=== PATIENT | female | born 1985 | race Caucasian/White ===

== ENCOUNTER → 2017-02-18 | Outpatient (CLI) | payer MEDICAID ==
[~2017-02-18] MED LIST: ALBUTEROL2 PUFFS/17 IN; ALLERGY10 MG PO; APAP/BUTALBITAL1 TA1 PO; CEPHALEXIN250 MG PO; CIPRO 500MG TA500 MG PO; FIORICET 325 MG1 TAB PO; FLEET ENEMA 13135 ML RC; FLEXERIL10 MG PO; FLOVENT 11110 MCG/PU IH; HYDROCODONE1 TABLET PO; KEFLEX250 MG NG; KEFLEX500 MG PO; LAXATIVE5 MG PO; LODINE200 MG PO; LORTAB 5/3251 TAB PO; LORTAB 5/500 501 TAB PO; LORTAB 500 MG-71 TAB PO; LORTAB 7.5/3251 TAB PO; MAPAP PM PO; MEDROL 4MG. DOSE4 MG PO; MELOXICAM15 MG PO; MONTELUKAST SOD10 MG PO; NAPROSYN 500MG500 MG PO; NEURONTIN 300M300 MG PO; PROTONIX 40MG T40 MG PO; SILVADENE CREAM50 GM EX; TESSALON PERLE100 M1 PO; TRAMADOL 50MG T50 MG PO; ULTRAM 50 MG TA50 MG PO; VENTOLIN H0.09 MG/Ac IH; VICODIN 5/500 T1 TAB PO; VOLTAREN75 MG PO; ZITHROMAX Z PA250 MG PO; ZITHROMAX500 MG PO; ZOFRAN4 MG PO; Zithromax500 MG PO
[2017-02-18 12:37] LABS: BUN 12 mg/dL (7-18)
[2017-02-18 12:55] LABS: GFR (ESTIMATED) 97 ML/MIN (59-)
== END ==
LOC: LAB 11:25
PROVIDERS: Internal Medicine Adolescent Medicine
DX: Z00.00 Encounter for general adult medical examination without abnormal findings (principal)

== ENCOUNTER 2017-03-15 20:11 | Emergency (ER) | payer MEDICAID ==
[~2017-03-15] VITALS: Ht 167.6 cm; Wt 65.8 kg
--- OUTSIDE RECORDS SUMMARY | 2017-03-15 20:42 | External Medical Summary Rpt ---
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 Ac 59 -0 -[address] 38 IN ti 10 2- 2- 0 SI 43 EY ve 34 20 20 DE 90 10 10 SC 1 PH CH AR AE MA L CY S OF CY NT HI AN A 00 09 09 0 16 4 EA 19 RU Ac 59 -1 -[address] 10 SH ti 10 3- 3- 00 SI 48 ve 38 20 20 DE NE 50 10 10 IL 1 PH C AR MA CY OF CY NT HI AN A NE 61 08 08 0 10 10 EA 18 NI Ac OM 31 -3 -[address] 94 CH ti YC 40 1- 1- 00 SI 09 OL ve IN 64 20 20 DE S -P 61 10 10 FUNMILAYO OL 0 PH E YM AR A YX MA IN CY -H C OF EA R CY SO NT LN HI AN A 00 08 08 0 12 3 EA 18 RU Ac 59 -2 -[address] 88 SH ti 10 7- 7- 00 SI 73 ve 38 20 20 DE NE 50 10 10 IL 1 PH C AR MA CY OF CY NT HI AN A 00 08 08 0 16 2 EA 18 RU Ac 59 -2 -[address] 85 SH ti 10 5- 5- 00 SI 78 ve 38 20 20 DE NE 50 10 10 IL 1 PH C AR MA CY OF CY NT HI AN A CY 00 08 08 0 24 8 EA 18 NI Ac CL 37 -2 -[address] 80 CH ti OB 80 1- 1- 00 SI 32 OL ve EN 75 20 20 DE S ZA 11 10 10 FUNMILAYO LA 0 PH E IN AR A E MA 10 CY MG OF TA CY BL NT ET HI AN A BU 00 08 08 0 36 5 EA 18 NI Ac TA 59 -2 -[address] 80 CH ti LB 13 1- 1- 00 SI 33 OL ve IT 21 20 20 DE S AL 90 10 10 FUNMILAYO -A 1 PH E SA AR A -C MA AF CY FE IN OF E CA CY P NT HI AN A CL 00 08 08 0 20 7 EA 18 RU Ac IN 59 -0 -[address] 64 SH ti DA 15 9- 9- 00 SI 25 ve MY 70 20 20 DE NE CI 80 10 10 IL N 1 PH C HC AR L MA 15 CY 0 MG OF CA CY PS NT UL HI E AN A 00 08 08 0 18 3 EA 18 RU Ac 59 -0 -[address] 60 SH ti 10 5- 5- 00 SI 55 ve 34 20 20 DE NE 90 10 10 IL 1 PH C AR MA CY OF CY NT HI AN A 00 07 07 0 12 3 EA 18 RU Ac 59 -2 -[address] 49 SH ti 10 7- 7- 00 SI 50 ve 34 20 20 DE NE 90 10 10 IL 1 PH C AR MA CY OF CY NT HI AN A 00 07 07 6. 2 RI 84 No Ac 60 -1 -1 00 TE 21 t ti 33 9- 9- 0 07 Av ve 88 20 20 AI ai 12 10 10 D la 8 PH bl AR e MA CY 03 93 8 # 03 93 BU 00 07 07 24 4 RI 84 NI Ac TA 14 -1 -1 .0 TE 14 CH ti LB 31 3- 3- 00 97 OL ve -A 78 20 20 AI S CE 70 10 10 D FUNMILAYO TA 1 PH E SC AR A N- MA CA CY FF 03 50 93 -3 8 25 # -4 03 0 93 00 06 06 0 12 2 EA 17 RU Ac 59 -1 -[address] 99 SH ti 10 5- 5- 00 SI 80 ve 34 20 20 DE NE 90 10 10 IL 1 PH C AR MA CY OF CY NT HI AN A BU 00 05 05 0 12 2 EA 17 SO Ac TA 59 -1 -[address] 66 KA ti LB 13 9- 9- 00 SI 54 N ve -A 36 20 20 DE BA CE 90 10 10 BA TA 5 PH TU SC AR ND N- MA E CA CY O FF OF 50 -3 CY 25 NT -4 HI 0 AN A LA 45 05 05 3. 4 RI 83 NI Ac OM 80 -1 -1 00 TE 40 CH ti ET 20 6- 6- 0 85 OL ve KIRK 75 20 20 AI S ZI 93 10 10 D FUNMILAYO NE 0 PH E AR A 25 MA CY MG 03 RODRIGUEZ 93 PP 8 OS # IT 03 OR 93 Y HY 00 05 05 0 28 4 EA [address] 16 -1 -[address] 60 CH ti OC 80 4- 4- 50 SI 40 OL ve OR 01 20 20 DE S TI 53 10 10 FUNMILAYO SO 1 PH E NE AR A MA 1% CY CR OF EA M CY NT HI AN A NE 24 04 04 0 10 10 EA 17 NI Ac OM 20 -0 -[address] 11 CH ti YC 80 7- 7- 00 SI 11 OL ve IN 63 20 20 DE S -P 56 10 10 FUNMILAYO OL 2 PH E YM AR A YX MA IN CY -H C OF EA R CY RODRIGUEZ NT SP HI AN A HY 00 03 03 0 28 4 EA [address] 16 -2 -[address] 90 CH ti OC 80 3- 3- 50 SI 46 OL ve OR 01 20 20 DE S TI 53 10 10 FUNMILAYO SO 1 PH E NE AR A MA 1% CY CR OF EA M CY NT HI AN A AZ 00 02 02 0 6. 6 EA 16 GA Ac IT 09 -2 -[address] 55 IN ti HR 37 8- 8- 0 SI 48 EY ve OM 14 20 20 DE YC 61 10 10 SC IN 8 PH CH AR AE 25 MA L 0 CY S MG OF TA BL CY ET NT HI AN A BU 00 02 02 00 12 2 EA 16 SO Ac TA 59 -0 -[address] 29 KA ti LB 13 8- 6- 00 SI 82 N ve -A 36 20 20 DE BA CE 90 10 10 BA TA 5 PH TU SC AR ND N- MA E CA CY O FF OF 50 CY -3 NT 25 HI -4 AN 0 A TR 00 12 12 00 15 2 RI 81 MU Ac AM 09 -1 -3 .0 TE 30 LL ti AD 30 3- 1- 00 02 IN ve OL 05 20 20 AI S 80 09 09 D FUNMILAYO HC 1 PH HN L AR M 50 M #3 MG 93 8 TA BL ET CE 00 12 12 00 30 10 RI 81 NI Ac PH 14 -0 -1 .0 TE 18 CH ti AL 39 5- 7- 00 25 OL ve EX 89 20 20 AI S IN 70 09 09 D FUNMILAYO 1 PH E 50 AR A 0 M MG #3 93 CA 8 PS UL E MU 00 11 12 00 22 20 RI 80 NI Ac PI 09 -1 -0 .0 TE 91 CH ti RO 31 7- 3- 00 46 OL ve CI 01 20 20 AI S N 04 09 09 D FUNMILAYO 2% 2 PH E AR A OI M NT #3 ME 93 NT 8 IN 00 10 11 00 30 10 RI 80 NI Ac DO 37 -1 -0 .0 TE 47 CH ti ME 80 9- 5- 00 99 OL ve TH 14 20 20 AI S AC 70 09 09 D FUNMILAYO IN 1 PH E AR A 50 M #3 MG 93 8 CA PS UL E 65 10 10 00 24 8 RI 80 NI Ac 16 -0 -2 .0 TE 27 CH ti 20 5- 2- 00 27 OL ve 51 20 20 AI S 81 09 09 D FUNMILAYO 0 PH E AR A M #3 93 8 00 10 10 00 12 2 RI 80 NI Ac 40 -1 -2 .0 TE 38 CH ti 60 2- 2- 00 21 OL ve 35 20 20 AI S 70 09 09 D FUNMILAYO 5 PH E AR A M #3 93 8 FU 00 09 10 00 24 24 RI 80 NI Ac RO 37 -2 -0 .0 TE 17 CH ti SE 80 8- 8- 00 49 OL ve SC 21 20 20 AI S DE 61 09 09 D FUNMILAYO 0 PH E 40 AR A M MG #3 93 TA 8 BL ET LA 00 09 09 00 30 30 RI 79 NI Ac ED 60 -1 -2 .0 TE 95 CH ti NI 35 2- 4- 00 97 OL ve SO 33 20 20 AI S NE 73 09 09 D FUNMILAYO 5 2 PH E AR A MG M #3 TA 93 BL 8 ET 00 08 09 00 12 2 RI 79 NI Ac 40 -2 -1 .0 TE 69 CH ti 60 4- 0- 00 27 OL ve 35 20 20 AI S 70 09 09 D FUNMILAYO 5 PH E AR A M #3 93 8 CY 00 08 08 00 24 8 RI 79 NI Ac CL 37 -1 -2 .0 TE 62 CH ti OB 80 9- 7- 00 45 OL ve EN 75 20 20 AI S ZA 10 09 09 D FUNMILAYO LA 1 PH E IN AR A E M 10 #3 93 MG 8 TA BL ET 00 08 08 00 10 2 EA 13 RU Ac 59 -1 -[address] 88 SH ti 10 7- 7- 00 SI 45 ve 34 20 20 DE NE 90 09 09 IL 1 PH C AR MA CY OF CY NT HI AN A 00 08 08 00 12 2 RI 79 NI Ac 40 -1 -2 .0 TE 62 CH ti 60 9- 7- 00 47 OL ve 35 20 20 AI S 70 09 09 D FUNMILAYO 5 PH E AR A M #3 93 8 00 08 08 00 10 3 EA 13 RU Ac 59 -1 -[address] 79 SH ti 10 0- 7- 00 SI 52 ve 34 20 20 DE NE 90 09 09 IL 1 PH C AR MA CY OF CY NT HI AN A 00 07 08 00 12 3 EA 13 KIRK Ac 59 -2 -[address] 62 MO ti 10 5- 3- 00 SI 01 N ve 34 20 20 DE AN [address] 1 PH EW AR R MA CY OF CY NT HI AN A 00 07 07 00 10 3 RI 79 FL Ac 40 -1 -3 .0 TE 15 AN ti 60 2- 0- 00 11 AG ve 35 20 20 AI AN 80 09 09 D 1 PH JA AR ME M S #3 P 93 8 00 07 07 00 4. 1 RI 79 SO Ac 40 -1 -3 00 TE 21 KA ti 60 6- 0- 0 48 N ve 35 20 20 AI BA 70 09 09 D BA 5 PH TU AR ND M E #3 O 93 8 IN 00 07 07 00 30 10 RI 79 NI Ac DO 37 -1 -3 .0 TE 19 CH ti ME 80 5- 0- 00 93 OL ve TH 14 20 20 AI S AC 70 09 09 D FUNMILAYO IN 1 PH E AR A 50 M #3 MG 93 8 CA PS UL E 00 07 07 00 12 2 RI 79 NI Ac 40 -1 -3 .0 TE 23 CH ti 60 7- 0- 00 16 OL ve 35 20 20 AI S 70 09 09 D FUNMILAYO 5 PH E AR A M #3 93 8 CY 00 07 07 00 24 8 RI 79 NI Ac CL 37 -0 -1 .0 TE 09 CH ti OB 80 7- 6- 00 02 OL ve EN 75 20 20 AI S ZA 10 09 09 D FUNMILAYO LA 1 PH E IN AR A E M 10 #3 93 MG 8 TA BL ET 00 06 07 00 12 2 EA 13 SO Ac 59 -1 -[address] 15 KA ti 10 6- 2- 00 SI 91 N ve 38 20 20 DE BA 50 09 09 BA 1 PH TU AR ND MA E CY O OF CY NT HI AN A CY 00 06 07 00 24 8 RI 78 NI Ac CL 37 -2 -0 .0 TE 96 CH ti OB 80 6- 2- 00 62 OL ve EN 75 20 20 AI S ZA 10 09 09 D FUNMILAYO LA 1 PH E IN AR A E M 10 #3 93 MG 8 TA BL ET 60 06 07 00 12 4 RI 78 NI Ac 25 -1 -0 0. TE 82 CH ti 80 5- 2- 00 86 OL ve 23 20 20 0 AI S 91 09 09 D FUNMILAYO 6 PH E AR A M #3 93 8 00 06 07 00 12 2 RI 78 NI Ac 40 -1 -0 .0 TE 89 CH ti 60 9- 2- 00 11 OL ve 35 20 20 AI S 80 09 09 D FUNMILAYO 1 PH E AR A M #3 93 8 00 06 06 00 18 3 RI 78 NI Ac 40 -1 -1 .0 TE 80 CH ti 60 2- 8- 00 65 OL ve 35 20 20 AI S 70 09 09 D FUNMILAYO 5 PH E AR A M #3 93 8 CE 00 06 06 00 30 10 RI 78 NI Ac PH 14 -0 -1 .0 TE 71 CH ti AL 39 5- 8- 00 47 OL ve EX 89 20 20 AI S IN 70 09 09 D FUNMILAYO 1 PH E 50 AR A 0 M MG #3 93 CA 8 PS UL E 00 05 06 00 18 3 RI 78 NI Ac 40 -2 -0 .0 TE 52 CH ti 60 2- 4- 00 24 OL ve 35 20 20 AI S 70 09 09 D FUNMILAYO 5 PH E AR A M #3 93 8 CY 00 05 06 00 24 8 RI 78 NI Ac CL 37 -2 -0 .0 TE 52 CH ti OB 80 2- 4- 00 22 OL ve EN 75 20 20 AI S ZA 10 09 09 D FUNMILAYO LA 1 PH E IN AR A E M 10 #3 93 MG 8 TA BL ET LA 00 05 06 00 6. 30 RI 78 NI Ac OV 08 -1 -0 70 TE 48 CH ti EN 51 9- 4- 0 41 OL ve TI 13 20 20 AI S L 20 09 09 D FUNMILAYO HF 1 PH E A AR A 90 M #3 MC 93 G 8 IN KIRK LE R AM 65 05 05 00 30 10 RI 78 NI Ac OX 86 -0 -2 .0 TE 34 CH ti IC 20 9- 1- 00 99 OL ve IL 01 20 20 AI S LI 70 09 09 D FUNMILAYO N 5 PH E 50 AR A 0 M MG #3 93 CA 8 PS UL E RODRIGUEZ 61 04 05 00 15 20 RI 78 NI Ac LF 31 -2 -0 .0 TE 05 CH ti AC 40 0- 7- 00 65 OL ve ET 70 20 20 AI S AM 10 09 09 D FUNMILAYO ID 1 PH E E AR A 10 M % #3 EY [address] OP S CY 00 04 04 00 6. 2 RI 77 SO Ac CL 37 -0 -2 00 TE 91 KA ti OB 80 8- 3- 0 58 N ve EN 75 20 20 AI BA ZA 10 09 09 D BA LA 1 PH TU IN AR ND E M E 10 #3 O 93 MG 8 TA BL ET LA 00 03 04 00 30 30 RI 77 NI Ac ED 60 -2 -0 .0 TE 69 CH ti NI 35 4- 9- 00 29 OL ve SO 33 20 20 AI S NE 73 09 09 D FUNMILAYO 5 2 PH E AR A MG M #3 TA 93 BL 8 ET CI 00 01 02 00 14 7 RI 76 GA Ac LA 17 -2 -1 .0 TE 83 IN ti OF 25 6- 2- 00 35 EY ve LO 31 20 20 AI XA 26 09 09 D SC CI 0 PH CH N AR AE HC M L L #3 S 50 93 0 8 MG TA B ME 00 01 02 00 21 6 RI 76 GA Ac TH 60 -2 -1 .0 TE 83 IN ti YL 34 6- 2- 00 37 EY ve LA 59 20 20 AI ED 31 09 09 D SC NI 5 PH CH SO AR AE LO M L NE #3 S 4 93 8 MG DO SE PK AM 00 11 11 00 30 10 RI 75 NI Ac OX 09 -1 -2 .0 TE 81 CH ti IC 33 4- 0- 00 44 OL ve IL 10 20 20 AI S LI 90 08 08 D FUNMILAYO N 5 PH E 50 AR A 0 M MG #3 93 CA 8 PS UL E 60 11 11 00 12 4 RI 75 NI Ac 25 -1 -2 0. TE 81 CH ti 80 4- 0- 00 45 OL ve 23 20 20 0 AI S 91 08 08 D FUNMILAYO 6 PH E AR A M #3 93 8 AC 00 10 10 00 24 6 RI 75 NI Ac ET 09 -1 -2 .0 TE 33 CH ti AM 30 0- 3- 00 90 OL ve IN 15 20 20 AI S OP 01 08 08 D FUNMILAYO HE 0 PH E N- AR A CO M D #3 #3 93 8 TA BL ET NA 00 10 10 00 30 15 RI 75 GO Ac LA 09 -1 -2 .0 TE 40 BL ti OX 30 2- 3- 00 02 E ve EN 14 20 20 AI RO 90 08 08 D ND 50 1 PH AL 0 AR E MG M #3 TA 93 BL 8 ET 00 09 09 00 20 2 RI 74 AL Ac 40 -0 -1 .0 TE 82 LR ti 60 4- 1- 00 87 AN ve 36 20 20 AI 30 08 08 D JR 1 PH AR CH M AR #3 LE 93 S 8 F CI 00 08 09 00 10 5 RI 74 GA Ac LA 17 -3 -1 .0 TE 77 IN ti OF 25 0- 1- 00 56 EY ve LO 31 20 20 AI XA 26 08 08 D SC CI 0 PH CH N AR AE HC M L L #3 S 50 93 0 8 MG TA B 00 07 07 00 30 8 RI 74 KIRK Ac 40 -1 -1 .0 TE 09 RP ti 60 0- 7- 00 93 EL ve 35 20 20 AI 70 08 08 D GE 5 PH RA AR LD M R #3 93 8 00 04 07 01 40 10 RI 73 KIRK Ac 40 -2 -1 .0 TE 05 RP ti 60 5- 7- 00 60 EL ve 35 20 20 AI 70 08 08 D GE 5 PH RA AR LD M R #3 93 8 00 06 07 00 7. 7 RI 73 KIRK Ac 04 -2 -0 00 TE 90 RP ti 51 6- 3- 0 49 EL ve 52 20 20 AI 55 08 08 D GE 0 PH RA AR LD M R #3 93 8 NI 00 04 05 00 20 10 RI 73 No Ac TR 37 -2 -0 .0 TE 00 t ti OF 83 2- 8- 00 22 Av ve UR 42 20 20 AI ai AN 20 08 08 D la TO 1 PH bl IN AR e M MO #3 NO 93 -M 8 CR 10 0 MG 00 04 05 00 40 10 RI 73 No Ac 40 -2 -0 .0 TE 05 t ti 60 5- 8- 00 60 Av ve 35 20 20 AI ai 70 08 08 D la 5 PH bl AR e M #3 93 8 TE 00 04 04 00 45 7 RI 72 No Ac RC 59 -1 -2 .0 TE 84 t ti ON 13 0- 4- 00 77 Av ve AZ 19 20 20 AI ai OL 68 08 08 D la E 9 PH bl 0. AR e 4% M #3 CR 93 EA 8 M 00 04 04 00 10 3 EA 97 No Ac 78 -1 -[address] 66 t ti 15 8- 4- 00 SI 32 Av ve 25 20 20 DE ai 73 08 08 la 1 PH bl AR e MA CY OF CY NT HI AN A Procedures Procedure DOS Code Location Performer Comment UNCLASSIF [id number] [facility] INC INC COMPREHEN 95207 [facility] SIVE [facility] METABOLIC INC INC PANEL CREATINE 00092 [facility] KINASE MB 7 [facility] [place] [address] [facility] LACTATE [facility] INC INC CREATINE 21310 [facility] KINASE [facility] TOTAL INC INC FIBRIN 32717 [facility] DGRADJ [facility] PRODUCTS INC INC D-DIMER QUAL/SEMI ROSA SIELA ECG 15357 [facility] ROUTINE 7 [facility] INC W/LEAST 12 LDS TRCG ONLY W/O I&[place] [address] [facility] TROPONIN 7 [facility] QUANTITAT INC INC CALVIN GLUC BLD 59909 [facility] GLUC MNTR 7 [facility] DEV INC INC CLEARED FDA SPEC HOME USE BLOOD 97844 [facility] COUNT [facility] COMPLETE INC INC AUTO&AUTO DIFRNTL WBC CULTURE 07199 [facility] BACTERIAL 7 [facility] BLOOD INC INC AEROBIC W/ID ISOLATES ECG 96816 [facility] ROUTINE 7 [facility] W/LEAST P 12 LDS I&R ONLY RADIOLOGI 85471 [facility] C EXAM 7 PHYSICIAN CHEST 2 S, PLLC VIEWS FRONTAL&L ATERAL PATH 54331 [facility] ER JR SURG 1ST BLK FROZEN SCTJ 1 SPEC CYTP 25459 [facility] SLCTV [facility] ER JR CELL ENHANCEME NT INTERPJ XCP[place] C/[place] [address] [facility] SURG [facility] ER JR PATHOLOGY GROSS&DAMIÁN ROSCOPIC EXAM TOTAL 47288 [facility] HARPEL ABDOMINAL 7 PHYSICIAN S GROUP HYSTERECT W/WO RMVL TUBE OVARY ANESTHESI 71069 [facility] 7 ANESTH INTRAPERI OF THE TONEAL BLUE LOWER ABD W/[place] [address] [facility] ER JR PATHOLOGY GROSS&DAMIÁN ROSCOPIC EXAM COLLECTIO 05859 [facility] N VENOUS 6 [facility] BLOOD INC INC VENIPUNCT URE CULTURE 94490 [facility] BACTERIAL 6 [facility] INC INC QUANTTATI VE COLONY COUNT URINE CULTURE 50557 [facility] BCT 6 [facility] ISOL&PRSM INC INC PTV ID ISOLATE EA URINE URNLS DIP 12448 [facility] STICK/TAB INC INC LET REAGENT AUTO MICROSCOP Y GONADOTRO 44263 [facility] PIN [facility] CHORIONIC INC INC QUALITATI VE BLOOD 65857 [facility] COUNT 6 [facility] COMPLETE INC INC AUTO&AUTO DIFRNTL WBC SUSCEPTIB 55617 [facility] LTY STDY 6 [facility] ANTIMICRB INC INC IAL MICRO/AGA R DILUTJ URNLS DIP 04818 [facility] STICK/TAB INC INC LET REAGENT AUTO MICROSCOP Y BLOOD 62081 [facility] COUNT 6 [facility] COMPLETE INC INC AUTO&AUTO DIFRNTL WBC THERAPEUT 27631 [facility] IC 6 [facility] INJECTION INC INC IV PUSH EACH NEW DRUG THER 99479 TIM [facility] PROPH/DX 6 [facility] NJX IV INC INC PUSH SINGLE/1S T SBST/[place] [address] [facility] 6 MEDICAL NAL IMAGING ASS BASIC 17121 [facility] METABOLIC 6 [facility] PANEL INC INC CALCIUM TOTAL URINE 11453 [facility] 6 [facility] TEST INC INC VISUAL COLOR CMPRSN METHS CULTURE 00607 [facility] BACTERIAL 6 [facility] INC INC QUANTTATI VE COLONY COUNT URINE SMR PRIM 22510 [facility] SRC WET 6 [facility] MOUNT INC INC NFCT AGT TISS TAMERA 76414 [facility] SLIDE 6 [facility] SAMPS INC INC SKN/HR/NL S FNGI/ECTO PARASIT IADNA 91184 [facility] CHLAMYDIA 6 [facility] INC INC TRACHOMAT IS AMPLIFIED PROBE TQ IADNA 39122 [facility] NEISSERIA 6 [facility] INC INC GONORRHOE AE AMPLIFIED PROBE TQ IADNA 56620 [facility] ZOHREH NEISSERIA 6 PHYSICIAN S GROUP GONORRHOE AE DIRECT PROBE TQ COLLECTIO 68326 [facility] N VENOUS 6 [facility] BLOOD INC INC VENIPUNCT URE IMMUNOASS 49015 [facility] AY TUMOR 6 [facility] ANTIGEN INC INC QUANTITAT CALVIN URINLS 11485 [facility] HARPEL DIP 6 PHYSICIAN STICK/TAB S GROUP LET REAGNT NON-AUTO MICRSCPY CULTURE 12544 [facility] HARPEL CHLAMYDIA 6 PHYSICIAN ANY S GROUP SOURCE IADNA 26090 BIO BIO NEISSERIA 6 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 GONORRHOE IES IES AE AMPLIFIED PROBE TQ IADNA NOS 38092 BIO BIO 6 REFERNCE REFERNCE AMPLIFIED LABORATOR LABORATOR PROBE TQ IES IES EACH ORGANISM CYTP C/V 69077 BIO BIO AUTO THIN 6 REFERNCE REFERNCE LYR LABORATOR LABORATOR PREPJ SCR IES IES MNL RESCR PHYS IADNA 69595 BIO BIO CHLAMYDIA 6 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 TRACHOMAT IES IES IS AMPLIFIED PROBE TQ IADNA 03777 BIO BIO TRICHOMON 6 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 VAGINALIS IES IES AMPLIFIED PROBE TECH CUL BACT 32284 [facility] XCPT 6 [facility] URINE INC INC [place]LOOD/[place] [address] [facility] STREPTOCO 6 [facility] CCUS INC INC GROUP A COMPREHEN 89529 [facility] SIVE 6 [facility] [place] [address] [facility] D[facility] AMYLASE 6 [facility] INC INC DRUG TST G0477 [facility] PRESUMP;C [facility] PBL BEING [place] [address] [facility] LIPASE 6 [facility] INC INC CULTURE 10930 [facility] BACTERIAL 6 [facility] INC INC QUANTTATI VE COLONY COUNT URINE GONADOTRO 18719 [facility] PIN 6 [facility] CHORIONIC INC INC QUALITATI VE BLOOD 08454 [facility] COUNT 6 [facility] COMPLETE INC INC AUTO&AUTO DIFRNTL WBC THERAPEUT 48649 [facility] IC [facility] INJECTION [place] [address] LUZMARIA COBURN ALL ABDOMEN & 6 MEDICAL PELVIS IMAGING [place] [address] [facility] INFUSION 6 [facility] THERAPY/P INC INC ROPHYLAXI S /DX 1ST TO 1 HR RADIOLOGI 99950 [facility] COBURN ALL C 6 MEDICAL EXAMINATI IMAGING ON ANKLE ASS 2 VIEWS KNEE L1830 [facility] ORTHOSIS 6 TECHNOLOG TECHNOLOG IMMOBLIZE IES INC IES INC R CANVAS LONGTUDNL PREFAB RADIOLOGI 94663 LUZMARIA COBURN ALL C 6 MEDICAL EXAMINATI IMAGING ON KNEE ASS 1/[address] [place] [address] [facility] CO[facility]URN ALL HEAD/BRAI 6 MEDICAL N W/O IMAGING CONTRAST ASS MATERIAL OPHTH 10577 SCIFRES SCIFRES MEDICAL 6 ANG ANG XM&EVAL COMPRHNSV ESTAB PT 1/> TOBACCO 44604 SCIFRES SCIFRES USE 6 ANG ANG CESSATION INTERMEDI ATE 3-10 MINUTES RADEX 56007 [facility] RIBS UNI [facility] W/POSTERO INC INC ANT CH MINIMUM 3 VIEWS CRTCHS E0114 [facility] UNDARM 5 TECHNOLOG TECHNOLOG OTH THAN IES INC IES INC WOOD PAIR PAD TIP&HNDGR IP RADEX 79204 [place] ROMMEL FOOT 5 MEDICAL COSTA COMPLETE IMAGING MINIMUM 3 ASS VIEWS RADEX 40615 [place] ROMMEL ANKLE 5 MEDICAL COSTA COMPLETE IMAGING MINIMUM 3 ASS VIEWS OPHTH 80279 SCIFRES SCIFRES MEDICAL 5 ANG ANG XM&EVAL COMPRHNSV ESTAB PT 1/> RADIOLOGI 48561 [facility] VA[facility] RAD[facility] C EXAM 5 MEDICAL CHEST 2 IMAGING VIEWS ASS FRONTAL&L ATERAL THERAPEUT 40604 [facility] IC PX 1/> 5 [facility] AREAS INC INC EACH 15 MIN EXERCISES APPLICATI 68871 [facility] ON 5 [facility] MODALITY INC INC 1/> AREAS HOT/COLD PACKS APPL 53842 [facility] MODALITY 5 [facility] 1/> AREAS INC INC ELEC STIMJ UNATTENDE D PHYSICAL 77465 [facility] THERAPY 5 [facility] EVALUATIO INC INC N RADEX 11830 [facility] ROMMEL SHOULDER 5 MEDICAL COSTA COMPLETE IMAGING MINIMUM 2 ASS VIEWS SHOULDER L3650 [facility] ADVANCED ORTHOSIS 5 TECHNOLOG TECHNOLOG FIG 8 IES INC IES INC ABDUCT RESTRAINE R PREFAB RADEX 76834 [facility] ROMMEL SHOULDER 5 MEDICAL COSTA COMPLETE IMAGING MINIMUM 2 ASS VIEWS OPHTH 23831 SCIFRES SCIFRES MEDICAL 4 ANG ANG XM&EVAL COMPRHNSV ESTAB PT 1/> CUL BACT 23336 COMBINED COMBINED XCPT 4 PHYSICIAN PHYSICIAN URINE S LA S LA BLOOD/STO OL AEROBIC ISOL IAADIADOO 67743 [place] [facility] 4 [facility] STREPT[facility] INTERNAL CCUS MED [facility] A RADIOLOGI 79777 ROMMEL ROMMEL C 4 [facility] EXAMINATI ON KNEE 3 VIEWS RADEX 22511 ROMM[facility] ROMMEL FOOT 4 [facility]STA COMPLETE MINIMUM 3 VIEWS RADEX 00573 [facility] ROMMEL ANKLE 4 [facility]STA COMPLETE MINIMUM 3 VIEWS RADEX 41737 [facility] ELBOW 2 MED[facility] COMPLETE IMAGING MINIMUM 3 ASS VIEWS APPLICATI 35587 [facility] ON LONG 2 [facility] ARM INC INC SPLINT SHOULDER HAND SLINGS [id number] [facility]. 2 ECG 78337 VICKY VICKY ROUTINE 2 DAMIÁN DAMIÁN ECG W/LEAST 12 LDS I&R ONLY GROUND A0425 [facility] MILEAGE 2 AMBULANCE AMBULANCE PER SERVICE SERVICE STATUTE MILE URINE 35000 [facility] 2 [facility] TEST INC INC VISUAL COLOR CMPRSN METHS AMB A0427 [facility] SERVICE 2 AMBULANCE AMBULANCE ALS SERVICE SERVICE EMERGENCY TRANSPORT LEVEL 1 CREATINE 43897 [facility] KINASE 2 [facility] TOTAL INC INC ECG 44766 [facility] ROUTINE 2 [facility] ECG INC INC W/LEAST 12 LDS TRCG ONLY W/O I&R URNLS DIP 87191 [facility] STICK/TAB INC INC [place] [address] [facility] TROPONIN 2 [facility] QUANTITAT INC INC CALVIN BLOOD 70062 [facility] COUNT 2 [facility] COMPLETE INC INC AUTO&AUTO DIFRNTL WBC RHYTHM 66310 [facility] ECG 1-3 2 [facility] LEADS INC INC TRACING ONLY W/O I&R RADIOLOGI 56484 LUZMARIA CARNEY C EXAM 2 [facility] CHEST 2 IMAGING VIEWS ASS FRONTAL&L ATERAL COMPREHEN 17847 [facility] SIVE 2 [facility] METABOLIC INC INC PANEL CREATINE 30135 [facility] KINASE MB 2 [facility] FRACTION INC INC ONLY URINE 95661 [facility] 2 [facility] TEST INC INC V[place] [address] [facility] THYROXINE 2 [facility] TOTAL INC INC CULTURE 11457 [facility] BACTERIAL 2 [facility] INC INC QUANTTATI VE COLONY COUNT URINE CULTURE 17996 [facility] BCT 2 [facility] ISOL&PRSM INC INC PTV ID ISOLATE EA URINE URNLS DIP 24452 [facility] STICK/TAB INC INC LET REAGENT AUTO MICROSCOP Y SUSCEPTIB 08846 [facility] LTY STDY 2 [facility] ANTIMICRB INC INC IAL MICRO/AGA R DILUTJ RADEX ABD 59399 LUZMARIA CARNEY COMPL 2 [facility] AQT ABD IMAGING W/S/E/D ASS VIEWS 1 VIEW CH URNLS DIP 04732 [facility] STICK/TAB INC INC LET REAGENT AUTO MICROSCOP Y SUSCEPTIB 34753 [facility] LTY STDY 1 [facility] ANTIMICRB INC INC IAL MICRO/AGA R DILUTJ CUL BACT 12296 [facility] AEROBIC 1 [facility] ADDL INC INC METHS DEFINITIV E EA ISOL CULTURE 93696 [facility] BACTERIAL 1 [facility] INC INC QUANTTATI VE COLONY COUNT URINE CUL BACT 08623 [facility] XCPT 1 [facility] URINE INC INC BLOOD/[place] [address] [facility] STREPTOCO 1 [facility] CCUS INC INC GROUP A RADEX 54379 [facility] AHUJAROMMEL CLAVICLE 1 [facility] COMPLETE IMAGING ASS RADEX 04189 [facility] NASAL 1 [facility] BONES IMAGING COMPLETE ASS MINIMUM 3 VIEWS RADEX 06581 [facility] FOOT 1 [facility] COMPLETE INC INC MINIMUM 3 VIEWS OPHTH 54290 ESTEPHANIA FARZANEH MEDICAL 1 VISION ANG XM&EVAL COMPRHNSV ESTAB PT 1/> RADIOLOGI 33194 [place] MINO C 0 ORTHOPEDI MAT EXAMINATI C & HAND ON KNEE 3 S VIEWS PRESSURIZ 71672 [facility] ED/NONPRE 0 [facility] SSURIZED INC INC INHALATIO N TREATMENT RADIOLOGI 03184 LUZMARIA AHUJAUTCHER C EXAM 0 [facility] CHEST 2 IMAGING VIEWS ASS FRONTAL&L ATERAL IAADI 39356 [facility] INFLUENZA 0 [facility] B VIRUS INC INC IAADI 80719 [facility] INFFLUENZ 0 [facility] A A VIRUS INC INC RADEX 80877 [facility] ELBOW 0 [facility] COMPLETE INC INC MINIMUM 3 VIEWS RADEX 75479 LUZMARIA ROMMEL, ANKLE 0 MEDICAL MARYAM COMPLETE IMAGING MINIMUM 3 ASSOCIATE VIEWS S RADEX 08589 [facility] ROMMEL, SPINE 0 MEDICAL MARYAM LUMBOSACR IMAGING AL ASSOCIATE MINIMUM 4 S VIEWS RADEX 95948 [facility] ROMMEL, HAND 0 MEDICAL MARYAM MINIMUM 3 IMAGING VIEWS ASSOCIATE S CREATINE 51086 [facility] KINASE MB 0 [facility] FRACTION INC INC ONLY ECG 72727 [facility] ROUTINE 0 [facility] ECG INC INC W/LEAST 12 LDS TRCG ONLY W/O I&[place] [address] [facility] TROPONIN 0 [facility] QUANTITAT INC INC CALVIN CREATINE 97044 [facility] KINASE 0 [facility] TOTAL INC INC FIBRIN 32717 [facility] DGRADJ 0 [facility] PRODUCTS INC INC D-DIMER QUAL/SEMI ROSA ISELA BLOOD 31980 [facility] COUNT 0 [facility] COMPLETE INC INC AUTO&AUTO DIFRNTL WBC RADIOLOGI 34964 [facility] JAI, C 0 MEDICAL EDY P EXAMINATI IMAGING ON CHEST ASSOCIATE SINGLE S VIEW FRONTAL BASIC 89748 [facility] METABOLIC 0 [facility] PANEL INC INC CALCIUM TOTAL ECG 35533 TIM LISA, ROUTINE 0 [facility] W/LEAST PROF SERV 12 LDS I&R ONLY RHYTHM 44765 [facility] ECG 1-3 0 [facility] LEADS INC INC TRACING ONLY W/O I&R RADEX 71088 [facility] JAI, WRIST 0 MEDICAL EDY P COMPLETE IMAGING MINIMUM 3 ASSOCIATE VIEWS S OPHTH 15460 ESTEPHANIA TRAVIS, MEDICAL 0 VISION JESSIE M XM&EVAL COMPRHNSV ESTAB PT 1/> RADIOLOGI 01690 [facility] C 9 [facility] EXAMINATI INC INC ON KNEE 3 VIEWS RADEX 75085 TIM CARRILLOON HAND 9 [facility] MINIMUM 3 INC INC VIEWS RADEX 85825 [facility] WRIST 9 [facility] COMPLETE INC INC MINIMUM 3 VIEWS MANUAL 40122 [facility] THERAPY 9 [facility] TQS 1/> INC INC REGIONS EACH 15 MINUTES THERAPEUT 12679 [facility] IC PX 1/> 9 [facility] AREAS INC INC EACH 15 MIN EXERCISES PHYSICAL 26210 [facility] THERAPY 9 [facility] EVALUATIO INC INC N RADEX 26800 LUZMARIA JAI, ANKLE 9 MEDICAL EDY P COMPLETE IMAGING MINIMUM 3 ASSOCIATE VIEWS S RADEX 70617 LUZMARIA ROMMEL, SPINE 9 MEDICAL MARYAM LUMBOSACR IMAGING AL ASSOCIATE MINIMUM 4 S VIEWS RADEX 97783 [facility] SPINE 9 [facility] THORACIC INC INC 3 [place] [address] [facility] INFUSION 9 [facility] THERAPY/P INC INC ROPHYLAXI S /DX 1ST TO 1 HR URNLS DIP 13627 [facility] 9 [facility] STICK/TAB INC INC LET REAGENT AUTO MICROSCOP Y CULTURE 69588 [facility] BCT 9 [facility] ISOL&PRSM INC INC PTV ID ISOLATE EA URINE SUSCEPTIB 03066 [facility] LTY STDY 9 [facility] ANTIMICRB INC INC IAL MICRO/AGA R DILUTJ RADIOLOGI 71362 [facility] C EXAM 9 [facility] CHEST 2 INC INC VIEWS FRONTAL&L ATERAL URINE 58685 TIM TIM 9 [facility] TEST INC INC VISUAL COLOR CMPRSN METHS CULTURE 58821 [facility] BACTERIAL 9 [facility] INC INC QUANTTATI VE COLONY COUNT URINE URINE 07443 DARIO MCCARTHY, 9 SHARI Cooper TEST VISUAL COLOR CMPRSN METHS RADIOLOGI 89234 LUZMARIA ROMMEL, C 9 MEDICAL MARYAM EXAMINATI IMAGING ON KNEE 3 ASSOCIATE VIEWS S URINE 53182 TIM TIM 9 [facility] TEST INC INC VISUAL COLOR CMPRSN METHS URINE 88648 [facility]/CO TIM 9 [facility] VISUAL BANK ACCT COLOR CMPRSN METHS GROUND A0425 [facility] MILEAGE 9 AMBULANCE AMBULANCE PER SERVICE SERVICE STATUTE MILE AMBULANCE A0429 [facility] SERVICE 9 AMBULANCE AMBULANCE BLS SERVICE SERVICE EMERGENCY TRANSPORT RADEX 45023 [facility] ANKLE 9 [facility] COMPLETE INC INC MINIMUM 3 VIEWS RADEX 32733 [facility] ANKLE 8 [facility] COMPLETE INC INC MINIMUM 3 VIEWS RADEX 40344 LUZMARIA ROMMEL, FOOT 8 MEDICAL MARYAM COMPLETE IMAGING MINIMUM 3 ASSOCIATE VIEWS S RADEX 48327 LUZMARIA JAI, WRIST 8 MEDICAL EDY P COMPLETE IMAGING MINIMUM 3 [place] [address] [facility] LIPASE 8 [facility] INC INC COMPREHEN 96708 [facility] SIVE 8 [facility] [address] [facility] AMYLASE 8 [facility] INC INC BLOOD 02979 [facility] COUNT 8 [facility] COMPLETE INC INC AUTO&AUTO DIFRNTL WBC GROUND A0425 [facility] AMBULANCE PER SERVICE SERVICE STATUTE MILE URNLS DIP 18904 [facility] 8 [facility] STICK/TAB INC INC LET REAGENT AUTO MICROSCOP Y SUSCEPTIB 11948 [facility] LTY STDY 8 [facility] ANTIMICRB INC INC IAL MICRO/AGA R DILUTJ CULTURE 82538 [facility] BCT 8 [facility] ISOL&PRSM INC INC PTV ID ISOLATE EA URINE CULTURE 58248 [facility] BACTERIAL 8 [facility] INC INC QUANTTATI VE COLONY COUNT URINE AMB A0422 JUAN JOSÉ CAN OXYGEN&O2 8 AMBULANCE AMBULANCE SUPPLIES SERVICE SERVICE LIFE SUSTAININ G SITUATION AMB A0427 JUAN JOSÉ [facility] SERVICE 8 AMBULANCE AMBULANCE ALS SERVICE SERVICE EMERGENCY TRANSPORT LEVEL 1 COMPREHEN 53768 [facility] SIVE 8 [facility] METABOLIC INC INC PANEL BLOOD 76191 [facility] COUNT 8 [facility] COMPLETE INC INC AUTO&AUTO DIFRNTL WBC URINE 05894 [facility] 8 [facility] TEST INC INC VISUAL COLOR CMPRSN METHS LAPAROSCO 5123 [facility] D[facility] PIC 8 [facility] CHOLECYST INC INC ECTOMY LAPAROSCO 63467 [facility] PY SURG 8 [facility] CHOLECYST INC INC ECTOMY THER 26803 [facility] PROPH/DX 8 [facility] NJX EA INC INC SEQL IV PUSH SBST/DRUG IV NFUS 11266 [facility] THER 8 [facility] PROPH/DX [place]FS 63597 [facility] THER 8 [facility] PROPH/DX INC INC 1ST >1 HR ANES 87704 [facility]ITY USMAN, INTRAPERI 8 ANESTH CHANELL A TONEAL OF THE UPPER [place] ABDOMEN W/LAPS NOS LEVEL III 86186 PATHOLOGY PATHOLOGY SURG 8 & & PATHOLOGY CYTOLOGY CYTOLOGY LAB LAB GROSS&DAMIÁN ROSCOPIC EXAM BLOOD 45717 [facility] COUNT 8 [facility] COMPLETE INC INC AUTO&AUTO DIFRNTL WBC COMPREHEN 04493 [facility] SIVE 8 [facility] METABOLIC INC INC PANEL GONADOTRO 96438 [facility] PIN 8 [facility] CHORIONIC INC INC QUALITATI VE CYTP 31075 [facility] [place], CERV/VAG 8 [place] INC HOLLEY D AUTO THIN LAYER PREP MNL SCREEN RADEX 63877 [place] ROMMEL, ANKLE 8 MEDICAL MARYAM COMPLETE IMAGING MINIMUM 3 ASSOCIATE VIEWS S BLOOD 57610 [facility] COUNT 8 [facility] COMPLETE INC INC AUTO&AUTO DIFRNTL WBC COMPREHEN 17169 [facility] SIVE 8 [facility] [place] [address] [facility] D[facility] ABDOMEN 8 [facility] [place] [address] [facility] D[facility] ABDOMINAL 8 [facility] REAL INC INC TIME W/IMAGE LIMITED CT PELVIS 08394 [facility] W/CONTRAS INC INC T MATERIAL 3D 86542 [place] JAI, RENDERING 8 MEDICAL EDY P IMAGING W/INTERP& ASSOCIATE POSTPROC S DIFF WORK STATION HEPATITIS 57285 TIM Goodman SURF 8 [facility] ANTIBODY INC INC HBSAB ACUTE 15171 [facility] HEPATITIS 8 [facility] PANEL INC INC CUL BACT 58078 [facility] XCPT 8 [facility] URINE INC INC BLOOD/STO OL AEROBIC ISOL CUL BACT 49295 [facility] AEROBIC 8 [facility] ADDL INC INC METHS DEFINITIV E EA ISOL BLOOD 62776 [facility] COUNT 8 [facility] COMPLETE INC INC AUTO&AUTO DIFRNTL WBC SUSCEPTIB 25206 [facility] LTY STDY 8 [facility] ANTIMICRB INC INC IAL MICRO/AGA R DILUTJ HEPATITIS 46629 [facility] A 8 [facility] ANTIBODY INC INC HAAB COMPREHEN 24581 [facility] SIVE 8 [facility] METABOLIC INC INC PANEL HEPATITIS 01180 [facility] B CORE 8 [facility] ANTIBODY INC INC HBCAB TOTAL BLOOD 82093 DARIO MCCARTHY, COUNT 8 SHARI Cooper HEMOGLOBI N ANESTHESI 83651 [facility] HARVEY 8 ANESTH ERICA Jeffrey OF THE DELIVERY [place] ONLY 86370 DARIO MCCARTHY, DELIVERY 8 SHARI FLOWER W/[place] [address] PATHOLOGY PATHOLOGY SURG 8 & & PATHOLOGY CYTOLOGY CYTOLOGY LAB LAB GROSS&DAMIÁN ROSCOPIC EXAM 18520 DARIO MCCARTHY, BIOPHYSIC 8 SHARI Cooper AL PROFILE NON-STRES S TESTING OTH 6639 TIM TIM BILATERAL 8 [facility] INC INC DESTRUC/O CCLUSION FALLOPIAN TUBES LOW 741 TIM TIM CERVICAL 8 [facility] INC INC SECTION OBSERVATI 18969 DARIO MCCARTHY, ON/INPATI 8 SHARI Cooper [facility] C[facility] 55 MINUTES 90289 TIM CARRILLOON MONITORIN 8 [facility] G LABOR INC INC PHYS WRITTEN REPORT URNLS DIP 13060 [facility] 8 [facility] STICK/TAB INC INC LET REAGENT [place] MICROSCOP Y 23782 WOMEN'S PRAJAPATI, NONSTRESS 8 [facility] CULTURE 70298 [facility] BACTERIAL 8 [facility] INC INC QUANTTATI VE COLONY COUNT URINE BLOOD 62692 [facility] COUNT 8 [facility] COMPLETE INC INC AUTO&AUTO DIFRNTL WBC HEPATIC 14367 TIM TIM FUNCTION 8 [facility] [place] [address] TIMMAURO D[facility] AMYLASE 8 [place] [address] TIM TIM LIPASE 8 [facility] INC INC 74034 [facility] D[facility] NONSTRESS 8 [facility] TEST INC INC RADIOLOGI 80559 [place] Grace CARNEY 8 MEDICAL MARYAM EXAMINATI IMAGING ON CHEST ASSOCIATE SINGLE S VIEW FRONTAL OPHTH 62699 CHERISE LUONG, [facility] 8 ELLEN A ELLEN A XM&EVAL COMPRE NEW PT 1/> VST 44170 TIM CARRILLOON NONSTRESS 8 [facility] TEST INC INC OBSERVATI 37392 DARIO MCCARTHY, ON CARE 8 SHARI Cooper DISCHARGE MANAGEMEN T INITIAL 28472 ALLRAN ALLRAN INPATIENT 8 JR, JR, CONSULT RANDAL LOPEZ/ROS PT 80 MIN NONINVASI 74097 [facility] VE 8 [facility] EAR/PULSE INC INC OXIMETRY MULTIPLE DETER BASIC 13466 [facility] METABOLIC 8 [facility] PANEL INC [facility] G0378 [facility] D[facility] OBSERVATI 8 [facility] ON INC INC [facility] G0378 [facility] OBSERVATI 8 [facility] ON INC INC SERVICE PER HOUR BLOOD 71215 [facility] COUNT 8 [facility] COMPLETE INC INC AUTO&AUTO DIFRNTL WBC INITIAL 79359 REECE TONYATI 8 SHARI Cooper ON CARE/DAY 70 MINUTES URNLS DIP 46376 [facility] 8 [facility] STICK/TAB INC INC LET REAGENT AUTO MICROSCOP Y 52039 TIM TIM NONSTRESS 8 [facility] TEST INC INC CULTURE 47915 [facility] BACTERIAL 8 [facility] INC INC QUANTTATI VE COLONY COUNT URINE GLUC BLD 67060 TIM CARRILLOON GLUC MNTR 8 [facility] DEV INC INC CLEARED FDA SPEC HOME USE [place] PREG 10295 DARIO MCCARTHY, UTERUS 8 SHARI Cooper [place] [address] ZANEANDREYErnesto JAI, 8 MEDICAL EDY Bee UTERUS IMAGING LIMITED ASSOCIATE 1/> S FETUSES 37228 [facility] NONSTRESS 8 [facility] TEST INC INC 19633 [facility] D[facility] NONSTRESS 8 [facility] TEST INC INC FTL 48965 [facility] FIBRONECT 8 [facility] IN INC INC CERVICOVA G SECRETION S SEMI-ROSA ISELA NONINVASI 51223 [facility] VE 8 [facility] EAR/PULSE INC INC OXIMETRY SINGLE DETER URNLS DIP 81208 [facility] 8 [facility] STICK/TAB INC INC LET REAGENT AUTO MICROSCOP Y OBSERVATI 60795 DARIO MCCARTHY, ON/INPATI 8 SHARI Cooper [facility] CARE 55 MINUTES GLUCOSE 83221 [facility] POST 8 [facility] GLUCOSE INC INC DOSE BLOOD 11069 [facility] COUNT 8 [facility] COMPLETE INC INC AUTO&AUTO DIFRNTL WBC SMR PRIM 68188 DARIO MCCARTHY, SRC WET 8 SHARI Cooper [facility] NFCT AGT CULTURE 60261 [facility] BACTERIAL 8 [facility] INC INC QUANTTATI VE COLONY COUNT URINE 60155 [facility] NONSTRESS 8 [facility] TEST INC INC URNLS DIP 73424 [facility] 8 [facility] STICK/TAB INC INC LET REAGENT AUTO MICROSCOP Y 95055 TIM TIM NONSTRESS 8 [facility] TEST INC INC FTL 60800 [facility] FIBRONECT 8 [facility] IN INC INC CERVICOVA G SECRETION S SEMI-ROSA ISELA [place] PREG 15586 DARIO MCCARTHY, UTERUS 8 SHARI Cooper AFTER TRIMEST GESTATION GROUND A0425 [facility] MILEAGE 8 AMBULANCE AMBULANCE PER SERVICE SERVICE STATUTE MILE AMB A0427 JUAN JOSÉ [facility] SERVICE 8 AMBULANCE AMBULANCE ALS SERVICE SERVICE EMERGENCY TRANSPORT LEVEL 1 AMB A0422 JUAN JOSÉ CAN OXYGEN&O2 8 AMBULANCE AMBULANCE SUPPLIES SERVICE SERVICE LIFE SUSTAININ G SITUATION 01859 TIM CARRILLOON NONSTRESS 8 [facility] TEST INC INC FTL 95487 TIM TIM FIBRONECT 8 [facility] IN INC INC CERVICOVA G SECRETION S SEMI-ROSA ISELA AMBULANCE A0429 JUAN JOSÉ [facility] SERVICE 8 AMBULANCE AMBULANCE BLS SERVICE SERVICE EMERGENCY TRANSPORT FTL 70555 TIM TIM FIBRONECT 8 [facility] IN INC INC CERVICOVA G SECRETION S SEMI-ROSA ISELA GROUND A0425 JUAN JOSÉ [facility] MILEAGE 8 AMBULANCE AMBULANCE [place] [address] [facility] THER 8 [facility] PROPH/DX INC INC 1ST >1 HR GROUND A0425 [facility] MILEAGE 8 AMBULANCE AMBULANCE PER SERVICE SERVICE STATUTE MILE AMB A0427 JUAN JOSÉ [facility] SERVICE 8 AMBULANCE AMBULANCE ALS SERVICE SERVICE EMERGENCY TRANSPORT LEVEL 1 US PREG 22956 DARIO MCCARTHY, UTERUS 8 SHARI Cooper AFTER 1ST [place] [address] [facility] ESTRIOL 8 [facility] INC INC ALPHA-FET 59071 [facility] OPROTEIN 8 [facility] SERUM INC INC Encounters Encounter Start End Date Code Location Performer Type Date OFFICE 65925 [facility] OUT[facility] 7 7 [facility] T VISIT INTERNAL 10 MED MINUTES OFFICE 88318 [facility] HARPEL OUTPATIEN 7 7 PHYSICIAN T VISIT S GROUP 15 MINUTES HOSPITAL TIM - 7 7 [facility]PAT[facility] INC T EMERGENCY 51945 TIM 7 7 [facility]IGH/URGE NT SEVERITY HOSPITAL TIM - 7 7 [facility] TIM - 6 6 [facility] OUTPATIEN INC T OFFICE 71293 [facility] HARPEL OUTPATIEN 6 6 PHYSICIAN T VISIT S GROUP 15 MINUTES OFFICE 01859 [facility] HARPEL OUTPATIEN 6 6 PHYSICIAN T VISIT S GROUP 25 MINUTES OFFICE 50988 [facility] STONE OUTPATIEN 6 6 PHYSICIAN T VISIT S GROUP 15 MINUTES HOSPITAL TIM - 6 6 [facility] OUTPATIEN INC T EMERGENCY 44254 [facility] DIAZ DEPT 6 6 PHYSICIAN VISIT S, PLLC HIGH SEVERITY& THREAT FUNCJ EMERGENCY 57459 TIM 6 6 [facility] T VISIT MODERATE SEVERITY HOSPITAL TIM - 6 6 [facility] T INITIAL 28051 [facility] PREVENTIV 6 6 PHYSICIAN E S GROUP MEDICINE NEW PT AGE 18-39YRS EMERGENCY 04418 CAMACHO EASLEY 6 6 PHYSICIAN U [facility] S, [facility] T VISIT MODERATE SEVERITY EMERGENCY 31272 TIM 6 6 [facility] T VISIT LIMITED/M INOR PROB HOSPITAL TIM - 6 6 [facility] 38837 CAMACHO EASLEY DEPT 6 6 PHYSICIAN U NICO[facility] TIM - 6 6 [facility] OUTPATIEN INC T EMERGENCY 20617 TIM 6 6 [facility] DEPARTMEN INC T VISIT MODERATE SEVERITY EMERGENCY 11634 [facility] PERRY 6 6 PHYSICIAN DAMIÁN DEPARTMEN S, [facility] T VISIT HIGH/URGE NT SEVERITY HOSPITAL TIM - 5 5 [facility] OUTPATIEN INC T EMERGENCY 13915 CAMACHO EASLEY 5 5 PHYSICIAN U NICOLE DEPARTMEN S, [facility] T VISIT HIGH/URGE NT SEVERITY EMERGENCY 42898 TIM 5 5 [facility] T VISIT LIMITED/M INOR PROB OFFICE 64702 TIM MEDRANO OUTPATIEN [address] [facility] VISIT HOSPITAL 15 MINUTES EMERGENCY 07159 CAMACHO Sesay 5 5 PHYSICIAN DEPARTMEN S, [facility] T VISIT MODERATE SEVERITY HOSPITAL TIM - 5 5 [facility] OUTPATIEN INC HOSPITAL TIM - 5 5 [facility] OUTPATIEN INC T OFFICE 03470 [facility] PETTEY OUTPATIEN 5 5 PHYSICIAN JAM T NEW 10 S GROUP MINUTES HOSPITAL TIM - 5 5 [facility] OUTPATIEN INC T OFFICE 42770 [facility] VICKY OUTPATIEN 5 5 PHYSICIAN DAMIÁN T VISIT S GROUP 15 MINUTES OFFICE 16649 [facility] VICKY OUTPATIEN 5 5 PHYSICIAN DAMIÁN T VISIT S GROUP 15 MINUTES OFFICE 59727 TIM FLORES OUTPATIEN 5 5 [facility] VISIT HOSPITAL 15 MINUTES OFFICE 54335 [facility] VICKY OUTPATIEN 5 5 PHYSICIAN DAMIÁN T VISIT S GROUP 15 MINUTES OFFICE 92549 [facility] OUTPATIEN 4 4 [facility] MIRANDA T VISIT INTERNAL 15 MED MINUTES EMERGENCY 20558 [facility] 4 4 [facility] DEPARTMEN T VISIT HIGH/URGE NT SEVERITY OFFICE 26124 [facility] OUTPATIEN 4 4 PHYSICIAN T VISIT S GROUP 10 MINUTES EMERGENCY 44172 VICK[facility] PERRY 2 2 DAMIÁN DAMIÁN DEPARTMEN T VISIT HIGH/URGE NT SEVERITY OFFICE 80535 [facility] OUTPATIEN 2 2 MIRANDA MIRANDA T VISIT 15 MINUTES EMERGENCY 88688 VICK[facility] PERRY 2 2 DAMIÁN DAMIÁN DEPARTMEN T VISIT HIGH/URGE NT SEVERITY HOSPITAL TIM - 2 2 [facility] OUTPATIEN INC T EMERGENCY 73453 TIM 2 2 [facility] DEPARTMEN INC T VISIT LOW/MODER SEVERITY EMERGENCY 33553 TIM 2 2 [facility] DEPARTMEN INC T VISIT MODERATE SEVERITY EMERGENCY 02548 VICK[facility] PERRY DEPT 2 2 DAMIÁN DAMIÁN VISIT HIGH SEVERITY& THREAT [facility] TIM - 2 2 [facility] OUTPATIEN INC T OFFICE 28524 B[facility]ON BESSON OUTPATIEN 2 2 MIRANDA MIRANDA T VISIT 15 MINUTES EMERGENCY 96201 TREE PERRY 2 2 EMERGENCY [facility] DEPARTMEN SERVICES T VISIT HIGH/URGE NT SEVERITY EMERGENCY 15978 TIM 2 2 [facility] DEPARTMEN INC T VISIT MODERATE SEVERITY HOSPITAL TIM - 2 2 [facility] OUTPATIEN INC T OFFICE 96741 B[facility]ON BESSON OUTPATIEN 2 2 MIRANDA MIRANDA T VISIT 15 MINUTES OFFICE 25014 MARK FLORES OUTPATIEN 2 2 JR RADHA JR RADHA T VISIT 15 MINUTES OFFICE 53948 TEJINDER MARR OUTPATIEN 2 2 NAN NAN T VISIT 15 MINUTES OFFICE 27693 MCKEMIE MCKEMIE OUTPATIEN 2 2 JR RADHA GARCIA T VISIT 15 MINUTES OFFICE 19028 EVARISTO EVARISTO OUTPATIEN 2 2 RITA SALINAS T VISIT 15 MINUTES OFFICE 19471 EVARISTO EVARISTO OUTPATIEN 1 1 RITA SALINAS T VISIT 15 MINUTES HOSPITAL TIM - 1 1 [facility] OUTPATIEN INC T OFFICE 63536 ESTEPHANIA LUONG CRISS OUTPATIEN 1 1 [facility] T VISIT 10 MINUTES OFFICE 93288 [place] TEJINDER OUTPATIEN 1 1 ESSEX MIRIAM T VISIT INTERNAL 15 MEDI MINUTES OFFICE 35581 [facility] MCKEMIE OUTPATIEN 1 1 ESSEX JR GARCIA T VISIT INTERNAL 15 MED MINUTES HOSPITAL TIM - 1 1 [facility] OUTPATIEN INC T HOSPITAL TIM - 1 1 [facility] OUTPATIEN INC T OFFICE 00848 [facility] OUTPATIEN 1 1 ESSEX MIRANDA T VISIT INTERNAL 15 MED MINUTES OFFICE 44966 [facility] EVARISTO OUTPATIEN 1 1 ESSEX RITA T VISIT INTERNAL 15 MEDI MINUTES OFFICE 04856 [facility] EVARISTO OUTPATIEN 1 1 ESSEX RITA T VISIT INTERNAL 15 MEDI MINUTES OFFICE 11929 [place] TEJINDER OUTPATIEN 1 1 ESSEX MIRIAM T VISIT INTERNAL 15 MEDI MINUTES OFFICE 10586 [facility] [facility] OUTPATIEN 1 1 ESSEX MIRANDA T VISIT INTERNAL 15 MED MINUTES OFFICE 88133 [place] MCKEMIE OUTPATIEN 1 1 ESSEX JR GARCIA T VISIT INTERNAL 25 MED MINUTES OFFICE 97988 [facility] [facility] OUTPATIEN 1 1 ESSEX MIRANDA T VISIT INTERNAL 15 MED MINUTES HOSPITAL TIM - 1 1 [facility] OUTPATIEN INC T [facility]OSPITAL TIM - 1 1 [facility]PATI[facility] INC T OFFICE 46986 SABRINA LOERA OUTPATIEN 1 1 [facility] SALINAS [facility] 20 INTERNAL MINUTES MEDI OFFICE 74260 NITIN KO 0 0 DARCY DARCY T VISIT 15 MINUTES OFFICE 33930 NITIN KO 0 0 DARCY DARCY T VISIT 15 MINUTES OFFICE 08428 [facility] [place] 0 0 ORTHOPEDI MAT T NEW 30 C & HAND MINUTES S OFFICE 67245 NITIN WALLPATIDAVID 0 0 DARCY DARCY T VISIT 15 MINUTES EMERGENCY 69954 TIM 0 0 [facility] T VISIT MODERATE SEVERITY HOSPITAL TIM - 0 0 [facility] INC T EMERGENCY 18627 TREE WILSON 0 0 EMERGENCY III [facility] DEPARTMEN SERVICES T VISIT HIGH/URGE NT SEVERITY EMERGENCY 84907 TREE PERRY 0 0 EMERGENCY [facility] DEPARTMEN SERVICES T VISIT MODERATE SEVERITY HOSPITAL TIM - 0 0 [facility] INC T EMERGENCY 12267 TIM 0 0 [facility] INC T VISIT LOW/MODER SEVERITY OFFICE 15775 NITIN WALLPATIDAVID 0 0 DARCY DARCY T VISIT 15 MINUTES OFFICE 17139 NITIN TAVERAS OUTPATIEN 0 0 DARCY A DARCY A T VISIT 15 MINUTES EMERGENCY 62703 TIM 0 0 [facility] T VISIT MODERATE SEVERITY HOSPITAL TIM - 0 0 [facility] INC T OFFICE 21614 NITIN TAVERAS OUTPATIEN 0 0 DARCY A DARCY A T VISIT 15 MINUTES EMERGENCY 22378 TIM 0 0 [facility] DEPART[facility] INC T VISIT MODERATE SEVERITY HOSPITAL TIM - 0 0 [facility] T OFF[facility] 65436 NITIN TAVERAS OUTPATIEN 0 0 DARCY A DARCY A T VISIT 15 MINUTES HOSPITAL TIM - 0 0 [facility] T EMERGENCY 70085 TREE PERRY, 0 0 EMERGENCY [facility] SERVICES T VISIT HIGH/URGE ASSOCIATE NT S SEVERITY EMERGENCY 61752 TIM 0 0 [facility] T VISIT LOW/MODER SEVERITY EMERGENCY 67728 TIM 0 0 [facility] T VISIT LOW/MODER SEVERITY EMERGENCY 95092 TREE WILSON 0 0 EMERGENCY [facility] T VISIT MODERATE ASSOCIATE SEVERITY S HOSPITAL TIM - 0 0 [facility] OFF[facility] 52866 NITIN TAVERAS OUTPATIEN 0 0 DARCY A DARCY A T VISIT 15 MINUTES EMERGENCY 55408 TIM [facility] T VISIT LIMITED/M INOR PROB HOSPITAL TIM - 0 0 [facility] T EMERGENCY 53683 TREE LOYA, 0 0 EMERGENCY [facility] SERVICES T VISIT HIGH/URGE ASSOCIATE NT S SEVERITY OFFICE 89008 NITIN TAVERAS OUTPATIEN 0 0 DARCY A DARCY A T VISIT 15 MINUTES OFFICE 13407 NITIN TAVERAS OUTPATIEN 0 0 DARCY A DARCY A T VISIT 15 MINUTES EMERGENCY 26947 TIM 0 0 [facility] VISIT MODERATE SEVERITY [facility]OSPITAL TIM - 0 0 [facility] OUT[facility] INC T EMERGENCY 63304 TREE PERRY, DEPT 0 0 EMERGENCY [facility] VISIT SERVICES HIGH SEVERITY& ASSOCIATE THREAT S [facility] EMERGENCY 77645 TREE RAO, 0 0 EMERGENCY [facility] DEPARTMEN SERVICES O T VISIT HIGH/URGE ASSOCIATE NT S SEVERITY HOSPITAL TIM - 0 0 [facility] OUT[facility] INC T EMERGENCY 64088 TIM 0 0 [facility] DEPART[facility] INC T VISIT MODERATE SEVERITY EMERGENCY 54263 TIM 9 9 [facility] DE[facility] INC T VISIT LOW/MODER SEVERITY HOSPITAL TIM - 9 9 [facility] OUT[facility] INC T EMERGENCY 96075 TREE LAURENT, 9 9 EMERGENCY [facility] DEPARTMEN SERVICES T VISIT MODERATE ASSOCIATE SEVERITY S OFFICE 57454 NITIN TAVERAS OUTPATIEN 9 9 DARCY A DARCY A T VISIT 15 MINUTES OFFICE 20888 NITIN TAVERAS OUTPATIEN 9 9 DARCY A DARCY A T VISIT 15 MINUTES EMERGENCY 42352 TIM 9 9 [facility] DEPARTMEN INC T VISIT LIMITED/M INOR PROB EMERGENCY 66363 TREE PERRY, 9 9 EMERGENCY [facility] DEPARTMEN SERVICES T VISIT MODERATE ASSOCIATE SEVERITY S HOSPITAL TIM - 9 9 [facility] OUTPAT[facility] INC T EMERGENCY 74462 TREE PERRY, 9 9 EMERGENCY [facility] DEPARTMEN SERVICES T VISIT HIGH/URGE ASSOCIATE NT S SEVERITY [facility] - [facility] 9 [facility] T OFFICE 50090 NITIN TAVERAS OUTPATIEN 9 9 DARCY A DARCY A T VISIT 15 MINUTES EMERGENCY 17236 TIM 9 9 [facility] T VISIT LOW/MODER SEVERITY [facility] TIM - 9 9 [facility] T EMERGENCY 52199 TREE PERRY, 9 9 EMERGENCY LIVIER S DEPARTMEN SERVICES T VISIT MODERATE ASSOCIATE SEVERITY S EMERGENCY 10356 TIM 9 9 [facility] DEPART[facility] T VISIT LOW/MODER SEVERITY [facility]PITAL TIM - 9 9 [facility] T EMERGENCY 23113 TREE PERRY, 9 9 EMERGENCY L[facility] S DEPARTMEN SERVICES T VISIT HIGH/URGE ASSOCIATE NT S SEVERITY OFFICE 25782 NITIN TAVERAS OUTPATIEN 9 9 DARCY A DARCY A T VISIT 15 MINUTES EMERGENCY 28560 TREE RAO, 9 9 EMERGENCY TORRES DEPARTMEN SERVICES O T VISIT MODERATE ASSOCIATE SEVERITY S OFFICE 44526 NITIN TAVERAS OUTPATIEN 9 9 DARCY A DARCY A T VISIT 15 MINUTES OFFICE 36947 NITIN TAVERAS OUTPATIEN 9 9 DARCY A DARCY A T VISIT 15 MINUTES OFFICE 13121 NITIN T[facility]ERAS OUTPATIEN 9 9 DARCY A DARCY A T VISIT 15 MINUTES HOSPITAL TIM - 9 9 [facility] T EMERGENCY 77719 TIM 9 9 [facility] DEPARTMEN INC T VISIT LIMITED/M INOR PROB EMERGENCY 14054 TREE HINTON, 9 9 EMERGENCY [place] R DEPARTMEN SERVICES T VISIT MODERATE ASSOCIATE SEVERITY S EMERGENCY 59330 TIM 9 9 [facility] INC T VISIT LOW/MODER SEVERITY EMERGENCY 92306 TREE HARRIS, 9 9 EMERGENCY TORSTEN P DEPARTMEN SERVICES T VISIT MODERATE ASSOCIATE SEVERITY S HOSPITAL TIM - 9 9 [facility] T EMERGENCY 61921 TIM 9 9 [facility] DEPART[facility] INC T VISIT LOW/MODER SEVERITY [facility]OSPITAL TIM - 9 9 [facility] INC T EMERGENCY 83965 TREE RAO, 9 9 EMERGENCY T[facility] DEPARTMEN SERVICES O T VISIT MODERATE ASSOCIATE SEVERITY S EMERGENCY 25507 TIM 9 9 [facility] V[facility]/M INOR PROB EMERGENCY 90617 TREE RAO, 9 9 EMERGENCY [facility] DEPARTMEN SERVICES O T VISIT HIGH/URGE ASSOCIATE NT S SEVERITY HOSPITAL TIM - 9 9 [facility] T OFFICE 39443 NITIN TAVERAS OUTPATIEN 9 9 DARCY A DARCY A T VISIT 15 MINUTES OFFICE 23310 NITIN TAVERAS OUTPATIEN 9 9 DARCY A DARCY A T VISIT 15 MINUTES HOSPITAL TIM - 9 9 [facility] INC T [facility]OSPITAL TIM - 9 9 [facility] INC T EMERGENCY 91886 TIM 9 9 [facility] LOW/MODER SEVERITY EMERGENCY 66243 TREE HARRIS, 9 9 EMERGENCY TORSTEN DEPARTMEN SERVICES T VISIT MODERATE ASSOCIATE SEVERITY S OFFICE 42509 NITIN TAVERAS OUTPATIEN 9 9 DARCY A DARCY A T VISIT 15 MINUTES HOSPITAL TIM - 9 9 [facility] INC T OFFICE 22324 NITIN TAVERAS OUTPATIEN 9 9 DARCY A DARCY A T VISIT 15 MINUTES OFFICE 44143 NITIN TAVERAS OUTPATIEN 9 9 DARCY A DARCY A T VISIT 15 MINUTES OFFICE 30176 NITIN TAVERAS OUTPATIEN 9 9 DARCY A DARCY A T VISIT 15 MINUTES OFFICE 50151 NITIN TAVERAS OUTPATIEN 9 9 DARCY A DARCY A T VISIT 15 MINUTES EMERGENCY 08354 TREE RAO, 9 9 EMERGENCY [facility] DEPARTMEN SERVICES O T VISIT HIGH/URGE ASSOCIATE NT S SEVERITY EMERGENCY 92774 TIM 9 9 [facility] DEPARTMEN INC T VISIT MODERATE SEVERITY [facility]OSPITAL TIM - 9 9 [facility] T EMERGENCY 86515 TREE PERRY, 9 9 [facility] HIGH/URGE ASSOCIATE NT S SEVERITY OFFICE 97982 NITIN TAVERAS OUTPATIEN 9 9 DARCY A DARCY A T VISIT 15 MINUTES EMERGENCY 40576 TIM 9 9 [facility] DEPARTMEN INC T VISIT LIMITED/M INOR PROB [facility]OSPITAL TIM - 9 9 [facility] T EMERGENCY 00367 TIM 9 9 [facility] DE[facility] INC T VISIT LOW/MODER SEVERITY [facility]OSPITAL TIM - 9 9 [facility] INC T EMERGENCY 37473 TREE PERRY, 9 9 [facility]ISIT HIGH/URGE ASSOCIATE NT S SEVERITY OFFICE 48136 NITIN TAVERAS OUTPATIEN 9 9 DARCY A DARCY A T VISIT 15 MINUTES OFFICE 07966 NITIN TAVERAS OUTPATIEN 9 9 DARCY A DARCY A T VISIT 15 MINUTES OFFICE 84565 STEFANI TONY 9 9 SHARI Cooper T VISIT 25 MINUTES EMERGENCY 95403 TREE RAO, 9 9 EMERGENCY [facility] DEPARTMEN SERVICES O T VISIT HIGH/URGE ASSOCIATE NT S SEVERITY EMERGENCY 20890 TIM 9 9 [facility] INC T VISIT LIMITED/M INOR PROB [facility]OSPITAL TIM - 9 9 [facility] T OFFICE 34067 NITIN TAVERAS OUTPATIEN 9 9 DARCY Morales T VISIT 15 MINUTES HOSPITAL TIM - 9 9 [facility] INC T EMERGENCY 73277 SATISH PERRY, 9 9 [facility] T VISIT ON MODERATE SEVERITY EMERGENCY 07436 TIM 9 9 [facility]IT MODERATE SEVERITY [facility] TIM - 9 9 [facility]IEN INC T OFFICE 66220 DHS/CO TIM STEFANI 9 9 [facility] T VISIT [facility] 15 BANK ACCT MINUTES HOSPITAL TIM - 9 9 [facility] INC T EMERGENCY 30154 SATISH PERRY, 9 9 [facility] T VISIT ON HIGH/URGE NT SEVERITY EMERGENCY 26051 TIM 9 9 [facility] LOW/MODER SEVERITY [facility]PITAL TIM - 9 9 [facility] INC T EMERGENCY 38987 TIM 9 9 [facility] DEPARTMEN INC T VISIT LOW/MODER SEVERITY EMERGENCY 60961 SATISH PERRY, 9 9 [facility] ON MODERATE SEVERITY EMERGENCY 81402 TIM 8 8 [facility]ISIT LOW/MODER SEVERITY EMERGENCY 50133 SATISH JAMES, 8 8 [facility] T VISIT ON MODERATE SEVERITY [facility]OSP[facility] TIM - 8 8 [facility] INC T [facility] TIM - 8 8 [facility] T OFFICE 30825 NITIN TAVERAS OUTPATIEN 8 8 DARCY A DARCY A T VISIT 15 MINUTES EMERGENCY 31043 TIM 8 8 [facility] DEPARTMEN INC T VISIT LOW/MODER SEVERITY [facility]OSPITAL TIM - 8 8 [facility] T EMERGENCY 78359 TIM 8 8 [facility] DEPARTMEN INC T VISIT LOW/MODER SEVERITY [facility] TIM - 8 8 [facility] T EMERGENCY 35855 SATISH HADDAD, 8 8 [facility] T VISIT ON MODERATE SEVERITY [facility]OSPITAL TIM - 8 8 [facility] T EMERGENCY 47576 SATISH HADDAD 8 8 [facility] T VISIT ON MODERATE SEVERITY [facility] TIM - 8 8 [facility] T OFFICE 28587 NITIN TAVERAS OUTPATIEN 8 8 DARCY A DARCY A T VISIT 15 MINUTES OFFICE 72381 NITIN TAVERAS OUTPATIEN 8 8 DARCY A DARCY A T VISIT 15 MINUTES HOSPITAL TIM - 8 8 [facility] INC T EMERGENCY 55756 TIM 8 8 [facility] DEPARTMEN INC T VISIT MODERATE SEVERITY [facility]OSP[facility] TIM - 8 8 [facility] T [facility] TIM - 8 8 [facility] T [facility] TIM - 8 8 [facility] T [facility] TIM - 8 8 [facility] INC T EMERGENCY 66061 TIM 8 8 [facility] DEPARTMEN INC T VISIT LOW/MODER SEVERITY [facility]OSPITAL TIM - 8 8 [facility] T EMERGENCY 62663 COVARRUBIAS LIZZIE, [address] [facility] T VISIT ON MODERATE SEVERITY EMERGENCY 69987 SATISH ERIKA, 8 8 [facility] T VISIT ON MODERATE SEVERITY EMERGENCY 04986 TIM 8 8 [facility] DEPARTMEN INC T VISIT LOW/MODER SEVERITY HOSPITAL ITM - 8 8 [facility] T [facility] TIM - 8 8 [facility] T OFFICE 89237 ALLRAN ALLRAN OUTPATIEN 8 8 [facility] T VISIT RANDAL Jeffrey 25 MINUTES HOSPITAL TIM - 8 8 [facility] T OFFICE 84509 ALLRAN ALLRAN OUTPATIEN 8 8 [facility] T VISIT RANDAL Jeffrey 25 MINUTES HOSPITAL TIM - 8 8 [facility] T OFFICE 28054 STEFANI TONY 8 8 SHARI Cooper T VISIT 15 MINUTES HOSPITAL TIM - 8 8 [facility] INPATIENT INC OFFICE 96239 STEFANI TONY 8 8 SHARI Cooper T VISIT 15 MINUTES HOSPITAL TIM - 8 8 [facility] T [facility] TIM - 8 8 [facility] T OFFICE 57606 STEFANI TONY 8 8 SHARI Cooper T VISIT 15 MINUTES OFFICE 78689 STEFANI TONY 8 8 HARPEL MD DARIO R T VISIT 15 MINUTES HOSPITAL TIM - 8 8 [facility] INC T [facility]OSPITAL TIM - 8 8 [facility] TIM - 8 8 [facility] INC T [facility]OSP[facility] TIM - 8 8 [facility] INC T OFFICE 41175 DUKE TONYPATIDAVID 8 8 SHARI Cooper T VISIT 15 MINUTES HOSPITAL TIM [facility] 8 8 [facility]PATI[facility] ON LICENSE OF [facility] TIM - 8 8 [facility] ON LICENSE OF [facility] TIM - 8 8 [facility] INC T OFFICE 60853 STEFANI TONY 8 8 SHARI Cooper T VISIT 15 MINUTES HOSPITAL TIM - 8 8 [facility] INC T OFFICE 31584 STEFANI TONY 8 8 SHARI Cooper T VISIT 15 MINUTES HOSPITAL TIM - 8 8 [facility] INC T [facility]OSPITAL TIM - 8 8 [facility] INC T OFFICE 11009 STEFANI TONY 8 8 SHARI Cooper T VISIT 15 MINUTES HOSPITAL TIM - 8 8 [facility] INC T OFFICE 58596 STEFANI TONY 8 8 SHARI Cooper T VISIT 15 MINUTES HOSPITAL TIM - 8 8 [facility] T OFFICE 45288 STEFANI TONY 8 8 SHARI Cooper T VISIT 15 MINUTES OFFICE 43136 STEFANI TONY 8 8 SHARI Brown VISIT 15 MINUTES HOSPITAL TIM - 8 8 [facility] INC T EMERGENCY 81561 TIM ANASTACIO, 8 8 [facility] [place] T VISIT PROF SERV LOW/MODER SEVERITY OFFICE 18715 STEFANI TONY 8 8 SHARI Brown VISIT 15 MINUTES HOSPITAL TIM - 8 8 [facility] OUT[facility] INC T EMERGENCY 00492 TIM LIZZIE, 8 8 [facility] T VISIT PROF SERV LOW/MODER SEVERITY HOSPITAL TIM - 8 8 [facility] OUT[facility] INC T OFFICE 85096 STEFANI TONY 8 8 SHARI Brown VISIT 15 MINUTES
--- OUTSIDE RECORDS SUMMARY | 2017-03-15 20:42 | External Medical Summary Rpt ---
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 MINIMUM 3 ASS VIEWS RADEX 67573 [facility] ROMMEL ANKLE 5 MEDICAL COSTA COMPLETE IMAGING MINIMUM 3 ASS VIEWS OPHTH 03579 SCIFRES SCIFRES MEDICAL 5 ANG ANG XM&EVAL COMPRHNSV ESTAB PT 1/> RADIOLOGI 22745 [facility] BRUNSWICKErnesto VAZQUEZ RADHA C EXAM 5 MEDICAL CHEST 2 IMAGING VIEWS ASS FRONTAL&L ATERAL THERAPEUT 64936 [facility] IC PX 1/> 5 [facility] AREAS INC INC EACH 15 MIN EXERCISES APPLICATI 40467 [facility] ON 5 [facility] MODALITY INC INC 1/> AREAS HOT/COLD PACKS APPL 66668 [facility] MODALITY 5 [facility] 1/> AREAS INC INC ELEC STIMJ UNATTENDE D PHYSICAL 14556 [facility] THERAPY 5 [facility] EVALUATIO INC INC N RADEX 72587 [facility] ROMMEL SHOULDER 5 MEDICAL [facility] COMPLETE IMAGING MINIMUM 2 ASS VIEWS SHOULDER L3650 [facility]ED ADVANC[facility] ORTHOSIS 5 TECHNOLOG TECHNOLOG FIG 8 IES INC IES INC ABDUCT RESTRAINE R PREFAB RADEX 83838 [facility] SHOULDER 5 MEDICAL [facility] COMPLETE IMAGING MINIMUM 2 ASS VIEWS OPHTH 10726 SCIFRES SCIFRES MEDICAL 4 ANG ANG XM&EVAL COMPRHNSV ESTAB PT 1/> CUL BACT 77321 COMBINED COMBINED XCPT 4 PHYSICIAN PHYSICIAN URINE S LA S LA BLOOD/STO OL AEROBIC ISOL IAADIADOO 53268 [facility] [facility]ON 4 [facility] MIRANDA STREPTOCO INTERNAL CCUS MED GROUP A RADIOLOGI 33348 ROMMEL ROMMEL C 4 [facility] EXAMINATI ON KNEE 3 VIEWS RADEX 86116 ROMMEL ROMMEL FOOT 4 [facility] COMPLETE MINIMUM 3 VIEWS RADEX 49921 ROMMEL ROMMEL ANKLE 4 [facility] COMPLETE MINIMUM 3 VIEWS RADEX 17673 [facility] ROMMEL ELBOW 2 MEDICAL [facility] COMPLETE IMAGING MINIMUM 3 ASS VIEWS APPLICATI 77813 [facility] ON LONG 2 [facility] ARM INC INC SPLINT SHOULDER HAND SLINGS A4565 [facility].P. WENCESLAO L.P. 2 ECG 44887 VICKY VICKY ROUTINE 2 DAMIÁN DAMIÁN ECG W/LEAST 12 LDS I&R ONLY GROUND A0425 [facility] MILEAGE 2 AMBULANCE AMBULANCE PER SERVICE SERVICE STATUTE MILE URINE 67894 [facility] 2 [facility] TEST INC INC VISUAL COLOR CMPRSN METHS AMB A0427 [facility] SERVICE 2 AMBULANCE AMBULANCE ALS SERVICE SERVICE EMERGENCY TRANSPORT LEVEL 1 CREATINE 72904 [facility] KINASE 2 [facility] TOTAL INC INC ECG 54387 [facility] ROUTINE 2 [facility] ECG INC INC W/LEAST 12 LDS TRCG ONLY W/O I&R URNLS DIP 27198 [facility] 2 [facility] STICK/TAB INC INC [place] [address] [facility] TROPONIN 2 [facility] QUANTITAT INC INC CALVIN BLOOD 05538 [facility] COUNT 2 [facility] COMPLETE INC INC AUTO&AUTO DIFRNTL WBC RHYTHM 26003 [facility] ECG 1-3 2 [facility] LEADS INC INC TRACING ONLY W/O I&R RADIOLOGI 83478 LUZMARIA CARNEY C EXAM 2 MEDICAL [facility] CHEST 2 IMAGING VIEWS ASS FRONTAL&L ATERAL COMPREHEN 49829 [facility] SIVE 2 [facility] METABOLIC INC INC PANEL CREATINE 70611 [facility] KINASE MB 2 [facility] FRACTION INC INC ONLY URINE 04557 [facility] 2 [facility] TEST INC INC [place] [address] [facility] D[facility] THYROXINE 2 [facility] TOTAL INC INC CULTURE 36105 [facility] BACTERIAL 2 [facility] INC INC QUANTTATI VE COLONY COUNT URINE CULTURE 45200 [facility] BCT 2 [facility] ISOL&PRSM INC INC PTV ID ISOLATE EA URINE URNLS DIP 01310 [facility] 2 [facility] STICK/TAB INC INC LET REAGENT AUTO MICROSCOP Y SUSCEPTIB 44620 [facility] LTY STDY 2 [facility] ANTIMICRB INC INC IAL MICRO/AGA R DILUTJ RADEX ABD 53924 LUZMARIA CARNEY COMPL 2 MEDICAL [facility]STA AQT ABD IMAGING W/S/E/D ASS VIEWS 1 VIEW CH URNLS DIP 43827 [facility] 1 [facility] STICK/TAB INC INC LET REAGENT AUTO MICROSCOP Y SUSCEPTIB 32518 [facility] LTY STDY 1 [facility] ANTIMICRB INC INC IAL MICRO/AGA R DILUTJ CUL BACT 18536 [facility] AEROBIC 1 [facility] ADDL INC INC METHS DEFINITIV E EA ISOL CULTURE 36335 [facility] BACTERIAL 1 [facility] INC INC QUANTTATI VE COLONY COUNT URINE CUL BACT 57341 [facility] XCPT 1 [facility] URINE INC INC BLOOD/[place] [address] [facility] STREPTOCO 1 [facility] CCUS INC INC GROUP A RADEX 12961 [facility] AHUJAROMMEL CLAVICLE 1 [facility] COMPLETE IMAGING ASS RADEX 09657 [facility] ROMMEL NASAL 1 MED[facility] BONES IMAGING COMPLETE ASS MINIMUM 3 VIEWS RADEX 00504 [facility] FOOT 1 [facility] COMPLETE INC INC MINIMUM 3 VIEWS OPHTH 56932 ESTEPHANIA FARZANEH MEDICAL 1 VISION ANG XM&EVAL COMPRHNSV ESTAB PT 1/> RADIOLOGI 77797 [facility] MINO C 0 ORTHOPEDI MAT EXAMINATI C & HAND ON KNEE 3 S VIEWS PRESSURIZ 44898 [facility] ED/NONPRE 0 [facility] SSURIZED INC INC INHALATIO N TREATMENT RADIOLOGI 73541 LUZMARIA AHUJAUTCHER C EXAM 0 [facility] CHEST 2 IMAGING VIEWS ASS FRONTAL&L ATERAL IAADI 05752 [facility] INFLUENZA 0 [facility] B VIRUS INC INC IAADI 77797 [facility] INFFLUENZ 0 [facility] A A VIRUS INC INC RADEX 63833 [facility] ELBOW 0 [facility] COMPLETE INC INC MINIMUM 3 VIEWS RADEX 94269 LUZMARIA ROMMEL, ANKLE 0 MEDICAL MARYAM COMPLETE IMAGING MINIMUM 3 ASSOCIATE VIEWS S RADEX 80755 [facility] ROMMEL, SPINE 0 MEDICAL MARYAM LUMBOSACR IMAGING AL ASSOCIATE MINIMUM 4 S VIEWS RADEX 38412 [facility] ROMMEL, HAND 0 MEDICAL MARYAM MINIMUM 3 IMAGING VIEWS ASSOCIATE S CREATINE 98255 [facility] KINASE MB 0 [facility] FRACTION INC INC ONLY ECG 28169 [facility] ROUTINE 0 [facility] ECG INC INC W/LEAST 12 LDS TRCG ONLY W/O I&[place] [address] [facility] TROPONIN 0 [facility] QUANTITAT INC INC CALVIN CREATINE 86663 [facility] KINASE 0 [facility] TOTAL INC INC FIBRIN 88818 [facility] DGRADJ 0 [facility] PRODUCTS INC INC D-DIMER QUAL/SEMI ROSA ISELA BLOOD 52038 [facility] COUNT 0 [facility] COMPLETE INC INC AUTO&AUTO DIFRNTL WBC RADIOLOGI 83331 [facility] JAI, C 0 MEDICAL EDY P EXAMINATI IMAGING ON CHEST ASSOCIATE SINGLE S VIEW FRONTAL BASIC 50514 [facility] METABOLIC 0 [facility] PANEL INC INC CALCIUM TOTAL ECG 30845 TIM LISA, ROUTINE 0 [facility] W/LEAST PROF SERV 12 LDS I&R ONLY RHYTHM 00382 [facility] ECG 1-3 0 [facility] LEADS INC INC TRACING ONLY W/O I&R RADEX 56847 [facility] JAI, WRIST 0 MEDICAL EDY P COMPLETE IMAGING MINIMUM 3 ASSOCIATE VIEWS S OPHTH 12475 ESTEPHANIA TRAVIS, MEDICAL 0 VISION JESSIE M XM&EVAL COMPRHNSV ESTAB PT 1/> RADIOLOGI 09110 [facility] C 9 [facility] EXAMINATI INC INC ON KNEE 3 VIEWS RADEX 39647 TIM CARRILLOON HAND 9 [facility] MINIMUM 3 INC INC VIEWS RADEX 23859 [facility] WRIST 9 [facility] COMPLETE INC INC MINIMUM 3 VIEWS MANUAL 55259 [facility] THERAPY 9 [facility] TQS 1/> INC INC REGIONS EACH 15 MINUTES THERAPEUT 28585 [facility] IC PX 1/> 9 [facility] AREAS INC INC EACH 15 MIN EXERCISES PHYSICAL 67657 [facility] THERAPY 9 [facility] EVALUATIO INC INC N RADEX 45383 LUZMARIA JAI, ANKLE 9 MEDICAL EDY P COMPLETE IMAGING MINIMUM 3 ASSOCIATE VIEWS S RADEX 42856 LUZMARIA ROMMEL, SPINE 9 MEDICAL MARYAM LUMBOSACR IMAGING AL ASSOCIATE MINIMUM 4 S VIEWS RADEX 90923 [facility] SPINE 9 [facility] THORACIC INC INC 3 [place] [address] [facility] INFUSION 9 [facility] THERAPY/P INC INC ROPHYLAXI S /DX 1ST TO 1 HR URNLS DIP 78709 [facility] 9 [facility] STICK/TAB INC INC LET REAGENT AUTO MICROSCOP Y CULTURE 17638 [facility] BCT 9 [facility] ISOL&PRSM INC INC PTV ID ISOLATE EA URINE SUSCEPTIB 71101 [facility] LTY STDY 9 [facility] ANTIMICRB INC INC IAL MICRO/AGA R DILUTJ RADIOLOGI 05337 [facility] C EXAM 9 [facility] CHEST 2 INC INC VIEWS FRONTAL&L ATERAL URINE 77633 TIM TIM 9 [facility] TEST INC INC VISUAL COLOR CMPRSN METHS CULTURE 72299 [facility] BACTERIAL 9 [facility] INC INC QUANTTATI VE COLONY COUNT URINE URINE 65759 DARIO MCCARTHY, 9 SHARI Cooper TEST VISUAL COLOR CMPRSN METHS RADIOLOGI 81985 LUZMARIA ROMMEL, C 9 MEDICAL MARYAM EXAMINATI IMAGING ON KNEE 3 ASSOCIATE VIEWS S URINE 50721 TIM TIM 9 [facility] TEST INC INC VISUAL COLOR CMPRSN METHS URINE 96744 [facility] TIM [facility] VISUAL BANK ACCT COLOR CMPRSN METHS GROUND A0425 [facility] MILEAGE 9 AMBULANCE AMBULANCE PER SERVICE SERVICE STATUTE MILE AMBULANCE A0429 [facility] SERVICE 9 AMBULANCE AMBULANCE BLS SERVICE SERVICE EMERGENCY TRANSPORT RADEX 50378 [facility] ANKLE 9 [facility] COMPLETE INC INC MINIMUM 3 VIEWS RADEX 44074 [facility] ANKLE 8 [facility] COMPLETE INC INC MINIMUM 3 VIEWS RADEX 64107 LUZMARIA ROMMEL, FOOT 8 MEDICAL MARYAM COMPLETE IMAGING MINIMUM 3 ASSOCIATE VIEWS S RADEX 31604 LUZMARIA JAI, WRIST 8 MEDICAL EDY P COMPLETE IMAGING MINIMUM 3 [place] [address] [facility] LIPASE 8 [facility] INC INC COMPREHEN 08229 [facility] SIVE 8 [facility] [place] [address] [facility] D[facility] AMYLASE 8 [facility] INC INC BLOOD 11173 [facility] COUNT 8 [facility] COMPLETE INC INC AUTO&AUTO DIFRNTL WBC GROUND A0425 [facility]É [facility] AMBULANCE PER SERVICE SERVICE STATUTE MILE URNLS DIP 98962 [facility] 8 [facility] STICK/TAB INC INC LET REAGENT AUTO MICROSCOP Y SUSCEPTIB 90608 [facility] LTY STDY 8 [facility] ANTIMICRB INC INC IAL MICRO/AGA R DILUTJ CULTURE 50002 [facility] BCT 8 [facility] ISOL&PRSM INC INC PTV ID ISOLATE EA URINE CULTURE 91261 [facility] BACTERIAL 8 [facility] INC INC QUANTTATI VE COLONY COUNT URINE AMB A0422 JUAN JOSÉ CAN OXYGEN&O2 8 AMBULANCE AMBULANCE SUPPLIES SERVICE SERVICE LIFE SUSTAININ G SITUATION AMB A0427 [facility] SERVICE 8 AMBULANCE AMBULANCE ALS SERVICE SERVICE EMERGENCY TRANSPORT LEVEL 1 COMPREHEN 50161 [facility] SIVE 8 [facility] METABOLIC INC INC PANEL BLOOD 38882 [facility] COUNT 8 [facility] COMPLETE INC INC AUTO&AUTO DIFRNTL WBC URINE 61491 [facility] 8 [facility] TEST INC INC VISUAL COLOR CMPRSN METHS LAPAROSCO 5123 [facility] PIC 8 [facility] CHOLECYST INC INC ECTOMY LAPAROSCO 62411 [facility] PY SURG 8 [facility] CHOLECYST INC INC ECTOMY THER 55095 [facility] PROPH/DX 8 [facility] NJX EA INC INC SEQL IV PUSH SBST/DRUG IV NFUS 20886 [facility] THER 8 [facility] PROPH/DX [place] 35298 [facility] THER 8 [facility] PROPH/DX INC INC 1ST >1 HR ANES 04468 [facility] USMAN, INTRAPERI 8 ANESTH CHANELL A TONEAL OF THE UPPER [place] ABDOMEN W/LAPS NOS LEVEL III 18616 PATHOLOGY PATHOLOGY SURG 8 & & PATHOLOGY CYTOLOGY CYTOLOGY LAB LAB GROSS&DAMIÁN ROSCOPIC EXAM BLOOD 18893 [facility] COUNT 8 [facility] COMPLETE INC INC AUTO&AUTO DIFRNTL WBC COMPREHEN 88382 [facility] SIVE 8 [facility] METABOLIC INC INC PANEL GONADOTRO 18284 [facility] PIN 8 [facility] CHORIONIC INC INC QUALITATI VE CYTP 19469 [facility] [place], CERV/VAG 8 [place] INC HOLLEY D AUTO THIN LAYER PREP MNL SCREEN RADEX 20094 [place] ROMMEL, ANKLE 8 MEDICAL MARYAM COMPLETE IMAGING MINIMUM 3 ASSOCIATE VIEWS S BLOOD 47540 [facility] COUNT 8 [facility] COMPLETE INC INC AUTO&AUTO DIFRNTL WBC COMPREHEN 12083 [facility] SIVE 8 [facility] [place] [address] [facility] ABDOMEN 8 [facility] W/[place] [address] [facility] ABDOMINAL 8 [facility] REAL INC INC TIME W/IMAGE LIMITED CT PELVIS 22508 [facility] W/CONTRAS INC INC T MATERIAL 3D 09367 [place] JAI, RENDERING 8 MEDICAL EDY P IMAGING W/INTERP& ASSOCIATE POSTPROC S DIFF WORK STATION HEPATITIS 11524 TIM Goodman SURF 8 [facility] ANTIBODY INC INC HBSAB ACUTE 66366 [facility] HEPATITIS 8 [facility] PANEL INC INC CUL BACT 16598 [facility] XCPT 8 [facility] URINE INC INC BLOOD/STO OL AEROBIC ISOL CUL BACT 52350 [facility] AEROBIC 8 [facility] ADDL INC INC METHS DEFINITIV E EA ISOL BLOOD 76095 [facility] COUNT 8 [facility] COMPLETE INC INC AUTO&AUTO DIFRNTL WBC SUSCEPTIB 53709 [facility] LTY STDY 8 [facility] ANTIMICRB INC INC IAL MICRO/AGA R DILUTJ HEPATITIS 88058 [facility] A 8 [facility] ANTIBODY INC INC HAAB COMPREHEN 36901 [facility] SIVE 8 [facility] METABOLIC INC INC PANEL HEPATITIS 46190 [facility] B CORE 8 [facility] ANTIBODY INC INC HBCAB TOTAL BLOOD 59562 DARIO MCCARTHY, COUNT 8 SHARI Cooper HEMOGLOBI N ANESTHESI 62085 [facility] RIV[facility] HARVEY 8 ANESTH ERICA Jeffrey OF THE DELIVERY [place] ONLY 08880 DARIO MCCARTHY, DELIVERY 8 SHARI FLOWER W/[place] [address] PATHOLOGY PATHOLOGY SURG 8 & & PATHOLOGY CYTOLOGY CYTOLOGY LAB LAB GROSS&DAMIÁN ROSCOPIC EXAM 60479 DARIO MCCARTHY, BIOPHYSIC 8 SHARI Cooper AL PROFILE NON-STRES S TESTING OTH 6639 TIM TIM BILATERAL 8 [facility] INC INC DESTRUC/O CCLUSION FALLOPIAN TUBES LOW 741 TIM TIM CERVICAL 8 [facility] INC INC SECTION OBSERVATI 72886 DARIO MCCARTHY, ON/INPATI 8 SHARI Cooper [facility] 55 MINUTES 05701 TIM CARRILLOON MONITORIN 8 [facility] G LABOR INC INC PHYS WRITTEN REPORT URNLS DIP 59982 [facility] 8 [facility] STICK/TAB INC INC LET REAGENT AUTO MICROSCOP Y 91283 WOMEN'S PRAJAPATI, NONSTRESS 8 [facility] CULTURE 84379 [facility] BACTERIAL 8 [facility] INC INC QUANTTATI VE COLONY COUNT URINE BLOOD 05100 [facility] COUNT 8 [facility] COMPLETE INC INC AUTO&AUTO DIFRNTL WBC HEPATIC 39622 TIM TIM FUNCTION 8 [facility] [place] [address] TIMMAURO DUMONT AMYLASE 8 [place] [address] TIM TIM LIPASE 8 [facility] INC INC 01124 [facility] D[facility] NONSTRESS 8 [facility] TEST INC INC RADIOLOGI 29947 [place] Grace CARNEY 8 MEDICAL MARYAM EXAMINATI IMAGING ON CHEST ASSOCIATE SINGLE S VIEW FRONTAL OPHTH 16808 CHERISE LUONG, [facility] 8 ELLEN A ELLEN A XM&EVAL COMPRE NEW PT 1/> VST 45274 TIM CARRILLOON NONSTRESS 8 [facility] TEST INC INC OBSERVATI 86446 DARIO MCCARTHY, ON CARE 8 SHARI Cooper DISCHARGE MANAGEMEN T INITIAL 48090 ALLRAN ALLRAN INPATIENT 8 JR, JR, CONSULT RANDAL OLPEZ/ROS PT 80 MIN NONINVASI 80972 [facility] VE 8 [facility] EAR/PULSE INC INC OXIMETRY MULTIPLE DETER BASIC 52131 [facility] METABOLIC 8 [facility] PANEL INC [facility] G0378 [facility] OBSERVATI 8 [facility] ON INC INC [facility] G0378 [facility] OBSERVATI 8 [facility] ON INC INC SERVICE PER HOUR BLOOD 48295 [facility] COUNT 8 [facility] COMPLETE INC INC AUTO&AUTO DIFRNTL WBC INITIAL 97207 REECE TONYATI 8 SHARI Cooper ON CARE/DAY 70 MINUTES URNLS DIP 48927 [facility] 8 [facility] STICK/TAB INC INC LET REAGENT AUTO MICROSCOP Y 80945 TIM TIM NONSTRESS 8 [facility] TEST INC INC CULTURE 65612 [facility] BACTERIAL 8 [facility] INC INC QUANTTATI VE COLONY COUNT URINE GLUC BLD 68857 TIM CARRILLOON GLUC MNTR 8 [facility] DEV INC INC CLEARED FDA SPEC HOME USE [place] PREG 42943 DARIO MCCARTHY, UTERUS 8 SHARI Cooper [place] [address] ZANEANDREYErnesto JAI, 8 MEDICAL EDY Bee UTERUS IMAGING LIMITED ASSOCIATE 1/> S FETUSES 97290 [facility] NONSTRESS 8 [facility] TEST INC INC 39987 [facility] D[facility] NONSTRESS 8 [facility] TEST INC INC FTL 33210 [facility] FIBRONECT 8 [facility] IN INC INC CERVICOVA G SECRETION S SEMI-ROSA ISELA NONINVASI 68516 [facility] VE 8 [facility] EAR/PULSE INC INC OXIMETRY SINGLE DETER URNLS DIP 91717 [facility] 8 [facility] STICK/TAB INC INC LET REAGENT AUTO MICROSCOP Y OBSERVATI 58049 DARIO MCCARTHY, ON/INPATI 8 SHARI Cooper [facility] C[facility] 55 MINUTES GLUCOSE 09430 [facility] POST 8 [facility] GLUCOSE INC INC DOSE BLOOD 43976 [facility] COUNT 8 [facility] COMPLETE INC INC AUTO&AUTO DIFRNTL WBC SMR PRIM 44717 DARIO MCCARTHY, SRC WET 8 SHARI Cooper [facility] NFCT AGT CULTURE 87017 [facility] BACTERIAL 8 [facility] INC INC QUANTTATI VE COLONY COUNT URINE 45342 [facility] NONSTRESS 8 [facility] TEST INC INC URNLS DIP 53274 [facility] 8 [facility] STICK/TAB INC INC LET REAGENT AUTO MICROSCOP Y 71720 TIM TIM NONSTRESS 8 [facility] TEST INC INC FTL 81731 [facility] FIBRONECT 8 [facility] IN INC INC CERVICOVA G SECRETION S SEMI-ROSA ISELA US PREG 23572 DARIO MCCARTHY, UTERUS 8 SHARI Cooper AFTER TRIMEST GESTATION GROUND A0425 [facility] MILEAGE 8 AMBULANCE AMBULANCE PER SERVICE SERVICE STATUTE MILE AMB A0427 JUAN JOSÉ [facility] SERVICE 8 AMBULANCE AMBULANCE ALS SERVICE SERVICE EMERGENCY TRANSPORT LEVEL 1 AMB A0422 JUAN JOSÉ CAN OXYGEN&O2 8 AMBULANCE AMBULANCE SUPPLIES SERVICE SERVICE LIFE SUSTAININ G SITUATION 85590 TIM CARRILLOON NONSTRESS 8 [facility] TEST INC INC FTL 24874 TIM TIM FIBRONECT 8 [facility] IN INC INC CERVICOVA G SECRETION S SEMI-ROSA ISELA AMBULANCE A0429 JUAN JOSÉ [facility]ICE 8 AMBULANCE AMBULANCE BLS SERVICE SERVICE EMERGENCY TRANSPORT FTL 47434 TIM TIM FIBRONECT 8 [facility] IN INC INC CERVICOVA G SECRETION S SEMI-ROSA ISELA GROUND A0425 JUAN JOSÉ [facility] MILEAGE 8 AMBULANCE AMBULANCE PER [place] [address] [facility] THER 8 [facility] PROPH/DX INC INC 1ST >1 HR GROUND A0425 [facility] MILEAGE 8 AMBULANCE AMBULANCE PER SERVICE SERVICE STATUTE MILE AMB A0427 JUAN JOSÉ [facility] SERVICE 8 AMBULANCE AMBULANCE ALS SERVICE SERVICE EMERGENCY TRANSPORT LEVEL 1 US PREG 73285 DARIO MCCARTHY, UTERUS 8 SHARI Cooper AFTER [place] [address] [facility] ESTRIOL 8 [facility] INC INC ALPHA-FET 26289 [facility] OPROTEIN 8 [facility] SERUM INC INC Encounters Encounter Start End Date Code Location Performer Type Date OFFICE 96870 [facility] 7 7 [facility] T VISIT INTERNAL 10 MED MINUTES OFFICE 47368 [facility] OUTPATIEN 7 7 PHYSICIAN T VISIT S GROUP 15 MINUTES HOSPITAL TIM - 7 7 [facility] OUTPATIEN INC T EMERGENCY 29402 TIM 7 7 [facility] HIGH/URGE NT [facility]VERITY HOSPITAL TIM - 7 7 [facility] TIM - 6 6 [facility] OUTPATIEN INC T OFFICE 55537 [facility] OUTPATIEN 6 6 PHYSICIAN T VISIT S GROUP 15 MINUTES OFFICE 67256 [facility] OUTPATIEN 6 6 PHYSICIAN T VISIT S GROUP 25 MINUTES OFFICE 23502 [facility] STONE OUTPATIEN 6 6 PHYSICIAN T VISIT S GROUP 15 MINUTES HOSPITAL TIM - 6 6 [facility] OUTPATIEN INC T EMERGENCY 24795 [facility] DIAZ DEPT 6 6 PHYSICIAN VISIT S, PLLC HIGH SEVERITY& THREAT FUNCJ EMERGENCY 66928 TIM 6 6 [facility] T VISIT MODERATE SEVERITY HOSPITAL TIM - 6 6 [facility] T INITIAL 50816 [facility] PREVENTIV 6 6 PHYSICIAN E S GROUP MEDICINE NEW PT AGE [id number] EMERGENCY 36745 [facility] EASLEY 6 6 PHYSICIAN U [facility] T VISIT MODERATE SEVERITY EMERGENCY 67235 TIM 6 6 [facility] T VISIT LIMITED/M INOR PROB HOSPITAL TIM - 6 6 [facility] EMERGENC[facility] 93658 [facility] EASLEY DEPT 6 6 PHYSICIAN U N[facility] SE[facility]& THREAT FUNCJ HOSPITAL TIM - 6 6 [facility] OUTPATIEN INC T EMERGENCY 39296 TIM 6 6 [facility] DEPARTMEN INC T VISIT MODERATE SEVERITY EMERGENCY 40822 [facility] PERRY 6 6 PHYSICIAN DAMIÁN DEPARTMEN [facility], [facility] T VISIT HIGH/URGE NT SEVERITY HOSPITAL TIM - 5 5 [facility] OUTPATIEN INC T EMERGENCY 79098 CAM[facility] EASLEY 5 5 PHYSICIAN U NICOLE DEPARTMEN [facility], [facility] T VISIT HIGH/URGE NT SEVERITY EMERGENCY 66304 TIM 5 5 [facility] T VISIT LIMITED/M INOR PROB OFFICE 45199 TIM MEDRANO OUTPATIEN 5 5 [facility] VISIT HOSPITAL 15 MINUTES EMERGENCY 22636 CAMACHO Sesay 5 5 PHYSICIAN [facility]PART[facility], [facility] T VISIT MODERATE SEVERITY HOSPITAL TIM - [facility] - [facility] 5 [facility] T OFFICE 42195 [facility] PETTEY OUTPATIEN 5 5 PHYSICIAN JAM T NEW 10 S GROUP MINUTES HOSPITAL TIM - 5 5 [facility] T OFFICE 53989 [facility] VICKY OUTPATIEN 5 5 PHYSICIAN DAMIÁN T VISIT S GROUP 15 MINUTES OFFICE 78971 [facility] VICKY OUTPATIEN 5 5 PHYSICIAN DAMIÁN T VISIT S GROUP 15 MINUTES OFFICE 95477 [facility]EN 5 5 [facility] 15 MINUTES OFFICE 85416 [facility] VICKY OUTPATIEN 5 5 PHYSICIAN DAMIÁN T VISIT S GROUP 15 MINUTES OFFICE 44635 [facility] 4 4 VALLEY MIRANDA T VISIT INTERNAL 15 MED MINUTES EMERGENCY 62149 [facility] 4 4 [facility] DEPARTMEN T VISIT HIGH/URGE NT SEVERITY OFFICE 10180 [facility] OUTPATIEN 4 4 PHYSICIAN T VISIT S GROUP 10 MINUTES EMERGENCY 73951 [facility] PERRY 2 2 DAMIÁN DAMIÁN DEPARTMEN T VISIT HIGH/URGE NT SEVERITY OFFICE 80996 [facility] OUTPATIEN 2 2 MIRANDA MIRANDA T VISIT 15 MINUTES EMERGENCY 08514 [facility] P[facility]Y 2 2 DAMIÁN DAMIÁN DEPARTMEN T VISIT HIGH/URGE NT SEVERITY HOSPITAL TIM - 2 2 [facility] T EMERGENCY 65452 TIM 2 2 [facility] DEPARTMEN INC T VISIT LOW/MODER SEVERITY EMERGENCY 51704 TIM 2 2 [facility]PART[facility] T VISIT MODERATE SEVERITY EMERGENCY 10660 [facility] PERRY DEPT 2 2 DAMIÁN DAMIÁN VISIT HIGH SEVERITY& THREAT [facility] TIM - 2 2 [facility] T OFFICE 94499 [facility] OUTPATIEN 2 2 MIRANDA MIRANDA T VISIT 15 MINUTES EMERGENCY 24436 TREE PERRY [address] [facility] DEPARTMEN SERVICES T VISIT HIGH/URGE NT SEVERITY EMERGENCY 93294 TIM 2 2 [facility] T VISIT MODERATE SEVERITY HOSPITAL TIM - 2 2 [facility] T OFFICE 88675 [facility] OUTPATIEN 2 2 MIRANDA MIRANDA T VISIT 15 MINUTES OFFICE 71096 MARK FLORES OUTPATIEN 2 2 JR RADHA JR RADHA T VISIT 15 MINUTES OFFICE 12825 TEJINDER MARR OUTPATIEN 2 2 NAN NAN T VISIT 15 MINUTES OFFICE 05666 MCKEMIE MCKEMIE OUTPATIEN 2 2 JR RADHA GARCIA T VISIT 15 MINUTES OFFICE 30583 [facility] EVARISTO OUTPATIEN 2 2 RITA SALINAS T VISIT 15 MINUTES OFFICE 82584 [facility] EVARISTO OUTPATIEN 1 1 RITA SALINAS T VISIT 15 MINUTES HOSPITAL TIM - 1 1 [facility] T OFFICE 34465 ESTEPHANIA LUONG CRISS OUTPATIEN 1 1 [facility] T VISIT 10 MINUTES OFFICE 04754 [facility] TEJINDER OUTPATIEN 1 1 LESLIE MIRIAM T VISIT INTERNAL 15 MEDI MINUTES OFFICE 81310 [facility] MCKEMIE OUTPATIEN 1 1 LESLIE JR GARCIA T VISIT INTERNAL 15 MED MINUTES HOSPITAL TIM - 1 1 [facility] TIM - 1 1 [facility] T OFFICE 87466 [facility] OUTPATIEN 1 1 LESLIE MIRANDA T VISIT INTERNAL 15 MED MINUTES OFFICE 32519 [facility] EVARISTO OUTPATIEN 1 1 LESLIE RITA T VISIT INTERNAL 15 MEDI MINUTES OFFICE 85354 [facility] EVARISTO OUTPATIEN 1 1 LESLIE RITA T VISIT INTERNAL 15 MEDI MINUTES OFFICE 64858 [facility] TEJINDER OUTPATIEN 1 1 LESLIE MIRIAM T VISIT INTERNAL 15 MEDI MINUTES OFFICE 54038 [facility] OUTPATIEN 1 1 LESLIE MIRANDA T VISIT INTERNAL 15 MED MINUTES OFFICE 80877 [facility] MCKEMIE OUTPATIEN 1 1 LESLIE JR GARCIA T VISIT INTERNAL 25 MED MINUTES OFFICE 22346 [facility] OUTPATIEN 1 1 LESLIE MIRANDA T VISIT INTERNAL 15 MED MINUTES HOSPITAL TIM - 1 1 [facility]PITAL TIM - 1 1 [facility] OUTPATIEN INC T OFFICE 47346 SABRINA LOERA OUTPATIEN 1 1 LAKESHA SALINAS [facility] 20 INTERNAL MINUTES MEDI OFFICE 04574 NITIN KO 0 0 DARCY DARCY T VISIT 15 MINUTES OFFICE 54205 NITIN KO 0 0 DARCY DARCY T VISIT 15 MINUTES OFFICE 95983 [facility] 0 0 ORTHOPEDI MAT T NEW 30 C & HAND MINUTES S OFFICE 30855 NITIN WALLPATIDAVID 0 0 DARCY DARCY T VISIT 15 MINUTES EMERGENCY 71764 TIM 0 0 [facility] DEPART[facility] INC T VISIT MODERATE SEVERITY HOSPITAL TIM - 0 0 [facility] T EMERGENCY 20909 TREE WILSON 0 0 EMERGENCY III [facility] DEPARTMEN SERVICES T VISIT HIGH/URGE NT SEVERITY EMERGENCY 28158 TREE PERRY [address] [facility] DEPARTMEN SERVICES T VISIT MODERATE SEVERITY HOSPITAL TIM - 0 0 [facility] T EMERGENCY 51014 TIM 0 0 [facility] DEPARTMEN INC T VISIT LOW/MODER SEVERITY OFFICE 69309 NITIN WALLPATIDAVID 0 0 DARCY DARCY T VISIT 15 MINUTES OFFICE 97254 NITIN TAVERAS OUTPATIEN 0 0 DARCY A DARCY A T VISIT 15 MINUTES EMERGENCY 02718 TIM 0 0 [facility]PART[facility] T VISIT MODERATE SEVERITY HOSPITAL TIM - 0 0 [facility] T OFFICE 57016 NITIN TAVERAS OUTPATIEN 0 0 DARCY A DARCY A T VISIT 15 MINUTES EMERGENCY 87260 TIM 0 0 [facility] DEPART[facility] INC T VISIT MODERATE SEVERITY HOSPITAL TIM - [address] [facility] T OFFICE 17206 NITIN TAVERAS OUTPATIEN 0 0 DARCY A DACRY A T VISIT 15 MINUTES HOSPITAL TIM - 0 0 [facility] OUTPATIEN INC T EMERGENCY 00734 TREE PERRY, 0 0 EMERGENCY [facility] SERVICES T VISIT HIGH/URGE ASSOCIATE NT S SEVERITY EMERGENCY 76381 TIM 0 0 [facility] T VISIT LOW/MODER SEVERITY EMERGENCY 64289 TIM 0 0 [facility] T VISIT LOW/MODER SEVERITY EMERGENCY 92127 TREE WILSON 0 0 EMERGENCY [facility] T VISIT MODERATE ASSOCIATE SEVERITY S HOSPITAL TIM - 0 0 [facility] T OFFICE 41815 NITIN TAVERAS OUTPATIEN 0 0 DARCY A DARCY A T VISIT 15 MINUTES EMERGENCY 53385 TIM [address] [facility] T VISIT LIMITED/M INOR PROB HOSPITAL TIM - 0 0 [facility] T EMERGENCY 66586 TREE LOYA, 0 0 EMERGENCY [facility] SERVICES T VISIT HIGH/URGE ASSOCIATE NT S SEVERITY OFFICE 06013 NITIN TAVERAS OUTPATIEN 0 0 DARCY A DARCY A T VISIT 15 MINUTES OFFICE 80195 NITIN TAVERAS OUTPATIEN 0 0 DARCY A DARCY A T VISIT 15 MINUTES EMERGENCY 07983 TIM 0 0 [facility] VISIT MODERATE SEVERITY [facility]PITAL TIM - 0 0 [facility] T EMERGENCY 27430 TREE PERRY, DEPT 0 0 EMERGENCY [facility] VISIT SERVICES HIGH SEVERITY& ASSOCIATE THREAT S FUNCJ EMERGENCY 55380 TREE RAO, 0 0 EMERGENCY [facility] DEPARTMEN SERVICES O T VISIT HIGH/URGE ASSOCIATE NT S SEVERITY HOSPITAL TIM - 0 0 [facility] T EMERGENCY 00895 TIM 0 0 [facility] DEPART[facility] INC T VISIT MODERATE SEVERITY EMERGENCY 14371 TIM 9 9 [facility] DEPART[facility] INC T VISIT LOW/MODER SEVERITY HOSPITAL TIM - 9 9 [facility] T EMERGENCY 14483 TREE LAURENT, 9 9 EMERGENCY [facility] DEPARTMEN SERVICES T VISIT MODERATE ASSOCIATE SEVERITY S OFFICE 21307 NITIN TAVERAS OUTPATIEN 9 9 DARCY A DARCY A T VISIT 15 MINUTES OFFICE 74726 NITIN TAVERAS OUTPATIEN 9 9 DARCY A DARCY A T VISIT 15 MINUTES EMERGENCY 71622 TIM 9 9 [facility] DEPARTMEN INC T VISIT LIMITED/M INOR PROB EMERGENCY 95050 TREE PERRY, 9 9 EMERGENCY [facility] DEPARTMEN SERVICES T VISIT MODERATE ASSOCIATE SEVERITY S HOSPITAL TIM - 9 9 [facility] T EMERGENCY 12895 TREE PERRY, 9 9 EMERGENCY [place] [facility] DEPARTMEN SERVICES T VISIT HIGH/URGE ASSOCIATE NT S SEVERITY HOSPITAL TIM - 9 9 [facility] T OFFICE 08272 NITIN TAVERAS OUTPATIEN 9 9 DARCY A DARCY A T VISIT 15 MINUTES EMERGENCY 17848 TIM 9 9 [facility] DEPARTMEN INC T VISIT LOW/MODER SEVERITY HOSPITAL TIM - 9 9 [facility] T EMERGENCY 40646 TREE PERRY, 9 9 EMERGENCY [place] [facility] DEPARTMEN SERVICES T VISIT MODERATE ASSOCIATE SEVERITY S EMERGENCY 34937 TIM 9 9 [facility] DEPARTMEN INC T VISIT LOW/MODER SEVERITY HOSPITAL TIM - 9 9 [facility] T EMERGENCY 90463 TREE PERRY, 9 9 EMERGENCY [place] [facility] DEPARTMEN SERVICES T VISIT HIGH/URGE ASSOCIATE NT S SEVERITY OFFICE 66567 NITIN TAVERAS OUTPATIEN 9 9 DARCY A DARCY A T VISIT 15 MINUTES EMERGENCY 30108 TREE RAO, 9 9 EMERGENCY [facility] DEPARTMEN SERVICES O T VISIT MODERATE ASSOCIATE SEVERITY S OFFICE 14926 NITIN TAVERAS OUTPATIEN 9 9 DARCY A DARCY A T VISIT 15 MINUTES OFFICE 08492 NITIN TAVERAS OUTPATIEN 9 9 DARCY A DARCY A T VISIT 15 MINUTES OFFICE 29964 NITIN TAVERAS OUTPATIEN 9 9 DARCY A DARCY A T VISIT 15 MINUTES HOSPITAL TIM - 9 9 [facility] OUTPATIEN INC T EMERGENCY 38044 TIM 9 9 [facility] DEPARTMEN INC T VISIT LIMITED/M INOR PROB EMERGENCY 56346 TREE HINTON, 9 9 EMERGENCY [place] DEPARTMEN SERVICES T VISIT MODERATE ASSOCIATE SEVERITY S EMERGENCY 43255 TIM 9 9 [facility] DEPARTMEN INC T VISIT LOW/MODER SEVERITY EMERGENCY 86880 TREE HARRIS, 9 9 EMERGENCY [place] P DEPARTMEN SERVICES T VISIT MODERATE ASSOCIATE SEVERITY S HOSPITAL TIM - 9 9 [facility] OUTPATIEN INC T EMERGENCY 83887 TIM 9 9 [facility] DEPARTMEN INC T VISIT LOW/MODER SEVERITY HOSPITAL TIM - 9 9 [facility] OUTPATIEN INC T EMERGENCY 78629 TREE RAO, 9 9 EMERGENCY [place] DEPARTMEN SERVICES O T VISIT MODERATE ASSOCIATE SEVERITY S EMERGENCY 81365 TIM 9 9 [facility]ISIT LIMITED/M INOR PROB EMERGENCY 07437 TREE RAO, 9 9 EMERGENCY [place] DEPARTMEN SERVICES O T VISIT HIGH/URGE ASSOCIATE NT S SEVERITY HOSPITAL TIM - 9 9 [facility] OUTPATIEN INC T OFFICE 72720 NITIN TAVERAS OUTPATIEN 9 9 DARCY A DARCY A T VISIT 15 MINUTES OFFICE 73372 NITIN TAVERAS OUTPATIEN 9 9 DARCY A DARCY A T VISIT 15 MINUTES HOSPITAL TIM - 9 9 [facility] OUTPATIEN INC T HOSPITAL TIM - 9 9 [facility] OUTPATIEN INC T EMERGENCY 98406 TIM 9 9 [facility] T VISIT LOW/MODER SEVERITY EMERGENCY 29426 TREE HARRIS, 9 9 EMERGENCY [place] DEPARTMEN SERVICES T VISIT MODERATE ASSOCIATE SEVERITY S OFFICE 82752 NITIN TAVERAS OUTPATIEN 9 9 DARCY A DARCY A T VISIT 15 MINUTES HOSPITAL TIM - 9 9 [facility] OUTPATIEN INC T OFFICE 03838 NITIN TAVERAS OUTPATIEN 9 9 DARCY A DARCY A T VISIT 15 MINUTES OFFICE 42004 NITIN TAVERAS OUTPATIEN 9 9 DARCY A DARCY A T VISIT 15 MINUTES OFFICE 61371 NITIN TAVERAS OUTPATIEN 9 9 DARCY A DARCY A T VISIT 15 MINUTES OFFICE 15145 NITIN TAVERAS OUTPATIEN 9 9 DARCY A DARCY A T VISIT 15 MINUTES EMERGENCY 01101 TREE RAO, 9 9 EMERGENCY [place] DEPARTMEN SERVICES O T VISIT HIGH/URGE ASSOCIATE NT S SEVERITY EMERGENCY 35086 TIM 9 9 [facility] DEPARTMEN INC T VISIT MODERATE SEVERITY HOSPITAL TIM - 9 9 [facility] OUTPATIEN INC T EMERGENCY 90559 TREE PERRY, 9 9 [facility] HIGH/URGE ASSOCIATE NT S SEVERITY OFFICE 24290 NITIN TAVERAS OUTPATIEN 9 9 DARCY A DARCY A T VISIT 15 MINUTES EMERGENCY 07904 TIM 9 9 [facility] DEPARTMEN INC T VISIT LIMITED/M INOR PROB HOSPITAL TIM - 9 9 [facility] INC T EMERGENCY 76910 TIM 9 9 [facility] DEPARTMEN INC T VISIT LOW/MODER SEVERITY HOSPITAL TIM - 9 9 [facility] OUTPATIEN INC T EMERGENCY 99804 TREE PERRY, 9 9 [facility]ISIT HIGH/URGE ASSOCIATE NT S SEVERITY OFFICE 42462 NITIN TAVERAS OUTPATIEN 9 9 DARCY A DARCY A T VISIT 15 MINUTES OFFICE 00192 NITIN TAVERAS OUTPATIEN 9 9 DARCY A DARCY A T VISIT 15 MINUTES OFFICE 14110 STEFANI TONY 9 9 SHARI Cooper T VISIT 25 MINUTES EMERGENCY 45677 TREE RAO, 9 9 EMERGENCY [place] DEPARTMEN SERVICES O T VISIT HIGH/URGE ASSOCIATE NT S SEVERITY EMERGENCY 45408 TIM 9 9 [facility] DEPARTMEN INC T VISIT LIMITED/M INOR PROB HOSPITAL TIM - 9 9 [facility]PAT[facility]EN INC T OFFICE 61925 NITIN TAVERAS OUTPATIEN 9 9 DARCY Morales T VISIT 15 MINUTES HOSPITAL TIM - 9 9 [facility] OUTPATIEN INC T EMERGENCY 89054 SATISH PERRY, 9 9 [facility] T VISIT ON MODERATE SEVERITY EMERGENCY 48355 TIM 9 9 [facility] T VISIT MODERATE SEVERITY HOSPITAL TIM - 9 9 [facility] OUTPATIEN INC T OFFICE 34373 DHS/CO TIM STEFANI 9 9 [facility] T VISIT [facility] 15 BANK ACCT MINUTES HOSPITAL TIM - 9 9 [facility] OUTPATIEN INC T EMERGENCY 58794 SATISH PERRY, 9 9 [facility] T VISIT ON HIGH/URGE NT SEVERITY EMERGENCY 99340 TIM 9 9 [facility] LOW/MODER SEVERITY HOSPITAL TIM - 9 9 [facility] OUTPATIEN INC T EMERGENCY 73489 TIM 9 9 [facility] DEPARTMEN INC T VISIT LOW/MODER SEVERITY EMERGENCY 91006 SATISH PERRY, 9 9 [facility] T VISIT ON MODERATE SEVERITY EMERGENCY 44690 TIM 8 8 [facility] T VISIT LOW/MODER SEVERITY EMERGENCY 23301 SATISH JAMES, 8 8 [facility] T VISIT ON MODERATE SEVERITY HOSPITAL TIM - 8 8 [facility] OUTPATIEN INC T HOSPITAL TIM - 8 8 [facility]PATI[facility] INC T OFFICE 31561 NITIN TAVERAS OUTPATIEN 8 8 DARCY A DARCY A T VISIT 15 MINUTES EMERGENCY 95875 TIM 8 8 [facility] DEPARTMEN INC T VISIT LOW/MODER SEVERITY HOSPITAL TIM - 8 8 [facility] OUTPAT[facility] INC T EMERGENCY 86002 TIM 8 8 [facility] DEPARTMEN INC T VISIT LOW/MODER SEVERITY HOSPITAL TIM - 8 8 [facility] INC T EMERGENCY 41144 SATISH HADDAD, 8 8 [facility] T VISIT ON MODERATE SEVERITY HOSPITAL TIM - 8 8 [facility] OUTPATIEN INC T EMERGENCY 80768 SATISH HADDAD 8 8 [facility] T VISIT ON MODERATE SEVERITY HOSPITAL TIM - 8 8 [facility] OUTPAT[facility] INC T OFFICE 93086 NITIN TAVERAS OUTPATIEN 8 8 DARCY A DARCY A T VISIT 15 MINUTES OFFICE 62121 NITIN TAVERAS OUTPATIEN 8 8 DARCY A DARCY A T VISIT 15 MINUTES HOSPITAL TIM - 8 8 [facility] OUTPAT[facility] INC T EMERGENCY 74528 TIM 8 8 [facility] DEPARTMEN INC T VISIT MODERATE SEVERITY HOSPITAL TIM - 8 8 [facility] T [facility]OSPITAL TIM - 8 8 [facility] INC T HOSPITAL TIM - 8 8 [facility] INC T HOSPITAL TIM - 8 8 [facility] OUTPATIEN INC T EMERGENCY 57423 TIM 8 8 [facility] DEPARTMEN INC T VISIT LOW/MODER SEVERITY HOSPITAL TIM - 8 8 [facility] OUTPATIEN INC T EMERGENCY 33630 COVARRUBIAS LIZZIE, 8 8 [facility] CORPOR[facility]I T VISIT ON MODERATE SEVERITY EMERGENCY 98198 SATISH ERIKA, 8 8 [facility] T VISIT ON MODERATE SEVERITY EMERGENCY 13546 TIM 8 8 [facility] DEPARTMEN INC T VISIT LOW/MODER SEVERITY HOSPITAL TIM - 8 8 [facility]PAT[facility]EN INC T HOSPITAL TIM - 8 8 [facility] INC T OFFICE 58507 ALLRAN ALLRAN OUTPATIEN 8 8 [facility] T VISIT RANDAL Jeffrey 25 MINUTES HOSPITAL TIM - 8 8 [facility] OUTPATIEN INC T OFFICE 56300 ALLRAN ALLRAN OUTPATIEN 8 8 [facility] T VISIT RANDAL Jeffrey 25 MINUTES HOSPITAL TIM - 8 8 [facility]PATI[facility] INC T OFFICE 90756 STEFANI TONY 8 8 SHARI Cooper T VISIT 15 MINUTES HOSPITAL TIM - 8 8 [facility] INPATIENT INC OFFICE 81759 STEFANI TONY 8 8 SHARI Cooper T VISIT 15 MINUTES HOSPITAL TIM - 8 8 [facility] OUTPATIEN INC T HOSPITAL TIM - 8 8 [facility] OUTPATIEN INC T OFFICE 09130 STEFANI TONY 8 8 SHARI Cooper T VISIT 15 MINUTES OFFICE 16858 STEFANI TONY 8 8 HARPEL MD DARIO R T VISIT 15 MINUTES HOSPITAL TIM - 8 8 [facility] OUTPATIEN INC T HOSPITAL TIM - 8 8 [facility] OUTPATIEN [facility] T HOSPITAL TIM - 8 8 [facility] OUTPATIEN INC T HOSPITAL TIM - 8 8 [facility] OUTPATIEN INC T OFFICE 12097 DUKE TONYPATIDAVID 8 8 SHARI Cooper T VISIT 15 MINUTES HOSPITAL TIM - 8 8 [facility] OUTPATIEN [facility] TIM - 8 8 [facility] OUTPATIEN [facility] TIM [facility] 8 8 [facility] OUTPATIEN INC T OFFICE 49211 STEFANI TONY 8 8 SHARI Cooper T VISIT 15 MINUTES HOSPITAL TIM - 8 8 [facility] OUTPATIEN INC T OFFICE 37805 STEFANI TONY 8 8 SHARI Cooper T VISIT 15 MINUTES HOSPITAL TIM - 8 8 [facility] OUTPATIEN INC T HOSPITAL TIM - 8 8 [facility] OUTPATIEN INC T OFFICE 94827 STEFANI TONY 8 8 SHARI Cooper T VISIT 15 MINUTES HOSPITAL TIM - 8 8 [facility] OUTPATIEN INC T OFFICE 10426 STEFANI TONY 8 8 SHARI Cooper T VISIT 15 MINUTES HOSPITAL TIM - 8 8 [facility] OUTPATIEN INC T OFFICE 36859 STEFANI TONY 8 8 SHARI Cooper T VISIT 15 MINUTES OFFICE 36657 STEFANI TONY 8 8 SHARI Brown VISIT 15 MINUTES HOSPITAL TIM - 8 8 [facility] OUTPATIEN INC T EMERGENCY 40785 TIM ANASTACIO, 8 8 [facility] [place] T VISIT PROF SERV LOW/MODER SEVERITY OFFICE 56036 STEFANI TONY 8 8 SHARI Brown VISIT 15 MINUTES HOSPITAL TIM - 8 8 [facility] OUTPATIEN INC T EMERGENCY 73508 TIM LIZZIE, 8 8 [facility] T VISIT PROF SERV LOW/MODER SEVERITY HOSPITAL TIM - 8 8 [facility] OUTPATIEN INC T OFFICE 59424 STEFANI TONY 8 8 SHARI Brown VISIT 15 MINUTES
--- OUTSIDE RECORDS SUMMARY | 2017-03-15 20:54 | External Medical Summary Rpt ---
Author Author , Organization [employer] Address Unknown Phone Unavailable Care Team Providers Care Route Service Manager Name Role Phone [employer] Unavailable Unavailable INC, [employer] Unavailable Unavailable INC, [employer] RANDAL ARRIAGA JR, Unavailable Unavailable RANDAL ARRIAGA JR BRO, CANALES Unavailable Unavailable BRO CANALES BRO, CANALES Unavailable Unavailable BRO SEAY, NICKO C, SEAY, Unavailable Unavailable NICKO C CY L, CY L Unavailable Unavailable BESSON, BESSON Unavailable Unavailable BESSON MIRANDA, BESSON Unavailable Unavailable MIRANDA BESSON MIRANDA, BESSON Unavailable Unavailable MIRANDA [facility] Unavailable [facility]available [facility], [facility] Unavailable Unavailable [facility], [facility] Unavailable Unavailable [facility] Unavailable Unavailable SERVICE, [facility] Unavailable Unavailable SERVICE, [facility] PRICILA PRAJAPATI, Unavailable Unavailable PRICILA PRAJAPATI [facility] Unavailable Unavailable [place], [facility] Un[facility] Unavailable [facility] [place] [place] ROMMEL, ROMMEL Unavailable Unavailable ROMMEL COSTA, Unavailable Unavailable ROMMEL COSTA ROMMEL COSTA, Unavailable Unavailable ROMMEL COSTA ROMMEL, MARYAM, Unavailable Unavailable ROMMEL, MARYAM [facility], Unavailable Unavailable [facility] MITCHELL DAMIÁN, MITCHELL Unavailable Unavailable DAMIÁN ALONSO, ALONSO Unavailable Unavailable ZOHREH, ZOHREH Unavailable Unavailable [facility] Unavailable Unavailable [place], [facility] [place] [facility] Unavailable Unavailable [place] [facility] Unavailable Unavailable HARRIS, TORSTEN P, Unavailable Unavailable HARRIS, TORSTEN P EVARISTO RITA, Unavailable Unavailable EVARISTO RITA EVARISTO RITA, Unavailable Unavailable SANDRA PENG Unavailable Unavailable EUG VICKY DAMIÁN, VICKY Unavailable Unavailable DAMIÁN VICKY DAMIÁN, VICKY Unavailable Unavailable DAMIÁN LIVIER PERRY S, Unavailable Unavailable LIVIER PERRY RONDAL E, Unavailable Unavailable RODGER HADDAD ANDREW R, Unavailable Unavailable HAMON, CAMILLE R HARPEL, HARPEL Unavailable Unavailable JONYLDARIO R, Unavailable Unavailable HARPEL, DARIO R [facility] Un[facility] Unavailable [facility], [facility] Unavailable Unavailable INC, [facility] Unavailable Unavailable [facility], [facility] Unavailable Unavailable [facility]PITAL P, [facility] LUONG CRISS, LUONG CRISS Unavailable Unavailable LUONG, ELLEN A, Unavailable Unavailable LUONG, ELLEN A [facility], Unavailable Unavailable [facility] HOLLEY MONTIEL, Unavailable Unavailable HOLLEY MONTIEL HUBER Unavailable Unavailable TEJINDER MIRIAM, TEJINDER Unavailable Unavailable NAN TEJINDER NAN, TEJINDER Unavailable Unavailable NAN [facility] Un[facility] Un[facility], [facility] & Unavailable Unavailable HAND S, [facility] LISA, SUSAN E, Unavailable Unavailable LISA, SUSAN E [facility] Unavailable Unavailable [facility], [facility] Unavailable Unavailable [facility], [facility] Unavailable Unavailable SERVICES, [facility] MCKEMIE JR RADHA, Unavailable Unavailable [...] Unavailable Unavailable LAB, [facility] PETTEY DANTE PETTEY Unavailable Unavailable DANTE MORENO JR, Unavailable Unavailable JOSH MIRANDA [id number], Unavailable Unavailable [id number] Unavailable Unavailable [id number] [address] [id number], [facility] [id number] # [id number] SCIFRES ANG, SCIFRES Unavailable Unavailable ANG SCIFRES ANG, SCIFRES Unavailable Unavailable JESSIE VINCENT, Unavailable Unavailable JESSIE TRAVIS JOHN T, SMALL, Unavailable Unavailable JE T SOKAN, TORRES O, Unavailable Unavailable SOKAN, TORRES O SALLIE RIVERA, Unavailable Unavailable BHARTI BANEGAS Unavailable Unavailable TASHA, TASHA Unavailable Unavailable CHANELL MARY, Unavailable Unavailable CHANELL MARY JEFFREY M, Unavailable Unavailable DANGELO LOYA [facility] # Unavailable Unavailable [id number], [facility] # [id number] WEKEHINDE GRACIA, Unavailable Unavailable ERICA SALAZAR III, III, Unavailable Unavailable ERICA WILSON III, JEFFREY, Unavailable Unavailable DANGELO JAMES, TAYLOR GARCIA Unavailable Unavailable Purpose Continuity of Care Document - 10-03-2007 through 2016 Problems Code Diagnosis DOS Provider Status J302 OTHER 02-16-2017 [facility] ALLERGIC INTERNAL RHINITIS MED J4520 MILD 02-16-2017 [facility] T ASTHMA INTERNAL UNCOMPLICAT MED ED R102 PELVIC AND 02-12-2017 [facility] PERINEAL PHYSICIANS PAIN GROUP J069 ACUTE UPPER 12-24-2016 [facility], RESPIRATORY PLLC INFECTION UNSPECIFIED R05 COUGH 12-24-2016 [facility] R0789 OTHER CHEST 12-24-2016 [facility] P R079 CHEST PAIN 12-24-2016 [facility]PEC[facility] Z720 TOBACCO USE 12-24-2016 [facility] P D271 BENIGN 10-02-2016 [facility] NEOPLASM OF [facility] LEFT OVARY N801 ENDOMETRIOS 10-02-2016 [facility], IS OF OVARY LLC N839 NONINFLAMM 10-02-2016 [facility] D/O OVARY ANESTH OF FALLOP TUBE THE BLUE & BROAD LIG UNS N881 OLD 10-02-2016 [facility], LACERATION LLC OF CERVIX UTERI N938 OTHER SPEC 10-02-2016 [facility] ABNORMAL PHYSICIANS UTERINE & GROUP VAGINAL BLEEDING N9489 OTH COND 09-25-2016 [facility]FE [facility] GEN ORGN & INC MENSTRUAL CYCL N949 UNS COND 09-25-2016 [facility] GENIT ORGN INC & MENSTRUAL CYCL D64681 ENCOUNTER 09-25-2016 [facility] FOR [facility] PREPROCEDUR INC AL LABORATORY EXAM N920 EXCESS & 09-10-2016 [facility] FREQUENT PHYSICIANS MENSTRUATIO GROUP N W/REGULAR CYCLE R030 ELEVATED 09-07-2016 [facility] BLOOD-PRESS PHYSICIANS URE READING GROUP WITHOUT DX HTN R1032 LEFT LOWER 09-07-2016 [facility] QUADRANT PHYSICIANS PAIN GROUP I10 ESSENTIAL 09-02-2016 [facility] PRIMARY [facility] HYPERTENSIO INC N X08070 ENCOUNTER 08-28-2016 [facility] DRAPERY INSTALLER EXAM PHYSICIANS GENERAL RTN GROUP W/ABNORMAL FIND W13086 ENCOUNTER 08-28-2016 [facility] DRAPERY INSTALLER EXAM REFERNCE GENERAL RTN LABORATORIE W/O S ABNORMAL FIND J029 ACUTE 08-27-2016 [facility] PHARYNGITIS PHYSICIANS, PLLC UNSPECIFIED K5289 OTH SPEC 06-04-2016 [facility] NONINFECTIV PHYSICIANS, E PLLC GASTROENTER ITIS & COLITIS K529 NONINFECTIV 06-04-2016 [facility] E [facility] GASTROENTER INC ITIS & COLITIS UNS N8320 UNSPECIFIED 06-04-2016 [facility] OVARIAN [facility] CYSTS INC N8329 OTHER 06-04-2016 [facility] OVARIAN PH[facility]ICI[facility], CYSTS PLLC [id number] STRAIN 06-04-2016 [facility] MUSCLE PHYSICIANS, FASCIA & PLLC TENDON LOW BACK INITIAL G66111 PAIN IN 05-01-2016 [facility] RIGHT KNEE [facility] K13419 PAIN IN 05-01-2016 [facility] RIGHT ANKLE [facility]ICAL IMAGING ASS R51 HEADACHE 05-01-2016 [facility] M8328DM CONTUSION 05-01-2016 [facility] UNS PART PHYSICIANS, HEAD PLLC INITIAL ENCOUNTER J0243IU UNSPECIFIED 05-01-2016 [facility] INJURY OF MEDICAL HEAD IMAGING ASS INITIAL ENCOUNTER H6778RA SPRAIN 05-01-2016 [facility] UNSPECIFIED PHYSICIANS, SITE RT PLLC KNEE INITIAL ENCNTR O9779ET UNS INJURY 05-01-2016 [facility] RT LOWER MEDICAL LEG INITIAL IMAGING ASS ENCOUNTER C66664L SPRAIN 05-01-2016 [facility] UNSPEC PHYSICIANS, LIGAMENT PLLC ROGHT ANKLE INITIAL ENC I99853J UNSPECIFIED 05-01-2016 [facility] INJURY MEDICAL RIGHT ANKLE IMAGING ASS INITIAL ENCOUNTER O779LRR EFFECT HEAT 05-01-2016 [facility] & LIGHT PHYSICIANS, UNSPECIFIED PLLC INITIAL ENCNTR H5213 MYOPIA 03-13-2016 SCIF[facility] ANG BILATERAL N84015 UNSPECIFIED 07-18-2015 [facility] ASTHMA [facility] UNCOMPLICAT INC ED R0781 PLEURODYNIA 07-18-2015 [facility] J49227D CONTUSION 07-18-2015 [facility] RT FRONT PHYSICIANS, WALL THORAX [facility] INITIAL ENCOUNTER X568WPB UNSPECIFIED 07-18-2015 [facility] INJURY OF MEDICAL THORAX IMAGING ASS INITIAL ENCOUNTER C50063 PERSONAL 07-18-2015 [facility] HISTORY OF [facility] NICOTINE INC DEPENDENCE 75526 ACUT 06-10-2015 [facility] SUPPRATV [facility] OTITIS [facility] MEDIA W/O SPONT RUP EARDRUM 4619 ACUTE 06-10-2015 [facility] SINUSITIS, [facility] UNSPECIFIED HOSPITAL 462 ACUTE 06-10-2015 [facility] PHARYNGITIS [facility] 57172 PAIN IN 03-13-2015 [facility] [place] JOINT, MEDICAL ANKLE AND IMAGING ASS FOOT 7295 PAIN IN 03-13-2015 [facility] SOFT MEDICAL TISSUES OF IMAGING ASS LIMB 63251 CONTUSION 03-13-2015 [facility] OF FOOT PHYSICIANS, [facility] 9597 INJURY 03-13-2015 [facility] OTHER&UNSPE MEDICAL CIFIED KNEE IMAGING ASS LEG ANKLE&FOOT 3671 MYOPIA 02-08-2015 SCIFRES ANG 01352 SHORTNESS 02-05-2015 [facility] [place] OF BREATH MEDICAL IMAGING ASS 38518 PAIN IN 12-26-2014 [facility] JOINT, [facility] SHOULDER INC REGION V571 OTHER 12-26-2014 [facility] PHYSICAL [facility] THERAPY INC 35446 CONTUSION 12-12-2014 [facility] OF SHOULDER PHYSICIANS REGION GROUP 49354 CONTUSION 12-12-2014 [facility] OF [place] PHYSICIANS GROUP 44006 CONTUSION 12-12-2014 [facility] OF WRIST PHYSICIANS GROUP 8449 SPRAIN&STRA 12-01-2014 [facility] IN OF TECHNOLOGIE UNSPECIFIED S INC SITE OF KNEE&LEG 9592 INJURY 12-01-2014 [facility] OTHER&UNSPE MEDICAL CIFIED IMAGING ASS SHOULDER&UP PER ARM 69344 ASTHMA, 11-28-2014 [facility] UNSPECIFIED PHYSICIANS , GROUP UNSPECIFIED STATUS 460 ACUTE 11-07-2014 TIM NASOPHARYNG [facility] 7242 LUMBAGO 10-24-2014 [facility] PHYSICIANS GROUP 44163 PAIN IN 02-06-2014 [facility] JOINT, COSTA LOWER LEG 44810 GENERALIZED 02-06-2014 [facility] PAIN COSTA 9160 HIP THI 02-06-2014 [place] LEG&ANK ABRASION/FR ICION BURN W/O INF 9599 INJURY 02-06-2014 [facility] OTHER AND COSTA UNSPECIFIED UNSPECIFIED SITE E8888 OTHER FALL 02-06-2014 [facility] E8889 UNSPECIFIED 02-06-2014 [facility] FALL COSTA 3829 UNSPECIFIED 12-11-2013 [facility] OTITIS PHYSICIANS MEDIA GROUP 03396 UNSPECIFIED 06-27-2012 [facility] DAM[place]ÁN [place]AT[place] N 93454 TRAUMATIC 06-14-2012 [facility] MIRANDA ARTHROPATHY MULTIPLE SITES 92304 PAIN IN 06-13-2012 [place] JOINT, MEDICAL UPPER ARM IMAGING ASS 8410 RADIAL 06-13-2012 [facility] LIGAMENT INC SPRAIN AND STRAIN 8419 SPRAIN&STRA 06-13-2012 [facility] DAMIÁN IN UNSPECIFIED SITE ELB[place] [address] CHEST PAIN 05-20-2012 [place] UNSPECIFIED MEDICAL IMAGING ASS 97136 PRECORDIAL 05-20-2012 [facility] PAIN AMBULANCE SERVICE 35906 OTHER CHEST 05-20-2012 [facility] PAIN [facility] INC 7840 HEADACHE 05-11-2012 [facility] MIRANDA 9953 ALLERGY 05-11-2012 [facility] MIRANDA UNSPECIFIED NOT ELSEWHERE CLASSIFIED 13505 ABDOMINAL 03-02-2012 [facility] PAIN, MEDICAL UNSPECIFIED IMAGING ASS SITE 5990 URINARY 03-01-2012 [facility] TRACT [facility]ERG[facility]Y INFECTION SERVICES SITE NOT SPECIFIED 7821 RASH AND 12-14-2011 TEJINDER NAN OTHER NONSPECIFIC SKIN ERUPTION 53674 MIGRAINE 10-17-2011 MCKEMIE JR UNSP W/O RADHA INTRACT W/O STATUS MIGRAINOSUS 7862 COUGH 10-07-2011 EVARISTO RITA 7245 UNSPECIFIED 07-30-2011 [facility] BACKACHE [facility] INC 7881 DYSURIA 07-30-2011 [facility] INC 85195 UNSPECIFIED 07-03-2011 [facility] BLEPHAROCON JUNCTIVITIS 50185 OTHER ANKLE 05-22-2011 [facility] [place] STRAIN INTERNAL MEDI 4778 ALLERGIC 04-01-2011 [facility] RHINITIS VALLEY DUE TO INTERNAL OTHER MEDI ALLERGEN 64164 MIGRAINE 03-25-2011 [facility] UNS VALLEY W/INTRACTAB INTERNAL L W/O MEDI STATUS MIGRAINOSUS 8479 SPRAIN AND 02-21-2011 [facility] STRAIN OF VALLEY UNSPECIFIED INTERNAL SITE OF MED BACK 920 CONTUSION 11-25-2010 [facility] OF FACE MEDICAL SCALP AND IMAGING ASS NECK EXCEPT EYE 19776 ACUTE PAIN 11-14-2010 [facility] DUE TO VALLEY TRAUMA INTERNAL MEDI 7177 CHONDROMALA 08-04-2010 [facility] [place] GIL OF ORTHOPEDIC PATELLA & HAND S 31110 ASTHMA 07-23-2010 [facility] UNSPECIFIED EMERGENCY WITH SERVICES EXACERBATIO N 63212 PAIN IN 06-27-2010 [place] JOINT, MEDICAL FOREARM IMAGING ASS E8859 FALL FROM 06-27-2010 [facility] OTHER EMERGENCY SLIPPING SERVICES TRIPPING OR STUMBLING V642 SURG/OTH 04-07-2010 [facility] PROC NOT [facility] CARRIED OUT INC BECAUSE PTS DECN 41651 UNSPECIFIED 02-12-2010 [facility] SITE OF EMERGENCY ANKLE SERVICES SPRAIN AND ASSOCIATES STRAIN 6929 CONTACT 02-07-2010 [facility] DERMATITIS& DARCY A OTHER ECZEMA DUE UNSPEC CAUSE 8472 LUMBAR 01-29-2010 [facility] SPRAIN AND EMERGENCY STRAIN SERVICES ASSOCIATES 51829 CONTUSION 01-16-2010 [facility] OF HAND EMERGENCY SERVICES ASSOCIATES 9233 CONTUSION 01-16-2010 [place] [facility] IMAGING ASSOCIATES 8489 UNSPECIFIED 01-14-2010 [facility], SITE OF DARCY A SPRAIN AND STRAIN 8409 SPRAIN&STRA 01-11-2010 [facility] IN UNSPEC EMERGENCY SITE SERVICES SHOULDER&UP ASSOCIATES PER ARM V698 OTHER 01-11-2010 [facility] PROBLEMS EMERGENCY RELATED TO SERVICES LIFESTYLE ASSOCIATES 5110 PLEURISY 11-23-2009 [facility] WITHOUT [facility] MENTION [facility] EFFUS[facility] PROF SERV NT TB 5119 UNSPECIFIED 11-23-2009 [facility] PLEURAL EMERGENCY EFFUSION SERVICES ASSOCIATES 7850 UNSPECIFIED 11-23-2009 [facility] EM[facility]GENCY TACHYCARDIA SERVICES ASSOCIATES 22189 SPRAIN AND 11-04-2009 [place] [place] STRAIN OF MEDICAL UNSPECIFIED IMAGING SITE OF ASSOCIATES WRIST E8490 PLACE OF 11-04-2009 [facility] [place] OCCURRENCE, MEDICAL HOME IMAGING ASSOCIATES 92010 REGULAR 10-11-2009 [facility] ASTIGMATISM VISION 4659 ACUTE URIS 08-31-2009 [facility] OF DARCY Morales UNSPECIFIED SITE 9150 ABRASION/FR 08-14-2009 [facility] ICTION BURN DARCY A FINGER W/O MENTION INF 04713 ACUTE 07-28-2009 [facility] GASTRITIS EMERGENCY WITHOUT SERVICES MENTION OF ASSOCIATES HEMORRHAGE 31867 PAIN IN 07-15-2009 [facility], JOINT, HAND DARCY A 9895 TOXIC 06-30-2009 [facility] EFFECT OF EMERGENCY VENOM SERVICES ASSOCIATES 7823 EDEMA 06-24-2009 [facility] TAVERAS E8498 OTHER 04-19-2009 [place] [place] [address]IFIED [facility] OF IMAGING OCCURRENCE ASSOCIATES 76219 OTHER 04-11-2009 [facility] CHRONIC EMERGENCY PAIN SERVICES ASSOCIATES 11737 ABDOMINAL 02-17-2009 [facility] OTHER EMERGENCY SPECIFIED SERVICES SITE ASSOCIATES 74433 UNSPECIFIED 01-14-2009 DARCY TAVERAS CONJUNCTIVI TIS 6268 OTH D/O 01-10-2009 D[facility] MENSTRUATIO SHARI MASON N&OTH ABN BLEED FE GNT TRACT 61136 CONTUSION 11-20-2008 [facility] OF KNEE [employer] 35734 OTHER SPEC 11-02-2008 [facility] HEMORRHAGE [employer] ANTEPARTUM V7241 10-30-2008 DHS/CO EXAMINATION HEALTH OR TEST CENTRAL NEGATIVE BANK ACCT RESULT 16832 ACUTE 10-21-2008 [facility] SEROUS [facility] OTITIS [employer] MEDIA 4660 ACUTE 10-21-2008 [facility] BRONCHITIS [employer] 28339 FEVER 10-21-2008 [facility] UNSPECIFIED AMBULANCE SERVICE E9278 OTH 10-07-2008 [facility] [place] OVEREXERT&S MEDICAL TRENUOUS&RE IMAGING PETITIVE ASSOCIATES MVMNTS/LOAD S 21117 OTHER ACUTE 05-26-2008 [facility] POSTOPERATI INC VE PAIN 88977 OTHER 05-26-2008 [facility] DYSPNEA AND AM[place]ULANCE [place] [address] CALCU 05-15-2008 TRINH ARRIAGA JR RANDAL F W/OTH CHOLECYST W/O MENTION OBST 22705 CALCU 05-15-2008 [facility] GALLBLADD [facility] W/O MENTION INC CHOLECYST/O BST 91969 CHOLECYSTIT 05-15-2008 COMMUNITY IS, ANESTH OF UNSPECIFIED THE [facility] V242 ROUTINE 04-27-2008 [facility] [place] INC FOLLOW-UP V762 SCREENING 04-27-2008 [facility] [place] INC MALIGNANT NEOPLASM OF THE CERVIX 44256 ACHILLES 04-23-2008 [facility] BURSITIS OR [employer] TENDINITIS Applits 08300 CALCU BD 03-26-2008 [facility] [place] WITHOUT MEDICAL MENTION IMAGING CHOLECYST/O ASSOCIATES BSTRUCTION 71964 ABDOMINAL 03-26-2008 [facility] PAIN RIGHT [facility] LOWER INC QUADRANT 08856 INFECTED 03-22-2008 D[facility] POSTOPERATI SHARI MASON VE SEROMA NEC 68785 MATERNAL 03-19-2008 DARIO MCCARTHY MD CONDITION/C OMPLICAT 25480 ERLY ONSET 03-02-2008 DARIO MCCARTHY MD W/WO MENTION ANTPRTM COND 67780 PREV C/S 03-02-2008 COMMUNITY DELIV DELIV ANESTH OF W/WO THE MENTION [facility] ANTPRTM COND V252 STERILIZATI 03-02-2008 PATHOLOGY & ON CYTOLOGY LAB 88262 OTHER 03-01-2008 DARIO [facility] THREATENED SHARI MASON LABOR, ANTEPARTUM 71169 OTHER SPEC 03-01-2008 [facility] COMPLICATIO [facility] N INC W/DELIVERY V270 OUTCOME OF 03-01-2008 [facility] DELIVERY [facility] SINGLE INC LIVEBORN V2389 SUPERVISION 02-21-2008 DARIO Cooper OF WILI MCCARTHY MD HIGH-RISK 99404 THREATENED 02-19-2008 [facility] PREMATURE [facility] LABOR INC ANTEPARTUM V222 02-07-2008 SHARI JOSHI MD INCIDENTAL 9248 CONTUSION 02-04-2008 [facility] OF MULTIPLE [facility] HOS[facility] SITES NEC INC V221 SUPERVISION 02-04-2008 [facility] OF OTHER MEM [facility]OS[facility] NORMAL INC 30291 CALCU 01-29-2008 TRINH ARRIAGA JR RANDAL F W/ACUT CHOLCYST W/O MENTION OBST 23028 OTHER 01-29-2008 [facility] SPECIFED [facility] COMPLICATIO INC N ANTEPARTUM 84863 GALLSTONE 01-28-2008 DARIO Cooper ILEUS SHARI MASON 85576 NAUSEA WITH 01-28-2008 [facility] VOMITING SHARI MASON 90122 DIARRHEA 01-28-2008 DARIO MCCARTHY MD 6259 UNSPEC 01-20-2008 D[facility] Cooper SYMPTOM SHARI MASON ASSOC W/FEMALE GENITAL ORGANS 7620 FETUS OR 01-20-2008 [facility] AFFECTED BY IMAGING PLACENTA ASSOCIATES PREVIA 1121 CANDIDIASIS 01-05-2008 DARIO Cooper OF VULVA SHARI MASON AND VAGINA 21957 PLACENTA 12-22-2007 DARIO Cooper PREVIA SHARI MASON WITHOUT HEMORRHAGE ANTEPARTUM 75500 PROLONGED 1 12-14-2007 [facility] AMBULANCE LABOR SERVICE UNSPEC EPISODE CARE 75830 EDEMA OR 12-06-2007 DARIO Cooper EXCESSIVE SHARI MASON WEIGHT GAIN ANTEPARTUM 7806 FEVER & OTH 11-12-2007 [facility] AM[facility]UL[facility] PHYSIOLOGIC SERVICE DISTURBANCE S TEMP REG 57771 POOR 10-31-2007 DARIO Cooper GROWTH MGMT SHARI MASON MOTH ANTPRTM COND/COMP V288 OTHER 10-19-2007 [facility] SPECIFIED [facility] INC SCREENING 97266 BLISTERS 10-18-2007 [facility] WITH [facility] LOSS DUE TO PROF SERV BURN OF FOOT Medications Na ND Rx Da Fi Fi [...] 5 49 PH CE AR TA MA MD CY NO PH OF CY 7. NT 5- HI 32 AN 5 A IN C HY 00 01 02 [address] 40 -0 -1 .0 00 L- ti OC 60 9- 0- 00 02 MA ve OD 12 20 20 23 RT ON 40 17 17 86 -A 1 12 PH CE AR TA MA MD CY NO PH #5 91 7. 5- [...] 1 17 PH CE AR TA MA MD CY NO PH #5 EN 91 5- [...] ti LO 34 7- 7- 00 46 MD ve L 23 20 20 AI E 20 50 11 11 D JR 1 PH MG AR WI MA LL TA CY IA BL M ET 03 F 93 8 # 03 93 BU 00 10 10 30 7 RI 90 MC Ac TA 14 -1 -1 .0 TE 36 KE ti LB 31 7- 7- 00 48 MD ve -A 78 20 20 AI E CE 70 11 11 D JR TA 1 PH MD AR WI N- MA LL CA CY [...] ti 37 8- 8- 0 SI 21 MD ve 16 20 20 DE E 93 [...] 11 11 D E 9 PH SA CO AR RA OP MA H CY L [...] ti RO 20 9- 9- 00 16 MD ve XI 03 20 20 AI E [...] 11 D FUNMILAYO TA 1 PH E MD AR A N- MA CA CY FF [...] 11 D FUNMILAYO TA 1 PH E MD AR A N- MA CA CY FF 03 50 93 -3 8 25 # -4 03 0 93 BU 00 12 12 36 8 RI 86 NI Ac TA 14 -1 -1 .0 TE 25 CH ti LB 31 5- 5- 00 40 OL ve -A 78 20 20 AI S CE 70 10 10 D FUNMILAYO TA 1 PH E MD AR A N- MA CA CY FF 03 50 93 -3 8 25 # -4 03 0 93 BU 00 11 11 36 8 RI 85 NI Ac TA 14 -2 -2 .0 TE 99 CH ti LB 31 8- 8- 00 50 OL ve -A 78 20 20 AI S CE 70 10 10 D FUNMILAYO TA 1 PH E MD AR A N- MA CA CY FF 03 50 93 -3 8 25 # -4 03 0 93 BU 00 11 11 36 6 RI 85 NI Ac TA 14 -1 -1 .0 TE 79 CH ti LB 31 2- 2- 00 80 OL ve -A 78 20 20 AI S CE 70 10 10 D FUNMILAYO TA 1 PH E MD AR A N- MA CA CY FF [...] 34 20 20 DE 90 10 10 MD 1 PH CH AR AE MA L [...] DE S ZA 11 10 10 FUNMILAYO CO 0 PH E IN AR A E [...] 10 D FUNMILAYO TA 1 PH E MD AR A N- MA CA CY FF [...] 10 10 BA TA 5 PH TU MD AR ND N- MA E CA CY O FF OF 50 -3 CY 25 NT -4 HI 0 AN A CO 45 05 05 3. 4 RI 83 [...] 20 20 DE YC 61 10 10 MD IN 8 PH CH AR AE 25 [...] 10 10 BA TA 5 PH TU MD AR ND N- MA E CA CY [...] 93 8 CA PS UL E 00 10 10 00 12 2 RI 80 NI Ac 40 -1 -2 .0 TE 38 CH ti 60 2- 2- 00 21 OL ve 35 20 20 AI S 70 09 09 D FUNMILAYO 5 PH E AR A M #3 93 8 65 10 10 00 24 8 RI [...] 80 8- 8- 00 49 OL ve MD 21 20 20 AI S DE 61 09 09 D FUNMILAYO 0 PH E 40 AR A M MG #3 93 TA 8 BL ET CO 00 09 09 00 30 30 RI [...] 93 8 00 08 08 00 10 2 EA 13 RU Ac 59 -1 -[address] 88 SH ti 10 7- 7- 00 SI 45 ve 34 20 20 DE NE 90 09 09 IL 1 PH C AR MA CY OF CY NT HI AN A 00 08 08 00 10 3 EA 13 RU Ac 59 -1 -[address] 79 SH ti 10 0- 7- 00 SI 52 ve 34 20 20 DE NE 90 09 09 IL 1 PH C AR MA CY OF CY NT HI AN A CY 00 08 08 00 24 8 RI 79 NI Ac CL 37 -1 -2 .0 TE 62 CH ti OB 80 9- 7- 00 45 OL ve EN 75 20 20 AI S ZA 10 09 09 D FUNMILAYO CO 1 PH E IN AR A E M 10 #3 93 MG 8 TA BL ET 00 08 08 00 12 2 RI 79 NI Ac 40 -1 -2 .0 TE 62 CH ti 60 9- 7- 00 47 OL ve 35 20 20 AI S 70 09 09 D FUNMILAYO 5 PH E AR A M #3 93 8 00 07 08 00 12 3 EA 13 KIRK Ac 59 -2 -[address] 62 MO ti 10 5- 3- 00 SI 01 N ve 34 20 20 DE AN [address] 1 PH EW AR R MA CY OF CY NT HI AN A 00 07 07 00 12 2 RI 79 NI Ac 40 -1 -3 .0 TE 23 CH ti 60 7- 0- 00 16 OL ve 35 20 20 AI S 70 09 09 D FUNMILAYO 5 PH E AR A M #3 93 8 IN 00 07 07 00 30 10 RI 79 NI Ac DO 37 -1 -3 .0 TE 19 CH ti ME 80 5- 0- 00 93 OL ve TH 14 20 20 AI S AC 70 09 09 D FUNMILAYO IN 1 PH E AR A 50 M #3 MG 93 8 CA PS UL E 00 07 07 00 4. 1 RI 79 SO Ac 40 -1 -3 00 TE 21 KA ti 60 6- 0- 0 48 N ve 35 20 20 AI BA 70 09 09 D BA 5 PH TU AR ND M E #3 O 93 8 00 07 07 00 10 3 RI 79 FL Ac 40 -1 -3 .0 TE 15 AN ti 60 2- 0- 00 11 AG ve 35 20 20 AI AN 80 09 09 D 1 PH JA AR ME M S #3 P 93 8 CY 00 07 07 00 24 8 RI 79 NI Ac CL 37 -0 -1 .0 TE 09 CH ti OB 80 7- 6- 00 02 OL ve EN 75 20 20 AI S ZA 10 09 09 D FUNMILAYO CO 1 PH E IN AR A E [...] O OF CY NT HI AN A 00 06 07 00 12 2 RI 78 NI Ac 40 -1 -0 .0 TE 89 CH ti 60 9- 2- 00 11 OL ve 35 20 20 AI S 80 09 09 D UFNMILAYO 1 PH E AR A M #3 93 8 CY 00 06 07 00 24 8 RI 78 NI Ac CL 37 -1 -0 .0 TE 89 CH ti OB 80 9- 2- 00 10 OL ve EN 75 20 20 AI S ZA 10 09 09 D FUNMILAYO CO 1 PH E IN AR A E [...] S ZA 10 09 09 D FUNMILAYO CO 1 PH E IN AR A E M 10 #3 93 MG 8 TA BL ET CO 00 05 06 00 6. 30 RI [...] BA ZA 10 09 09 D BA CO 1 PH TU IN AR ND E M E 10 #3 O 93 MG 8 TA BL ET CO 00 03 04 00 30 30 RI [...] 00 14 7 RI 76 GA Ac CO 17 -2 -1 .0 TE 83 IN ti OF 25 6- 2- 00 35 EY ve LO 31 20 20 AI XA 26 09 09 D MD CI 0 PH CH N AR AE HC M L L #3 S 50 93 0 8 MG TA B ME 00 01 02 00 21 6 RI 76 GA Ac TH 60 -2 -1 .0 TE 83 IN ti YL 34 6- 2- 00 37 EY ve CO 59 20 20 AI ED 31 09 09 D MD NI 5 PH CH SO AR AE LO M L NE #3 S 4 93 8 MG DO SE PK 60 11 11 00 12 4 RI 75 NI Ac 25 -1 -2 0. TE 81 CH ti 80 4- 0- 00 45 OL ve 23 20 20 0 AI S 91 08 08 D FUNMILAYO 6 PH E AR A M #3 93 8 AM 00 11 11 00 30 10 RI 75 NI Ac OX 09 -1 -2 .0 TE 81 CH ti IC 33 4- 0- 00 44 OL ve IL 10 20 20 AI S LI 90 08 08 D FUNMILAYO N 5 PH E 50 AR A 0 M MG #3 93 CA 8 PS UL E AC 00 10 10 00 24 6 [...] 00 30 15 RI 75 GO Ac CO 09 -1 -2 .0 TE 40 BL ti OX 30 2- 3- 00 02 E ve EN 14 20 20 AI RO 90 08 08 D ND 50 1 PH AL 0 AR E MG M #3 TA 93 BL 8 ET CI 00 08 09 00 10 5 RI 74 GA Ac CO 17 -3 -1 .0 TE 77 IN ti OF 25 0- 1- 00 56 EY ve LO 31 20 20 AI XA 26 08 08 D MD CI 0 PH CH N AR AE HC M L L #3 S 50 93 0 8 MG TA B 00 09 09 00 20 2 RI 74 AL Ac 40 -0 -1 .0 TE 82 LR ti 60 4- 1- 00 87 AN ve 36 20 20 AI 30 08 08 D JR 1 PH AR CH M AR #3 LE 93 S 8 F 00 07 07 00 30 8 RI [...] Procedures Procedure DOS Code Location Performer Comment COMPREHEN 60274 [facility] SIVE 7 [facility] PANEL CREATINE 66268 [facility] KINASE MB 7 [facility] FRA[facility] ONLY ECG 59959 [facility] ROUTINE 7 [facility] W/LEAST P 12 [place] [id number] [facility] TROPONIN 7 [facility] QUANTITAT INC INC CALVIN GLUC BLD 49682 [facility] GLUC MNTR 7 [facility] DEV INC INC CLEARED FDA SPEC HOME USE BLOOD 77468 [facility] COUNT 7 [facility] COMPLETE INC INC AUTO&AUTO DIFRNTL WBC CULTURE 71967 [facility] BACTERIAL 7 [facility] BLOOD INC INC AEROBIC W/ID ISOLATES RADIOLOGI 39196 [facility] C EXAM 7 [facility] CHEST 2 INC INC VIEWS FRONTAL&L ATERAL CREATINE 84476 [facility] KINASE 7 [facility] TOTAL INC INC FIBRIN 49686 [facility] DGRADJ 7 [facility] PRODUCTS INC INC D-DIMER QUAL/SEMI ROSA ISELA ECG 98529 [facility] ROUTINE 7 [facility] ECG INC INC W/LEAST 12 LDS TRCG ONLY W/O I&[place] [address] [facility] LACTATE 7 [facility] INC INC UNCLASSIF J3490 [facility] IED DRUGS 7 [facility] INC INC TOTAL 79987 [facility] ABDOMINAL 7 PHYSICIAN S GROUP HYSTERECT W/WO RMVL TUBE OVARY ANESTHESI 13433 [facility] 7 ANESTH INTRAPERI OF THE TONEAL BLUE LOWER ABD W/LAPS N[place] L[place]EL V 69094 [facility] PATHOLOGY GROSS&DAMIÁN ROSCOPIC EXAM PATH 15250 [facility] CONSLT[facility] JR SURG 1ST BLK FROZEN SCTJ 1 SPEC CYTP 13056 [facility] SLCTV [facility] ER JR CELL ENHANCEME NT INTERPJ XCPT C/[place] [address] [facility] JR PATHOLOGY GROSS&DAMIÁN ROSCOPIC EXAM COLLECTIO 67531 [facility] N VENOUS 6 [facility] BLOOD INC INC VENIPUNCT URE CULTURE 57993 [facility] BACTERIAL 6 [facility] INC INC QUANTTATI VE COLONY COUNT URINE CULTURE 72386 [facility] BCT 6 [facility] ISOL&PRSM INC INC PTV ID ISOLATE EA URINE URNLS DIP 79953 [facility] 6 [facility] STICK/TAB INC INC LET REAGENT AUTO MICROSCOP Y GONADOTRO 77709 [facility] PIN 6 [facility] CHORIONIC INC INC QUALITATI VE BLOOD 73764 [facility] COUNT 6 [facility] COMPLETE INC INC AUTO&AUTO DIFRNTL WBC SUSCEPTIB 58271 [facility] LTY STDY 6 [facility] ANTIMICRB INC INC IAL MICRO/AGA R DILUTJ BASIC 87334 [facility] METABOLIC 6 [facility] PANEL INC INC CALCIUM TOTAL URNLS DIP 97309 [facility] 6 [facility] STICK/TAB INC INC LET REAGENT AUTO MICROSCOP Y BLOOD 15652 [facility] COUNT 6 [facility] COMPLETE INC INC AUTO&AUTO DIFRNTL WBC THERAPEUT 01719 [facility] IC 6 [facility] INJECTION INC INC IV PUSH EACH NEW DRUG IADNA 12434 [facility] NEISSERIA 6 [facility] INC INC GONORRHOE AE AMPLIFIED PROBE TQ URINE 08004 [facility] 6 [facility] TEST INC INC VISUAL COLOR CMPRSN METHS CULTURE 65633 [facility] BACTERIAL 6 [facility] INC INC QUANTTATI VE COLONY COUNT URINE SMR PRIM 20772 TIM CARRILLOON SRC WET 6 [facility] MOUNT INC INC NFCT AGT TISS TAMERA 45181 [facility] SLIDE 6 [facility] SAMPS INC INC SKN/HR/NL S FNGI/ECTO PARASIT IADNA 04852 TIM TIM CHLAMYDIA 6 [facility] INC INC TRACHOMAT IS AMPLIFIED PROBE TQ THER 54453 [facility] PROPH/DX 6 [facility] NJX IV INC INC PUSH SINGLE/1S T SBST/[place] [address] LUZMARIA CARNEY TRANSVAGI 6 MEDICAL NAL IMAGING ASS CULTURE 38330 [facility] CHLAMYDIA 6 PHYSICIAN ANY S GROUP SOURCE IADNA 97202 BIO BIO TRICHOMON 6 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 VAGINALIS IES IES AMPLIFIED PROBE TECH URINLS 87203 [facility] DIP 6 PHYSICIAN STICK/TAB S GROUP LET REAGNT NON-AUTO MICRSCPY IADNA 58278 [facility] ZOHREH NEISSERIA 6 PHYSICIAN S GROUP GONORRHOE AE DIRECT PROBE TQ CYTP C/V 48281 BIO BIO AUTO THIN 6 REFERNCE REFERNCE LYR LABORATOR LABORATOR PREPJ SCR IES IES MNL RESCR PHYS IADNA 52566 BIO BIO CHLAMYDIA 6 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 TRACHOMAT IES IES IS AMPLIFIED PROBE TQ IADNA 18923 BIO BIO NEISSERIA 6 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 GONORRHOE IES IES AE AMPLIFIED PROBE TQ IADNA NOS 09485 BIO BIO 6 REFERNCE REFERNCE AMPLIFIED LABORATOR LABORATOR PROBE TQ IES IES EACH ORGANISM COLLECTIO 20141 [facility] N VENOUS 6 [facility] BLOOD INC INC VENIPUNCT URE IMMUNOASS 37781 [facility] AY TUMOR 6 [facility] ANTIGEN [place] [address] [facility] STREPTOCO 6 [facility] CCUS INC INC GROUP A CUL BACT 79970 [facility] XCPT 6 [facility] URINE INC INC BLOOD/STO OL AEROBIC ISOL CULTURE 76841 [facility] BACTERIAL 6 [facility] INC [place] [address] [facility] INFUSION 6 [facility] THERAPY/P INC INC ROPHYLAXI S /DX 1ST TO 1 HR GONADOTRO 32306 [facility] PIN 6 [facility] CHORIONIC INC INC QUALITATI VE BLOOD 21291 [facility] COUNT 6 [facility] COMPLETE INC INC AUTO&AUTO DIFRNTL WBC THERAPEUT 80027 [facility] IC 6 [facility] INJECTION INC INC IV PUSH EACH NEW DRUG COMPREHEN 85233 TIM CARRILLOON SIVE 6 [facility] [place] [address] [facility] AMYLASE 6 [facility] INC INC DRUG TST G0477 [facility] D[facility] PRESUMP;C 6 [facility] PBL BEING [place] [address] TIM TIM LIPASE 6 [facility] [place] [address] [facility] D[facility] ABDOMEN & 6 [facility] PELVIS INC INC W/O CONTRAST MATERIAL RADIOLOGI 46315 [place] COBURN ALL C 6 MEDICAL EXAMINATI IMAGING ON ANKLE ASS 2 VIEWS KNEE L1830 [facility] ORTHOSIS 6 TECHNOLOG TECHNOLOG IMMOBLIZE IES INC IES INC R CANVAS LONGTUDNL PREFAB RADIOLOGI 39036 [place] COBURN ALL C 6 MEDICAL EXAMINATI IMAGING ON KNEE ASS 1/[address] [place] [address] [place] CO[place]URN ALL HEAD/BRAI 6 MEDICAL N W/O IMAGING CONTRAST ASS MATERIAL TOBACCO 88887 SCIFRES SCIFRES USE 6 ANG ANG CESSATION INTERMEDI ATE 3-10 MINUTES OPHTH 46521 SCIFRES SCIFRES MEDICAL 6 ANG ANG XM&EVAL COMPRHNSV ESTAB PT 1/> RADEX 31442 [facility] RIBS UNI 5 [facility] W/POSTERO INC INC ANT CH MINIMUM 3 VIEWS CRTCHS E0114 [facility] UNDARM 5 TECHNOLOG TECHNOLOG OTH THAN IES INC IES INC WOOD PAIR PAD TIP&HNDGR IP RADEX 59963 [place] ROMMEL FOOT 5 MEDICAL COSTA COMPLETE IMAGING MINIMUM 3 ASS VIEWS RADEX 61776 [place] ROMMEL ANKLE 5 MEDICAL COSTA COMPLETE IMAGING MINIMUM 3 ASS VIEWS OPHTH 25296 [facility] 5 ANG ANG XM&EVAL COMPRHNSV ESTAB PT 1/> RADIOLOGI 96343 [place] TAYLOR RADHA C EXAM 5 MEDICAL CHEST 2 IMAGING VIEWS ASS FRONTAL&L ATERAL APPLICATI 73547 [facility] ON 5 [facility] MODALITY INC INC 1/> AREAS HOT/COLD PACKS APPL 72135 [facility] MODALITY 5 [facility] 1/> AREAS INC INC ELEC STIMJ UNATTENDE D THERAPEUT 13006 [facility] IC PX 1/> 5 [facility] AREAS INC INC EACH 15 MIN EXERCISES PHYSICAL 49459 [facility] THERAPY 5 [facility] EVALUATIO INC INC N RADEX 09582 [place] ROMMEL SHOULDER 5 MEDICAL COSTA COMPLETE IMAGING MINIMUM 2 ASS VIEWS SHOULDER L3650 [facility]VANC[facility] ORTHOSIS 5 TECHNOLOG TECHNOLOG FIG 8 IES INC IES INC ABDUCT RESTRAINE R PREFAB RADEX 18971 [place] ROMMEL SHOULDER 5 MEDICAL COSTA COMPLETE IMAGING MINIMUM 2 ASS VIEWS OPHTH 92059 [facility] MEDICAL 4 ANG ANG XM&EVAL COMPRHNSV ESTAB PT 1/> IAADIADOO 79248 [facility] 4 [facility] MIRANDA STREPTOCO INTERNAL CCUS MED GROUP A CUL BACT 80755 COMBINED COMBINED XCPT 4 PHYSICIAN PHYSICIAN URINE S LA S LA BLOOD/STO OL AEROBIC ISOL RADIOLOGI 56696 ROMMEL ROMMEL C 4 [place] EXAMINATI ON KNEE 3 VIEWS RADEX 97688 ROMMEL ROMMEL FOOT 4 [place] COMPLETE MINIMUM 3 VIEWS RADEX 83134 ROMMEL ROMMEL ANKLE 4 [place] COMPLETE MINIMUM 3 VIEWS RADEX 96720 [facility] ELBOW 2 [facility] COMPLETE INC INC MINIMUM 3 VIEWS SLINGS A4565 [facility] 2 APPLICATI 30071 [facility] ON LONG 2 [facility] ARM INC INC SPLINT SHOULDER HAND CREATINE 68776 [facility] KINASE 2 [facility] TOTAL INC INC ECG 74348 [facility] ROUTINE 2 [facility] ECG INC INC W/LEAST 12 LDS TRCG ONLY W/O I&R GROUND A0425 [facility]AN JOS[facility] AMBULANCE PER SERVICE SERVICE STATUTE MILE ECG 50779 PAULY RAYSON ROUTINE 2 MIRANDA MIRANDA ECG W/LEAST 12 LDS I&R ONLY URNLS DIP 39783 [facility] 2 [facility] STICK/TAB INC INC [place] [address] [facility] TROPONIN 2 [facility] QUANTITAT INC INC CALVIN BLOOD 26682 [facility] COUNT 2 [facility] COMPLETE INC INC AUTO&AUTO DIFRNTL WBC RHYTHM 74575 [facility] ECG 1-3 2 [facility] LEADS INC INC TRACING ONLY W/O I&R RADIOLOGI 69428 [place] ROMMEL C EXAM 2 MEDICAL [facility] CHEST 2 IMAGING VIEWS ASS FRONTAL&L ATERAL COMPREHEN 10954 [facility] SIVE 2 [facility] METABOLIC INC INC PANEL CREATINE 37989 [facility] KINASE MB 2 [facility] FRACTION INC INC ONLY URINE 71332 TIMMAURO CARRILLOON 2 [facility] TEST INC INC VISUAL COLOR CMPRSN METHS AMB A0427 JUAN JOSÉ [facility] 2 AMBULANCE AMBULANCE ALS SERVICE SERVICE EMERGENCY TRANSPORT LEVEL 1 URINE 38810 TIM CARRILLOON 2 [facility] TEST INC INC [place] [address] [facility] D[facility] THYROXINE 2 [facility] TOTAL INC INC CULTURE 78746 ITM [facility] BACTERIAL 2 [facility] INC INC QUANTTATI VE COLONY COUNT URINE CULTURE 68304 [facility] BCT 2 [facility] ISOL&PRSM INC INC PTV ID ISOLATE EA URINE RADEX ABD 14140 [facility] COMPL 2 [facility] AQT ABD INC INC W/S/E/D VIEWS 1 VIEW CH URNLS DIP 20858 [facility] 2 [facility] STICK/TAB INC INC LET REAGENT AUTO MICROSCOP Y SUSCEPTIB 72990 [facility] LTY STDY 2 [facility] ANTIMICRB INC INC IAL MICRO/AGA R DILUTJ URNLS DIP 45655 [facility] 1 [facility] STICK/TAB INC INC LET REAGENT AUTO MICROSCOP Y SUSCEPTIB 74667 [facility] LTY STDY 1 [facility] ANTIMICRB INC INC IAL MICRO/AGA R DILUTJ CUL BACT 30334 [facility] AEROBIC 1 [facility] ADDL INC INC METHS DEFINITIV E EA ISOL CULTURE 01960 [facility] BACTERIAL 1 [facility] INC INC QUANTTATI VE COLONY COUNT URINE CUL BACT 49490 [facility] XCPT 1 [facility] URINE INC INC BLOOD/[place] [address] [facility] STREPTOCO 1 [facility] CCUS INC INC GROUP A RADEX 86551 [place] ROMMEL CLAVICLE 1 MEDICAL COSTA COMPLETE IMAGING ASS RADEX 92136 [facility] NASAL 1 MEDICAL COSTA BONES IMAGING COMPLETE ASS MINIMUM 3 VIEWS RADEX 41785 [place] ROMMEL FOOT 1 MEDICAL [facility]STA COMPLETE IMAGING MINIMUM 3 ASS VIEWS OPHTH 35945 ESTEPHANIA SCIROMMEL MEDICAL 1 VISION ANG XM&EVAL COMPRHNSV ESTAB PT 1/> RADIOLOGI 59268 [place] MINO C 0 ORTHOPEDI MAT EXAMINATI C & HAND ON KNEE 3 S VIEWS PRESSURIZ 00132 [facility] ED/NONPRE 0 [facility] SSURIZED INC INC INHALATIO N TREATMENT RADIOLOGI 75818 LUZMARIA CARNEY C EXAM 0 MEDICAL [facility]STA CHEST 2 IMAGING VIEWS ASS FRONTAL&L ATERAL IAADI 40061 TIM CARRILLOON INFFLUENZ 0 [facility] A A VIRUS INC INC IAADI 28247 [facility] INFLUENZA 0 [facility] B VIRUS INC INC RADEX 12935 LUZMARIA ROMMEL ELBOW 0 MEDICAL [facility] COMPLETE IMAGING MINIMUM 3 ASS VIEWS RADEX 26082 LUZMARIA ROMMEL, ANKLE 0 MEDICAL MARYAM COMPLETE IMAGING MINIMUM 3 ASSOCIATE VIEWS S RADEX 66135 LUZMARIA AHUJAUTCHER, SPINE 0 MEDICAL MARYAM LUMBOSACR IMAGING AL ASSOCIATE MINIMUM 4 S VIEWS RADEX 26865 LUZMARIA AHUJAUTCHER, HAND 0 MEDICAL MARYAM MINIMUM 3 IMAGING VIEWS ASSOCIATE S CREATINE 69500 [facility] KINASE MB 0 [facility] [place] [address] [facility] TROPONIN 0 [facility] QUANTITAT INC INC CALVIN BLOOD 32376 [facility] COUNT 0 [facility] COMPLETE INC INC AUTO&AUTO DIFRNTL WBC ECG 54319 TIM GONZALEZ, ROUTINE 0 [facility] W/LEAST PROF SERV 12 LDS I&R ONLY RHYTHM 89850 [facility] ECG 1-3 0 [facility] LEADS INC INC TRACING ONLY W/O I&R CREATINE 20627 [facility] KINASE 0 [facility] TOTAL INC INC ECG 72749 [facility] ROUTINE 0 [facility] ECG INC INC W/LEAST 12 LDS TRCG ONLY W/O I&R FIBRIN 80326 [facility] DGRADJ 0 [facility] PRODUCTS INC INC D-DIMER QUAL/SEMI ROSA ISELA BASIC 17703 [facility] METABOLIC 0 [facility] PANEL INC INC CALCIUM TOTAL RADIOLOGI 33784 [facility] VERGARA, C 0 MEDICAL EDY P EXAMINATI IMAGING ON CHEST ASSOCIATE SINGLE S VIEW FRONTAL RADEX 15710 LUZMARIA VERGARA, WRIST 0 MEDICAL EDY P COMPLETE IMAGING MINIMUM 3 ASSOCIATE VIEWS S OPHTH 06412 ESTEPHANIA TRAVIS, MEDICAL 0 VISION JESSIE M XM&EVAL COMPRHNSV ESTAB PT / RADIOLOGI 14510 [facility] C 9 [facility] EXAMINATI INC INC ON KNEE 3 VIEWS RADEX 16519 LUZMARIA VERGARA, HAND 9 MEDICAL EDY P MINIMUM 3 IMAGING VIEWS ASSOCIATE S RADEX 04544 LUZMARIA VERGARA, WRIST 9 MEDICAL EDY P COMPLETE IMAGING MINIMUM 3 ASSOCIATE VIEWS S THERAPEUT 90661 [facility] IC PX 9 [facility] AREAS INC INC EACH 15 MIN EXERCISES PHYSICAL 61291 [facility] THERAPY 9 [facility] EVALUATIO INC INC N MANUAL 88269 [facility] THERAPY 9 [facility] TQS INC INC REGIONS EACH 15 MINUTES RADEX 09815 [facility] ANKLE 9 [facility] COMPLETE INC INC MINIMUM 3 VIEWS RADEX 79686 [facility] SPINE 9 [facility] LUMBOSACR INC INC AL MINIMUM 4 VIEWS RADEX 90700 [place] ROMMEL, SPINE 9 MEDICAL MARYAM THORACIC IMAGING 3 [place] [address] [facility] INFUSION 9 [facility] THERAPY/P INC INC ROPHYLAXI S /DX 1ST TO 1 HR URNLS DIP 32295 [facility] 9 [facility] STICK/TAB INC INC LET REAGENT AUTO MICROSCOP Y RADIOLOGI 21098 [facility] ROMMEL, C EXAM 9 MEDICAL MARYAM CHEST 2 IMAGING VIEWS ASSOCIATE FRONTAL&L S ATERAL SUSCEPTIB 79657 [facility] LTY STDY 9 [facility] ANTIMICRB INC INC IAL MICRO/AGA R DILUTJ CULTURE 52103 [facility] BACTERIAL 9 [facility] INC INC QUANTTATI VE COLONY COUNT URINE URINE 68360 [facility] 9 [facility] TEST INC INC VISUAL COLOR CMPRSN METHS CULTURE 22440 [facility] BCT 9 [facility] ISOL&PRSM INC INC PTV ID ISOLATE EA URINE URINE 22108 DARIO Cooper HARLINDSEY, 9 SHARI Cooper TEST VISUAL COLOR CMPRSN METHS RADIOLOGI 89312 [place] Grace CARNEY 9 MEDICAL MARYAM EXAMINATI IMAGING ON KNEE 3 ASSOCIATE VIEWS S URINE 18629 [facility] 9 [facility] TEST INC INC VISUAL COLOR CMPRSN METHS URINE 62972 [facility]/CO TIM 9 [facility] TEST [facility] VISUAL BANK ACCT COLOR CMPRSN METHS GROUND A0425 [facility] MILEAGE 9 AMBULANCE AMBULANCE PER SERVICE SERVICE STATUTE MILE AMBULANCE A0429 [facility] SERVICE 9 AMBULANCE AMBULANCE BLS SERVICE SERVICE EMERGENCY TRANSPORT RADEX 13633 [facility] ANKLE 9 [facility] COMPLETE INC INC MINIMUM 3 VIEWS RADEX 25381 [place] JAI, ANKLE 8 MEDICAL EDY P COMPLETE IMAGING MINIMUM 3 ASSOCIATE VIEWS S RADEX 85142 [facility] FOOT 8 [facility] COMPLETE INC INC MINIMUM 3 VIEWS RADEX 84821 [facility] WRIST 8 [facility] COMPLETE INC INC MINIMUM 3 VIEWS COMPREHEN 45629 [facility] SIVE 8 [facility] [place] [address] [facility] AMYLASE 8 [place] [address] [facility] LIPASE 8 [facility] INC INC BLOOD 30551 [facility] COUNT 8 [facility] COMPLETE INC INC AUTO&AUTO DIFRNTL WBC BLOOD 11566 [facility] COUNT 8 [facility] COMPLETE INC INC AUTO&AUTO DIFRNTL WBC GROUND A0425 [facility] MILEAGE 8 AMBULANCE AMBULANCE PER SERVICE SERVICE STATUTE MILE COMPREHEN 98066 [facility] SIVE 8 [facility] METABOLIC INC INC PANEL SUSCEPTIB 60509 [facility] LTY STDY 8 [facility] ANTIMICRB INC INC IAL MICRO/AGA R DILUTJ URNLS DIP 23374 [facility] 8 [facility] STICK/TAB INC INC LET REAGENT AUTO MICROSCOP Y AMB A0422 JUAN JOSÉ CAN OXYGEN&O2 8 AMBULANCE AMBULANCE SUPPLIES SERVICE SERVICE LIFE SUSTAININ G SITUATION AMB A0427 JAUN JOSÉ CAN SERVICE 8 AMBULANCE AMBULANCE ALS SERVICE SERVICE EMERGENCY TRANSPORT LEVEL 1 URINE 05530 [facility] 8 [facility] TEST INC INC VISUAL COLOR CMPRSN METHS CULTURE 59341 [facility] BACTERIAL 8 [facility] INC INC QUANTTATI VE COLONY COUNT URINE CULTURE 68337 [facility] BCT 8 [facility] ISOL&PRSM INC [place] [address] [facility] THER 8 [facility] PROPH/DX INC INC 1ST >1 HR LAPAROSCO 5123 [facility] PIC 8 [facility] CHOLECYST INC INC ECTOMY LAPAROSCO 24398 BERENICERAN ALLRAN PY SURG 8 JR, JR, CHOLECYST RANDAL F RANDAL F ECTOMY IV NFUS 83553 [facility] THER 8 [facility] PROPH/DX INC INC EA HR LEVEL III 89402 PATHOLOGY PATHOLOGY SURG 8 & & PATHOLOGY CYTOLOGY CYTOLOGY LAB LAB GROSS&DAMIÁN ROSCOPIC EXAM ANES 72287 [facility] TRI MARY 8 ANESTH CHANELL A TONEAL OF THE UPPER [place]UE[place] ABDOMEN W/LAPS NOS THER 33571 [facility] PROPH/DX 8 [facility] NJX EA INC INC SEQL IV PUSH SBST/DRUG GONADOTRO 76490 [facility] PIN 8 [facility] CHORIONIC INC INC QUALITATI VE BLOOD 12356 [facility] COUNT 8 [facility] COMPLETE INC INC AUTO&AUTO DIFRNTL WBC COMPREHEN 98279 [facility] SIVE 8 [facility] METABOLIC INC INC PANEL CYTP 55076 [facility] [place], CERV/VAG 8 [place] INC HOLLEY D AUTO THIN LAYER PREP MNL SCREEN RADEX 11367 LUZMARIA ROMMEL, ANKLE 8 MEDICAL MARYAM COMPLETE IMAGING MINIMUM 3 ASSOCIATE VIEWS S BLOOD 01147 [facility] COUNT 8 [facility] COMPLETE INC INC AUTO&AUTO DIFRNTL WBC COMPREHEN 62870 [facility] SIVE 8 [facility] METABOLIC INC INC PANEL CT PELVIS 28876 [facility] 8 [facility] W/[place] [address] LUZMARIA JAI, ABDOMINAL 8 MEDICAL EDY P REAL IMAGING TIME ASSOCIATE W/IMAGE S LIMITED 3D 06302 [facility] RENDERING 8 [facility] INC INC W/INTERP& [place] [address] LUZMARIA JAI, ABDOMEN 8 MEDICAL EDY P W/CONTRAS IMAGING T ASSOCIATE MATERIAL S HEPATITIS 88675 TIM Goodman SURF 8 [facility] ANTIBODY INC INC HBSAB COMPREHEN 30036 [facility] SIVE 8 [facility] METABOLIC INC INC PANEL ACUTE 94786 [facility] HEPATITIS 8 [facility] PANEL INC INC SUSCEPTIB 05279 [facility] LTY STDY 8 [facility] ANTIMICRB INC INC IAL MICRO/AGA R DILUTJ BLOOD 11818 [facility] COUNT 8 [facility] COMPLETE INC INC AUTO&AUTO DIFRNTL WBC HEPATITIS 33388 [facility] B CORE 8 [facility] ANTIBODY INC INC HBCAB TOTAL CUL BACT 48569 [facility] AEROBIC 8 [facility] ADDL INC INC METHS DEFINITIV E EA ISOL CUL BACT 97769 [facility] XCPT 8 [facility] URINE INC INC BLOOD/STO OL AEROBIC ISOL HEPATITIS 92167 [facility] A 8 [facility] ANTIBODY INC INC HAAB BLOOD 35433 DARIO MCCARTHY, COUNT 8 SHARI Cooper HEMOGLOBI N 12089 DARIO MCCARTHY, DELIVERY 8 SHARI FLOWER W/POST[place] II 31446 PATHOLOGY PATHOLOGY SURG 8 & & PATHOLOGY CYTOLOGY CYTOLOGY LAB LAB GROSS&DAMIÁN ROSCOPIC EXAM ANESTHESI 55944 [facility] ALIYAH, Carmen 8 ANESTH ERICA F OF THE DELIVERY [place] ONLY 63823 DARIO MCCARTHY, BIOPHYSIC 8 SHARI Cooper AL PROFILE NON-STRES S TESTING OTH 6639 [facility] BILATERAL 8 [facility] INC INC DESTRUC/O CCLUSION FALLOPIAN TUBES LOW 741 [facility] CERVICAL 8 [facility] INC INC SECTION OBSERVATI 26355 DARIO MCCARTHY, ON/INPATI 8 SHARI Cooper [facility] CARE 55 MINUTES CULTURE 33262 [facility] BACTERIAL 8 [facility] INC INC QUANTTATI VE COLONY COUNT URINE URNLS DIP 58743 [facility] 8 [facility] STICK/TAB INC INC LET REAGENT [place]CROSCOP Y 35917 [facility] PRAJAPATI, NONSTRESS 8 [facility] 24275 [facility] MONITORIN 8 [facility] G LABOR [place] [address] [facility] D[facility] AMYLASE 8 [place] [address] [facility] D[facility] LIPASE 8 [facility] INC INC HEPATIC 92530 [facility] FUNCTION 8 [facility] PANEL INC INC BLOOD 33416 [facility] COUNT 8 [facility] COMPLETE INC INC AUTO&AUTO DIFRNTL WBC 14311 WOMEN'S SEAY, NONSTRESS 8 [facility] OPHTH 46134 CHERISE LUONG [facility]ICAL 8 ELLEN A ELLEN A XM&EVAL COMPRE NEW PT 1/> VST RADIOLOGI 55157 Grace ANNE 8 MEDICAL MARYAM EXAMINATI IMAGING ON CHEST ASSOCIATE SINGLE S VIEW FRONTAL OBSERVATI 01315 DARIO MCCARTHY, ON CARE 8 SHARI Cooper DISCHARGE MANAGEMEN T INITIAL 49578 ALLRAN ALLRAN INPATIENT 8 JR, JR, CONSULT RANDAL Jeffrey NEW/ROS PT 80 [facility] G0378 TIM TIM OBSERVATI 8 [facility] ON INC INC SERVICE PER HOUR NONINVASI 70454 ITM [facility] VE 8 [facility] EAR/PULSE INC INC OXIMETRY MULTIPLE DETER 37423 TIM TIM NONSTRESS 8 [facility] TEST INC INC BASIC 23777 [facility] METABOLIC 8 [facility] PANEL INC INC CALCIUM TOTAL BLOOD 71675 [facility] COUNT 8 [facility] COMPLETE INC INC AUTO&AUTO DIFRNTL WBC INITIAL 86091 DARIO MCCARTHY OBSERVATI 8 SHARI Cooper ON CARE/DAY 70 MINUTES HOSPITAL G0378 [facility] OBSERVATI 8 [facility] ON INC INC SERVICE PER HOUR GLUC BLD 02022 [facility] GLUC MNTR 8 [facility] DEV INC INC CLEARED FDA SPEC HOME USE URNLS DIP 65024 [facility] 8 [facility] STICK/TAB INC INC LET REAGENT AUTO MICROSCOP Y CULTURE 91197 [facility] BACTERIAL 8 [facility] INC INC QUANTTATI VE COLONY COUNT URINE 91123 [facility] NONSTRESS 8 [facility] TEST [place] PREG 72482 DARIO MCCARTHY, UTERUS 8 SHARI [place] [address] [facility]ING[facility] VERGARA, 8 MEDICAL EDY Bee UTERUS IMAGING LIMITED ASSOCIATE 1/> S FETUSES 65380 WOMEN'S SEAY, NONSTRESS 8 [facility] 74800 [facility] NONSTRESS 8 [facility] TEST INC INC NONINVASI 99697 [facility] VE 8 [facility] EAR/PULSE INC INC OXIMETRY SINGLE DETER OBSERVATI 41674 DARIO MCCARTHY, ON/INPATI 8 SHARI Cooper ENT HOSPITAL CARE 55 MINUTES FTL 00742 [facility] FIBRONECT 8 [facility] IN INC INC CERVICOVA G SECRETION S SEMI-ROSA ISELA URNLS DIP 57584 [facility] 8 [facility] STICK/TAB INC INC LET REAGENT AUTO MICROSCOP Y BLOOD 55793 [facility] COUNT 8 [facility] COMPLETE INC INC AUTO&AUTO DIFRNTL WBC GLUCOSE 96137 [facility] POST 8 [facility] GLUCOSE INC INC DOSE SMR PRIM 40258 DARIO MCCARTHY, SRC WET 8 SHARI Cooper [facility] AGT CULTURE 68381 TIMMAURO [facility] BACTERIAL 8 [facility] INC INC QUANTTATI VE COLONY COUNT URINE URNLS DIP 85013 [facility] 8 [facility] STICK/TAB INC INC LET REAGENT AUTO MICROSCOP Y 60682 [facility] NONSTRESS 8 [facility] TEST INC INC 69371 TIM TIM NONSTRESS 8 [facility] TEST INC INC FTL 26020 TIM TIM FIBRONECT 8 [facility] IN INC INC CERVICOVA G SECRETION S SEMI-ROSA ISELA US PREG 45719 DARIO MCCARTHY, UTERUS 8 SHARI Cooper AFTER 1ST TRIMEST GESTATION FTL 85143 TIMMAURO [facility] FIBRONECT 8 [facility] IN INC INC CERVICOVA G SECRETION S SEMI-ROSA ISELA GROUND A0425 JUAN JOSÉ CAN MILEAGE 8 AMB[facility]ANCE AMB[facility]ANCE PER SERVICE SERVICE STATUTE MILE AMB A0427 JUAN JOSÉ CAN SERVICE 8 [facility] ALS SERVICE SERVICE EMERGENCY TRANSPORT LEVEL 1 57237 WOMEN'S PRAJAPATI, NONSTRESS 8 [facility] AMB A0422 JUAN JOSÉ CAN OXYGEN&O2 8 [facility] AMBULANCE SUPPLIES SERVICE SERVICE LIFE SUSTAININ G SITUATION GROUND A0425 [facility] 8 AMBULANCE AMBULANCE PER SERVICE SERVICE STATUTE MILE FTL 83724 [facility] FIBRONECT 8 [facility] IN INC INC CERVICOVA G SECRETION S SEMI-ROSA ISELA AMBULANCE A0429 [facility] SERVICE 8 AMBULANCE AMBULANCE BLS SERVICE SERVICE EMERGENCY TRANSPORT AMB A0427 [facility] SERVICE 8 AMBULANCE AMBULANCE ALS SERVICE SERVICE EMERGENCY TRANSPORT LEVEL 1 IV NFS [id number] TIM [facility] THER 8 [facility] PROPH/DX INC INC 1ST >1 HR GROUND [id number] [facility] MILEAGE 8 AMBULANCE AMBULANCE PER SERVICE SERVICE STATUTE MILE US PREG 05168 DARIO MCCARTHY, UTERUS 8 SHARI Cooper AFTER 1ST TRIMEST GESTATION ALPHA-FET 18211 TIM [facility] OPROTEIN 8 [facility] [place] [place] [address] TIM [facility] ESTRIOL 8 [facility] INC INC Encounters Encounter Start End Date Code Location Performer Type Date OFFICE 83645 [place] [facility]SO OUTPATIEN 7 7 [facility]LEY T VISIT INTERNAL 10 MED MINUTES OFFICE 87032 [facility] HARPEL OUTPATIEN 7 7 PHYSICIAN T VISIT S GROUP 15 MINUTES EMERGENCY 62089 TIM 7 7 [facility] DEPARTMEN INC T VISIT HIGH/URGE NT SEVERITY HOSPITAL TIM - 7 7 [facility] OUTPATIEN [facility] TIM - 7 7 [facility] INPATIENT [facility]OSPITAL TIM - 6 6 [facility] OUTPATIEN INC T OFFICE 77128 [facility] HARPEL OUTPATIEN 6 6 PHYSICIAN T VISIT S GROUP 15 MINUTES OFFICE 57581 [facility] HARPEL OUTPATIEN 6 6 PHYSICIAN T VISIT S GROUP 25 MINUTES OFFICE 72018 [facility] STONE OUTPATIEN 6 6 PHYSICIAN T VISIT S GROUP 15 MINUTES HOSPITAL TIM - 6 6 [facility] OUTPATIEN INC T EMERGENCY 53576 CAMACHO DIAZ DEPT 6 6 PHYSICIAN VISIT S, PLLC HIGH SEVERITY& THREAT FUNCJ EMERGENCY 84775 TIM 6 6 [facility] DEPARTMEN INC T VISIT MODERATE SEVERITY INITIAL 59337 [facility] HARL PREVENTIV 6 6 PHYSICIAN E S GROUP MEDICINE NEW PT AGE [id number] [facility] TIM - 6 6 [facility] OUTPATIEN INC T EMERGENCY 24311 CAMACHO EASLEY 6 6 PHYSICIAN U NICOLE DEPARTMEN S, PLLC T VISIT MODERATE SEVERITY EMERGENCY 16212 TIM 6 6 [facility] DEPARTMEN INC T VISIT LIMITED/M [facility] PROB HOSPITAL TIM - 6 6 [facility] OUTPATIEN INC T EMERGENCY 89961 TIM 6 6 [facility] DEPARTMEN INC T VISIT MODERATE SEVERITY EMERGENCY 18122 CAMACHO EASLEY DEPT 6 6 PHYSICIAN U NICOLE VISIT S, PLLC HIGH SEVERITY& THREAT FUNJ HOSPITAL TIM - 6 6 [facility] OUTPATIEN INC T EMERGENCY 34478 CAMACHO PERRY 6 6 PHYSICIAN DAMIÁN [facility] HIGH/URGE NT SEVERITY EMERGENCY 74094 CAMACHO EASLEY 5 5 PHYSICIAN U NICOLE DEPARTMEN S, PLLC T VISIT HIGH/URGE NT SEVERITY EMERGENCY 05252 TIM 5 5 [facility] DEPARTMEN INC T VISIT LIMITED/M INOR PROB HOSPITAL TIM - 5 5 [facility] OUTPATIEN INC T OFFICE 66873 TIM [facility] [address] [facility] T VISIT HOSPITAL 15 MINUTES EMERGENCY 41050 CAMACHO Sesay 5 5 PHYSICIAN DEPARTMEN S, PLLC T VISIT MODERATE SEVERITY HOSPITAL TIM - 5 5 [facility] OUTPATIEN INC T HOSPITAL TIM - 5 5 [facility] OUTPATIEN INC T OFFICE 45768 [facility] PETTEY OUTPATIEN 5 5 PHYSICIAN JAM T NEW 10 S GROUP MINUTES HOSPITAL TIM - 5 5 [facility] OUTPATIEN INC T OFFICE 26050 [facility] VICKY OUTPATIEN 5 5 PHYSICIAN DAMIÁN T VISIT S GROUP 15 MINUTES OFFICE 70996 [facility] VICK[facility] OUTPATIEN 5 5 PHYSICIAN DAMIÁN T VISIT S GROUP 15 MINUTES OFFICE 19284 TIM FLORES OUTPATIEN 5 5 [facility]IS[facility] HOSP[facility] 15 MINUTES OFFICE 52469 [facility] VICKY OUTPATIEN 5 5 PHYSICIAN DAMIÁN T VISIT S GROUP 15 MINUTES OFFICE 89021 [place] BESSON OUTPATIEN 4 4 VALLEY MIRANDA T VISIT INTERNAL 15 MED MINUTES EMERGENCY 67719 BANNER 4 4 BRO BRO DEPARTMEN T VISIT HIGH/URGE NT SEVERITY OFFICE 73880 [facility] OUTPATIEN 4 4 PHYSICIAN T VISIT S GROUP 10 MINUTES EMERGENCY 64651 VICKY PERRY 2 2 DAMIÁN DAMIÁN DEPARTMEN T VISIT HIGH/URGE NT SEVERITY OFFICE 29212 [facility] BESSON OUTPATIEN 2 2 MIRANDA MIRANDA T VISIT 15 MINUTES HOSPITAL TIM - 2 2 [facility] OUTPATIEN INC T EMERGENCY 61807 TIM 2 2 [facility] DEPARTMEN INC T VISIT LOW/MODER SEVERITY EMERGENCY 59011 VICKY PERRY 2 2 DAMIÁN DAMIÁN DEPARTMEN T VISIT HIGH/URGE NT SEVERITY EMERGENCY 66093 VICKY PERRY DEPT 2 2 DAMIÁN DAMIÁN VISIT HIGH [facility]ITY& [facility] OUTPATIEN INC T EMERGENCY 37625 TIM 2 2 [facility] DEPARTMEN INC T VISIT MODERATE SEVERITY OFFICE 29214 B[facility]ON BESSON OUTPATIEN 2 2 MIRANDA MIRANDA T VISIT 15 MINUTES EMERGENCY 34653 TIM 2 2 [facility] DEPARTMEN INC T VISIT MODERATE SEVERITY EMERGENCY 00470 TREE PERRY 2 2 EMERGENCY DAMIÁN DEPARTMEN SERVICES T VISIT HIGH/URGE NT SEVERITY HOSPITAL TIM - 2 2 [facility] OUTPATIEN INC T OFFICE 17036 BESSON BESSON OUTPATIEN 2 2 MIRANDA MIRANDA T VISIT 15 MINUTES OFFICE 03464 MCKEMIE MCKEMIE OUTPATIEN 2 2 JR RADHA MIRANDA RADHA T VISIT 15 MINUTES OFFICE 53840 TEJINDER TEJINDER OUTPATIEN 2 2 MIRIAM NAN T VISIT 15 MINUTES OFFICE 76436 MCKEMIE MCKEMIE OUTPATIEN 2 2 JR RADHA MIRANDA RADHA T VISIT 15 MINUTES OFFICE 96729 EVARISTO EVARISTO OUTPATIEN 2 2 RITA RITA T VISIT 15 MINUTES OFFICE 59335 EVARISTO EVARISTO OUTPATIEN 1 1 RITA RITA T VISIT 15 MINUTES HOSPITAL TIM - 1 1 [facility] OUTPATIEN INC T OFFICE 14700 ESTEPHANIA KAHN OUTPATIEN 1 1 VISION T VISIT 10 MINUTES OFFICE 60464 [place] TEJINDER OUTPATIEN 1 1 VALLEY NAN T VISIT INTERNAL 15 MEDI MINUTES OFFICE 53028 [place] MCKEMIE OUTPATIEN 1 1 VALLEY RADHA T VISIT INTERNAL 15 MED MINUTES HOSPITAL TIM - 1 1 [facility] OUTPATIEN INC T OFFICE 68884 [place] BESSON OUTPATIEN 1 1 VALLEY MIRANDA T VISIT INTERNAL 15 MED MINUTES HOSPITAL TIM - 1 1 [facility] OUTPATIEN INC T OFFICE 66061 [place] EVARISTO OUTPATIEN 1 1 [place] R[place] T VISIT INTERNAL 15 MEDI MINUTES OFFICE 89258 [facility] EVARISTO OUTPATIEN 1 1 [place] T VISIT INTERNAL 15 MEDI MINUTES OFFICE 96395 [place] TEJINDER OUTPATIEN 1 1 [place] NAN T VISIT INTERNAL 15 MEDI MINUTES OFFICE 45834 [place] [facility] OUTPATIEN 1 1 [place] MIRANDA T VISIT INTERNAL 15 MED MINUTES OFFICE 57252 [place] MCKEMIE OUTPATIEN 1 1 [facility] RADHA T VISIT INTERNAL 25 MED MINUTES OFFICE 32602 [place] BESSON OUTPATIEN 1 1 [place] MIRANAD T VISIT INTERNAL 15 MED MINUTES HOSPITAL TIM - 1 1 [facility] OUTPATIEN INC T OFFICE 80662 [place] EVARISTO OUTPATIEN 1 1 [place] RITA T NEW 20 INTERNAL MINUTES [facility] TIM - 1 1 [facility] OUTPATIEN INC T OFFICE 94150 NITIN TAVERAS OUTPATIEN 0 0 DARCY TAVERAS T VISIT 15 MINUTES OFFICE 72175 NITIN TAVERAS OUTPATIEN 0 0 DARCY TAVERAS T VISIT 15 MINUTES OFFICE 76558 [facility] 0 0 ORTHOPEDI MAT T NEW 30 C & HAND MINUTES S OFFICE 83632 NITIN TAVERAS OUTPATIEN 0 0 DARCY TAVERAS T VISIT 15 MINUTES EMERGENCY 78190 TREE WILSON 0 0 EMERGENCY III [facility] T VISIT HIGH/URGE NT SEVERITY EMERGENCY 74133 TIM 0 0 [facility] DEPARTMEN INC T VISIT MODERATE SEVERITY HOSPITAL TIM - 0 0 [facility] OUTPATIEN INC T EMERGENCY 74657 TREE PERRY 0 0 EMERGENCY [facility] DEPARTMEN SERVICES T VISIT MODERATE SEVERITY EMERGENCY 85307 TIM 0 0 [facility] DEPARTMEN INC T VISIT LOW/MODER SEVERITY HOSPITAL TIM - 0 0 [facility] OUTPATIEN INC T OFFICE 68609 NITIN KO 0 0 DARCY DARCY T VISIT 15 MINUTES OFFICE 17029 NITIN TAVERAS OUTPATIEN 0 0 DARCY A DARCY A T VISIT 15 MINUTES EMERGENCY 55186 TIM 0 0 [facility] DEPARTMEN INC T VISIT MODERATE SEVERITY HOSPITAL TIM - 0 0 [facility] OUTPATIEN INC T OFFICE 51039 NITIN TAVERAS OUTPATIEN 0 0 DARCY A DARCY A T VISIT 15 MINUTES HOSPITAL TIM - 0 0 [facility] OUTPATIEN INC T EMERGENCY 15344 TIM 0 0 [facility] DEPARTMEN INC T VISIT MODERATE SEVERITY OFFICE 93709 NITIN TAVERAS OUTPATIEN 0 0 DARCY A DARCY A T VISIT 15 MINUTES EMERGENCY 52182 TIM 0 0 [facility] DEPARTMEN INC T VISIT LOW/MODER SEVERITY HOSPITAL TIM - 0 0 [facility] OUTPATIEN INC T EMERGENCY 81576 TREE PERRY, 0 0 EMERGENCY [facility] DEPARTMEN SERVICES T VISIT HIGH/URGE ASSOCIATE NT S SEVERITY HOSPITAL TIM - 0 0 [facility] OUTPATIEN INC T EMERGENCY 74674 TIM 0 0 [facility] DEPARTMEN INC T VISIT LOW/MODER SEVERITY EMERGENCY 34475 TREE WILSON 0 0 EMERGENCY III, DEPARTMEN SERVICES ERICA T VISIT MODERATE ASSOCIATE SEVERITY S OFFICE 56756 NITIN TAVERAS OUTPATIEN 0 0 DARCY A DARCY A T VISIT 15 MINUTES EMERGENCY 01983 TREE LOYA, 0 0 EMERGENCY [place] DEPARTMEN SERVICES M T VISIT HIGH/URGE ASSOCIATE NT S SEVERITY HOSPITAL TIM - 0 0 [facility] OUTPATIEN INC T EMERGENCY 56717 TIM 0 0 [facility] DEPARTMEN INC T VISIT LIMITED/M INOR PROB OFFICE 07092 NITIN TAVERAS OUTPATIEN 0 0 DARCY A DARCY A T VISIT 15 MINUTES OFFICE 31093 NITIN TAVERAS OUTPATIEN 0 0 DARCY A DARCY A T VISIT 15 MINUTES HOSPITAL TIM - 0 0 [facility] OUTPATIEN INC T EMERGENCY 83922 TIM 0 0 [facility] DEPARTMEN INC T VISIT MODERATE SEVERITY EMERGENCY 25102 TREE PERRY, DEPT 0 0 EMERGENCY [place] S VISIT SERVICES HIGH SEVERITY& ASSOCIATE THREAT S FUN EMERGENCY 81277 TIM 0 0 [facility] DEPARTMEN INC T VISIT MODERATE SEVERITY EMERGENCY 60484 TREE RAO, 0 0 EMERGENCY [facility] DEPARTMEN SERVICES O T VISIT HIGH/URGE ASSOCIATE NT S SEVERITY HOSPITAL TIM - 0 0 [facility] OUTPATIEN INC T HOSPITAL TIM - 9 9 [facility] OUTPATIEN INC T EMERGENCY 02416 TREE LAURENT 9 9 EMERGENCY [facility] DEPARTMEN SERVICES T VISIT MODERATE ASSOCIATE SEVERITY S EMERGENCY 72027 TIM 9 9 [facility] DEPARTMEN INC T VISIT LOW/MODER SEVERITY OFFICE 46138 NITIN TAVERAS OUTPATIEN 9 9 ADRCY A DARCY A T VISIT 15 MINUTES OFFICE 48951 NITIN TAVERAS OUTPATIEN 9 9 DARCY A DARCY A T VISIT 15 MINUTES EMERGENCY 22038 TREE PERRY, 9 9 [facility] T VISIT MODERATE ASSOCIATE SEVERITY S EMERGENCY 94925 TIM 9 9 [facility] T VISIT LIMITED/M IN[facility] PROB [facility]PITAL TIM - 9 9 [facility] OUTPATIEN INC T EMERGENCY 56619 TREE PERRY, 9 9 [facility] T VISIT HIGH/URGE ASSOCIATE NT S SEVERITY HOSPITAL TIM - 9 9 [facility] 53588 NITIN TAVERAS OUTPATIEN 9 9 DARCY A DARCY A T VISIT 15 MINUTES EMERGENCY 42490 TIM 9 9 [facility] T VISIT LOW/MODER SEVERITY HOSPITAL TIM - 9 9 [facility] OUTPATIEN INC T EMERGENCY 70960 TREE PERRY, 9 9 EMERGENCY [facility] SERVICES T VISIT MODERATE ASSOCIATE SEVERITY S EMERGENCY 80866 TREE PERRY, 9 9 [facility] T VISIT HIGH/URGE ASSOCIATE NT S SEVERITY EMERGENCY 21787 TIM 9 9 [facility] T VISIT LOW/MODER SEVERITY HOSPITAL TIM - 9 9 [facility] OUTPATIEN INC T OFFICE 19570 NITIN TAVERAS OUTPATIEN 9 9 DARCY A DARCY A T VISIT 15 MINUTES OFFICE 90644 NITIN TAVERAS OUTPATIEN 9 9 DARCY A DARCY A T VISIT 15 MINUTES EMERGENCY 18307 TREE RAO, 9 9 EMERGENCY [place] DEPARTMEN SERVICES O T VISIT MODERATE ASSOCIATE SEVERITY S OFFICE 44855 NITIN TAVERAS OUTPATIEN 9 9 DARCY A DARCY A T VISIT 15 MINUTES OFFICE 33848 NITIN TAVERAS OUTPATIEN 9 9 DARCY A DARCY A T VISIT 15 MINUTES EMERGENCY 38312 TREE HINTON, 9 9 EMERGENCY [place] DEPARTMEN SERVICES T VISIT MODERATE ASSOCIATE SEVERITY S HOSPITAL TIM - 9 9 [facility] OUTPATIEN INC T EMERGENCY 80222 TIM 9 9 [facility] DEPARTMEN INC T VISIT LIMITED/M INOR PROB HOSPITAL TIM - 9 9 [facility] OUTPATIEN INC T EMERGENCY 53064 TREE HARRIS, 9 9 EMERGENCY [facility] DEPARTMEN SERVICES T VISIT MODERATE ASSOCIATE SEVERITY S EMERGENCY 59894 TIM 9 9 [facility] DEPARTMEN INC T VISIT LOW/MODER SEVERITY EMERGENCY 30077 TIM 9 9 [facility] DEPARTMEN INC T VISIT LOW/MODER SEVERITY HOSPITAL TIM - 9 9 [facility] OUTPATIEN INC T EMERGENCY 01561 TREE RAO, 9 9 EMERGENCY [place] DEPARTMEN SERVICES O T VISIT MODERATE ASSOCIATE SEVERITY S HOSPITAL TIM - 9 9 [facility] OUTPATIEN INC T EMERGENCY 91337 TIM 9 9 [facility] DEPARTMEN INC T VISIT LIMITED/M INOR PROB EMERGENCY 34279 TREE RAO, 9 9 EMERGENCY [place] DEPARTMEN SERVICES O T VISIT HIGH/URGE ASSOCIATE NT S SEVERITY OFFICE 89591 NITIN TAVERAS OUTPATIEN 9 9 DARCY A DARCY A T VISIT 15 MINUTES OFFICE 53781 NITIN TAVERAS OUTPATIEN 9 9 DARCY A DARCY A T VISIT 15 MINUTES HOSPITAL TIM - 9 9 [facility] OUTPATIEN INC T HOSPITAL TIM - 9 9 [facility] OUTPATIEN INC T EMERGENCY 80593 TIM 9 9 [facility] T VISIT LOW/MODER SEVERITY EMERGENCY 14837 TREE HARRIS, 9 9 EMERGENCY [place] P DEPARTMEN SERVICES T VISIT MODERATE ASSOCIATE SEVERITY S OFFICE 17550 NITIN TAVERAS OUTPATIEN 9 9 DARCY A DARCY A T VISIT 15 MINUTES HOSPITAL TIM - 9 9 [facility] OUTPATIEN INC T OFFICE 11328 NITIN TAVERAS OUTPATIEN 9 9 DARCY A DARCY A T VISIT 15 MINUTES OFFICE 56180 NITIN TAVERAS OUTPATIEN 9 9 DARCY A DARCY A T VISIT 15 MINUTES OFFICE 29715 NITIN TAVERAS OUTPATIEN 9 9 DARCY A DARCY A T VISIT 15 MINUTES OFFICE 55247 NITIN TAVERAS OUTPATIEN 9 9 DARCY A DARCY A T VISIT 15 MINUTES EMERGENCY 87194 TIM 9 9 [facility] T VISIT MODERATE SEVERITY EMERGENCY 06687 TREE RAO, 9 9 EMERGENCY [place] DEPARTMEN SERVICES O T VISIT HIGH/URGE ASSOCIATE NT S SEVERITY HOSPITAL TIM - 9 9 [facility] OUTPATIEN INC T OFFICE 93863 NITIN TAVERAS OUTPATIEN 9 9 DARCY A DARCY A T VISIT 15 MINUTES EMERGENCY 98254 TREE PERRY, 9 9 EMERGENCY [place] [facility] DEPARTMEN SERVICES T VISIT HIGH/URGE ASSOCIATE NT S SEVERITY EMERGENCY 56707 TIM 9 9 [facility] T VISIT LIMITED/M INOR PROB HOSPITAL TIM - 9 9 [facility] OUTPATIEN INC T EMERGENCY 09208 TREE PERRY, 9 9 EMERGENCY [facility] SERVICES T VISIT HIGH/URGE ASSOCIATE NT S SEVERITY EMERGENCY 22210 TIM 9 9 [facility] DEPARTMEN INC T VISIT LOW/MODER SEVERITY HOSPITAL TIM - 9 9 [facility] OUTPATIEN INC T OFFICE 82240 NITIN TAVERAS OUTPATIEN 9 9 DARCY A DARCY A T VISIT 15 MINUTES OFFICE 71532 NITIN TAVERAS OUTPATIEN 9 9 DARCY A DARCY A T VISIT 15 MINUTES OFFICE 00601 STEFANI TONY 9 9 SHARI Cooper T VISIT 25 MINUTES EMERGENCY 93544 TREE RAO, 9 9 EMERGENCY [facility] O T VISIT HIGH/URGE ASSOCIATE NT S SEVERITY EMERGENCY 26659 TIM 9 9 [facility] DEPARTMEN INC T VISIT LIMITED/M INOR PROB HOSPITAL TIM - 9 9 [facility] OUTPATIEN INC T OFFICE 28548 NITIN TAVERAS OUTPATIEN 9 9 DARCY A DARCY A T VISIT 15 MINUTES HOSPITAL TIM - 9 9 [facility] OUTPATIEN INC T EMERGENCY 34413 TIM 9 9 [facility] DEPARTMEN INC T VISIT MODERATE SEVERITY HOSPITAL TIM - 9 9 [facility] OUTPATIEN INC T EMERGENCY 95116 SATISH PERRY, 9 9 [facility] COR[facility] T VISIT ON MODERATE SEVERITY OFFICE 57229 DHS/CO TIM KO 9 9 [facility] T VISIT [facility] 15 BANK ACCT MINUTES EMERGENCY 27715 TIM 9 9 [facility] DEPARTMEN INC T VISIT LOW/MODER SEVERITY EMERGENCY 86453 SATISH PERRY, 9 9 [facility] T VISIT ON HIGH/URGE NT SEVERITY HOSPITAL TIM - 9 9 [facility] OUTPATIEN INC T EMERGENCY 71355 TIM 9 9 [facility] DEPARTMEN INC T VISIT LOW/MODER SEVERITY HOSPITAL TIM - 9 9 [facility] OUTPATIEN INC T EMERGENCY 77220 SATISH PERRY, 9 9 [facility] T VISIT ON MODERATE SEVERITY HOSPITAL TIM - 8 8 [facility] OUTPATIEN INC T EMERGENCY 56411 TIM 8 8 [facility] DEPARTMEN INC T VISIT LOW/MODER SEVERITY EMERGENCY 25353 SATISH JAMES, 8 8 [facility] T VISIT ON MODERATE SEVERITY HOSPITAL TIM - 8 8 [facility] OUTPATIEN INC T OFFICE 61689 NITIN TAVERAS OUTPATIEN 8 8 DARCY Morales T VISIT 15 MINUTES HOSPITAL TIM - 8 8 [facility] OUTPATIEN INC T EMERGENCY 91741 TIM 8 8 [facility] DEPARTMEN INC T VISIT LOW/MODER SEVERITY EMERGENCY 46294 TIM 8 8 [facility] DEPARTMEN INC T VISIT LOW/MODER SEVERITY HOSPITAL TIM - 8 8 [facility] OUTPATIEN INC T EMERGENCY 53560 SATISH HADDAD 8 8 [facility] TURNERShama Byrnes [facility] T VISIT ON MODERATE SEVERITY EMERGENCY 05601 TIM 8 8 [facility] DEPARTMEN INC T VISIT MODERATE SEVERITY HOSPITAL TIM - 8 8 [facility] OUTPATIEN INC T HOSPITAL TIM - 8 8 [facility] OUTPATIEN INC T OFFICE 50186 NITIN TAVERAS OUTPATIEN 8 8 DARCY Carmen TAVERAS A T VISIT 15 MINUTES OFFICE 45399 NITIN TAVERAS OUTPATIEN 8 8 DARCY Carmen DARCY A T VISIT 15 MINUTES HOSPITAL TIM - 8 8 [facility] OUTPATIEN INC T EMERGENCY 76392 TIM 8 8 [facility] DEPARTMEN INC T VISIT MODERATE SEVERITY HOSPITAL TIM - 8 8 [facility]PATIEN INC T [facility]OSPITAL TIM - 8 8 [facility] OUTPATIEN INC T HOSPITAL TIM - 8 8 [facility] OUTPATIEN INC T HOSPITAL TMI - 8 8 [facility] OUTPATIEN INC T EMERGENCY 17047 TIM 8 8 [facility] DEPARTMEN INC T VISIT LOW/MODER SEVERITY HOSPITAL TIM - 8 8 [facility] OUTPATIEN INC T EMERGENCY 02608 SATISH SAMUEL, 8 8 [facility] T VISIT ON MODERATE SEVERITY EMERGENCY 88022 TIM 8 8 [facility] DEPARTMEN INC T VISIT LOW/MODER SEVERITY HOSPITAL TIM - 8 8 [facility] OUTPATIEN [facility] T EMERGENCY 75925 SATISH JAMES, 8 8 [facility] T VISIT ON MODERATE SEVERITY HOSPITAL TIM - 8 8 [facility] OUTPATIEN INC T OFFICE [address] [facility] 8 8 JR RUTH, T VISIT RANDAL TEE F 25 MINUTES HOSPITAL TIM - 8 8 [facility] OUTPATIEN INC T OFFICE [address] [facility] 8 8 HARPEL MD DARIO R T VISIT 15 MINUTES HOSPITAL TIM - 8 8 [facility] OUTPATIEN INC T OFFICE 18250 [facility]AN OUTPATIEN 8 8 JR RUTH, T VISIT RANDAL TEE F 25 MINUTES HOSPITAL TIM - 8 8 [facility] INPATIENT INC OFFICE 37248 [facility] 8 8 SHARI Cooper T VISIT 15 MINUTES HOSPITAL TIM - 8 8 [facility] OUTPATIEN INC T HOSPITAL TIM - 8 8 [facility] OUTPATIEN INC T OFFICE 81151 DARIO MCCARTHY OUTPATIEN 8 8 SHARI Cooper T VISIT 15 MINUTES HOSPITAL TIM - 8 8 [facility] OUTPATIEN INC T OFFICE 03770 DARIO MCCARTHY OUTPATIDAVID 8 8 SHARI Cooper T VISIT 15 MINUTES HOSPITAL TIM - 8 8 [facility] OUTPATIEN INC T HOSPITAL ITM - 8 8 [facility] OUTPATIEN INC T HOSPITAL TIM - 8 8 [facility] OUTPATIEN INC T OFFICE 92943 DARIO MCCARTHY OUTPATIDAVID 8 8 SHARI Cooper T VISIT 15 MINUTES HOSPITAL TIM - 8 8 [facility] OUTPATIEN INC T HOSPITAL TIM - 8 8 [facility] OUTPATIEN INC T HOSPITAL TIM - 8 8 [facility] OUTPATIEN INC T OFFICE 21136 DARIO MCCARTHY OUTPATIDAVID 8 8 SHARI Cooper T VISIT 15 MINUTES HOSPITAL TIM - 8 8 [facility] OUTPATIEN INC T OFFICE 51891 DARIO MCCARTHY OUTPATIEN 8 8 SHARI Cooper T VISIT 15 MINUTES HOSPITAL TIM - 8 8 [facility] OUTPATIEN INC T HOSPITAL TIM - 8 8 [facility] OUTPATIEN INC T OFFICE 63415 DARIO MCCARTHY OUTPATIEN 8 8 SHARI Cooper T VISIT 15 MINUTES HOSPITAL TIM - 8 8 [facility] OUTPATIEN INC T OFFICE 32739 DARIO MCCARTHY OUTPATIEN 8 8 SHARI Cooper T VISIT 15 MINUTES OFFICE 24341 DARIO MCCARTHY OUTPATIEN 8 8 SHARI Cooper T VISIT 15 MINUTES HOSPITAL TIM - 8 8 [facility] OUTPATIEN INC T OFFICE 54135 DARIO MCCARTHY OUTPATIEN 8 8 SHARI Cooper T VISIT 15 MINUTES HOSPITAL TIM - 8 8 [facility] OUTPATIEN INC T EMERGENCY 14123 TIM 8 8 [facility] DEPARTMEN INC T VISIT LOW/MODER SEVERITY OFFICE 74010 DARIO MCCARTHY OUTPATIEN 8 8 SHARI Cooper T VISIT 15 MINUTES HOSPITAL TIM - 8 8 [facility] OUTPATIEN INC T EMERGENCY 15326 TIM 8 8 [facility] DEPARTMEN INC T VISIT LOW/MODER SEVERITY HOSPITAL TIM - 8 8 [facility] OUTPATIEN INC T OFFICE 59043 DARIO MCCARTHY OUTPATIEN 8 8 SHARI Cooper T VISIT 15 MINUTES
--- OUTSIDE RECORDS SUMMARY | 2017-03-15 20:54 | External Medical Summary Rpt ---
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 Role Phone [employer] Unavailable Unavailable [...] LABORATORIES COBURN ALL, COBURN ALL Unavailable Unavailable [facility] Unavailable Unavailable SERVICE, [facility] Unavailable Unavailable SERVICE, [facility] PRICILA PRAJAPATI, Unavailable Unavailable PRICILA PRAJAPATI [facility] Unavailable Unavailable [place], [facility] OF Unavailable Unavailable THE [facility]IN[facility], [facility] ANEST[facility] OF THE EMINENCE ROMMEL, ROMMEL Unavailable Unavailable ROMMEL COSTA, Unavailable Unavailable ROMMEL COSTA ROMMEL COSTA, Unavailable Unavailable ROMMEL COSTA ROMMEL, MARYAM, Unavailable Unavailable ROMMEL, MARYAM [facility], Unavailable Unavailable [facility] MITCHELL DAMIÁN, MITCHELL Unavailable Unavailable DAMIÁN ALONSO, ALONSO Unavailable Unavailable ZOHREH, ZOHREH Unavailable Unavailable [facility] [place], [facility] [place] [facility] Un[facility] [facility] [place] [facility] Unavailable Unavailable HARRIS, TORSTEN P, Unavailable Unavailable HARRIS, TORSTEN P EVARISTO RITA, Unavailable Unavailable EVARISTO RITA EVARISTO RITA, Unavailable Unavailable SANDRA PENG Unavailable Unavailable EUG VICKY DAMIÁN, VICKY Unavailable Unavailable DAMIÁN VICKY DAMIÁN, VICKY Unavailable Unavailable DAMIÁN LIVIER PERRY S, Unavailable Unavailable LIVIER PERRY RONDAL E, Unavailable Unavailable RODGER HADDAD ANDREW R, Unavailable Unavailable HAMON, CMAILLE R HARPEL, HARPEL Unavailable Unavailable JONYLDARIO R, Unavailable Unavailable HARPEL, DARIO R [facility] Unavailable Unavailable CENTER, [facility] Unavailable Unavailable INC, [facility] Unavailable Unavailable HOSPITAL, [facility] Unavailable Unavailable HOSPITAL P, [facility] LUONG CRISS, LUONG CRISS Unavailable Unavailable LUONG, ELLEN A, Unavailable Unavailable LUONG, ELLEN A [facility], Unavailable Unavailable [facility] HOLLEY MONTIEL, Unavailable Unavailable HOLLEY MONTIEL HUBER Unavailable Unavailable TEJINDER MIRIAM, TEJINDER Unavailable Unavailable NAN TEJINDER NAN, TEJINDER Unavailable Unavailable NAN [facility] Un[facility] Un[facility], [facility] & Unavailable Unavailable HAND S, [facility] LISA, SUSAN E, Unavailable Unavailable LISA, SUSAN E [facility] Unavailable Unavailable [facility], [facility] Unavailable Unavailable [facility], [facility] Unavailable Unavailable SERVICES, [facility] MCKEMIE JR RADHA, Unavailable Unavailable [...] PHARM #[id number] [facility] Unavailable Unavailable [id number] # [id number], [facility] [id number] # [id number] SCIFRES ANG, SCIFRES Unavailable Unavailable ANG SCIFRES ANG, SCIFRES Unavailable Unavailable JESSIE VINCENT, Unavailable Unavailable JESSIE TRAVIS JOHN T, SMALL, Unavailable Unavailable JE T SOKAN, TORRES O, Unavailable Unavailable SOKAN, TORRES O SALLIE RIVERA, Unavailable Unavailable BHARTI BANEGAS Unavailable Unavailable TASHA, TASHA Unavailable Unavailable CHANELL MARY, Unavailable Unavailable CHANELL MARY JEFFREY M, Unavailable Unavailable DANGELO LOYA [facility] # Unavailable Unavailable [id number], [facility] # [id number] WEKEHINDE GARCIA, Unavailable Unavailable ERICA SALAZAR III, III, Unavailable Unavailable ERICA WILSON III, JEFFREY, Unavailable Unavailable DANGELO JAMES, TAYLOR GARCIA Unavailable Unavailable Purpose Continuity of Care Document - 10-03-2007 through 2016 Problems Code Diagnosis DOS Provider Status J302 OTHER 02-16-2017 [facility] ALLERGIC INTERNAL RHINITIS MED J4520 MILD 02-16-2017 [facility] T ASTHMA INTERNAL UNCOMPLICAT MED ED R102 PELVIC AND 02-12-2017 [facility] PERINEAL PHYSICIANS PAIN GROUP J069 ACUTE UPPER 12-24-2016 [facility] RESPIRATORY PLLC INFECTION UNSPECIFIED R05 COUGH 12-24-2016 [facility] R0789 OTHER CHEST 12-24-2016 [facility] P R079 CHEST PAIN 12-24-2016 [facility] Z720 TOBACCO USE 12-24-2016 [facility] P D271 BENIGN 10-02-2016 [facility] NEOPLASM OF [facility] LEFT OVARY N801 ENDOMETRIOS 10-02-2016 [facility] IS OF OVARY LLC N839 NONINFLAMM 10-02-2016 [facility] D/O OVARY ANESTH OF FALLOP TUBE THE BLUE & BROAD LIG UNS N881 OLD 10-02-2016 [facility], LACERATION LLC OF CERVIX UTERI N938 OTHER SPEC 10-02-2016 [facility] ABNORMAL PHYSICIANS UTERINE & GROUP VAGINAL BLEEDING N9489 OTH COND 09-25-2016 [facility] W/FE [facility] GEN ORGN & INC MENSTRUAL CYCL N949 UNS COND 09-25-2016 [facility] GENIT ORGN INC & MENSTRUAL CYCL V04825 ENCOUNTER 09-25-2016 [facility] FOR [facility] PREPROCEDUR INC AL LABORATORY EXAM N920 EXCESS & 09-10-2016 [facility] FREQUENT PHYSICIANS MENSTRUATIO GROUP N W/REGULAR CYCLE R030 ELEVATED 09-07-2016 [facility] BLOOD-PRESS PHYSICIANS URE READING GROUP WITHOUT DX HTN R1032 LEFT LOWER 09-07-2016 [facility] QUADRANT PHYSICIANS PAIN GROUP I10 ESSENTIAL 09-02-2016 [facility] PRIMARY [facility] HYPERTENSIO INC N Y90945 ENCOUNTER 08-28-2016 [facility] OPEN SOAPER TENDER EXAM PHYSICIANS GENERAL RTN GROUP W/ABNORMAL FIND K03371 ENCOUNTER 08-28-2016 [facility] OPEN SOAPER TENDER EXAM REFERNCE GENERAL RTN LABORATORIE W/O S ABNORMAL FIND J029 ACUTE 08-27-2016 [facility] PHARYNGITIS [facility]ICIANS, PLLC UNSPECIFIED K5289 OTH SPEC 06-04-2016 [facility] NONINFECTIV PHYSICIANS, E PLLC GASTROENTER ITIS & COLITIS K529 NONINFECTIV 06-04-2016 [facility] E [facility] GASTROENTER INC ITIS & COLITIS UNS N8320 UNSPECIFIED 06-04-2016 [facility] OVARIAN [facility] CYSTS INC N8329 OTHER 06-04-2016 [facility] OVARIAN [facility], CYSTS PLLC [id number] STRAIN 06-04-2016 [facility] MUSCLE [facility]YSICI[facility], FASCIA & PLLC TENDON LOW BACK INITIAL Z80003 PAIN IN 05-01-2016 [facility] C52892 PAIN IN 05-01-2016 [facility] ANKLE [facility] R51 HEADACHE 05-01-2016 [facility] J8745SX CONTUSION 05-01-2016 [facility] UNS PART PHYSICIANS, HEAD PLLC INITIAL ENCOUNTER L4448OR UNSPECIFIED 05-01-2016 [facility] INJURY OF MEDICAL HEAD IMAGING ASS INITIAL ENCOUNTER M3935BD SPRAIN 05-01-2016 [facility] UNSPECIFIED PHYSICIANS, SITE RT PLLC KNEE INITIAL ENCNTR M1828ST UNS INJURY 05-01-2016 [facility] RT LOWER MEDICAL LEG INITIAL IMAGING ASS ENCOUNTER R72478Z SPRAIN 05-01-2016 [facility] UNSPEC PHYSICIANS, LIGAMENT PLLC ROGHT ANKLE INITIAL ENC J81748N UNSPECIFIED 05-01-2016 [facility] INJURY MEDICAL RIGHT ANKLE IMAGING ASS INITIAL ENCOUNTER R981DMX EFFECT HEAT 05-01-2016 [facility] & LIGHT PHYSICIANS, UNSPECIFIED PLLC INITIAL ENCNTR H5213 MYOPIA 03-13-2016 SCIF[facility] ANG BILATERAL R13837 UNSPECIFIED 07-18-2015 [facility] ASTHMA [facility] UNCOMPLICAT INC ED R0781 PLEURODYNIA 07-18-2015 [facility] Z24024Z CONTUSION 07-18-2015 [facility] RT FRONT PHYSICIANS, WALL THORAX [facility] INITIAL ENCOUNTER I015IUU UNSPECIFIED 07-18-2015 [facility] INJURY OF MEDICAL THORAX IMAGING ASS INITIAL ENCOUNTER F91616 PERSONAL 07-18-2015 [facility] HISTORY OF [facility]OS[facility] NICOTINE INC DEPENDENCE 41443 ACUT 06-10-2015 TIM SUPPRATV [facility] OTITIS [facility] MEDIA W/O SPONT RUP EARDRUM 4619 ACUTE 06-10-2015 TIM SINUSITIS, [facility] UNSPECIFIED HOSPITAL 462 ACUTE 06-10-2015 TIM PHARYNGITIS [facility] 41854 PAIN IN 03-13-2015 [facility] JOINT, MEDICAL ANKLE AND IMAGING ASS FOOT 7295 PAIN IN 03-13-2015 [facility] SOFT MEDICAL TISSUES OF IMAGING ASS LIMB 99590 CONTUSION 03-13-2015 [facility] OF FOOT PHYSICIANS, [facility] 9597 INJURY 03-13-2015 [facility] OTHER&UNSPE MEDICAL CIFIED KNEE IMAGING ASS LEG ANKLE&FOOT 3671 MYOPIA 02-08-2015 SCIFRES ANG 15533 SHORTNESS 02-05-2015 [facility] OF BREATH MEDICAL IMAGING ASS 03927 PAIN IN 12-26-2014 [facility] JOINT, [facility] SHOULDER INC REGION V571 OTHER 12-26-2014 [facility] PHYSICAL [facility] THERAPY INC 63159 CONTUSION 12-12-2014 [facility] OF SHOULDER PHYSICIANS REGION GROUP 67868 CONTUSION 12-12-2014 [facility] OF [place] PHYSICIANS GROUP 97653 CONTUSION 12-12-2014 [facility] OF WRIST PHYSICIANS GROUP 8449 SPRAIN&STRA 12-01-2014 [facility] OF TECHNOLOGIE UNSPECIFIED S INC SITE OF KNEE&LEG 9592 INJURY 12-01-2014 [facility] OTHER&UNSPE MEDICAL CIFIED IMAGING ASS SHOULDER&UP PER ARM 86270 ASTHMA, 11-28-2014 [facility] UNSPECIFIED PHYSICIANS , GROUP UNSPECIFIED STATUS 460 ACUTE 11-07-2014 TIM NASOPHARYNG [facility] 7242 LUMBAGO 10-24-2014 [facility] PHYSICIANS GROUP 24491 PAIN IN 02-06-2014 ROM[facility] JOINT, COSTA LOWER LEG 44275 GENERALIZED 02-06-2014 [facility] PAIN COSTA 9160 HIP THI 02-06-2014 [facility] LEG&ANK ABRASION/FR ICION BURN W/O INF 9599 INJURY 02-06-2014 [facility] OTHER AND COSTA UNSPECIFIED UNSPECIFIED SITE E8888 OTHER FALL 02-06-2014 [facility] BAR[facility]TT E8889 UNSPECIFIED 02-06-2014 [facility] FALL COSTA 3829 UNSPECIFIED 12-11-2013 [facility] OTITIS PHYSICIANS MEDIA GROUP 23313 UNSPECIFIED 06-27-2012 [facility] DAM[place]ÁN [place] N 78078 TRAUMATIC 06-14-2012 [facility] MIRANDA ARTHROPATHY MULTIPLE SITES 46000 PAIN IN 06-13-2012 [place] JOINT, MEDICAL UPPER ARM IMAGING ASS 8410 RADIAL 06-13-2012 [facility] LIGAMENT INC SPRAIN AND STRAIN 8419 SPRAIN&STRA 06-13-2012 VICKY DAMIÁN IN UNSPECIFIED SITE ELBOW&[place] [address] CHEST PAIN 05-20-2012 [place] UNSPECIFIED MEDICAL IMAGING ASS 19732 PRECORDIAL 05-20-2012 [facility] PAIN AMBULANCE SERVICE 48378 OTHER CHEST 05-20-2012 [facility] PAIN [facility] INC 7840 HEADACHE 05-11-2012 B[facility] MIRANDA 9953 ALLERGY 05-11-2012 [facility] MIRANDA UNSPECIFIED NOT ELSEWHERE CLASSIFIED 06605 ABDOMINAL 03-02-2012 [facility], MEDICAL UNSPECIFIED IMAGING ASS SITE 5990 URINARY 03-01-2012 [facility] TRACT [facility] INFECTION SERVICES SITE NOT SPECIFIED 7821 RASH AND 12-14-2011 TEJINDER NAN OTHER NONSPECIFIC SKIN ERUPTION 11448 MIGRAINE 10-17-2011 MCKEM[facility] JR UNSP W/O RADHA INTRACT W/O STATUS MIGRAINOSUS 7862 COUGH 10-07-2011 EVARISTO RITA 7245 UNSPECIFIED 07-30-2011 [facility] BACKACHE [facility] INC 7881 DYSURIA 07-30-2011 [facility] INC 42932 UNSPECIFIED 07-03-2011 [facility] BLEPHAROCON JUNCTIVITIS 64592 OTHER ANKLE 05-22-2011 [facility] [place] STRAIN INTERNAL MEDI 4778 ALLERGIC 04-01-2011 [facility] RHINITIS VALLEY DUE TO INTERNAL OTHER MEDI ALLERGEN 83534 MIGRAINE 03-25-2011 [facility] UNS VALLEY W/INTRACTAB INTERNAL L W/O MEDI STATUS MIGRAINOSUS 8479 SPRAIN AND 02-21-2011 [facility] STRAIN OF VALLEY UNSPECIFIED INTERNAL SITE OF MED BACK 920 CONTUSION 11-25-2010 [facility] OF FACE MEDICAL SCALP AND IMAGING ASS NECK EXCEPT EYE 16861 ACUTE PAIN 11-14-2010 [facility] DUE TO VALLEY TRAUMA INTERNAL MEDI 7177 CHONDROMALA 08-04-2010 [facility] GIL OF ORTHOPEDIC PATELLA & HAND S 72996 ASTHMA 07-23-2010 [facility] UNSPECIFIED EMERGENCY WITH SERVICES EXACERBATIO N 46901 PAIN IN 06-27-2010 [place] JOINT, MEDICAL FOREARM IMAGING ASS E8859 FALL FROM 06-27-2010 [facility] OTHER EMERGENCY SLIPPING SERVICES TRIPPING OR STUMBLING V642 SURG/OTH 04-07-2010 [facility] PROC NOT [facility] CARRIED OUT INC BECAUSE PTS DECN 55169 UNSPECIFIED 02-12-2010 [facility] SITE OF EMERGENCY ANKLE SERVICES SPRAIN AND ASSOCIATES STRAIN 6929 CONTACT 02-07-2010 [facility] DERMATITIS& DARCY A OTHER ECZEMA DUE UNSPEC CAUSE 8472 LUMBAR 01-29-2010 [facility] SPRAIN AND EMERGENCY STRAIN SERVICES ASSOCIATES 65072 CONTUSION 01-16-2010 [facility] OF HAND EMERGENCY SERVICES ASSOCIATES 9233 CONTUSION 01-16-2010 [place] [facility] IM[facility] ASSOCIATES 8489 UNSPECIFIED 01-14-2010 NIT[facility], SITE OF DARCY A SPRAIN AND STRAIN 8409 SPRAIN&STRA 01-11-2010 [facility] IN UNSPEC EMERGENCY SITE SERVICES SHOULDER&UP ASSOCIATES PER ARM V698 OTHER 01-11-2010 [facility] PROBLEMS EMERGENCY RELATED TO SERVICES LIFESTYLE ASSOCIATES 5110 PLEURISY 11-23-2009 [place] EFFUS/[facility] PROF SERV [place] 5119 UNSPECIFIED 11-23-2009 [facility] PLEURAL EMERGENCY EFFUSION SERVICES ASSOCIATES 7850 UNSPECIFIED 11-23-2009 [facility] EM[facility] TACHYCARDIA SERVICES ASSOCIATES 68414 SPRAIN AND 11-04-2009 [place] STRAIN OF MEDICAL UNSPECIFIED IMAGING SITE OF ASSOCIATES WRIST E8490 PLACE OF 11-04-2009 [facility] OCCURRENCE, MEDICAL HOME IMAGING ASSOCIATES 32203 REGULAR 10-11-2009 [facility] ASTIGMATISM VISION 4659 ACUTE URIS 08-31-2009 [facility] OF DARCY Morales UNSPECIFIED SITE 9150 ABRASION/FR 08-14-2009 [facility] ICTION BURN DARCY A FINGER W/O MENTION INF 03809 ACUTE 07-28-2009 [facility] GASTRITIS EMERGENCY WITHOUT SERVICES MENTION OF ASSOCIATES HEMORRHAGE 53847 PAIN IN 07-15-2009 N[facility], JOINT, HAND DARCY A 9895 TOXIC 06-30-2009 [facility] EFFECT OF EMERGENCY VENOM SERVICES ASSOCIATES 7823 EDEMA 06-24-2009 DARCY TAVERAS E8498 OTHER 04-19-[address] [place] [address] OF IMAGING OCCURRENCE ASSOCIATES 80239 OTHER 04-11-2009 [facility] CHRONIC [facility]ERG[facility]Y PAIN SERVICES ASSOCIATES 74056 ABDOMINAL 02-17-2009 [facility] OTHER EMERGENCY SPECIFIED SERVICES SITE ASSOCIATES 42817 UNSPECIFIED 01-14-2009 DARCY TAVERAS CONJUNCTIVI TIS 6268 OTH D/O 01-10-2009 DARIO Cooper MENSTRUATIO SHARI MASON N&OTH ABN BLEED FE GNT TRACT 69891 CONTUSION 11-20-2008 [facility] OF KNEE SOAMAI 41898 OTHER SPEC 11-02-2008 [facility] HEMORRHAGE [employer] EARLY [employer] ANTEPARTUM V7241 10-30-2008 DHS/CO EXAMINATION HEALTH OR TEST CENTRAL NEGATIVE BANK ACCT RESULT 93837 ACUTE 10-21-2008 [facility] SEROUS [employer] OTITIS [employer] MEDIA 4660 ACUTE 10-21-2008 [facility] BRONCHITIS SOAMAI 17058 FEVER 10-21-2008 [facility] UNSPECIFIED AMBULANCE SERVICE E9278 OTH 10-07-2008 [facility] OVEREXERT&S MEDICAL TRENUOUS&RE IMAGING PETITIVE ASSOCIATES MVMNTS/LOAD S 30449 OTHER ACUTE 05-26-2008 [facility] POSTOPERATI INC VE PAIN 12935 OTHER 05-26-2008 [facility] DYSPNEA AND AM[place]UL[place] [address] CALCU 05-15-2008 TRINH ARRIAGA JR RANDAL F W/OTH CHOLECYST W/O MENTION OBST 08103 CALCU 05-15-2008 [facility] GALLBLADD [facility] W/O MENTION INC CHOLECYST/O BST 23936 CHOLECYSTIT 05-15-2008 COMMUNITY IS, ANESTH OF UNSPECIFIED THE [place]UEGRASS V242 ROUTINE 04-27-2008 [facility] [place] INC FOLLOW-UP V762 SCREENING 04-27-2008 [facility] [place] INC MALIGNANT NEOPLASM OF THE CERVIX 19661 ACHILLES 04-23-2008 [facility] BURSITIS OR [employer] TENDINITIS [employer] 30261 CALCU BD 03-26-2008 [place] WITHOUT MEDICAL MENTION IMAGING CHOLECYST/O ASSOCIATES BSTRUCTION 04857 ABDOMINAL 03-26-2008 [facility] PAIN RIGHT [facility] LOWER INC QUADRANT 79309 INFECTED 03-22-2008 DARIO Cooper POSTOPERATI SHARI MASON VE SEROMA NEC 26200 MATERNAL 03-19-2008 DARIO MCCARTHY MD CONDITION/C OMPLICAT 08082 ERLY ONSET 03-02-2008 DARIO MCCARTHY MD W/WO MENTION ANTPRTM COND 04223 PREV C/S 03-02-2008 COMMUNITY DELIV DELIV ANESTH OF W/WO THE MENTION BLUEGRASS ANTPRTM COND V252 STERILIZATI 03-02-2008 PATHOLOGY & ON CYTOLOGY LAB 88949 OTHER 03-01-2008 DARIO Cooper THREATENED SHARI MASON LABOR, ANTEPARTUM 48862 OTHER SPEC 03-01-2008 [facility] COMPLICATIO [facility] N INC W/DELIVERY V270 OUTCOME OF 03-01-2008 [facility] DELIVERY [facility] SINGLE INC LIVEBORN V2389 SUPERVISION 02-21-2008 DARIO Cooper OF WILI MCCARTHY MD HIGH-RISK 81288 THREATENED 02-19-2008 [facility] PREMATURE [facility] LABOR INC ANTEPARTUM V222 02-07-2008 SHARI JOSHI MD INCIDENTAL 9248 CONTUSION 02-04-2008 TIM OF MULTIPLE [facility] SITES NEC INC V221 SUPERVISION 02-04-2008 TIM OF OTHER [facility] NORMAL INC 96277 CALCU 01-29-2008 TRINH ARRIAGA JR RANDAL F W/ACUT CHOLCYST W/O MENTION OBST 36432 OTHER 01-29-2008 [facility] SPECIFED [facility] COMPLICATIO INC N ANTEPARTUM 07817 GALLSTONE 01-28-2008 DARIO Cooper ILEUS SHARI MASON 48153 NAUSEA WITH 01-28-2008 DARIO Cooper VOMITING SHARI MASON 59252 DIARRHEA 01-28-2008 DARIO MCCARTHY MD 6259 UNSPEC 01-20-2008 DARIO Cooper SYMPTOM SHARI MASON ASSOC W/FEMALE GENITAL ORGANS 7620 FETUS OR 01-20-2008 [facility] AFFECTED BY IMAGING PLACENTA ASSOCIATES PREVIA 1121 CANDIDIASIS 01-05-2008 DAIRO Cooper OF VULVA SHARI MASON AND VAGINA 50624 PLACENTA 12-22-2007 DARIO Cooper PREVIA SHARI MASON WITHOUT HEMORRHAGE ANTEPARTUM 02845 PROLONGED 1 12-14-2007 [facility] AMBULANCE LABOR SERVICE UNSPEC EPISODE CARE 05856 EDEMA [place] 12-06-2007 DARIO Cooper EXCESSIVE SHARI MASON WEIGHT GAIN ANTEPARTUM 7806 FEVER & OTH 11-12-2007 [facility] AMBULANCE PHYSIOLOGIC SERVICE DISTURBANCE [place] 34699 POOR 10-31-2007 DARIO Cooper GROWTH MGMT SHARI MASON MOTH ANTPRTM COND/COMP V288 OTHER 10-19-2007 [facility] SPECIFIED [facility] INC SCREENING 42204 BLISTERS 10-18-[address] [facility] LOSS DUE TO PROF SERV BURN [...] 5 49 PH CE AR TA MA WI CY NO PH OF CY 7. NT 5- HI 32 AN 5 A IN C HY 00 01 02 [address] 40 -0 -1 .0 00 L- ti OC 60 9- 0- 00 02 MA ve OD 12 20 20 23 RT ON 40 17 17 86 -A 1 12 PH CE AR TA MA WI CY NO PH #5 91 7. 5- [...] 1 17 PH CE AR TA MA WI CY NO PH #5 EN 91 5- [...] ti LO 34 7- 7- 00 46 WI ve L 23 20 20 AI E 20 50 11 11 D JR 1 PH MG AR WI MA LL TA CY IA BL M ET 03 F 93 8 # 03 93 BU 00 10 10 30 7 RI 90 MC Ac TA 14 -1 -1 .0 TE 36 KE ti LB 31 7- 7- 00 48 WI ve -A 78 20 20 AI E CE 70 11 11 D JR TA 1 PH WI AR WI N- MA LL CA CY [...] ti 37 8- 8- 0 SI 21 WI ve 16 20 20 DE E 93 [...] 11 11 D E 9 PH SA MI AR RA OP MA H CY L [...] ti RO 20 9- 9- 00 16 WI ve XI 03 20 20 AI E [...] 11 D FUNMILAYO TA 1 PH E WI AR A N- MA CA CY FF [...] 11 D FUNMILAYO TA 1 PH E WI AR A N- MA CA CY FF 03 50 93 -3 8 25 # -4 03 0 93 BU 00 12 12 36 8 RI 86 NI Ac TA 14 -1 -1 .0 TE 25 CH ti LB 31 5- 5- 00 40 OL ve -A 78 20 20 AI S CE 70 10 10 D FUNMILAYO TA 1 PH E WI AR A N- MA CA CY FF 03 50 93 -3 8 25 # -4 03 0 93 BU 00 11 11 36 8 RI 85 NI Ac TA 14 -2 -2 .0 TE 99 CH ti LB 31 8- 8- 00 50 OL ve -A 78 20 20 AI S CE 70 10 10 D FUNMILAYO TA 1 PH E WI AR A N- MA CA CY FF 03 50 93 -3 8 25 # -4 03 0 93 BU 00 11 11 36 6 RI 85 NI Ac TA 14 -1 -1 .0 TE 79 CH ti LB 31 2- 2- 00 80 OL ve -A 78 20 20 AI S CE 70 10 10 D FUNMILAYO TA 1 PH E WI AR A N- MA CA CY FF [...] 34 20 20 DE 90 10 10 WI 1 PH CH AR AE MA L [...] DE S ZA 11 10 10 FUNMILAYO MI 0 PH E IN AR A E [...] 10 D FUNMILAYO TA 1 PH E WI AR A N- MA CA CY FF [...] 10 10 BA TA 5 PH TU WI AR ND N- MA E CA CY O FF OF 50 -3 CY 25 NT -4 HI 0 AN A MI 45 05 05 3. 4 RI 83 [...] 20 20 DE YC 61 10 10 WI IN 8 PH CH AR AE 25 [...] 10 10 BA TA 5 PH TU WI AR ND N- MA E CA CY [...] 80 8- 8- 00 49 OL ve WI 21 20 20 AI S DE 61 09 09 D FUNMILAYO 0 PH E 40 AR A M MG #3 93 TA 8 BL ET MI 00 09 09 00 30 30 RI [...] S ZA 10 09 09 D FUNMILAYO MI 1 PH E IN AR A E [...] S ZA 10 09 09 D FUNMILAYO MI 1 PH E IN AR A E [...] S ZA 10 09 09 D FUNMILAYO MI 1 PH E IN AR A E [...] S ZA 10 09 09 D FUNMILAYO MI 1 PH E IN AR A E M 10 #3 93 MG 8 TA BL ET MI 00 05 06 00 6. 30 RI [...] BA ZA 10 09 09 D BA MI 1 PH TU IN AR ND E M E 10 #3 O 93 MG 8 TA BL ET MI 00 03 04 00 30 30 RI [...] 00 14 7 RI 76 GA Ac MI 17 -2 -1 .0 TE 83 IN ti OF 25 6- 2- 00 35 EY ve LO 31 20 20 AI XA 26 09 09 D WI CI 0 PH CH N AR AE HC M L L #3 S 50 93 0 8 MG TA B ME 00 01 02 00 21 6 RI 76 GA Ac TH 60 -2 -1 .0 TE 83 IN ti YL 34 6- 2- 00 37 EY ve MI 59 20 20 AI ED 31 09 09 D WI NI 5 PH CH SO AR AE [...] 00 30 15 RI 75 GO Ac MI 09 -1 -2 .0 TE 40 BL ti OX 30 2- 3- 00 02 E ve EN 14 20 20 AI RO 90 08 08 D ND 50 1 PH AL 0 AR E MG M #3 TA 93 BL 8 ET CI 00 08 09 00 10 5 RI 74 GA Ac MI 17 -3 -1 .0 TE 77 IN ti OF 25 0- 1- 00 56 EY ve LO 31 20 20 AI XA 26 08 08 D WI CI 0 PH CH N AR AE [...] Procedure DOS Code Location Performer Comment COMPREHEN 68606 [facility] SIVE 7 [facility] METABOLIC INC INC PANEL CREATINE 16669 [facility] KINASE MB 7 [facility] FRACTION INC INC ONLY ECG 52169 [facility] ROUTINE 7 [facility] W/LEAST P 12 LDS [place] [address] [facility] TROPONIN 7 [facility] QUANTITAT INC INC CALVIN GLUC BLD 40668 [facility] GLUC MNTR 7 [facility] DEV INC INC CLEARED FDA SPEC HOME USE BLOOD 77246 [facility] COUNT 7 [facility] COMPLETE INC INC AUTO&AUTO DIFRNTL WBC CULTURE 31098 [facility] BACTERIAL 7 [facility] BLOOD INC INC AEROBIC W/ID ISOLATES RADIOLOGI 71168 [facility] C EXAM 7 [facility] CHEST 2 INC INC VIEWS FRONTAL&L ATERAL CREATINE 37522 [facility] KINASE 7 [facility] TOTAL INC INC FIBRIN 32583 [facility] DGRADJ 7 [facility] PRODUCTS INC INC D-DIMER QUAL/SEMI ROSA ISELA ECG 60605 [facility] ROUTINE 7 [facility] ECG INC INC W/LEAST 12 LDS TRCG ONLY W/O I&[place] [address] [facility] LACTATE 7 [facility] [place] [place] [facility] INC INC UNCLASSIF J3490 [facility] IED DRUGS 7 [facility] [place] [place] [facility] [place] [place] [facility] INC INC TOTAL 73308 [facility] ABDOMINAL 7 PHYSICIAN S GROUP HYSTERECT W/WO RMVL TUBE OVARY ANESTHESI 84990 [facility] 7 ANESTH INTRAPERI OF THE TONEAL BLUE LOWER ABD W/[place] L[place] [address] [facility] PATHOLOGY GROSS&DAMIÁN ROSCOPIC EXAM PATH 51464 [facility], [facility] CONSLT[facility] SURG 1ST BLK FROZEN SCTJ 1 SPEC CYTP 25470 [facility] SLCTV [facility] CELL ENHANCEME NT INTERPJ XCPT C/[place] [address] [facility], [facility] PATHOLOGY GROSS&DAMIÁN ROSCOPIC EXAM COLLECTIO 94468 [facility] N VENOUS 6 [facility] BLOOD INC INC VENIPUNCT URE CULTURE 72961 [facility] BACTERIAL 6 [facility] INC INC QUANTTATI VE COLONY COUNT URINE CULTURE 43739 [facility] BCT 6 [facility] ISOL&PRSM INC INC PTV ID ISOLATE EA URINE URNLS DIP 80754 [facility] STICK/TAB INC INC LET REAGENT AUTO MICROSCOP Y GONADOTRO 45263 [facility] PIN 6 [facility] CHORIONIC INC INC QUALITATI VE BLOOD 09038 [facility] COUNT 6 [facility] COMPLETE INC INC AUTO&AUTO DIFRNTL WBC SUSCEPTIB 85013 [facility] LTY STDY 6 [facility] ANTIMICRB INC INC IAL MICRO/AGA R DILUTJ BASIC 81347 [facility] METABOLIC 6 [facility] PANEL INC INC CALCIUM TOTAL URNLS DIP 78882 [facility] STICK/TAB INC INC LET REAGENT AUTO MICROSCOP Y BLOOD 46793 [facility] COUNT 6 [facility] COMPLETE INC INC AUTO&AUTO DIFRNTL WBC THERAPEUT 77573 [facility] IC 6 [facility] INJECTION INC INC IV PUSH EACH NEW DRUG IADNA 73182 [facility] NEISSERIA 6 [facility] INC INC GONORRHOE AE AMPLIFIED PROBE TQ URINE 56309 [facility] TEST INC INC VISUAL COLOR CMPRSN METHS CULTURE 01106 [facility] BACTERIAL 6 [facility] INC INC QUANTTATI VE COLONY COUNT URINE SMR PRIM 61205 TIM [facility] SRC WET 6 [facility] MOUNT INC INC NFCT AGT TISS [place] 84003 ITM [facility] SLIDE 6 [facility] SAMPS INC INC SKN/HR/NL S FNGI/ECTO PARASIT IADNA 51980 TIM [facility] CHLAMYDIA 6 [facility] INC INC TRACHOMAT IS AMPLIFIED PROBE TQ THER 22104 [facility] PROPH/DX 6 [facility] NJX IV INC INC PUSH SINGLE/1S T SBST/[place] [address] LUZMAR[facility] CARNEY TRANSVAGI 6 MEDICAL NAL IMAGING ASS CULTURE 05556 [facility] CHLAMYDIA 6 PHYSICIAN ANY S GROUP SOURCE IADNA 62423 BIO BIO TRICHOMON 6 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 VAGINALIS IES IES AMPLIFIED PROBE TECH URINLS 14006 [facility] HARPEL DIP 6 PHYSICIAN STICK/TAB S GROUP LET REAGNT NON-AUTO MICRSCPY IADNA 64400 [facility] ZOHREH NEISSERIA 6 PHYSICIAN S GROUP GONORRHOE AE DIRECT PROBE TQ CYTP C/V 96919 BIO BIO AUTO THIN 6 REFERNCE REFERNCE LYR LABORATOR LABORATOR PREPJ SCR IES IES MNL RESCR PHYS IADNA 15822 BIO BIO CHLAMYDIA 6 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 TRACHOMAT IES IES IS AMPLIFIED PROBE TQ IADNA 01537 BIO BIO NEISSERIA 6 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 GONORRHOE IES IES AE AMPLIFIED PROBE TQ IADNA NOS 00003 BIO BIO 6 REFERNCE REFERNCE AMPLIFIED LABORATOR LABORATOR PROBE TQ IES IES EACH ORGANISM COLLECTIO 54704 [facility] N VENOUS 6 [facility] BLOOD INC INC VENIPUNCT URE IMMUNOASS 05877 [facility] AY TUMOR 6 [facility] [place] [address] [facility] STREPTOCO 6 [facility] CCUS INC INC GROUP A CUL BACT 08559 [facility] XCPT 6 [facility] URINE INC INC BLOOD/STO OL AEROBIC ISOL CULTURE 42843 [facility] BACTERIAL 6 [facility] INC [place] [address] [facility] INFUSION 6 [facility] THERAPY/P INC INC ROPHYLAXI S /DX 1ST TO 1 HR GONADOTRO 50440 [facility] PIN 6 [facility] CHORIONIC INC INC QUALITATI VE BLOOD 83274 [facility] COUNT 6 [facility] COMPLETE INC INC AUTO&AUTO DIFRNTL WBC THERAPEUT 08375 [facility] IC 6 [facility] INJECTION INC INC IV PUSH EACH NEW DRUG COMPREHEN 69979 TIM CARRILLOON SIVE 6 [facility] [place] [address] [facility] AMYLASE 6 [facility] INC INC DRUG TST G0477 [facility] D[facility] PRESUMP;C 6 [facility] PBL BEING [place] [address] TIM TIM LIPASE 6 [facility] [place] [place] [address] [facility] ABDOMEN & 6 [facility] PELVIS INC INC W/O CONTRAST MATERIAL RADIOLOGI 36883 [place] COBURN ALL C 6 MEDICAL EXAMINATI IMAGING ON ANKLE ASS 2 VIEWS KNEE L1830 [facility] ORTHOSIS 6 TECHNOLOG TECHNOLOG IMMOBLIZE IES INC IES INC R CANVAS LONGTUDNL PREFAB RADIOLOGI 25593 [place] COBURN ALL C 6 MEDICAL EXAMINATI IMAGING [place] KNEE ASS 1/[address] [place] [address] [place] COBURN ALL HEAD/BRAI 6 MEDICAL N W/O IMAGING CONTRAST ASS MATERIAL TOBACCO 47369 SCIFRES SCIFRES USE 6 ANG ANG CESSATION INTERMEDI ATE 3-10 MINUTES OPHTH 05403 SCIFRES SCIFRES MEDICAL 6 ANG ANG XM&EVAL COMPRHNSV ESTAB PT 1/> RADEX 93564 [facility] RIBS UNI 5 [facility] W/POSTERO INC INC ANT CH MINIMUM 3 VIEWS CRTCHS E0114 [facility] UNDARM 5 TECHNOLOG TECHNOLOG OTH THAN IES INC IES INC WOOD PAIR PAD TIP&HNDGR IP RADEX 63331 [place] ROMMEL FOOT 5 MEDICAL [place] COMPLETE IMAGING MINIMUM 3 ASS VIEWS RADEX 31803 [place] ROMMEL ANKLE 5 MEDICAL [place]STA COMPLETE IMAGING MINIMUM 3 ASS VIEWS OPHTH 69833 [facility] 5 ANG ANG XM&EVAL COMPRHNSV ESTAB PT 1/> RADIOLOGI 92072 [place] TAYLOR RADHA C EXAM 5 MEDICAL CHEST 2 IMAGING VIEWS ASS FRONTAL&L ATERAL APPLICATI 55654 [facility] ON 5 [facility] MODALITY INC INC 1/> AREAS HOT/COLD PACKS APPL 22992 [facility] MODALITY 5 [facility] 1/> AREAS INC INC ELEC STIMJ UNATTENDE D THERAPEUT 18085 [facility] IC PX 1/> 5 [facility] AREAS INC INC EACH 15 MIN EXERCISES PHYSICAL 36087 [facility] THERAPY 5 [facility] EVALUATIO INC INC N RADEX 40768 [place] ROMMEL SHOULDER 5 MEDICAL COSTA COMPLETE IMAGING MINIMUM 2 ASS VIEWS SHOULDER L3650 [facility] ORTHOSIS 5 TECHNOLOG TECHNOLOG FIG 8 IES INC IES INC ABDUCT RESTRAINE R PREFAB RADEX 00156 [place] ROMMEL SHOULDER 5 MEDICAL [place]STA COMPLETE IMAGING MINIMUM 2 ASS VIEWS OPHTH 49299 [facility] MEDICAL 4 ANG ANG XM&EVAL COMPRHNSV ESTAB PT 1/> IAADIADOO 73376 [facility] STREPTOCO INTERNAL CCUS MED GROUP A CUL BACT 71298 COMBINED COMBINED XCPT 4 PHYSICIAN PHYSICIAN URINE S LA S LA BLOOD/STO OL AEROBIC ISOL RADIOLOGI 22979 ROMMEL ROMMEL C 4 [place] COSTA EXAMINATI ON KNEE 3 VIEWS RADEX 25301 ROMMEL ROMMEL FOOT 4 [place] COSTA COMPLETE MINIMUM 3 VIEWS RADEX 25864 ROMMEL ROMMEL ANKLE 4 [facility] COSTA COMPLETE MINIMUM 3 VIEWS RADEX 65015 [facility] ELBOW 2 [facility] COMPLETE INC INC MINIMUM 3 VIEWS SLINGS A4565 [facility] 2 APPLICATI 51918 [facility] ON LONG 2 [facility] ARM INC INC SPLINT SHOULDER HAND CREATINE 98682 [facility] KINASE 2 [facility] TOTAL INC INC ECG 82752 [facility] ROUTINE 2 [facility] ECG INC INC W/LEAST 12 LDS TRCG ONLY W/O I&R GROUND A0425 [facility] AM[facility]ULANCE PER SERVICE SERVICE STATUTE MILE ECG 94180 PAULY RAYSON ROUTINE 2 MIRANDA MIRANDA ECG W/LEAST 12 LDS I&R ONLY URNLS DIP 15762 [facility] 2 [facility] STICK/TAB INC INC [place] [address] [facility] TROPONIN 2 [facility] QUANTITAT INC INC CALVIN BLOOD 09915 [facility] COUNT 2 [facility] COMPLETE INC INC AUTO&AUTO DIFRNTL WBC RHYTHM 64524 [facility] ECG 1-3 2 [facility] LEADS INC INC TRACING ONLY W/O I&R RADIOLOGI 34980 [place] ROMMEL C EXAM 2 MEDICAL [facility]STA CHEST 2 IMAGING VIEWS ASS FRONTAL&L ATERAL COMPREHEN 62194 [facility] SIVE 2 [facility] METABOLIC INC INC PANEL CREATINE 58361 [facility] KINASE MB 2 [facility] FRACTION INC INC ONLY URINE 89298 TIMMAURO CARRILLOON 2 [facility] TEST INC INC VISUAL COLOR CMPRSN METHS AMB A0427 JUAN JOSÉ [facility] SERVICE 2 AMBULANCE AMBULANCE ALS SERVICE SERVICE EMERGENCY TRANSPORT LEVEL 1 URINE 39617 TIM CARRILLOON 2 [facility] TEST INC INC V[place] [address] [facility] THYROXINE 2 [facility] TOTAL INC INC CULTURE 67404 [facility] BACTERIAL 2 [facility] INC INC QUANTTATI VE COLONY COUNT URINE CULTURE 14010 [facility] BCT 2 [facility] ISOL&PRSM INC INC PTV ID ISOLATE EA URINE RADEX ABD 17801 [facility] COMPL 2 [facility] AQT ABD INC INC W/S/E/D VIEWS 1 VIEW CH URNLS DIP 40048 [facility] 2 [facility] STICK/TAB INC INC LET REAGENT AUTO MICROSCOP Y SUSCEPTIB 88852 [facility] LTY STDY 2 [facility] ANTIMICRB INC INC IAL MICRO/AGA R DILUTJ URNLS DIP 57942 [facility] 1 [facility] STICK/TAB INC INC LET REAGENT AUTO MICROSCOP Y SUSCEPTIB 71722 [facility] LTY STDY 1 [facility] ANTIMICRB INC INC IAL MICRO/AGA R DILUTJ CUL BACT 49435 [facility] AEROBIC 1 [facility] ADDL INC INC METHS DEFINITIV E EA ISOL CULTURE 84145 [facility] BACTERIAL 1 [facility] INC INC QUANTTATI VE COLONY COUNT URINE CUL BACT 80549 [facility] XCPT 1 [facility] URINE INC INC BLOOD/[place] [address] [facility] STREPTOCO 1 [facility] CCUS INC INC GROUP A RADEX 52175 [place] ROMMEL CLAVICLE 1 MEDICAL [facility] COMPLETE IMAGING ASS RADEX 01978 [facility] NASAL 1 MEDICAL [facility] BONES IMAGING COMPLETE ASS MINIMUM 3 VIEWS RADEX 47744 [place] ROMMEL FOOT 1 MEDICAL [place]STA COMPLETE IMAGING MINIMUM 3 ASS VIEWS OPHTH 02506 ESTEPHANIA SCIROMMEL MEDICAL 1 VISION ANG XM&EVAL COMPRHNSV ESTAB PT 1/> RADIOLOGI 49585 [place] MINO C 0 ORTHOPEDI MAT EXAMINATI C & HAND ON KNEE 3 S VIEWS PRESSURIZ 97912 [facility] ED/NONPRE 0 [facility] SSURIZED INC INC INHALATIO N TREATMENT RADIOLOGI 21526 LUZMARIA CARNEY C EXAM 0 MEDICAL COSTA CHEST 2 IMAGING VIEWS ASS FRONTAL&L ATERAL IAADI 93020 TIM CARRILLOON INFFLUENZ 0 [facility] A A VIRUS INC INC IAADI 26723 [facility] INFLUENZA 0 [facility] B VIRUS INC INC RADEX 03486 LUZMARIA ROMMEL ELBOW 0 MEDICAL [facility] COMPLETE IMAGING MINIMUM 3 ASS VIEWS RADEX 64370 LUZMARIA ROMMEL, ANKLE 0 MEDICAL MARYAM COMPLETE IMAGING MINIMUM 3 ASSOCIATE VIEWS S RADEX 18842 LUZMARIA AHUJAUTCHER, SPINE 0 MEDICAL MARYAM LUMBOSACR IMAGING AL ASSOCIATE MINIMUM 4 S VIEWS RADEX 09222 LUZMARIA AHUJAUTCHER, HAND 0 MEDICAL MARYAM MINIMUM 3 IMAGING VIEWS ASSOCIATE S CREATINE 87286 [facility] KINASE MB 0 [facility] [place] [address] [facility] TROPONIN 0 [facility] QUANTITAT INC INC [place] BLOOD 42127 [facility] COUNT 0 [facility] COMPLETE INC INC AUTO&AUTO DIFRNTL WBC ECG 81217 TIM GONZALEZ, ROUTINE 0 [facility] W/LEAST PROF SERV 12 LDS I&R ONLY RHYTHM 31738 [facility] ECG 1-3 0 [facility] LEADS INC INC TRACING ONLY W/O I&R CREATINE 12519 [facility] KINASE 0 [facility] TOTAL INC INC ECG 06809 [facility] ROUTINE 0 [facility] ECG INC INC W/LEAST 12 LDS TRCG ONLY W/O I&R FIBRIN 51852 [facility] DGRADJ 0 [facility] PRODUCTS INC INC D-DIMER QUAL/SEMI ROSA ISELA BASIC 77530 [facility] METABOLIC 0 [facility] PANEL INC INC CALCIUM TOTAL RADIOLOGI 50379 [facility] VERGARA, C 0 MEDICAL EDY P EXAMINATI IMAGING ON CHEST ASSOCIATE SINGLE S VIEW FRONTAL RADEX 88916 LUZMARIA VERGARA, WRIST 0 MEDICAL EDY P COMPLETE IMAGING MINIMUM 3 ASSOCIATE VIEWS S OPHTH 63812 ESTEPHANIA TRAVIS, MEDICAL 0 VISION JESSIE M XM&EVAL COMPRHNSV ESTAB PT / RADIOLOGI 72987 [facility] C 9 [facility] EXAMINATI INC INC ON KNEE 3 VIEWS RADEX 94345 LUZMARIA VERGARA, HAND 9 MEDICAL EDY P MINIMUM 3 IMAGING VIEWS ASSOCIATE S RADEX 42212 LUZMARIA VERGARA, WRIST 9 MEDICAL EDY P COMPLETE IMAGING MINIMUM 3 ASSOCIATE VIEWS S THERAPEUT 15781 [facility] IC PX 9 [facility] AREAS INC INC EACH 15 MIN EXERCISES PHYSICAL 31658 [facility] THERAPY 9 [facility] EVALUATIO INC INC N MANUAL 45708 [facility] THERAPY 9 [facility] TQS INC INC REGIONS EACH 15 MINUTES RADEX 07029 [facility] ANKLE 9 [facility] COMPLETE INC INC MINIMUM 3 VIEWS RADEX 65355 [facility] SPINE 9 [facility] LUMBOSACR INC INC AL MINIMUM 4 VIEWS RADEX 73918 [place] ROMMEL, SPINE 9 MEDICAL MARYAM THORACIC IMAGING 3 [place] [address] [facility] INFUSION 9 [facility] THERAPY/P INC INC ROPHYLAXI S /DX 1ST TO 1 HR URNLS DIP 39102 [facility] 9 [facility] STICK/TAB INC INC LET REAGENT AUTO MICROSCOP Y RADIOLOGI 13859 [facility] ROMMEL, C EXAM 9 MEDICAL MARYAM CHEST 2 IMAGING VIEWS ASSOCIATE FRONTAL&L S ATERAL SUSCEPTIB 07496 [facility] LTY STDY 9 [facility] ANTIMICRB INC INC IAL MICRO/AGA R DILUTJ CULTURE 14096 [facility] BACTERIAL 9 [facility] INC INC QUANTTATI VE COLONY COUNT URINE URINE 12518 [facility] 9 [facility] TEST INC INC VISUAL COLOR CMPRSN METHS CULTURE 22427 [facility] BCT 9 [facility] ISOL&PRSM INC INC PTV ID ISOLATE EA URINE URINE 71866 DARIO Cooper HARLINDSEY, 9 SHARI Cooper TEST VISUAL COLOR CMPRSN METHS RADIOLOGI 40392 [place] Grace CARNEY 9 MEDICAL MARYAM EXAMINATI IMAGING ON KNEE 3 ASSOCIATE VIEWS S URINE 55582 [facility] 9 [facility] TEST INC INC VISUAL COLOR CMPRSN METHS URINE 03316 [facility]/CO TIM 9 HEALTH CO HEALTH TEST [facility] VISUAL BANK ACCT COLOR CMPRSN METHS GROUND A0425 [facility] MILEAGE 9 AMBULANCE AMBULANCE PER SERVICE SERVICE STATUTE MILE AMBULANCE A0429 [facility] SERVICE 9 AMBULANCE AMBULANCE BLS SERVICE SERVICE EMERGENCY TRANSPORT RADEX 64326 [facility] ANKLE 9 [facility] COMPLETE INC INC MINIMUM 3 VIEWS RADEX 91027 [place] JAI, ANKLE 8 MEDICAL EDY P COMPLETE IMAGING MINIMUM 3 ASSOCIATE VIEWS S RADEX 33310 [facility] FOOT 8 [facility] COMPLETE INC INC MINIMUM 3 VIEWS RADEX 67329 [facility] WRIST 8 [facility] COMPLETE INC INC MINIMUM 3 VIEWS COMPREHEN 92211 [facility] SIVE 8 [facility] [place] [address] [facility] AMYLASE 8 [place] [address] [facility] LIPASE 8 [facility] INC INC BLOOD 68036 [facility] COUNT 8 [facility] COMPLETE INC INC AUTO&AUTO DIFRNTL WBC BLOOD 23106 [facility] COUNT 8 [facility] COMPLETE INC INC AUTO&AUTO DIFRNTL WBC GROUND A0425 [facility] MILEAGE 8 AMBULANCE AMBULANCE PER SERVICE SERVICE STATUTE MILE COMPREHEN 48571 [facility] SIVE 8 [facility] METABOLIC INC INC PANEL SUSCEPTIB 19118 [facility] LTY STDY 8 [facility] ANTIMICRB INC INC IAL MICRO/AGA R DILUTJ URNLS DIP 98706 [facility] 8 [facility] STICK/TAB INC INC LET REAGENT AUTO MICROSCOP Y AMB A0422 JUAN JOSÉ CAN OXYGEN&O2 8 AMBULANCE AMBULANCE SUPPLIES SERVICE SERVICE LIFE SUSTAININ G SITUATION AMB A0427 JUAN JOSÉ CAN SERVICE 8 AMBULANCE AMBULANCE ALS SERVICE SERVICE EMERGENCY TRANSPORT LEVEL 1 URINE 36491 [facility] 8 [facility] TEST INC INC VISUAL COLOR CMPRSN METHS CULTURE 23393 [facility] BACTERIAL 8 [facility] INC INC QUANTTATI VE COLONY COUNT URINE CULTURE 91028 [facility] BCT 8 [facility] ISOL&PRSM INC INC [place] NFS 05991 [facility] THER 8 [facility] PROPH/DX INC INC 1ST >1 HR LAPAROSCO 5123 [facility] PIC 8 [facility] CHOLECYST INC INC ECTOMY LAPAROSCO 39486 BERENICERAN ALLRAN PY SURG 8 JR, JR, CHOLECYST RANDAL F RANDAL F ECTOMY IV NFUS 81841 [facility] THER 8 [facility] PROPH/DX INC INC EA HR LEVEL III 37403 PATHOLOGY PATHOLOGY SURG 8 & & PATHOLOGY CYTOLOGY CYTOLOGY LAB LAB GROSS&DAMIÁN ROSCOPIC EXAM ANES 63807 [facility] TRI MARY 8 ANESTH CHANELL A TONEAL OF THE UPPER [place] ABDOMEN W/LAPS NOS THER 49115 [facility] PROPH/DX 8 [facility] NJX EA INC INC SEQL IV PUSH SBST/DRUG GONADOTRO 32374 [facility] PIN 8 [facility] CHORIONIC INC INC QUALITATI VE BLOOD 30313 [facility] COUNT 8 [facility] COMPLETE INC INC AUTO&AUTO DIFRNTL WBC COMPREHEN 95599 [facility] SIVE 8 [facility] METABOLIC INC INC PANEL CYTP 41586 [facility] [place], CERV/VAG 8 [place] INC [place] D AUTO THIN LAYER PREP MNL SCREEN RADEX 86783 LUZMARIA ROMMEL, ANKLE 8 MEDICAL MARYAM COMPLETE IMAGING MINIMUM 3 ASSOCIATE VIEWS S BLOOD 37374 [facility] COUNT 8 [facility] COMPLETE INC INC AUTO&AUTO DIFRNTL WBC COMPREHEN 18275 [facility] SIVE 8 [facility] METABOLIC INC INC PANEL CT PELVIS 57973 [facility] 8 [facility] W/[place] [address] LUZMARIA JAI, ABDOMINAL 8 MEDICAL EDY P REAL IMAGING TIME ASSOCIATE W/IMAGE S LIMITED 3D 98126 [facility] RENDERING 8 [facility] INC INC W/INTERP& [place] [address] LUZMARIA JAI, ABDOMEN 8 MEDICAL EDY P W/CONTRAS IMAGING T ASSOCIATE MATERIAL S HEPATITIS 67120 TIM Goodman SURF 8 [facility] ANTIBODY INC INC HBSAB COMPREHEN 33430 TIM DUMOTN SIVE 8 [facility] METABOLIC INC INC PANEL ACUTE 29082 [facility] HEPATITIS 8 [facility] PANEL INC INC SUSCEPTIB 74884 [facility] LTY STDY 8 [facility] ANTIMICRB INC INC IAL MICRO/AGA R DILUTJ BLOOD 26793 [facility] COUNT 8 [facility] COMPLETE INC INC AUTO&AUTO DIFRNTL WBC HEPATITIS 15068 [facility] B CORE 8 [facility] ANTIBODY INC INC HBCAB TOTAL CUL BACT 98952 [facility] AEROBIC 8 [facility] ADDL INC INC METHS DEFINITIV E EA ISOL CUL BACT 84142 [facility] XCPT 8 [facility] URINE INC INC BLOOD/STO OL AEROBIC ISOL HEPATITIS 94699 [facility] A 8 [facility] ANTIBODY INC INC HAAB BLOOD 83965 DARIO MCCARTHY, COUNT 8 SHARI Cooper HEMOGLOBI N 92849 DARIO MCCARTHY, DELIVERY 8 SHARI FLOWER [place] [address] PATHOLOGY PATHOLOGY SURG 8 & & PATHOLOGY CYTOLOGY CYTOLOGY LAB LAB GROSS&DAMIÁN ROSCOPIC EXAM ANESTHESI 53860 [facility] ALIYAH, Carmen 8 ANESTH ERICA F OF THE DELIVERY [place] ONLY 25938 DARIO MCCARTHY, BIOPHYSIC 8 SHARI Cooper AL PROFILE NON-STRES S TESTING OTH 6639 [facility] BILATERAL 8 [facility] INC INC DESTRUC/O CCLUSION FALLOPIAN TUBES LOW 741 [facility] CERVICAL 8 [facility] INC INC SECTION OBSERVATI 90171 DARIO MCCARTHY, ON/INPATI 8 SHARI Cooper [facility] CARE 55 MINUTES CULTURE 37407 [facility] BACTERIAL 8 [facility] INC INC QUANTTATI VE COLONY COUNT URINE URNLS DIP 58660 [facility] 8 [facility] STICK/TAB INC INC LET REAGENT AUTO MICROSCOP Y 71994 WOMEN'S PRAJAPATI, NONSTRESS 8 [facility] 44911 [facility] MONITORIN 8 [facility] G LABOR [place] [address] [facility] D[facility] AMYLASE 8 [place] [address] [facility] D[facility] LIPASE 8 [facility] INC INC HEPATIC 06036 [facility] FUNCTION 8 [facility] PANEL INC INC BLOOD 16576 [facility] COUNT 8 [facility] COMPLETE INC INC AUTO&AUTO DIFRNTL WBC 52801 WOMEN'S SEAY, NONSTRESS 8 [facility] OPHTH 15950 CHERISE LUONG MEDICAL 8 ELLEN A ELLEN A XM&EVAL COMPRE NEW PT 1/> VST RADIOLOGI 50742 Grace ANNE 8 MEDICAL MARYAM EXAMINATI IMAGING ON CHEST ASSOCIATE SINGLE S VIEW FRONTAL OBSERVATI 96180 DARIO MCCARTHY, ON CARE 8 SHARI Cooper DISCHARGE MANAGEMEN T INITIAL 92589 ALLRAN ALLRAN INPATIENT 8 JR, JR, CONSULT RANDAL Jeffrey NEW/ROS PT 80 [facility] G0378 TIM TIM OBSERVATI 8 [facility] ON INC INC SERVICE PER HOUR NONINVASI 10822 [facility] VE 8 [facility] EAR/PULSE INC INC OXIMETRY MULTIPLE DETER 12263 TIM TIM NONSTRESS 8 [facility] TEST INC INC BASIC 26760 [facility] METABOLIC 8 [facility] PANEL INC INC CALCIUM TOTAL BLOOD 20180 [facility] COUNT 8 [facility] COMPLETE INC INC AUTO&AUTO DIFRNTL WBC INITIAL 34646 DARIO MCCARTHY OBSERVATI 8 SHARI Cooper ON CARE/DAY 70 MINUTES HOSPITAL G0378 [facility] OBSERVATI 8 [facility] ON INC INC SERVICE PER HOUR GLUC BLD 90933 [facility] GLUC MNTR 8 [facility] DEV INC INC CLEARED FDA SPEC HOME USE URNLS DIP 62778 [facility] 8 [facility] STICK/TAB INC INC LET REAGENT AUTO MICROSCOP Y CULTURE 59437 [facility] BACTERIAL 8 [facility] INC INC QUANTTATI VE COLONY COUNT URINE 26287 [facility] NONSTRESS 8 [facility] [place] PREG 32255 DARIO MCCARTHY, UTERUS 8 SHARI Cooper [place] [address] [facility] VERGARA, 8 MEDICAL EDY Bee UTERUS IMAGING LIMITED ASSOCIATE 1/> S FETUSES 82422 WOMEN'S SEAY, NONSTRESS 8 [facility] 74575 [facility] NONSTRESS 8 [facility] TEST INC INC NONINVASI 76516 [facility] VE 8 [facility] EAR/PULSE INC INC OXIMETRY SINGLE DETER OBSERVATI 67897 DARIO MCCARTHY, ON/INPATI 8 SHARI Cooper ENT [facility]OSPITAL CARE 55 MINUTES FTL 07461 [facility] FIBRONECT 8 [facility] IN INC INC CERVICOVA G SECRETION S SEMI-ROSA ISELA URNLS DIP 78006 [facility] 8 [facility] STICK/TAB INC INC LET REAGENT AUTO MICROSCOP Y BLOOD 46589 [facility] COUNT 8 [facility] COMPLETE INC INC AUTO&AUTO DIFRNTL WBC GLUCOSE 54486 [facility] POST 8 [facility] GLUCOSE INC INC DOSE SMR PRIM 87554 DARIO MCCARTHY, SRC WET 8 SHARI Cooper [facility] AGT CULTURE 16224 TIMMAURO [facility] BACTERIAL 8 [facility] INC INC QUANTTATI VE COLONY COUNT URINE URNLS DIP 30506 [facility] 8 [facility] STICK/TAB INC INC LET REAGENT [place]O MICROSCOP Y 72485 [facility] NONSTRESS 8 [facility] TEST INC INC 10344 TIM TIM NONSTRESS 8 [facility] TEST INC INC FTL 56374 TIM TIM FIBRONECT 8 [facility] IN INC INC CERVICOVA G SECRETION S SEMI-ROSA ISELA US PREG 67052 DARIO MCCARTHY, UTERUS 8 SHARI Cooper AFTER 1ST [place] F[place] [address] TIMMAURO [facility] FIBRONECT 8 [facility] IN INC INC CERVICOVA G SECRETION S SEMI-ROSA ISELA GROUND A0425 JUAN JOSÉ CAN MILEAGE 8 AMBULANCE AMBULANCE PER SERVICE SERVICE STATUTE MILE AMB A0427 JUAN JOSÉ CAN SERVICE 8 AMBULANCE AMBULANCE ALS SERVICE SERVICE EMERGENCY TRANSPORT LEVEL 1 89375 WOMEN'S PRAJAPATI, NONSTRESS 8 [facility] AMB A0422 JUAN JOSÉ CAN OXYGEN&O2 8 AMBULANCE AMBULANCE SUPPLIES SERVICE SERVICE LIFE SUSTAININ G SITUATION GROUND A0425 [facility] 8 AMBULANCE AMBULANCE PER SERVICE SERVICE STATUTE MILE FTL 77695 [facility] FIBRONECT 8 [facility] [place] [place] [facility] IN INC INC CERVICOVA G SECRETION S SEMI-ROSA ISELA AMBULANCE A0429 [facility] 8 AMBULANCE AMBULANCE BLS SERVICE SERVICE EMERGENCY TRANSPORT AMB A0427 [facility] 8 AMBULANCE AMBULANCE ALS SERVICE SERVICE EMERGENCY TRANSPORT LEVEL 1 [place] NFS 99256 [facility] THER 8 [facility] [place] [place] [facility] PROPH/DX INC INC 1ST >1 HR GROUND A0425 [facility] MILEAGE 8 AMBULANCE AMBULANCE PER SERVICE SERVICE STATUTE MILE US PREG 73544 DARIO MCCARTHY, UTERUS 8 SHARI Cooper AFTER 1ST TRIMEST GESTATION ALPHA-FET 74803 [facility] OPROTEIN 8 [facility] [place] [place] [address] [facility] ESTRIOL 8 [facility] INC INC Encounters Encounter Start End Date Code Location Performer Type Date OFFICE 11324 [facility] 7 7 [facility] T VISIT INTERNAL 10 MED MINUTES OFFICE 80965 [facility] OUTPATIEN 7 7 PHYSICIAN T VISIT S GROUP 15 MINUTES EMERGENCY 97474 TIM 7 7 [facility] [place] [place] [facility] DEPARTMEN INC T VISIT HIGH/URGE NT SEVERITY HOSPITAL TIM - 7 7 [facility] OUTPATIEN [facility] TIM - 7 7 [facility] INPATIENT [facility] TIM - 6 6 [facility] OUTPATIEN INC T OFFICE 61944 [facility] OUTPATIEN 6 6 PHYSICIAN T VISIT S GROUP 15 MINUTES OFFICE 60504 [facility] OUTPATIEN 6 6 PHYSICIAN T VISIT S GROUP 25 MINUTES OFFICE 72139 [facility] STONE OUTPATIEN 6 6 PHYSICIAN T VISIT S GROUP 15 MINUTES HOSPITAL TIM - 6 6 [facility] OUTPATIEN INC T EMERGENCY 97133 [facility] DIAZ DEPT 6 6 PHYSICIAN VISIT S, PLLC HIGH SEVERITY& THREAT FUNCJ EMERGENCY 74749 TIM 6 6 [facility] DEPARTMEN INC T VISIT MODERATE SEVERITY INITIAL 54526 [facility] HARL PREVENTIV 6 6 PHYSICIAN E S GROUP MEDICINE NEW PT AGE 18-39YRS [facility] TIM - 6 6 [facility] OUTPATIEN INC T EMERGENCY 97876 [facility] EASLEY 6 6 PHYSICIAN U NICOLE DEPARTMEN S, PLLC T VISIT MODERATE SEVERITY EMERGENCY 45513 TIM 6 6 [facility] [place] [place] [facility] DEPARTMEN INC T VISIT LIMITED/M INOR PROB HOSPITAL TIM - 6 6 [facility] [place] [place] [facility] OUTPATIEN INC T EMERGENCY 10785 TIM 6 6 [facility] [place] [place] [facility] DEPARTMEN INC T VISIT MODERATE SEVERITY EMERGENCY 00502 [facility] EASLEY DEPT 6 6 PHYSICIAN U NICOLE VISIT S, PLLC HIGH SEVERITY& THREAT FUNJ HOSPITAL TIM - 6 6 [facility] [place] [place] [facility] OUTPATIEN INC T EMERGENCY 22888 [facility] PERRY 6 6 PHYSICIAN DAMIÁN DEPARTMEN S, [facility] T VISIT HIGH/URGE NT SEVERITY EMERGENCY 18529 [facility] EASLEY 5 5 PHYSICIAN U NICOLE DEPARTMEN S, PLLC T VISIT HIGH/URGE NT SEVERITY EMERGENCY 69428 TIM 5 5 [facility] [place] [place] [facility] DEPARTMEN INC T VISIT LIMITED/M [facility] TIM - 5 5 [facility] [place] [place] [facility] OUTPATIEN INC T OFFICE 91165 TIM [facility] 5 5 [facility] T VISIT HOSPITAL 15 MINUTES EMERGENCY 54894 [facility] Sesay 5 5 PHYSICIAN DEPARTMEN S, PLLC T VISIT MODERATE SEVERITY HOSPITAL TIM - 5 5 [facility] OUTPATIEN INC T HOSPITAL TIM - 5 5 [facility] OUTPATIEN INC T OFFICE 43934 [facility] OUTPATIEN 5 5 PHYSICIAN JAM T NEW 10 S GROUP MINUTES HOSPITAL TIM - 5 5 [facility] OUTPATIEN INC T OFFICE 32813 [facility] OUTPATIEN 5 5 PHYSICIAN DAMIÁN T VISIT S GROUP 15 MINUTES OFFICE 96352 [facility] OUTPATIEN 5 5 PHYSICIAN DAMIÁN T VISIT S GROUP 15 MINUTES OFFICE 08665 TIM [facility] OUTPATIEN 5 5 [facility] T VISIT HOSPITAL 15 MINUTES OFFICE 73973 [facility] VICKY OUTPATIEN 5 5 PHYSICIAN DAMIÁN T VISIT S GROUP 15 MINUTES OFFICE 23421 [facility] 4 4 [facility] MIRANDA T VISIT INTERNAL 15 MED MINUTES EMERGENCY 69329 [facility] 4 4 BRO BRO DEPARTMEN T VISIT HIGH/URGE NT SEVERITY OFFICE 81553 [facility] OUTPATIEN 4 4 PHYSICIAN T VISIT S GROUP 10 MINUTES EMERGENCY 21420 V[facility] PERRY 2 2 DAMIÁN DAMIÁN DEPARTMEN T VISIT HIGH/URGE NT SEVERITY OFFICE 75234 [facility] 2 2 MIRANDA MIRANDA T VISIT 15 MINUTES HOSPITAL TIM - 2 2 [facility] OUT[facility]IEN INC T EMERGENCY 05704 TIM 2 2 [facility] DEPARTMEN INC T VISIT LOW/MODER SEVERITY EMERGENCY 80691 V[facility] PERRY 2 2 DAMIÁN DAMIÁN DEPARTMEN T VISIT HIGH/URGE NT SEVERITY EMERGENCY 82017 [facility] PERRY DEPT 2 2 DAMIÁN DAMIÁN VISIT HIGH SEVERITY& [facility] OUT[facility]IEN INC T EMERGENCY 44539 TIM 2 2 [facility] DEPARTMEN INC T VISIT MODERATE SEVERITY OFFICE 08230 [facility] OUTPAT[facility] 2 2 MIRANDA MIRANDA T VISIT 15 MINUTES EMERGENCY 24872 TIM 2 2 [facility] DEPARTMEN INC T VISIT MODERATE SEVERITY EMERGENCY 28720 TREE PERRY 2 2 EMERGENCY DAMIÁN DEPARTMEN SERVICES T VISIT HIGH/URGE NT SEVERITY HOSPITAL TIM - 2 2 [facility] OUTPATIEN INC T OFFICE 39749 [facility] OUTPATIEN 2 2 MIRANDA MIRANDA T VISIT 15 MINUTES OFFICE 75649 [facility] MCKEMIE OUTPATIEN 2 2 JR RADHA MIRANDA RADHA T VISIT 15 MINUTES OFFICE 36448 TEJINDER TEJINDER OUTPATIEN 2 2 MIRIAM NAN T VISIT 15 MINUTES OFFICE 53941 M[facility] MCKEMIE OUTPATIEN 2 2 JR RADHA MIRANDA RADHA T VISIT 15 MINUTES OFFICE 18154 [facility] OUTPATIEN 2 2 RITA RITA T VISIT 15 MINUTES OFFICE 75149 [facility] OUTPATIEN 1 1 RITA RITA T VISIT 15 MINUTES HOSPITAL TIM - 1 1 [facility] OUTPATIEN INC T OFFICE 75789 ESTEPHANIA KAHN OUTPATIEN 1 1 VISION T VISIT 10 MINUTES OFFICE 27661 [facility] TEJINDER OUTPATIEN 1 1 VALLEY NAN T VISIT INTERNAL 15 MEDI MINUTES OFFICE 93197 [facility] MCKEMIE OUTPATIEN 1 1 VALLEY RADHA T VISIT INTERNAL 15 MED MINUTES HOSPITAL TIM - 1 1 [facility] OUTPATI[facility] INC T OFFICE 10084 [facility] 1 1 [facility] MIRANDA T VISIT INTERNAL 15 MED MINUTES HOSPITAL TIM - 1 1 [facility] OUTPATIEN INC T OFFICE 48860 [facility] EVARISTO OUTPATIEN 1 1 REMLAP RITA T VISIT INTERNAL 15 MEDI MINUTES OFFICE 46021 [facility] OUTPATIEN 1 1 REMLAP RITA T VISIT INTERNAL 15 MEDI MINUTES OFFICE 14964 [facility] TEJINDER OUTPATIEN 1 1 REMLAP NAN T VISIT INTERNAL 15 MEDI MINUTES OFFICE 60318 [facility] 1 1 REMLAP MIRANDA T VISIT INTERNAL 15 MED MINUTES OFFICE 27001 [facility] MCKEMIE OUTPATIEN 1 1 [facility] RADHA T VISIT INTERNAL 25 MED MINUTES OFFICE 58106 [facility] OUTPAT[facility] 1 1 REMLAP MIRANDA T VISIT INTERNAL 15 MED MINUTES HOSPITAL TIM - 1 1 [facility] OUTPATIEN INC T OFFICE 26157 [facility] EVARISTO OUTPATIEN 1 1 REMLAP RITA T NEW 20 INTERNAL MINUTES [facility] TIM - 1 1 [facility] OUTPATIEN INC T OFFICE 98329 NITIN TAVERAS OUTPATIEN 0 0 DARCY TAVERAS T VISIT 15 MINUTES OFFICE 46179 NITIN TAVERAS OUTPATIEN 0 0 DARCY TAVERAS T VISIT 15 MINUTES OFFICE 60241 [place] [facility] OUTPATIEN 0 0 ORTHOPEDI MAT T NEW 30 C & HAND MINUTES S OFFICE 59533 NITIN TAVERAS OUTPATIEN 0 0 DARCY TAVERAS T VISIT 15 MINUTES EMERGENCY 37005 TREE WILSON 0 0 EMERGENCY III [facility]ISIT HIGH/URGE NT SEVERITY EMERGENCY 42808 TIM 0 0 [facility] DEPARTMEN INC T VISIT MODERATE SEVERITY HOSPITAL TIM - 0 0 [facility] OUTPATIEN INC T EMERGENCY 70573 TREE PERRY 0 0 EMERGENCY [facility] DEPARTMEN SERVICES T VISIT MODERATE SEVERITY EMERGENCY 47775 TIM 0 0 [facility] DEPARTMEN INC T VISIT LOW/MODER SEVERITY HOSPITAL TIM - 0 0 [facility] OUTPATIEN INC T OFFICE 05086 NITIN KO 0 0 DARCY DARCY T VISIT 15 MINUTES OFFICE 79081 NITIN TAVERAS OUTPATIEN 0 0 DARCY A DARCY A T VISIT 15 MINUTES EMERGENCY 65413 TIM 0 0 [facility] DEPARTMEN INC T VISIT MODERATE SEVERITY HOSPITAL TIM - 0 0 [facility] OUTPATIEN INC T OFFICE 26153 NITIN TAVERAS OUTPATIEN 0 0 DARCY A DARCY A T VISIT 15 MINUTES HOSPITAL TIM - 0 0 [facility] OUTPATIEN INC T EMERGENCY 12980 TIM 0 0 [facility] DEPARTMEN INC T VISIT MODERATE SEVERITY OFFICE 01519 NITIN TAVERAS OUTPATIEN 0 0 DARCY A DARCY A T VISIT 15 MINUTES EMERGENCY 42230 TIM 0 0 [facility] DEPARTMEN INC T VISIT LOW/MODER SEVERITY HOSPITAL TIM - 0 0 [facility] OUTPATIEN INC T EMERGENCY 22833 TREE PERRY, 0 0 EMERGENCY [facility] DEPARTMEN SERVICES T VISIT HIGH/URGE ASSOCIATE NT S SEVERITY HOSPITAL TIM - 0 0 [facility] OUTPATIEN INC T EMERGENCY 06539 TIM 0 0 [facility] DEPARTMEN INC T VISIT LOW/MODER SEVERITY EMERGENCY 01850 TREE WILSON 0 0 EMERGENCY III, DEPARTMEN SERVICES ERICA T VISIT MODERATE ASSOCIATE SEVERITY S OFFICE 61300 NITIN TAVERAS OUTPATIEN 0 0 DARCY A DARCY A T VISIT 15 MINUTES EMERGENCY 99323 TREE LOYA, 0 0 EMERGENCY [place] DEPARTMEN SERVICES M T VISIT HIGH/URGE ASSOCIATE NT S SEVERITY HOSPITAL TIM - 0 0 [facility] OUTPATIEN INC T EMERGENCY 75064 TIM 0 0 [facility] DEPARTMEN INC T VISIT LIMITED/M INOR PROB OFFICE 66025 NITIN TAVERAS OUTPATIEN 0 0 DARCY A DARCY A T VISIT 15 MINUTES OFFICE 48032 NITIN TAVERAS OUTPATIEN 0 0 DARCY A DARCY A T VISIT 15 MINUTES HOSPITAL TIM - 0 0 [facility] OUTPATIEN INC T EMERGENCY 48930 TIM 0 0 [facility] DEPARTMEN INC T VISIT MODERATE SEVERITY EMERGENCY 80245 TREE PERRY, DEPT 0 0 EMERGENCY [facility] S VISIT SERVICES HIGH SEVERITY& ASSOCIATE THREAT S FUN EMERGENCY 88420 TIM 0 0 [facility] DEPARTMEN INC T VISIT MODERATE SEVERITY EMERGENCY 41790 TREE RAO, 0 0 EMERGENCY [facility] DEPARTMEN SERVICES O T VISIT HIGH/URGE ASSOCIATE NT S SEVERITY HOSPITAL TIM - 0 0 [facility] OUTPATIEN INC T HOSPITAL TIM - 9 9 [facility] OUTPATIEN INC T EMERGENCY 77928 TREE LAURENT 9 9 EMERGENCY [facility] DEPARTMEN SERVICES T VISIT MODERATE ASSOCIATE SEVERITY S EMERGENCY 03565 TIM 9 9 [facility] DEPARTMEN INC T VISIT LOW/MODER SEVERITY OFFICE 60814 NITIN TAVERAS OUTPATIEN 9 9 DARCY A DARCY A T VISIT 15 MINUTES OFFICE 17881 NITIN TAVERAS OUTPATIEN 9 9 DARCY A DARCY A T VISIT 15 MINUTES EMERGENCY 22398 TREE PERRY, 9 9 [facility] VISIT MODERATE ASSOCIATE SEVERITY S EMERGENCY 77159 TIM 9 9 [facility] V[facility]/M INOR PROB [facility] TIM - 9 9 [facility] OUTPATIEN INC T EMERGENCY 24010 TREE PERRY, 9 9 [facility] T VISIT HIGH/URGE ASSOCIATE NT S SEVERITY HOSPITAL TIM - 9 9 [facility] [place] [place] [facility] 13778 NITIN TAVERAS OUTPATIEN 9 9 DARCY A DARCY A T VISIT 15 MINUTES EMERGENCY 57240 TIM 9 9 [facility] VISIT LOW/MODER SEVERITY HOSPITAL TIM - 9 9 [facility] [place] [place] [facility] OUTPATIEN INC T EMERGENCY 98881 TREE PERRY, 9 9 EMERGENCY [facility] SERVICES T VISIT MODERATE ASSOCIATE SEVERITY S EMERGENCY 42554 TREE PERRY, 9 9 [facility] T VISIT HIGH/URGE ASSOCIATE NT S SEVERITY EMERGENCY 19608 TIM 9 9 [facility] [place] [place] [facility] VISIT LOW/MODER SEVERITY HOSPITAL TIM - 9 9 [facility] OUTPATIEN INC T OFFICE 23260 NITIN TAVERAS OUTPATIEN 9 9 DARCY A DARCY A T VISIT 15 MINUTES OFFICE 04280 NITIN TAVERAS OUTPATIEN 9 9 DARCY A DARCY A T VISIT 15 MINUTES EMERGENCY 76637 TREE RAO, 9 9 EMERGENCY [place] DEPARTMEN SERVICES O T VISIT MODERATE ASSOCIATE SEVERITY S OFFICE 62539 NITIN TAVERAS OUTPATIEN 9 9 DARCY A DARCY A T VISIT 15 MINUTES OFFICE 96892 NITIN TAVERAS OUTPATIEN 9 9 DARCY A DARCY A T VISIT 15 MINUTES EMERGENCY 62594 TREE HINTON, 9 9 EMERGENCY [place] DEPARTMEN SERVICES T VISIT MODERATE ASSOCIATE SEVERITY S HOSPITAL TIM - 9 9 [facility] OUTPATIEN INC T EMERGENCY 40024 TIM 9 9 [facility] DEPARTMEN INC T VISIT LIMITED/M INOR PROB HOSPITAL TIM - 9 9 [facility] OUTPATIEN INC T EMERGENCY 15202 TREE HARRIS, 9 9 EMERGENCY [facility] DEPARTMEN SERVICES T VISIT MODERATE ASSOCIATE SEVERITY S EMERGENCY 82053 TIM 9 9 [facility] DEPARTMEN INC T VISIT LOW/MODER SEVERITY EMERGENCY 46186 TIM 9 9 [facility] DEPARTMEN INC T VISIT LOW/MODER SEVERITY HOSPITAL TIM - 9 9 [facility] OUTPATIEN INC T EMERGENCY 18241 TREE RAO, 9 9 EMERGENCY [place] DEPARTMEN SERVICES O T VISIT MODERATE ASSOCIATE SEVERITY S HOSPITAL TIM - 9 9 [facility] OUTPATIEN INC T EMERGENCY 94478 TIM 9 9 [facility] DEPARTMEN INC T VISIT LIMITED/M INOR PROB EMERGENCY 81692 TREE RAO, 9 9 EMERGENCY [place] DEPARTMEN SERVICES O T VISIT HIGH/URGE ASSOCIATE NT S SEVERITY OFFICE 77409 N[facility]IN TAVERAS OUTPATIEN 9 9 DARCY A DARCY A T VISIT 15 MINUTES OFFICE 46131 NITIN TAVERAS OUTPATIEN 9 9 DARCY A DARCY A T VISIT 15 MINUTES HOSPITAL TIM - 9 9 [facility] OUTPATIEN INC T HOSPITAL TIM - 9 9 [facility] [place] [place] [facility] OUTPATIEN INC T EMERGENCY 69561 TIM 9 9 [facility] [place] [place] [facility] T VISIT LOW/MODER SEVERITY EMERGENCY 22277 TREE HARRIS, 9 9 EMERGENCY [place] [facility] DEPARTMEN SERVICES T VISIT MODERATE ASSOCIATE SEVERITY S OFFICE 49581 NITIN TAVERAS OUTPATIEN 9 9 DARCY A DARCY A T VISIT 15 MINUTES HOSPITAL TIM - 9 9 [facility] [place] [place] [facility] OUTPATIEN INC T OFFICE 16818 NITIN TAVERAS OUTPATIEN 9 9 DARCY A DARCY A T VISIT 15 MINUTES OFFICE 64041 NITIN TAVERAS OUTPATIEN 9 9 DARCY A DARCY A T VISIT 15 MINUTES OFFICE 02304 NITIN TAVERAS OUTPATIEN 9 9 DARCY A DARCY A T VISIT 15 MINUTES OFFICE 47623 NITIN TAVERAS OUTPATIEN 9 9 DARCY A DARCY A T VISIT 15 MINUTES EMERGENCY 00454 TIM 9 9 [facility]ISIT MODERATE SEVERITY EMERGENCY 71980 TREE RAO, 9 9 EMERGENCY [place] DEPARTMEN SERVICES O T VISIT HIGH/URGE ASSOCIATE NT S SEVERITY HOSPITAL TIM - 9 9 [facility] OUTPATIEN INC T OFFICE 72220 NITIN TAVERAS OUTPATIEN 9 9 DARCY A DARCY A T VISIT 15 MINUTES EMERGENCY 46427 TREE PERRY, 9 9 EMERGENCY [place] [facility] DEPARTMEN SERVICES T VISIT HIGH/URGE ASSOCIATE NT S SEVERITY EMERGENCY 32118 TIM 9 9 [facility] [place] [place] [facility] T VISIT LIMITED/M INOR PROB HOSPITAL TIM - 9 9 [facility] OUTPATIEN INC T EMERGENCY 40640 TREE PERRY, 9 9 EMERGENCY [facility] SERVICES T VISIT HIGH/URGE ASSOCIATE NT S SEVERITY EMERGENCY 76402 TIM 9 9 [facility] DEPARTMEN INC T VISIT LOW/MODER SEVERITY HOSPITAL TIM - 9 9 [facility] OUTPATIEN INC T OFFICE 61827 NITIN TAVERAS OUTPATIEN 9 9 DARCY A DARCY A T VISIT 15 MINUTES OFFICE 27852 NITIN TAVERAS OUTPATIEN 9 9 DARCY A DARCY A T VISIT 15 MINUTES OFFICE 46602 STEFANI TONY 9 9 SHARI Cooper T VISIT 25 MINUTES EMERGENCY 33449 TREE RAO, 9 9 EMERGENCY [facility] O T VISIT HIGH/URGE ASSOCIATE NT S SEVERITY EMERGENCY 56705 TIM 9 9 [facility] [place] [place] [facility] DEPARTMEN INC T VISIT LIMITED/M INOR PROB HOSPITAL TIM - 9 9 [facility] OUTPATIEN INC T OFFICE 14807 NITIN TAVERAS OUTPATIEN 9 9 DARCY A DARCY A T VISIT 15 MINUTES HOSPITAL TIM - 9 9 [facility] OUTPATIEN INC T EMERGENCY 47046 TIM 9 9 [facility] DEPARTMEN INC T VISIT MODERATE SEVERITY HOSPITAL TIM - 9 9 [facility] OUTPATIEN INC T EMERGENCY 04138 SATISH PERRY, 9 9 [facility] T VISIT ON MODERATE SEVERITY OFFICE 54623 DHS/CO TIM KO 9 9 [facility] T VISIT [facility] 15 BANK ACCT MINUTES EMERGENCY 19478 TIM 9 9 [facility] DEPARTMEN INC T VISIT LOW/MODER SEVERITY EMERGENCY 24141 SATISH PERRY, 9 9 [facility] T VISIT ON HIGH/URGE NT SEVERITY HOSPITAL TIM - 9 9 [facility] OUTPATIEN INC T EMERGENCY 54864 TIM 9 9 [facility] DEPARTMEN INC T VISIT LOW/MODER SEVERITY HOSPITAL TIM - 9 9 [facility] OUTPATIEN INC T EMERGENCY 05455 SATISH PERRY, 9 9 [facility] T VISIT ON MODERATE SEVERITY HOSPITAL TIM - 8 8 [facility] OUTPATIEN INC T EMERGENCY 04289 TIM 8 8 [facility] [place] [place] [facility] DEPARTMEN INC T VISIT LOW/MODER SEVERITY EMERGENCY 13426 SATISH JAMES, 8 8 [facility] T VISIT ON MODERATE SEVERITY HOSPITAL TIM - 8 8 [facility] OUTPATIEN INC T OFFICE 47926 NITIN TAVERAS OUTPATIEN 8 8 DARCY Morales T VISIT 15 MINUTES HOSPITAL TIM - 8 8 [facility] [place] [place] [facility] OUTPATIEN INC T EMERGENCY 98959 TIM 8 8 [facility] [place] [place] [facility] DEPARTMEN INC T VISIT LOW/MODER SEVERITY EMERGENCY 81538 TIM 8 8 [facility] DEPARTMEN INC T VISIT LOW/MODER SEVERITY HOSPITAL TIM - 8 8 [facility] OUTPATIEN INC T EMERGENCY 72307 SATISH HADDAD 8 8 [facility] TURNERShama Byrnes [facility] T VISIT ON MODERATE SEVERITY EMERGENCY 78604 TIM 8 8 [facility] DEPARTMEN INC T VISIT MODERATE SEVERITY HOSPITAL TIM - 8 8 [facility] OUTPATIEN INC T HOSPITAL TIM - 8 8 [facility] OUTPATIEN INC T OFFICE 14756 NITIN TAVERAS OUTPATIEN 8 8 DARCY Carmen TAVERAS A T VISIT 15 MINUTES OFFICE 47618 NITIN TAVERAS OUTPATIEN 8 8 DARCY Carmen DARCY A T VISIT 15 MINUTES HOSPITAL TIM - 8 8 [facility] OUTPATIEN INC T EMERGENCY 40471 TIM 8 8 [facility] DEPARTMEN INC T VISIT MODERATE SEVERITY HOSPITAL TIM - 8 8 [facility] OUTPATIEN INC T HOSPITAL TIM - 8 8 [facility] OUTPATIEN INC T HOSPITAL TIM - 8 8 [facility] OUTPATIEN INC T HOSPITAL TIM - 8 8 [facility] OUTPATIEN INC T EMERGENCY 40736 TIM 8 8 [facility] DEPARTMEN INC T VISIT LOW/MODER SEVERITY HOSPITAL TIM - 8 8 [facility] OUTPATIEN INC T EMERGENCY 62195 SATISH SAMUEL, 8 8 [facility] T VISIT ON MODERATE SEVERITY EMERGENCY 68615 TIM 8 8 [facility] DEPARTMEN INC T VISIT LOW/MODER SEVERITY HOSPITAL TIM - 8 8 [facility] OUTPATIEN [facility] T EMERGENCY 00251 SATISH JAMES, 8 8 [facility] T VISIT ON MODERATE SEVERITY HOSPITAL TIM - 8 8 [facility] OUTPATIEN INC T OFFICE 18281 [facility] 8 8 JR RUTH, T VISIT RANDAL TEE F 25 MINUTES HOSPITAL TIM - 8 8 [facility] OUTPATIEN INC T OFFICE 53884 [facility] 8 8 HARPEL MD DARIO R T VISIT 15 MINUTES HOSPITAL TIM - 8 8 [facility] OUTPATIEN INC T OFFICE 85056 [facility] OUTPATIEN 8 8 JR RUTH, T VISIT RANDAL TEE F 25 MINUTES HOSPITAL TIM - 8 8 [facility] INPATIENT INC OFFICE 80393 [facility] 8 8 SHARI Cooper T VISIT 15 MINUTES HOSPITAL TIM - 8 8 [facility] OUTPATIEN INC T HOSPITAL TIM - 8 8 [facility] OUTPATIEN INC T OFFICE 58756 DARIO MCCARTHY OUTPATIEN 8 8 SHARI Cooper T VISIT 15 MINUTES HOSPITAL TIM - 8 8 [facility] OUTPATIEN INC T OFFICE 62287 DARIO MCCARTHY OUTPATIDAVID 8 8 SHARI Cooper T VISIT 15 MINUTES HOSPITAL TIM - 8 8 [facility] OUTPATIEN INC T HOSPITAL TIM - 8 8 [facility] OUTPATIEN INC T HOSPITAL TIM - 8 8 [facility] OUTPATIEN INC T OFFICE 61380 DARIO MCCARTHY OUTPATIDAVID 8 8 SHARI Cooper T VISIT 15 MINUTES HOSPITAL TIM - 8 8 [facility] OUTPATIEN INC T HOSPITAL TIM - 8 8 [facility] OUTPATIEN INC T HOSPITAL TIM - 8 8 [facility] OUTPATIEN INC T OFFICE 13006 DARIO MCCARTHY OUTPATIDAVID 8 8 SHARI Cooper T VISIT 15 MINUTES HOSPITAL TIM - 8 8 [facility] OUTPATIEN INC T OFFICE 91821 DARIO MCCARTHY OUTPATIEN 8 8 SHARI Cooper T VISIT 15 MINUTES HOSPITAL TIM - 8 8 [facility] [place] [place] [facility] OUTPATIEN INC T HOSPITAL TIM - 8 8 [facility] [place] [place] [facility] OUTPATIEN INC T OFFICE 72162 DARIO MCCARTHY OUTPATIEN 8 8 SHARI Cooper T VISIT 15 MINUTES HOSPITAL TIM - 8 8 [facility] [place] [place] [facility] OUTPATIEN INC T OFFICE 46530 DARIO MCCARTHY OUTPATIEN 8 8 SHARI Cooper T VISIT 15 MINUTES OFFICE 05100 DARIO MCCARTHY OUTPATIEN 8 8 SHARI Cooper T VISIT 15 MINUTES HOSPITAL TIM - 8 8 [facility] [place] [place] [facility] OUTPATIEN INC T OFFICE 24894 DARIO MCCARTHY OUTPATIEN 8 8 SHARI Cooper T VISIT 15 MINUTES HOSPITAL TIM - 8 8 [facility] [place] [place] OUTPATIEN INC T EMERGENCY 20484 TIM 8 8 [facility] [place] [place] [facility] DEPARTMEN INC T VISIT LOW/MODER SEVERITY OFFICE 51335 DARIO MCCARTHY OUTPATIEN 8 8 SHARI Cooper T VISIT 15 MINUTES HOSPITAL TIM - 8 8 [facility] [place] [place] [facility] OUTPATIEN INC T EMERGENCY 97256 TIM 8 8 [facility] [place] [place] [facility] DEPARTMEN INC T VISIT LOW/MODER SEVERITY HOSPITAL TIM - 8 8 [facility] [place] [place] [facility] OUTPATIEN INC T OFFICE 75536 DARIO MCCARTHY OUTPATIEN 8 8 SHARI Cooper T VISIT 15 MINUTES
--- OUTSIDE RECORDS SUMMARY | 2017-03-15 20:56 | External Medical Summary Rpt ---
Author Author HEMALATONYA Vidales, [employer] Address Unknown Phone Unavailable Results Comprehensive metabolic 2000 panel in Serum or Plasma Observa Value Referen Units Interpr Notes Date tion ce etation Range Albumin/G 1.1 - 1.8 No Low No February 18 lobulin informati informati 2016 [Mass on in on in 11:26 AM ratio] in source source Serum or data data Plasma Albumin 3.4 - 5.0 gm/dL Normal No February 18 [Mass/vol informati 2016 ume] in on in 11:26 AM Serum or source Plasma data Alkaline 46 - 116 U/L Normal No February 18 phosphata informati 2016 se on in 11:26 AM [Enzymati source c data activity/ volume] in Serum or Plasma Bilirubin 0.2 - 1.0 mg/dL Normal No February 18 .total informati 2016 [Mass/vol on in 11:26 AM ume] in source Serum or data Plasma Urea 7 - 18 mg/dL Normal No February 18 nitrogen informati 2016 [Mass/vol on in 11:26 AM ume] in source Serum or data Plasma Calcium 8.5 - mg/dL Normal No February 18 [Mass/vol 10.1 informati 2016 ume] in on in 11:26 AM Serum or source Plasma data Chloride 98 - 107 mmoL/L Normal No February 18 [Moles/vo informati 2016 lume] in on in 11:26 AM Serum or source Plasma data Carbon 21.0 - mmoL/L Normal No February 18 dioxide, 32.0 informati 2016 total on in 11:26 AM [Moles/vo source lume] in data Serum or Plasma Creatinin 0.55 - mg/dL Normal No February 18 e 1.02 informati 2016 [Mass/vol on in 11:26 AM ume] in source Serum or data Plasma Estimated 59- ML/MIN No REFERENCE February 18 informati RANGE: 2017 glomerula on in >60 11:26 AM r source ML/MIN/1. filtratio data 73 SQUARE n rate METERSIf (GF this patient is -A merican, then multiply theresult by 1.210. Globulin 1.3 - 3.2 gm/dL High No February 18 [Mass/vol informati 2016 ume] in on in 11:26 AM Serum source data Glucose 74 - 106 mg/dL High No February 18 [Mass/vol informati 2016 ume] in on in 11:26 AM Serum or source Plasma data Potassium 3.5 - 5.1 mmoL/L Normal No February 18 inform2016 [Moles/vo on in 11:26 AM lume] in source Serum or data Plasma Sodium 136 - 145 mmoL/L Normal No February 18 [Moles/vo informati 2016 lume] in on in 11:26 AM Serum or source Plasma data Aspartate 15 - 37 U/L Low No February 182016 aminotran on in 11:26 AM sferase source [Enzymati data c activity/ volume] in Serum or Plasma Alanine 12 - 78 U/L Normal No February 18 aminotran inform2016 sferase on in 11:26 AM [Enzymati source c data activity/ volume] in Serum or Plasma Protein 6.4 - 8.2 gm/dL Normal No February 18 [Mass/vol informati 2016 ume] in on in 11:26 AM Serum or source Plasma data Lipid 1996 panel in Serum or Plasma Observa Value Referen Units Interpr Notes Date tion ce etation Range Cholester < 200 mg/dL No No February 18 ol informati inform2016 [Moles/vo on in on in 11:26 AM lume] in source source Unspecifi data data ed specimen Cholester 40 - 60 MG/DL High No February 18 ol in HDL informati 2016 on in 11:26 AM [Mass/vol source ume] in data Serum or Plasma Cholester 0 - 130 mg/dL Normal No February 18 ol in LDL informati 2016 on in 11:26 AM [Mass/vol source ume] in data Serum or Plasma by calcjojo on Triglycer 30 - 200 mg/dL Normal No February 18 janusz inform2016 [Moles/vo on in 11:26 AM lume] in source Serum or data Plasma Cholester 0 - 40 No Normal No February 18 ol in informati informati 2017 VLDL on in on in 11:26 AM [Mass/vol source source ume] in data data Serum or Plasma
--- OUTSIDE RECORDS SUMMARY | 2017-03-15 20:56 | External Medical Summary Rpt ---
Author Author , Organization [employer] Address Unknown Phone Unavailable Purpose Continuity of Care Document - 04-10-1996 through 2016 Immunization Name Date Route CVX Reacti Commen Provid Is Given on t er Refuse d Hep B, Histor H149 No 2001 ical ped/ad Inform ol ation - Source Unspec ified Hep B, Histor H149 No adol 1998 ical High Inform Ris ation - Source Unspec ified Td Histor H149 No (adult 1998 ical ), Inform adsorb ation ed - Source Unspec ified Hep B, Histor H149 No adol 1998 ical High Inform Ris ation - Source Unspec ified MMR Histor H149 No 1995 ical Inform ation - Source Unspec ified
--- OUTSIDE RECORDS SUMMARY | 2017-03-15 20:56 | External Medical Summary Rpt ---
Author Author HEMALATONYA Vidales, [employer] Organization [employer] Address Unknown Phone Unavailable [...]
--- NOTE | 2017-03-15 20:57 | RADIOLOGY REPORT PS360 ---
[id number] [id number] COMPARISON: Right shoulder 12/06/2014 HISTORY: Right shoulder pain TECHNIQUE: 3 views right shoulder FINDINGS: The clavicle is intact and the AC joint appears normal. Humeral head and glenoid are normal and there are no soft tissue calcifications. IMPRESSION: Negative right shoulder, consider follow-up MRI scan if symptoms persist
--- NOTE | 2017-03-15 20:58 | RADIOLOGY REPORT PS360 ---
[id number] [id number] COMPARISON: Right ribs 07/18/2015 HISTORY: Right chest wall pain TECHNIQUE: PA chest and oblique views right rib FINDINGS: All right ribs 1 through 12 are visualized and appear intact with no evidence of recent or old fracture. The right lung field is well expanded and clear and there is no pneumothorax. The soft tissues and right chest wall per normal. IMPRESSION: Negative right ribs
[2017-03-15] MEDS ORDERED: PREDNISONE 20MG20 MG PO (22:03)
--- NOTE | 2017-03-15 22:04 | Emergency Room Report ---
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 N Clinical Suspician of Infection? N Mental Status: 1 - Regular (Normal Baseline) Sepsis Risk:Possible Sepsis Risk Have you (or family members/close friends) recently traveled outside the [place]? N If Yes, where/when: Have you had exposure to infectious disease within the past month? N TB? Other? Specify: Source patient, RN notes reviewed, family, old records Exam Limitations no limitations Comment rt shoulder pain which started tonight worse with mov but no rash or trauma and no resp sx Cardiac Chest Pain Chest pain indicative of cardiac No Timing/Duration this evening Severity moderate ALLERGIES Coded Allergies: RED DYE (FOOD) (From RED DYE (FOOD/DRUG)) (Severe, N-[id number]/THROAT 10/02/16 ) ORANGE JUICE (FOOD) (From ORANGE JUICE (FOOD/DRUG)) (DIARRHEA 10/02/16) Penicillins (SOB/CHEST TIGHTNESS 10/02/16) aspirin (10/02/16) codeine (10/02/16) orange juice (From ORANGE JUICE (FOOD/DRUG)) (DIARRHEA 10/02/16) oxycodone (10/02/16) propoxyphene (10/02/16) venom-honey bee (BEE VENOM (HONEY BEE)) (10/02/16) ibuprofen (UPSET STOMACH 10/02/16) promethazine ("MAKES HER THROW UP" 10/02/16) Uncoded Allergies: GREEN JELLO (Intermediate, 10/02/16) History Medical History General CAD? No Angina: Yes [place]: No Hypertension? No Hyperlipidemia? No CHF? No DVT? No PE? No COPD? No Asthma? Yes Anemia? No GERD? No Gastric ulcers? No GI Bleed? No Hernia? No Thyroid Problems? No Hypothyroidism? No CVA? No Seizures? No Diabetes? No Insulin Dependent: No Insulin Pump: No Home FSBS? No Renal Insuffiency? No End Stage Renal Disease? No UTI? Yes Stones? No BPH? No GB Disease: Yes Nephritic Syndrome? No Asplenia? No Hepatitis? No Sickle Cell Disease? No Arthritis? No Migraines? No Cataracts? No Glaucoma? No MRSA? No HIV? No TB? No Anxiety? No Depression? No Cancer? No Immunization Hx DT/Tetanus > 10 YRS Flu Refused Pneumonia Refuses Surgical Hx Previous Surgery?Y 2006 2007 GALLBLADDER 05/15/08 Tubal Ligation Hysterectomy-Total PARTY CHIEF Hx LMP N/A Comment HAD HYSTERECTOMY Family History Family Hx Diabetes Yes CAD Yes Hypertension No Hyperlipidemia No Cancer No TB No Social History Smoking Hx Smoker: Current Every Day Smoker Tobacco: Yes Type Cigarettes Packs/day < 1 Pack Alcohol Alcohol: No Drugs none Review of Systems All Other Systems Reviewed and Negative Constitutional denies fever Eyes denies drainage ENT denies: ear pain, epistaxis, throat pain. Respiratory denies cough, denies shortness of breath, denies wheezing Cardiovascular denies chest pain, denies palpitations, denies syncope Gastrointestinal denies abdominal pain, denies diarrhea, denies vomiting Genitourinary denies: dysuria, frequency, hesitancy, hematuria. Musculoskeletal see HPI, denies back pain, joint pain, denies joint swelling, denies neck pain Skin denies rash Psychiatric/Neurological denies headache, denies seizure Physical Exam Vital Signs Vital Signs Date Time Temp Pulse Resp B/P Pulse O2 O2 Flow FiO2 Ox Delivery Rate 03/15 2023 98.3 96 20 111/78 97 - WBC >12,000 or <4,000 or 10% bands? 2 or more SIRS Criteria Met? B/P:111/78 MAP:89 Creatinine >2.0? UA output<0.5ml/kg/hr for 2 hrs? Platelet count >100,000? Lactate >2.0mmol/1? INR >1.2 or PTT > than 60 sec? Evidence of Organ Dysfunction? Provider documented clinical suspician of infection? N Sepsis Criteria Count: 2 Sepsis Risk: Possible Sepsis Risk General Appearance no apparent distress Eye Exam - bilateral eye PERRL, bilateral eye EOMI Ear, Nose, Throat normal ENT inspection Neck supple Respiratory Status No: respiratory distress. Lung Sounds bilateral: lungs clear. 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 No XRAY/CT/US XRAY/CT/US XRAY rib, shoulder XR interpretation by reviewed by me Xray Results no fracture seen Departure Departure Time of Disposition 2155 Disposition DC Home or Self Care(routine) Clinical Impression Primary Impression: Shoulder pain, left Qualifiers: Chronicity: acute Qualified Code: M25.512 - Pain in left shoulder Condition STABLE Referrals Ramirez Pollack MD (Family) Patient Instructions DI for Shoulder Pain Additional Instructions use meds and see pcp for follow up Discharge Counseling Counseled pt/family regarding diagnosis, test results, medications/RX, follow up needs Prescriptions Current Visit Scripts Prednisone (Prednisone 20MG) 20 MG PO BID #10 TAB ED Critical Care Critical Care No at 2204
--- NOTE | 2017-03-15 22:04 | Emergency Room Report ---
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 N Clinical Suspician of Infection? N Mental Status: 1 - Regular (Normal Baseline) Sepsis Risk:Possible Sepsis Risk Have you (or family members/close friends) recently traveled outside the [place]? N If Yes, where/when: Have you had exposure to infectious disease within the past month? N TB? Other? Specify: Source patient, RN notes reviewed, family, old records Exam Limitations no limitations Comment rt shoulder pain which started tonight worse with mov but no rash or trauma and no resp sx Cardiac Chest Pain Chest pain indicative of cardiac No Timing/Duration this evening Severity moderate ALLERGIES Coded Allergies: RED DYE (FOOD) (From RED DYE (FOOD/DRUG)) (Severe, [id number]/THROAT 10/02/16 ) ORANGE JUICE (FOOD) (From ORANGE JUICE (FOOD/DRUG)) (DIARRHEA 10/02/16) Penicillins (SOB/CHEST TIGHTNESS 10/02/16) aspirin (10/02/16) codeine (10/02/16) orange juice (From ORANGE JUICE (FOOD/DRUG)) (DIARRHEA 10/02/16) oxycodone (10/02/16) propoxyphene (10/02/16) venom-honey bee (BEE VENOM (HONEY BEE)) (10/02/16) ibuprofen (UPSET STOMACH 10/02/16) promethazine ("MAKES HER THROW UP" 10/02/16) Uncoded Allergies: GREEN JELLO (Intermediate, 10/02/16) History Medical History General CAD? No Angina: Yes [place]: No Hypertension? No Hyperlipidemia? No CHF? No DVT? No PE? No COPD? No Asthma? Yes Anemia? No GERD? No Gastric ulcers? No GI Bleed? No Hernia? No Thyroid Problems? No Hypothyroidism? No CVA? No Seizures? No Diabetes? No Insulin Dependent: No Insulin Pump: No Home FSBS? No Renal Insuffiency? No End Stage Renal Disease? No UTI? Yes Stones? No BPH? No GB Disease: Yes Nephritic Syndrome? No Asplenia? No Hepatitis? No Sickle Cell Disease? No Arthritis? No Migraines? No Cataracts? No Glaucoma? No MRSA? No HIV? No TB? No Anxiety? No Depression? No Cancer? 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 Respiratory denies cough, denies shortness of breath, denies wheezing Cardiovascular denies chest pain, denies palpitations, denies syncope Gastrointestinal denies abdominal pain, denies diarrhea, denies vomiting Genitourinary denies: dysuria, frequency, hesitancy, hematuria. Musculoskeletal see HPI, denies back pain, joint pain, denies joint swelling, denies neck pain Skin denies rash Psychiatric/Neurological denies headache, denies seizure Physical Exam Vital Signs Vital Signs Date Time Temp Pulse Resp B/P Pulse O2 O2 Flow FiO2 Ox Delivery Rate 03/15 2023 98.3 96 20 111/78 97 - WBC >12,000 or <4,000 or 10% bands? 2 or more SIRS Criteria Met? B/P:111/78 MAP:89 Creatinine >2.0? UA output<0.5ml/kg/hr for 2 hrs? Platelet count >100,000? Lactate >2.0mmol/1? INR >1.2 or PTT > than 60 sec? Evidence of Organ Dysfunction? Provider documented clinical suspician of infection? N Sepsis Criteria Count: 2 Sepsis Risk: Possible Sepsis Risk General Appearance no apparent distress Eye Exam - bilateral eye PERRL, bilateral eye EOMI Ear, Nose, Throat normal ENT inspection Neck supple Respiratory Status No: respiratory distress. Lung Sounds bilateral: lungs clear. 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 No XRAY/CT/US XRAY/CT/US XRAY rib, shoulder XR interpretation by reviewed by me Xray Results no fracture seen Departure Departure Time of Disposition 2155 Disposition DC Home or Self Care(routine) Clinical Impression Primary Impression: Shoulder pain, left Qualifiers: Chronicity: acute Qualified Code: M25.512 - Pain in left shoulder Condition STABLE Referrals Ramirez Pollack MD (Family) Patient Instructions DI for Shoulder Pain Additional Instructions use meds and see pcp for follow up Discharge Counseling Counseled pt/family regarding diagnosis, test results, medications/RX, follow up needs Prescriptions Current Visit Scripts Prednisone (Prednisone 20MG) 20 MG PO BID #10 TAB ED Critical Care Critical Care No at 2204
[2017-03-15 22:23] VITALS: BP 112/70
== END 2017-03-15 22:23 | disposition home or self-care (01) ==
LOC: UTC 20:11 → ER 20:11
DX: M25.512 Pain in left shoulder (principal); Z72.0 Tobacco use

== ENCOUNTER 2017-06-07 14:32 | Emergency (ER) | payer MEDICAID ==
[~2017-06-07] VITALS: Ht 167.6 cm; Wt 64.9 kg
[~2017-06-07 14:32] MED LIST changes: +NORCO 325 MG-51 TAB PO; +PREDNISONE 20MG20 MG PO; +ZYRTEC10 M2 PO
[2017-06-07] MEDS ORDERED: VENTOLIN H0.09 MG/Ac IH (14:36)
[2017-06-07 15:09] LABS: HEMOGLOBIN 13.4 g/dL (12.2-16.2); LYMPH # 1.8 K/mm3 (0.7-4.5); LYMPH % 29.9 % (10-50.0)
[2017-06-07 15:29] LABS: BUN 11 mg/dL (7-18)
[2017-06-07 15:33] LABS: GFR (ESTIMATED) 96 ML/MIN (59-)
--- NOTE | 2017-06-07 15:38 | Emergency Room Report ---
History of Present Illness Time Seen by [id number] Presenting Problem in Triage Pt arrived:Walked Presenting Problem:PT REPORTS MIDSTERNAL CHEST PAIN THAT IS RADIATING DOWN L ARM. 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 N Clinical Suspician of Infection? N Mental Status: 1 - Regular (Normal Baseline) Sepsis Risk:Low Sepsis Risk Have you (or family members/close friends) recently traveled outside the [place]? N If Yes, where/when: Have you had exposure to infectious disease within the past month? N TB? Other? Specify: Patient with a history of asthma, had some bronchospasm earlier, took a puff of her MDI, and feels better but noted some SSCP radiating to LUE. No SOB, no calf pain, no fever, no sputum, no syncope. Has hx of tachycardia in the past, but presents to ED in NSR while symptomatic. ALLERGIES Coded Allergies: RED DYE (FOOD) (From RED DYE (FOOD/DRUG)) (Severe, P-[id number]-GHOT/THROAT 10/02/16 ) ORANGE JUICE (FOOD) (From ORANGE JUICE (FOOD/DRUG)) (DIARRHEA 10/02/16) Penicillins (SOB/CHEST TIGHTNESS 10/02/16) aspirin (10/02/16) codeine (10/02/16) orange juice (From ORANGE JUICE (FOOD/DRUG)) (DIARRHEA 10/02/16) propoxyphene (10/02/16) venom-honey bee (BEE VENOM (HONEY BEE)) (10/02/16) ibuprofen (UPSET STOMACH 10/02/16) promethazine ("MAKES HER THROW UP" 10/02/16) Uncoded Allergies: GREEN JELLO (Intermediate, 10/02/16) Home Medications Reported Medications CETIRIZINE HCL (Zyrtec) 10 MG PO DAILY Albuterol Sulfate (Ventolin Hfa) 0.09 MG IH Q6HP PRN ASTHMA #18 History Medical History General CAD? No Angina: Yes [place]: No Hypertension? No Hyperlipidemia? No CHF? No DVT? No PE? No COPD? No Asthma? Yes Anemia? No GERD? No Gastric ulcers? No GI Bleed? No Hernia? No Thyroid Problems? No Hypothyroidism? No CVA? No Seizures? No Diabetes? No Insulin Dependent: No Insulin Pump: No Home FSBS? No Renal Insuffiency? No End Stage Renal Disease? No UTI? Yes Stones? No BPH? No GB Disease: Yes Nephritic Syndrome? No Asplenia? No Hepatitis? No Sickle Cell Disease? No Arthritis? No Migraines? No Cataracts? No Glaucoma? No MRSA? No HIV? No TB? No Anxiety? Yes Depression? No Cancer? No More? 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 N/A Family History Family Hx Diabetes Yes CAD Yes Hypertension No Hyperlipidemia No Cancer No TB No Social History Smoking Hx Smoker: Current Every Day Smoker Tobacco: Yes Type Cigarettes Packs/day < 1 Pack Alcohol Alcohol: No Review of Systems All Other Systems Reviewed and Negative Respiratory see HPI Cardiovascular see HPI Musculoskeletal see HPI Physical Exam Vital Signs Vital Signs Date Time Temp Pulse Resp B/P Pulse O2 O2 Flow FiO2 Ox Delivery Rate 06/07 1711 79 20 110/69 100 06/07 1514 82 18 116/78 100 06/07 1433 98.1 91 18 125/90 98 General Appearance normal appearance, WD/WN, no apparent distress Eye Exam - bilateral eye normal exam, bilateral eye PERRL, bilateral eye EOMI Neck normal inspection, non-tender, supple, full range of motion Respiratory Status Yes: trachea midline, chest symmetrical, tender on palpation. No: respiratory distress, non tender chest, use of accessory muscles, pain on inspiration, pain on expiration, productive cough, non productive cough (bronchospasm). Lung Sounds bilateral: normal breath sounds, lungs clear. Cardiovascular normal exam, regular rate/rhythm, no peripheral edema, no gallop, no JVD, no murmur, no rub, normal peripheral pulses Gastrointestinal normal bowel sounds, normal exam, non tender, soft, no organomegaly, no pulsatile mass, no guarding, no rebound Extremities non-tender, normal range of motion, normal inspection, normal capillary refill, no calf tenderness, no pedal edema Strength 5 Upper Ext (L), 5 Upper Ext (R), 5 Lower Ext (L), 5 Lower Ext (R) Neurologic alert, normal exam, no motor/sensory deficits, oriented x 3 Medical Decision Making LABS/Meds/Orders Pt receiving controlled substance in ED? No Results/Orders Laboratory Tests 06/07/17 1637: Troponin I < 0.02 06/07/17 1450: Sodium 138, Potassium 3.9, Chloride 103, Carbon Dioxide 26, BUN 11, Creatinine 0.7, Estimated Creat Clear 117, Estimated GFR (MDRD) 96, Glucose 97, Calcium 8.9 , Total Bilirubin 0.6, AST 7 L, ALT 16, Alkaline Phosphatase 57, Creatine Kinase 53, CK-MB (CK-2) Rel Index 0.9, CK and CKMB Interp < 0.5, Troponin I < 0.02, Total Protein 7.7, Albumin 3.9, Globulin 3.8 H, Albumin/Globulin Ratio 1.0 L, WBC 6.0, RBC 4.49, Hgb 13.4, Hct 39.1, MCV 87.0, RDW 12.5, Plt Count 280 , MPV 7.5, Gran % 61.5, Gran # 3.7, Lymphocytes % 29.9, Monocytes % 3.9, Eosinophils % 3.9, Basophils % 0.8, Lymphocytes # 1.8, Monocytes # 0.2, Eosinophils # 0.2, Basophils # 0.1, PUBS MCHC 34.4, MCH 29.9 Current Medication Orders Sig/Frankie Start time Last Medication Dose Route Stop Time Status Admin Sodium Chloride 10 ML PRN PRN 06/07 1515 AC IV 06/08 1503 Orders Procedure Date/time Status TROPONIN I 06/07 1630 Complete ELECTROCARDIOGRAM REQUEST 06/07 1503 Active CHEST(2 VIEWS-NOT PORTABLE) 06/07 1503 Active IV SALINE LOCK 06/07 1503 Active BROOMCORN SEEDER 06/07 1503 Active CBC WITH AUTO DIFF 06/07 1503 Complete CARDIAC ENZYMES 06/07 1503 Complete CHEM 12 PROFILE 06/07 1503 Complete 12 LEAD EKG-LISA (INITIAL) 06/07 UNK Active CM/EKG CM/EKG EKG rate, NSR, rhythm, no evid. of ischemic chgs, no ectopy, normal QRS, normal GA (short GA; NSR), normal EKG XRAY/CT/US XRAY/CT/US XRAY chest XR interpretation by reviewed by me Xray Results normal/NAD, no infiltrates, normal heart size, normal lung inflation grisel Pulmonary Embolism Score WELL'S CRITERIA FOR PE WELL'S CRITERIA FOR PE Response Value Clinical signs/symptoms of DVT NO 0 PE is #1 diagnosis or equally likely NO 0 Heart rate is > 100 NO 0 Immobile at least 3 days, or surgery in past 4 wks NO 0 Previously, obj. diagnosed PE or DVT NO 0 Hemoptysis NO 0 Malignancy w/Rx within 6mo, or palliative NO 0 Total 0 Progress ED Progress Notes Date 06/07/17 Time 1712 Comment Pain has resolved spontaneously. Departure Departure Time of Disposition 1728 Disposition DC Home or Self Care(routine) Clinical Impression Primary Impression: Atypical chest pain Condition STABLE Referrals Ramirez Pollack MD (PCP/Family) Patient Instructions DI for Atypical Chest Pain Additional Instructions Continue your inhaler, Tylenol as needed, see Dr. Pollack in one to four days for reevaluation. Discharge Counseling Counseled pt/family regarding diagnosis, test results, medications/RX, home care, follow up needs ED Critical Care Critical Care No at 1726
--- NOTE | 2017-06-07 15:38 | Emergency Room Report ---
History of Present Illness Time Seen by [id number] Presenting Problem in Triage Pt arrived:Walked Presenting Problem:PT REPORTS MIDSTERNAL CHEST PAIN THAT IS RADIATING DOWN L ARM. 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 N Clinical Suspician of Infection? N Mental Status: 1 - Regular (Normal Baseline) Sepsis Risk:Low Sepsis Risk Have you (or family members/close friends) recently traveled outside the [place]? N If Yes, where/when: Have you had exposure to infectious disease within the past month? N TB? Other? Specify: Patient with a history of asthma, had some bronchospasm earlier, took a puff of her MDI, and feels better but noted some SSCP radiating to LUE. No SOB, no calf pain, no fever, no sputum, no syncope. Has hx of tachycardia in the past, but presents to ED in NSR while symptomatic. ALLERGIES Coded Allergies: RED DYE (FOOD) (From RED DYE (FOOD/DRUG)) (Severe, [id number]/THROAT 10/02/16 ) ORANGE JUICE (FOOD) (From ORANGE JUICE (FOOD/DRUG)) (DIARRHEA 10/02/16) Penicillins (SOB/CHEST TIGHTNESS 10/02/16) aspirin (10/02/16) codeine (10/02/16) orange juice (From ORANGE JUICE (FOOD/DRUG)) (DIARRHEA 10/02/16) propoxyphene (10/02/16) venom-honey bee (BEE VENOM (HONEY BEE)) (10/02/16) ibuprofen (UPSET STOMACH 10/02/16) promethazine ("MAKES HER THROW UP" 10/02/16) Uncoded Allergies: GREEN JELLO (Intermediate, 10/02/16) Home Medications Reported Medications CETIRIZINE HCL (Zyrtec) 10 MG PO DAILY Albuterol Sulfate (Ventolin Hfa) 0.09 MG IH Q6HP PRN ASTHMA #18 History Medical History General CAD? No Angina: Yes [place]: No Hypertension? No Hyperlipidemia? No CHF? No DVT? No PE? No COPD? No Asthma? Yes Anemia? No GERD? No Gastric ulcers? No GI Bleed? No Hernia? No Thyroid Problems? No Hypothyroidism? No CVA? No Seizures? No Diabetes? No Insulin Dependent: No Insulin Pump: No Home FSBS? No Renal Insuffiency? No End Stage Renal Disease? No UTI? Yes Stones? No BPH? No GB Disease: Yes Nephritic Syndrome? No Asplenia? No Hepatitis? No Sickle Cell Disease? No Arthritis? No Migraines? No Cataracts? No Glaucoma? No MRSA? No HIV? No TB? No Anxiety? Yes Depression? No Cancer? No More? 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 N/A Family History Family Hx Diabetes Yes CAD Yes Hypertension No Hyperlipidemia No Cancer No TB No Social History Smoking Hx Smoker: Current Every Day Smoker Tobacco: Yes Type Cigarettes Packs/day < 1 Pack Alcohol Alcohol: No Review of Systems All Other Systems Reviewed and Negative Respiratory see HPI Cardiovascular see HPI Musculoskeletal see HPI Physical Exam Vital Signs Vital Signs Date Time Temp Pulse Resp B/P Pulse O2 O2 Flow FiO2 Ox Delivery Rate 06/07 1711 79 20 110/69 100 06/07 1514 82 18 116/78 100 06/07 1433 98.1 91 18 125/90 98 General Appearance normal appearance, WD/WN, no apparent distress Eye Exam - bilateral eye normal exam, bilateral eye PERRL, bilateral eye EOMI Neck normal inspection, non-tender, supple, full range of motion Respiratory Status Yes: trachea midline, chest symmetrical, tender on palpation. No: respiratory distress, non tender chest, use of accessory muscles, pain on inspiration, pain on expiration, productive cough, non productive cough (bronchospasm). Lung Sounds bilateral: normal breath sounds, lungs clear. Cardiovascular normal exam, regular rate/rhythm, no peripheral edema, no gallop, no JVD, no murmur, no rub, normal peripheral pulses Gastrointestinal normal bowel sounds, normal exam, non tender, soft, no organomegaly, no pulsatile mass, no guarding, no rebound Extremities non-tender, normal range of motion, normal inspection, normal capillary refill, no calf tenderness, no pedal edema Strength 5 Upper Ext (L), 5 Upper Ext (R), 5 Lower Ext (L), 5 Lower Ext (R) Neurologic alert, normal exam, no motor/sensory deficits, oriented x 3 Medical Decision Making LABS/Meds/Orders Pt receiving controlled substance in ED? No Results/Orders Laboratory Tests 06/07/17 1637: Troponin I < 0.02 06/07/17 1450: Sodium 138, Potassium 3.9, Chloride 103, Carbon Dioxide 26, BUN 11, Creatinine 0.7, Estimated Creat Clear 117, Estimated GFR (MDRD) 96, Glucose 97, Calcium 8.9 , Total Bilirubin 0.6, AST 7 L, ALT 16, Alkaline Phosphatase 57, Creatine Kinase 53, CK-MB (CK-2) Rel Index 0.9, CK and CKMB Interp < 0.5, Troponin I < 0.02, Total Protein 7.7, Albumin 3.9, Globulin 3.8 H, Albumin/Globulin Ratio 1.0 L, WBC 6.0, RBC 4.49, Hgb 13.4, Hct 39.1, MCV 87.0, RDW 12.5, Plt Count 280 , MPV 7.5, Gran % 61.5, Gran # 3.7, Lymphocytes % 29.9, Monocytes % 3.9, Eosinophils % 3.9, Basophils % 0.8, Lymphocytes # 1.8, Monocytes # 0.2, Eosinophils # 0.2, Basophils # 0.1, PUBS MCHC 34.4, MCH 29.9 Current Medication Orders Sig/Frankie Start time Last Medication Dose Route Stop Time Status Admin Sodium Chloride 10 ML PRN PRN 06/07 1515 AC IV 06/08 1503 Orders Procedure Date/time Status TROPONIN I 06/07 1630 Complete ELECTROCARDIOGRAM REQUEST 06/07 1503 Active CHEST(2 VIEWS-NOT PORTABLE) 06/07 1503 Active IV SALINE LOCK 06/07 1503 Active SUPERVISOR PHOTOCOMPOSITION 06/07 1503 Active CBC WITH AUTO DIFF 06/07 1503 Complete CARDIAC ENZYMES 06/07 1503 Complete CHEM 12 PROFILE 06/07 1503 Complete 12 LEAD EKG-LISA (INITIAL) 06/07 UNK Active CM/EKG CM/EKG EKG rate, NSR, rhythm, no evid. of ischemic chgs, no ectopy, normal QRS, normal ME (short ME; NSR), normal EKG XRAY/CT/US XRAY/CT/US XRAY chest XR interpretation by reviewed by me Xray Results normal/NAD, no infiltrates, normal heart size, normal lung inflation grisel Pulmonary Embolism Score WELL'S CRITERIA FOR PE WELL'S CRITERIA FOR PE Response Value Clinical signs/symptoms of DVT NO 0 PE is #1 diagnosis or equally likely NO 0 Heart rate is > 100 NO 0 Immobile at least 3 days, or surgery in past 4 wks NO 0 Previously, obj. diagnosed PE or DVT NO 0 Hemoptysis NO 0 Malignancy w/Rx within 6mo, or palliative NO 0 Total 0 Progress ED Progress Notes Date 06/07/17 Time 1712 Comment Pain has resolved spontaneously. Departure Departure Time of Disposition 1728 Disposition DC Home or Self Care(routine) Clinical Impression Primary Impression: Atypical chest pain Condition STABLE Referrals Ramirez Pollack MD (PCP/Family) Patient Instructions DI for Atypical Chest Pain Additional Instructions Continue your inhaler, Tylenol as needed, see Dr. Pollack in one to four days for reevaluation. Discharge Counseling Counseled pt/family regarding diagnosis, test results, medications/RX, home care, follow up needs ED Critical Care Critical Care No at 1728
[2017-06-07 17:44] VITALS: BP 110/69
--- NOTE | 2017-06-07 17:56 | RADIOLOGY REPORT PS360 ---
CHEST(2 VIEWS-NOT PORTABLE) Ordering physician: Gloria Thomas MD Age: 32 years Female INDICATION: chest symptomsCHEST PAIN PROCEDURE: CHEST(2 VIEWS-NOT PORTABLE) Also rib series from 05/05/2017 again reviewed for comparison. FINDINGS: 12/24/2016 CXR used as comparison Lungs well expanded and clear with nothing definitely acute. Small 5.5 mm nodular density anterior fifth interspace compatible with a stable partially calcified granuloma in this younger patient. Unchanged since 12/24/2016. There are some small calcified nodes bilaterally. No pneumothorax. No pleural effusion. Heart normal size. Normal pulmonary vascularity. . Small calcified hilar nodes. mediastinal structures appear satisfactory. Chest wall unremarkable. T-spine intact. IMPRESSION ---- -Stable chest no active disease. Stable small calcified granuloma bilateral
[2017-06-29] MEDS ORDERED: DOXYCYCLINE HY100 M4 PO (10:42)
[2017-06-29] MEDS ORDERED: TESSALON PERLE100 M1 PO (10:42)
[2017-06-29] MEDS ORDERED: PREDNISONE 5MG.5 MG PO (10:42)
[2017-06-29] MEDS ORDERED: PROVENTIL0.09 MG/A1 IH (10:42)
== END 2017-06-07 17:44 | disposition home or self-care (01) ==
LOC: ER 14:32
PROVIDERS: Emergency Medicine
DX: R07.89 Other chest pain (principal); F17.210 Nicotine dependence, cigarettes, uncomplicated; Z79.899 Other long term (current) drug therapy; J45.909 Unspecified asthma, uncomplicated

== ENCOUNTER 2017-06-29 08:45 | Emergency (ER) | payer MEDICAID ==
[~2017-06-29] VITALS: Ht 167.6 cm; Wt 64.9 kg
--- NOTE | 2017-06-29 08:55 | Emergency Room Report ---
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 Clinical Suspician of Infection? Mental Status: Sepsis Risk: Have you (or family members/close friends) recently traveled outside the [place]? If Yes, where/when: Have you had exposure to infectious disease within the past month? TB? Other? Specify: Source patient, RN notes reviewed Exam Limitations no limitations Comment Sore throat, Head and chest congestion and achy all over for about 5 days. She does smoke about 1/2 ppd. Cough is non-productive Cardiac Chest Pain Chest pain indicative of cardiac No ALLERGIES Coded Allergies: RED DYE (FOOD) (From RED DYE (FOOD/DRUG)) (Severe, [id number]/THROAT 10/02/16 ) ORANGE JUICE (FOOD) (From ORANGE JUICE (FOOD/DRUG)) (DIARRHEA 10/02/16) Penicillins (SOB/CHEST TIGHTNESS 10/02/16) aspirin (10/02/16) codeine (10/02/16) orange juice (From ORANGE JUICE (FOOD/DRUG)) (DIARRHEA 10/02/16) propoxyphene (10/02/16) venom-honey bee (BEE VENOM (HONEY BEE)) (10/02/16) ibuprofen (UPSET STOMACH 10/02/16) promethazine ("MAKES HER THROW UP" 10/02/16) Uncoded Allergies: GREEN JELLO (Intermediate, 10/02/16) Home Medications Reported Medications CETIRIZINE HCL (Zyrtec) 10 MG PO DAILY Albuterol Sulfate (Ventolin Hfa) 0.09 MG IH Q6HP PRN ASTHMA #18 History Medical History General CAD? No Angina: Yes [place]: No Hypertension? No Hyperlipidemia? No CHF? No DVT? No PE? No COPD? No Asthma? Yes Anemia? No GERD? No Gastric ulcers? No GI Bleed? No Hernia? No Thyroid Problems? No Hypothyroidism? No CVA? No Seizures? No Diabetes? No Insulin Dependent: No Insulin Pump: No Home FSBS? No Renal Insuffiency? No End Stage Renal Disease? No UTI? Yes Stones? No BPH? No GB Disease: Yes Nephritic Syndrome? No Asplenia? No Hepatitis? No Sickle Cell Disease? No Arthritis? No Migraines? No Cataracts? No Glaucoma? No MRSA? No HIV? No TB? No Anxiety? Yes Depression? No Cancer? No More? No Immunization Hx DT/Tetanus > 10 YRS Flu Refused Pneumonia Refuses Surgical Hx Previous Surgery?Y 2006 2008 GALLBLADDER 05/15/08 Tubal Ligation Hysterectomy-Total Family History Family Hx Diabetes Yes CAD Yes Hypertension No Hyperlipidemia No Cancer No TB No Social History Smoking Hx Packs/day < 1 Pack Alcohol Alcohol: No Review of Systems All Other Systems Reviewed and Negative Constitutional see HPI ENT see HPI. Respiratory see HPI Physical Exam Vital Signs Vital Signs Date Time Temp Pulse Resp B/P Pulse O2 O2 Flow FiO2 Ox Delivery Rate 06/29 0958 87 16 112/62 100 06/29 0853 98.1 87 16 108/64 100 General Appearance mild distress Respiratory Status No: respiratory distress. Lung Sounds bilateral: rhonchi. 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 No Results/Orders Laboratory Tests 06/29/17 0925: WBC 4.6 L, RBC 4.36, Hgb 13.0, Hct 40.1, MCV 92.0, RDW 12.8, Plt Count 240, Gran % 48.2, Gran # 2.2, Lymphocytes % 40.3, Monocytes % 6.7, Eosinophils % 6.1, Basophils % 0.8, Lymphocytes # 1.8, Monocytes # 0.3, Eosinophils # 0.3, Basophils # 0.0, PUBS MCHC 32.4, MCH 29.8 06/29/17 0905: Influenza Type A Ag NOT DETECTED, Influenza Type B Ag NOT DETECTED Orders Procedure Date/time Status CHEST(2 VIEWS-NOT PORTABLE) 06/29 910 Active STREP SCREEN THROAT 06/29 910 Complete INFLUENZA A&B ANTIGENS 06/29 910 Complete CBC WITH AUTO DIFF 06/29 910 Complete CULTURE, THROAT 06/29 905 Active Departure Departure Time of Disposition 1035 Disposition DC Home or Self Care(routine) Clinical Impression Primary Impression: COPD with acute exacerbation Condition STABLE Referrals Besson MD,Ramirez (PCP/Family): 3 Days-Call Office Patient Instructions Chronic Obstructive Pulmonary Disease, DI for Chronic Obstructive Pulmonary Disease Additional Instructions Use medicines as directed and followup with Dr. Pollack as needed. Advised to stop smoking as this is a progressive process if smoking is continued. Discharge Counseling Counseled pt/family regarding diagnosis, test results, medications/RX, home care, follow up needs Prescriptions Current Visit Scripts Doxycycline Hyclate (Vibramycin) 100 MG PO BID #20 CAP ALBUTEROL (Proventil Hfa Inhaler) 1-2 PUFF IH Q4-6H PRN #1 CAN Prednisone (Prednisone 5MG) 5 MG PO DIRECTED #39 TAB Benzonatate (Tessalon Perle) 100 MG PO Q8HP PRN cough #30 SGL ED Critical Care Critical Care No If Critical Care minutes are documented, the time involved in the performance of seperately reportable procedures was not counted toward critical care time documented. I directly delivered medical care to this critically ill and/or injured patient. Timely evaluation and treatment was necessary to address the significant organ system(s) dysfunction present in this patient. at 1042
[2017-06-29 09:30] LABS: STREP SCREEN (RAPID) NEGATIVE
[2017-06-29 09:47] LABS: LYMPH # 1.8 K/mm3 (0.7-4.5); LYMPH % 40.3 % (10-50.0)
--- NOTE | 2017-06-29 10:53 | RADIOLOGY REPORT PS360 ---
CHEST(2 VIEWS-NOT PORTABLE) INDICATION: Cough, shortness of breath COMPARISON: PA and lateral chest 06/07/2017 FINDINGS: The lung potter are well expanded and appear clear of infiltrate. There is a stable partially calcified granuloma left midlung. The cardiomediastinal silhouette and vascularity are normal. The costophrenic angles are clear. The bony thorax is normal. IMPRESSION: Normal chest.
[2017-06-29 10:57] VITALS: BP 118/70
== END 2017-06-29 10:58 | disposition home or self-care (01) ==
LOC: ER 08:45
PROVIDERS: General Practice
DX: J44.1 Chronic obstructive pulmonary disease with (acute) exacerbation (principal); Z72.0 Tobacco use; Z88.0 Allergy status to penicillin; Z88.6 Allergy status to analgesic agent

== ENCOUNTER 2017-08-15 13:55 | Emergency (ER) | payer MEDICAID ==
[~2017-08-15] VITALS: Ht 167.6 cm; Wt 64.9 kg
[~2017-08-15 13:55] MED LIST changes: +DOXYCYCLINE HY100 M4 PO; +PREDNISONE 5MG.5 MG PO; +PROVENTIL0.09 MG/A1 IH
[2017-08-15] MEDS ORDERED: BACTRIM DS 8001 TA1 PO (14:45)
--- NOTE | 2017-08-15 14:46 | Emergency Room Report ---
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 N Clinical Suspician of Infection? N Mental Status: 1 - Regular (Normal Baseline) Sepsis Risk:Low Sepsis Risk Have you (or family members/close friends) recently traveled outside the [place]? N If Yes, where/when: Have you had exposure to infectious disease within the past month? N TB? Other? Specify: 32 years old white female status post hysterectomy with history of chronic obstructive pulmonary disease. She had UTI last week and finished a course of Cipro. 2 hours ago she developed sudden onset off the dysuria, hematuria and bilateral flank pain. The patient denies having fever chills nausea vomiting. Source patient, RN notes reviewed, family Exam Limitations no limitations ALLERGIES Coded Allergies: RED DYE (FOOD) (From RED DYE (FOOD/DRUG)) (Severe, [id number]/THROAT 10/02/16 ) ORANGE JUICE (FOOD) (From ORANGE JUICE (FOOD/DRUG)) (DIARRHEA 10/02/16) Penicillins (SOB/CHEST TIGHTNESS 10/02/16) aspirin (10/02/16) codeine (10/02/16) orange juice (From ORANGE JUICE (FOOD/DRUG)) (DIARRHEA 10/02/16) propoxyphene (10/02/16) venom-honey bee (BEE VENOM (HONEY BEE)) (10/02/16) ibuprofen (UPSET STOMACH 10/02/16) promethazine ("MAKES HER THROW UP" 10/02/16) Uncoded Allergies: GREEN JELLO (Intermediate, 10/02/16) Home Medications Active Scripts Doxycycline Hyclate (Vibramycin) 100 MG PO BID #20 CAP Prov: 06/29/17 ALBUTEROL (Proventil Hfa Inhaler) 1-2 PUFF IH Q4-6H PRN #1 CAN Prov: 06/29/17 Prednisone (Prednisone 5MG) 5 MG PO DIRECTED #39 TAB Prov: 06/29/17 Benzonatate (Tessalon Perle) 100 MG PO Q8HP PRN cough #30 SGL Prov: 06/29/17 Reported Medications CETIRIZINE HCL (Zyrtec) 10 MG PO DAILY Albuterol Sulfate (Ventolin Hfa) 0.09 MG IH Q6HP PRN ASTHMA #18 History Medical History General CAD? No Angina: Yes [place]: No Hypertension? No Hyperlipidemia? No CHF? No DVT? No PE? No COPD? No Asthma? Yes Anemia? No GERD? No Gastric ulcers? No GI Bleed? No Hernia? No Thyroid Problems? No Hypothyroidism? No CVA? No Seizures? No Diabetes? No Insulin Dependent: No Insulin Pump: No Home FSBS? No Renal Insuffiency? No End Stage Renal Disease? No UTI? Yes Stones? No BPH? No GB Disease: Yes Nephritic Syndrome? No Asplenia? No Hepatitis? No Sickle Cell Disease? No Arthritis? No Migraines? No Cataracts? No Glaucoma? No MRSA? No HIV? No TB? No Anxiety? Yes Depression? No Cancer? No More? 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 Respiratory no symptoms reported Cardiovascular no symptoms reported Gastrointestinal no symptoms reported Genitourinary see HPI, dysuria, hematuria. Musculoskeletal no symptoms reported Skin no symptoms reported Psychiatric/Neurological no symptoms reported Physical Exam Vital Signs Vital Signs Date Time Temp Pulse Resp B/P Pulse O2 O2 Flow FiO2 Ox Delivery Rate 08/15 1514 16 08/15 1424 98.7 88 18 138/93 98 - WBC >12,000 or <4,000 or 10% bands? 2 or more SIRS Criteria Met? B/P:138/93 MAP:108 Creatinine >2.0? UA output<0.5ml/kg/hr for 2 hrs? Platelet count >100,000? Lactate >2.0mmol/1? INR >1.2 or PTT > than 60 sec? Evidence of Organ Dysfunction? Provider documented clinical suspician of infection? N Sepsis Criteria Count: 0 Sepsis Risk: Low Sepsis Risk General Appearance normal appearance, WD/WN Eye Exam - bilateral eye normal exam, bilateral eye PERRL, bilateral eye EOMI Ear, Nose, Throat hearing grossly normal, normal ENT inspection Neck normal inspection, non-tender, supple, full range of motion Respiratory Status Yes: trachea midline, chest symmetrical, non tender chest. No: respiratory distress. Lung Sounds bilateral: normal breath sounds, lungs clear. Cardiovascular normal exam, regular rate/rhythm, no peripheral edema, no gallop, no JVD, no murmur, no rub, normal peripheral pulses Peripheral Pulses Pulses normal Yes Gastrointestinal soft, no guarding, no rebound, tenderness, soft abdomen no guarding or rigidity with diffuse mild tenderness maximum at the suprapubic area without flank pain, positive bowelsounds. Back normal inspection, no CVA tenderness, no vertebral tenderness Extremities non-tender, normal range of motion, normal inspection Pelvic normal external exam, vagina are within normal whitish vaginal discharge, uterus is surgically absent. No adnexal tenderness, positivesuprapubic tenderness. 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 No Results/Orders Laboratory Tests 08/15/17 1440: Sodium 141, Potassium 4.3, Chloride 105, Carbon Dioxide 27, BUN 18, Creatinine 0.8, Estimated Creat Clear 102, Estimated GFR (MDRD) 83, Glucose 107 H, Calcium 9.0, Total Bilirubin 0.5, AST 8 L, ALT 18, Alkaline Phosphatase 64, Total Protein 8.2, Albumin 4.2, Globulin 4.0 H, Albumin/Globulin Ratio 1.1, WBC 9.7, RBC 4.76, Hgb 14.1, Hct 42.5, MCV 89.4, RDW 12.5, Plt Count 270, MPV 7.2 L, Gran % 74.8, Gran # 7.3, Lymphocytes % 18.3, Monocytes % 3.9, Eosinophils % 2.3, Basophils % 0.7, Lymphocytes # 1.8, Monocytes # 0.4, Eosinophils # 0.2, Basophils # 0.1, PUBS MCHC 33.3, MCH 29.7, Opiates Screen NEGATIVE, Urine Methadone Screen NEGATIVE, Barbiturates NEGATIVE, Phencyclidine Screen NEGATIVE, Amphetamines Screen NEGATIVE, Benzodiazepines Screen NEGATIVE, Cocaine Screen NEGATIVE, Marijuana (THC) Screen NEGATIVE, Urine Color SHAUNNA, Urine Appearance TURBID, Urine pH 5.5, Ur Specific [place] 1.025, Urine Protein 2+ H, Urine Ketones NEGATIVE, Urine Blood 3+ H, Urine Nitrate POSITIVE H, Urine Bilirubin NEGATIVE, Urine Urobilinogen 0.2, Ur Leukocyte Esterase 2+ H, Urine RBC TNTC, Urine WBC TNTC, Urine Bacteria 4+, Urine Glucose NEGATIVE Current Medication Orders Sig/Frankie Start time Last Medication Dose Route Stop Time Status Admin Sodium Chloride 1,000 ML .Q1H1M 08/15 1600 AC 08/15 IV 08/15 1700 1548 Sodium Chloride 10 ML PRN PRN 08/15 1600 AC IV 08/16 1546 Sodium Chloride 1,000 ML .STK-MED ONE 08/15 1548 DC IV Morphine Sulfate 0 .STK-MED ONE 08/15 1508 DCr .ROUTE Trimethoprim/ 0 .STK-MED ONE 08/15 1508 DC Sulfamethoxazole PO Morphine Sulfate 2 MG ONCE ONE 08/15 1445 DCr 08/15 IV 08/15 1446 1514 Trimethoprim/ 1 TABLET ONCE ONE 08/15 1445 DCr 08/15 Sulfamethoxazole PO 08/15 1446 1513 Orders Procedure Date/time Status DIET-NOTHING BY MOUTH 08/15 D Active CULTURE, URINE 08/[address] ABD/PELVIS REQ 08/15 1437 Complete URINALYSIS/COMPLETE 08/15 1437 Complete DRUG ABUSE SCREEN (10) 08/15 1437 Complete CBC WITH AUTO DIFF 08/15 1437 Complete CHEM 12 PROFILE 08/15 1437 Complete Departure Departure Time of Disposition 1549 Disposition DC Home or Self Care(routine) Clinical Impression Primary Impression: Urinary tract infection Secondary Impressions: COPD (chronic obstructive pulmonary disease), Lung granuloma, Ovarian cyst Condition STABLE Referrals Babar Wise MD Additional Instructions I reviewed and discussed with the patient in detail the patient's all CT scan report findings. I called Dr. Wise who wanted to see her in AM .and she is to call the office. 1- drink plenty of water or carnberry juice, 2- start abx. 3- use tylenol for pain. 4- call Dr Wise in AM 5- follow up on urine culture with Dr Wise or Dea. 6- to return for any fever or vomiting, or worse pain. Dr Dickens Discharge Counseling Counseled pt/family regarding diagnosis, test results, medications/RX, home care, follow up needs Prescriptions Current Visit Scripts SULFAMETHOXAZOLE W/TRIMETHOPRI (Bactrim Ds Tab) 1 TABLET PO BID #14 TAB Docusate Sodium (Dulcolax Stool Softener) 100 MG PO Q12HP #14 CAPSULE ED Critical Care Critical Care No If Critical Care minutes are documented, the time involved in the performance of seperately reportable procedures was not counted toward critical care time documented. I directly delivered medical care to this critically ill and/or injured patient. Timely evaluation and treatment was necessary to address the significant organ system(s) dysfunction present in this patient. at 8547
[2017-08-15 14:47] LABS: HEMOGLOBIN 14.1 g/dL (12.2-16.2); LYMPH # 1.8 K/mm3 (0.7-4.5); LYMPH % 18.3 % (10-50.0)
[2017-08-15 14:48] LABS: URINE BILIRUBIN - DIPSTICK NEGATIVE (NEG); URINE BLOOD 3+ (NEG)
[2017-08-15 14:55] LABS: AMPHETAMINES/METAMPHETAMINES NEGATIVE ng/mL (<1000)
--- NOTE | 2017-08-15 15:45 | RADIOLOGY REPORT PS360 ---
CT ABD PELVIS W/O CONTRAST Ordering Physician: Titus Dickens MD Patient Age: 32 years: Female HISTORY: SUDDEN ONSET DYSURIA HEMATURIA left-sided flank pain previous hysterectomy. TECHNIQUE: Helical CT scanning performed through abdomen and pelvis with no oral nor IV contrast utilized sagittal and coronal reconstructions on CT workstation. COMPARISON :May [address] abdomen FINDINGS Lung bases. No acute findings. Heart normal size Benign Calcified granuloma at the left lung base of the left Abdomen/pelvis. Lack of oral and IV contrast decreases sensitivity. Liver, spleen, unremarkable. No significant findings. Gallbladder is been removed. No biliary ductal dilatation. The appearance of the pancreas and region of the adrenals appear stable and unchanged since previous CT. Lack of contrast decreases delineation of the structures. No significant new findings however TRACT kidneys appear satisfactory with no calculi nor obstruction. Ureters unremarkable No retroperitoneal nor mesenteric nor significant pelvic adenopathy. PELVIS. Generous wall thickness urinary bladder, may be exaggerated by the lack of distention. This appearance could reflect cystitis.No significant fluid in cul-de-sac Uterus surgically removed./hysterectomy New right adnexal mass: 4.5 cm transverse x 4.7 cm AP x 5 cm height mass. Appears to be of mixed density mass.. More solid tissue or possibly layering hemorrhagic material posterior aspect. (as might be seen with a hemorrhagic cyst). .. Recommend pelvic ultrasound to further evaluate.- This could be performed as outpatient unless there is right pelvic pain would warrant more urgent evaluation.. Note Patient had a similar cystic mass at the left adnexa on prior May 2016 CT. Which has since resolved. GI TRACT... generous stool throughout the colon. Low-lying cecum. This resides just adjacent to & indents the right aspect of the urinary bladder. The cecum resides just anterior to the right adnexal mass. The appendix is not discretely visualized but I see no good evidence of appendicitis and favor the mass is related to the right ovary/adnexa more likely. If there should be concern regarding appendicitis follow-up study with oral and IV contrast may be required. . Terminal ileum unremarkable.. No small bowel dilatation but there are scattered small moderate air fluid levels throughout the small bowel which may reflect mild ileus.. Stomach unremarkable. . No significant osseous findings. Segmented S1 noted. IMPRESSION: 1. No urinary tract calculi nor obstruction. 2. Generous wall thickness urinary bladder-this in part may reflect its lack of distention but could reflect a cystitis. 3. There is a new 4.7 x 5 cm right adnexal mass, with increased density posteriorly-this could reflect layering hemorrhagic cyst although recommend follow-up pelvic ultrasound to exclude more significant feature. The 4. No prominent bowel findings. Generous stool throughout the rectosigmoid colon, with moderate stool & gas throughout remainder of colon. A few air-fluid levels within small bowel-could conceivablyreflect mild ileus.. 5. Note The appendix is not discretely visualized. I see no good evidence of appendicitis but the cecum resides just anterior to this right adnexal mass which I favor is more likely ovarian origin. However if there should be concern regarding appendix a follow-up study with oral and IV contrast warranted
--- OUTSIDE RECORDS SUMMARY | 2017-08-15 15:46 | External Medical Summary Rpt | CCD ---
Author Author , DEN Organization DEN Address Unknown Phone [email or web address] Team Providers Care Dough Puncher Name Role Phone [employer] Unavailable Unavailable INC, [employer] RANDAL ARRIAGA JR, Unavailable Unavailable RANDAL ARRIAGA JR, BARNES Unavailable Unavailable BRO BESSON MIRANDA, BESSON Unavailable Unavailable MIRANDA [facility] Unavailable Unavailable LABORATORIES, [facility] Unavailable Unavailable SERVICE, [facility] Unavailable Unavailable SERVICE, [facility] OF Unavailable Unavailable THE BLUE, [facility] ROMMEL COSTA, Unavailable Unavailable ROMMEL COSTA ROMMEL MARYAM, Unavailable Unavailable ROMMEL, MARYAM [facility], Unavailable Unavailable [facility] Unavailable [place]available [place], [facility] [place] [facility] Unavailable [place]available [place] [facility] EVARISTO RITA, Unavailable Unavailable EVARISTO RITA VICKY GEORGE Unavailable Unavailable DAMIÁN LIVIER PERRY, Unavailable Unavailable LIVIER PERRY GERALD R, Unavailable Unavailable DARIO MCCARTHY [facility] Unavailable Unavailable [place], [facility] Unavailable Unavailable INC, [facility] Unavailable Unavailable [facility], [facility], Unavailable Unavailable [facility] HOLLEY MONTIEL, Unavailable Unavailable HOLLEY MONTIEL HUNTER Unavailable Unavailable MIRIAM [facility] Unavailable Unavailable [facility], [facility] & Unavailable Unavailable HAND S, [facility] SUSAN GONZALEZ, Unavailable Unavailable SUSAN GONZALEZ [facility] Unavailable Unavailable [facility], [facility] Unavailable Un[facility], [facility] Unavailable Unavailable SERVICES, [facility] MARK GARCIA, Unavailable Unavailable EDY BLOCK JR, Unavailable Unavailable EDY VERGARA WILLIAM F, Unavailable Unavailable ERICA LY JOE A, Unavailable Unavailable DARCY TAVERAS [facility] Un[facility], Unavailable Unavailable PLL[facility], [facility]OLOGY [facility] CYT[facility]Y Unavailable Unavailable LAB, PATHOLOGY & CYTOLOGY LAB [id number], Unavailable Unavailable [id number] Unavailable Unavailable [id number] # [id number], [facility] [id number] # [id number] SCIFRES, SCIFRES Unavailable Unavailable SCIFRES ANG, SCIFRES Unavailable Unavailable ANG JESSIE TRAVIS, Unavailable Unavailable SCIJESSIE HERNANDEZ JOHN T, LIZZIE, Unavailable Unavailable TORRES RENEE, Unavailable Unavailable TORRES RAO JEFF A, Unavailable Unavailable CHANELL MARY JEFFREY M, Unavailable Unavailable DANGELO LO[facility] # Unavailable Unavailable [id number], [facility] # [id number] ERICA WILSON III, Unavailable Unavailable ERICA WILSON III Continuity of Care Document - 10-18-2007 through 2016 Problems Code Diagnosis DOS Provider Status H1013 ACUTE 07-15-2017 SC[facility] ATOPIC CONJUNCTIVI TIS BILATERAL R0789 OTHER CHEST 06-07-2017 [facility] R079 CHEST PAIN 06-07-2017 [facility]PEC[facility] B001 HERPESVIRAL 06-01-2017 [facility] DERMATITIS INTERNAL MED Z1159 ENCOUNTER 06-01-2017 [facility] FOR [facility] SCREENING FOR OTHER VIRAL DISEASES R51 HEADACHE 05-05-2017 [facility] [id number] STRAIN 05-05-2017 [facility] MUSCLE & PHYSIC[facility]ANS, TENDON [facility] FRONT WALL THORAX INIT Z720 TOBACCO USE 05-05-2017 [facility] J3089 OTHER 03-26-2017 [facility] ALLERGIC [facility] RHINITIS INTERNAL MED R58 HEMORRHAGE 03-26-2017 [facility] NOT [facility]LEY ELSEWHERE INTERNAL CLASSIFIED MED G68914 PAIN IN 03-15-2017 [place] RIGHT MEDICAL SHOULDER IMAGING ASS L44410 PAIN IN 03-15-2017 [facility] LEFT [facility]YSIC[facility], SHOULDER PLLC H5213 MYOPIA 03-12-2017 SCIF[facility] BILATERAL J069 ACUTE UPPER 03-05-2017 [facility] RESPIRATORY INTERNAL INFECTION MED UNSPECIFIED Z0000 ENCOUNTER 02-18-2017 [facility] GEN ADULT [facility] MED EXAM INC W/O ABNORMAL FIND J302 OTHER 02-16-2017 [facility] SEASONAL [facility] ALLERGIC INTERNAL RHINITIS MED J4520 MILD 02-16-2017 [facility] INTERMITTEN VAL[facility] T ASTHMA INTERNAL UNCOMPLICAT MED ED R102 PELVIC AND 02-12-2017 [facility] PERINEAL PHYSICIANS PAIN GROUP R05 COUGH 12-24-2016 [facility] R0602 SHORTNESS 12-24-2016 [facility] OF BREATH AMBULANCE SERVICE D271 BENIGN 10-02-2016 [facility], NEOPLASM OF LLC LEFT OVARY N801 ENDOMETRIOS 10-02-2016 [facility], IS OF OVARY LLC N839 NONINFLAMM 10-02-2016 COMMUNITY D/O OVARY ANESTH OF FALLOP TUBE THE BLUE & BROAD LIG UNS N881 OLD 10-02-2016 [facility], LACERATION LLC OF CERVIX UTERI N938 OTHER SPEC 10-02-2016 [facility] ABNORMAL PHYSICIANS UTERINE & GROUP VAGINAL BLEEDING N9489 OTH COND 09-25-2016 [facility]OC W/FE MEM HOS[facility] GEN ORGN & INC MENSTRUAL CYCL N949 UNS COND 09-25-2016 [facility] W/FE [facility] GENIT ORGN INC & MENSTRUAL CYCL P43402 ENCOUNTER 09-25-2016 [facility] FOR [facility] PREPROCEDUR INC AL LABORATORY EXAM N920 EXCESS & 09-10-2016 [facility] FREQUENT PHYSICIANS MENSTRUATIO GROUP N W/REGULAR CYCLE R030 ELEVATED 09-07-2016 [facility] BLOOD-PRESS PHYSICIANS URE READING GROUP WITHOUT DX HTN R1032 LEFT LOWER 09-07-2016 [facility] QUADRANT PHYSICIANS PAIN GROUP K86524 ENCOUNTER 08-28-2016 [facility] MACHINE GUN MECHANIC EXAM PHYSICIANS GENERAL RTN GROUP W/ABNORMAL FIND F85194 ENCOUNTER 08-28-2016 [facility] MACHINE GUN MECHANIC EXAM REFERNCE GENERAL RTN LABORATORIE W/O S ABNORMAL FIND J029 ACUTE 08-27-2016 [facility] PHARYNGITIS [facility]IANS, PLLC UNSPECIFIED K5289 OTH SPEC 06-04-2016 [facility] NONINFECTIV PHYSICIANS, E PLLC GASTROENTER ITIS & COLITIS K529 NONINFECTIV 06-04-2016 [facility] E [facility] GASTROENTER INC ITIS & COLITIS UNS N8320 UNSPECIFIED 06-04-2016 [facility] OVARIAN [facility] CYSTS INC N8329 OTHER 06-04-2016 [facility] OVARIAN [facility], CYSTS PLLC S80860H STRAIN 06-04-2016 [facility] MUSCLE [facility], FASCIA & PLLC TENDON LOW BACK INITIAL G18485 PAIN IN 05-01-2016 [place] [facility] KNEE MEDICAL IMAGING ASS Y09247 PAIN IN 05-01-2016 [place] RIGHT ANKLE MEDICAL IMAGING ASS G1054JX CONTUSION 05-01-2016 [facility] UNS PART PHYSICIANS, HEAD PLLC INITIAL ENCOUNTER Q0438FI UNSPECIFIED 05-01-2016 [place] INJURY OF MEDICAL HEAD IMAGING ASS INITIAL ENCOUNTER E2761MW SPRAIN 05-01-2016 [facility] UNSPECIFIED PHYSICIANS, SITE RT PLLC KNEE INITIAL ENCNTR J4328QY UNS INJURY 05-01-2016 [place] RT LOWER MEDICAL LEG INITIAL IMAGING ASS ENCOUNTER R24992U SPRAIN 05-01-2016 [facility] UNSPEC PHYSICIANS, LIGAMENT PLLC RIGHT ANKLE INITIAL ENC L12694H UNSPECIFIED 05-01-2016 [place] INJURY MEDICAL RIGHT ANKLE IMAGING ASS INITIAL ENCOUNTER Y503KLR EFFECT HEAT 05-01-2016 [facility] & LIGHT PHYSICIANS, UNSPECIFIED PLLC INITIAL ENCNTR W93751 UNSPECIFIED 07-18-2015 [facility] ASTHMA [facility] UNCOMPLICAT INC ED R0781 PLEURODYNIA 07-18-2015 [facility] E59762S CONTUSION 07-18-2015 [facility] RT FRONT PHYSICIANS, WALL THORAX PLLC INITIAL ENCOUNTER K073PMD UNSPECIFIED 07-18-2015 [place] INJURY OF MEDICAL THORAX IMAGING ASS INITIAL ENCOUNTER S35824 PERSONAL 07-18-2015 [facility] HISTORY OF MEM HOSP NICOTINE INC DEPENDENCE 85977 ACUT 06-10-2015 [facility] SUPPRATV [facility] OTITIS HOSPITAL MEDIA W/O SPONT RUP EARDRUM 4619 ACUTE 06-10-2015 [facility] SINUSITIS, [facility] UNSPECIFIED HOSPITAL 462 ACUTE 06-10-2015 [facility] PHARYNGITIS [facility] 26103 PAIN IN 03-13-2015 [place] JOINT, MEDICAL ANKLE AND IMAGING ASS FOOT 7295 PAIN IN 03-13-2015 [place] SOFT MEDICAL TISSUES OF IMAGING ASS LIMB 78811 CONTUSION 03-13-2015 [facility] OF FOOT PHYSICIANS, PLLC 9597 INJURY 03-13-2015 [place] OTHER&UNSPE MEDICAL CIFIED KNEE IMAGING ASS LEG ANKLE&FOOT 3671 MYOPIA 02-08-2015 SCIFRES ANG 65115 SHORTNESS 02-05-2015 [place] OF BREATH MEDICAL IMAGING ASS 71747 PAIN IN 12-26-2014 [facility] JOINT, MEM HOSP SHOULDER INC REGION V571 OTHER 12-26-2014 [facility] PHYSICAL [facility] THERAPY INC 45355 CONTUSION 12-12-2014 [facility] OF SHOULDER PHYSICIANS REGION GROUP 26368 CONTUSION 12-12-2014 [facility] OF [place] PHYSICIANS GROUP 29515 CONTUSION 12-12-2014 [facility] OF [place] PHYSICIANS GROUP 8449 SPRAIN&STRA 12-01-2014 ADVANCED IN OF TECHNOLOGIE UNSPECIFIED S INC SITE OF KNEE&LEG 9592 INJURY 12-01-2014 [place] OTHER&UNSPE MEDICAL CIFIED IMAGING ASS SHOULDER&UP PER ARM 78376 ASTHMA, 11-28-2014 [facility] UNSPECIFIED PHYSICIANS , GROUP UNSPECIFIED STATUS 460 ACUTE 11-07-2014 [facility] 7242 LUMBAGO 10-24-2014 [facility] PHYSICIANS GROUP 93517 PAIN IN 02-06-2014 [facility] JOINT, COSTA LOWER LEG 22454 GENERALIZED 02-06-2014 [facility] PAIN COSTA 9160 HIP THI 02-06-2014 [facility] BARRETT LEG&ANK ABRASION/FR ICION BURN W/O INF 9599 INJURY 02-06-2014 [facility] OTHER AND COSTA UNSPECIFIED UNSPECIFIED SITE E8888 OTHER FALL 02-06-2014 CANALES BRO E8889 UNSPECIFIED 02-06-2014 [facility] FALL COSTA 3829 UNSPECIFIED 12-11-2013 [facility] OTITIS PHYSICIANS MEDIA GROUP 67517 UNSPECIFIED 06-27-2012 VICKY DAM[place]ÁN [place]AT[place] N 92194 TRAUMATIC 06-14-2012 B[facility]ON MIRANDA ARTHROPATHY MULTIPLE SITES 61710 PAIN IN 06-13-2012 [place] JOINT, MEDICAL UPPER ARM IMAGING ASS 8410 RADIAL 06-13-2012 [facility] COLLATERAL [facility] LIGAMENT INC SPRAIN AND STRAIN 8419 SPRAIN&STRA 06-13-2012 VICKY DAMIÁN IN UNSPECIFIED SITE ELBOW&[place] [address] CHEST PAIN 05-20-2012 [place] UNSPECIFIED MEDICAL IMAGING ASS 87410 PRECORDIAL 05-20-2012 [facility] PAIN AMBULANCE SERVICE 35550 OTHER CHEST 05-20-2012 [facility] PAIN MEM [facility]OS[facility] INC 7840 HEADACHE 05-11-2012 BESSON MIRANDA 9953 ALLERGY 05-11-2012 [facility] MIRANDA UNSPECIFIED NOT ELSEWHERE CLASSIFIED 65601 ABDOMINAL 03-02-2012 [facility] PAIN, MEDICAL UNSPECIFIED IMAGING ASS SITE 5990 URINARY 03-01-2012 [facility] INFECTION SERVICES SITE NOT SPECIFIED 7821 RASH AND 12-14-2011 TEJINDER NAN OTHER NONSPECIFIC SKIN ERUPTION 68207 MIGRAINE 10-17-2011 MCKEMIFitz JR UNSP W/O RADHA INTRACT W/O STATUS MIGRAINOSUS 7862 COUGH 10-07-2011 EVARISTO RITA 7245 UNSPECIFIED 07-30-2011 [facility] BACKACHE MEM HOS[facility] INC 7881 DYSURIA 07-30-2011 [facility] INC 59502 UNSPECIFIED 07-03-2011 [facility] BLEPHAROCON JUNCTIVITIS 69984 OTHER ANKLE 05-22-2011 [facility] SPR[facility] AND VALLEY STRAIN INTERNAL MEDI 4778 ALLERGIC 04-01-2011 [facility] RHINITIS VALLEY DUE TO INTERNAL OTHER MEDI ALLERGEN 80688 MIGRAINE 03-25-2011 [facility] UNS VALLEY W/INTRACTAB INTERNAL L W/O MEDI STATUS MIGRAINOSUS 8479 SPRAIN AND 02-21-2011 [facility] STRAIN OF VALLEY UNSPECIFIED INTERNAL SITE OF MED BACK 920 CONTUSION 11-25-2010 [facility] FACE MEDICAL SCALP AND IMAGING ASS NECK EXCEPT EYE 87993 ACUTE PAIN 11-14-2010 [facility] DUE TO VALLEY TRAUMA INTERNAL MEDI 7177 CHONDROMALA 08-04-2010 [place] GIL OF ORTHOPEDIC PATELLA & HAND S 25678 ASTHMA 07-23-2010 [facility] UNSPECIFIED EMERGENCY WITH SERVICES EXACERBATIO N 29787 PAIN IN 06-27-2010 [place] JOINT, MEDICAL FOREARM IMAGING ASS E8859 FALL FROM 06-27-2010 [facility] OTHER EMERGENCY SLIPPING SERVICES TRIPPING OR STUMBLING V642 SURG/OTH 04-07-2010 [facility] PROC NOT MEM HOSP CARRIED OUT INC BECAUSE PTS DECN 86243 UNSPECIFIED 02-12-2010 [facility] SITE OF EMERGENCY ANKLE SERVICES SPRAIN AND ASSOCIATES STRAIN 6929 CONTACT 02-07-2010 [facility] DERMATITIS& DARCY A OTHER ECZEMA DUE UNSPEC CAUSE 8472 LUMBAR 01-29-2010 [facility] SPRAIN AND EMERGENCY STRAIN SERVICES ASSOCIATES 17246 CONTUSION 01-16-2010 [facility] OF HAND EMERGENCY SERVICES ASSOCIATES 9233 CONTUSION 01-16-2010 [place] OF FINGER MEDICAL IMAGING ASSOCIATES 8489 UNSPECIFIED 01-14-2010 [facility] SITE OF DARCY A SPRAIN AND STRAIN 8409 SPRAIN&STRA 01-11-2010 [facility] IN UNSPEC EMERGENCY SITE SERVICES SHOULDER&UP ASSOCIATES PER ARM V698 OTHER 01-11-2010 [facility] PROBLEMS EMERGENCY RELATED TO SERVICES LIFESTYLE ASSOCIATES 5110 PLEURISY 11-23-2009 [facility] WITHOUT [facility] EFFUS/CURRE PROF SERV NT TB 5119 UNSPECIFIED 11-23-2009 [facility] PLEURAL EMERGENCY EFFUSION SERVICES ASSOCIATES 7850 UNSPECIFIED 11-23-2009 [facility] EMERGENCY TACHYCARDIA SERVICES ASSOCIATES 35389 SPRAIN AND 11-04-2009 [place] STRAIN OF MEDICAL UNSPECIFIED IMAGING SITE OF ASSOCIATES WRIST E8490 PLACE OF 11-04-2009 [place] OCCURRENCE, MEDICAL HOME IMAGING ASSOCIATES 94098 REGULAR 10-11-2009 [facility] ASTIGMATISM VISION 4659 ACUTE URIS 08-31-2009 NITIN OF DARCY Morales UNSPECIFIED SITE 9150 ABRASION/FR 08-14-2009 NITIN ICTION BURN DARCY A FINGER W/O MENTION INF 01683 ACUTE 07-28-2009 [facility] GASTRITIS EMERGENCY WITHOUT SERVICES MENTION OF ASSOCIATES HEMORRHAGE 21046 PAIN IN 07-15-2009 NITIN, JOINT, HAND DARCY A 9895 TOXIC 06-30-2009 [facility] EFFECT OF EMERGENCY VENOM SERVICES ASSOCIATES 7823 EDEMA 06-24-2009 DARCY TAVERAS E8498 OTHER 04-19-[address] [place] [address] OF IMAGING OCCURRENCE ASSOCIATES 01730 OTHER 04-11-2009 [facility] CHRONIC EMERGENCY PAIN SERVICES ASSOCIATES 52206 ABDOMINAL 02-17-2009 [facility] PAIN OTHER EMERGENCY SPECIFIED SERVICES SITE ASSOCIATES 91808 UNSPECIFIED 01-14-2009 DARCY TAVERAS CONJUNCTIVI TIS 6268 OTH D/O 01-10-2009 DARIO Cooper MENSTRUATIShiela MCCARTHY MD N&OTH ABN BLEED FE GNT TRACT 97302 CONTUSION 11-20-2008 [place]OV[place] OF KNEE [employer] 97370 OTHER SPEC 11-02-2008 [facility]OV[place] HEMORRHAGE [employer] EARLY [employer] ANTEPARTUM V7241 10-30-2008 DHS/CO EXAMINATION HEALTH OR TEST CENTRAL NEGATIVE BANK ACCT RESULT 08472 ACUTE 10-21-2008 [place]OV[place] SEROUS [employer] OTITIS [employer] MEDIA 4660 ACUTE 10-21-2008 [facility] BRONCHITIS [employer] 73574 FEVER 10-21-2008 [facility] UNSPECIFIED AMBULANCE SERVICE E9278 OTH 10-07-2008 [place] OVEREXERT&S MEDICAL TRENUOUS&RE IMAGING PETITIVE ASSOCIATES MVMNTS/LOAD S 59894 OTHER ACUTE 05-26-2008 [facility] POSTOPERATI INC VE PAIN 13281 OTHER 05-26-2008 [facility] DYSPNEA AND AM[place]UL[place] [address] CALCU 05-15-2008 TRINH ARRIAGA JR F W/OTH CHOLECYST W/O MENTION OBST 37534 CALCU 05-15-2008 [facility] GALLBLADD [facility] W/O MENTION INC CHOLECYST/O BST 71467 CHOLECYSTIT 05-15-2008 COMMUNITY IS, ANESTH OF UNSPECIFIED THE [place]UE[place] V242 ROUTINE 04-27-2008 [facility] [place] INC FOLLOW-UP V762 SCREENING 04-27-2008 [facility] FOR [place] INC MALIGNANT NEOPLASM OF THE CERVIX 57425 ACHILLES 04-23-2008 COVARRUBIAS BURSITIS OR [employer] TENDINIInnorange Oy 09493 CALCU BD 03-26-2008 [place] WITHOUT MEDICAL MENTION IMAGING CHOLECYST/O ASSOCIATES BSTRUCTION 66196 ABDOMINAL 03-26-2008 [facility] PAIN RIGHT [facility] LOWER INC QUADRANT 44617 INFECTED 03-22-2008 DARIO Cooper POSTOPERATI SHARI MASON VE SEROMA NEC 68404 MATERNAL 03-19-2008 DARIO MCCARTHY MD CONDITION/C OMPLICAT 62972 ERLY ONSET 03-02-2008 DARIO MCCARTHY MD W/WO MENTION ANTPRTM COND 73902 PREV C/S 03-02-2008 COMMUNITY DELIV DELIV ANESTH OF W/WO THE MENTION [place]UE[place]ASS ANTPRTM COND V252 STERILIZATI 03-02-2008 PATHOLOGY & ON CYTOLOGY LAB 53855 OTHER 03-01-2008 DARIO MCCARTHY MD LABOR, ANTEPARTUM 06850 OTHER SPEC 03-01-2008 [facility] COMPLICATIO [facility] N INC W/DELIVERY V270 OUTCOME OF 03-01-2008 [facility] DELIVERY MEM HOS[facility] SINGLE INC LIVEBORN V2389 SUPERVISION 02-21-2008 DARIO Cooper OF WILI MCCARTHY MD HIGH-RISK 09742 THREATENED 02-19-2008 [facility] PREMATURE [facility] LABOR INC ANTEPARTUM V222 02-07-2008 SHARI JOSHI MD INCIDENTAL 9248 CONTUSION 02-04-2008 TIM OF MULTIPLE MEM HOSP SITES NEC INC V221 SUPERVISION 02-04-2008 TIM OF OTHER MEM HOSP NORMAL INC 41673 CALCU 01-29-2008 TRINH ARRIAGA JR RANDAL F W/ACUT CHOLCYST W/O MENTION OBST 36031 OTHER 01-29-2008 [facility] SPECIFED [facility] HOS[facility] COMPLICATIO INC N ANTEPARTUM 10263 GALLSTONE 01-28-2008 DARIO Cooper ILEUS SHARI MASON 01064 NAUSEA WITH 01-28-2008 DARIO Cooper VOMITING SHARI MASON 86691 DIARRHEA 01-28-2008 DARIO MCCARTHY MD 6259 UNSPEC 01-20-2008 ADRIO Cooper SYMPTOM SHARI MASON ASSOC W/FEMALE GENITAL ORGANS 7620 FETUS OR 01-20-2008 [place] [facility]ICAL AFFECTED BY IMAGING PLACENTA ASSOCIATES PREVIA 1121 CANDIDIASIS 01-05-2008 DARIO Cooper OF VULVA SHARI MASON AND VAGINA 12246 PLACENTA 12-22-2007 DARIO Cooper PREVIA SHARI MASON WITHOUT HEMORRHAGE ANTEPARTUM 23940 PROLONGED 1 12-14-2007 [facility] AMBULANCE LABOR SERVICE UNSPEC EPISODE CARE 69332 EDEMA OR 12-06-2007 DARIO Cooper EXCESSIVE SHARI MASON WEIGHT GAIN ANTEPARTUM 7806 FEVER & OTH 11-12-2007 [facility] AMBULANCE PHYSIOLOGIC SERVICE [place] [address] POOR 10-31-2007 DARIO Cooper GROWTH MGMT SHARI MASON MOTH ANTPRTM COND/COMP V288 OTHER 10-19-2007 [facility] SPECIFIED [facility] INC SCREENING 25962 BLISTERS 10-18-2007 [facility] WITH [facility] LOSS DUE TO PROF SERV BURN OF FOOT D27.1 BENIGN NEOPLASM OF LEFT OVARY J02.9 ACUTE PHARYNGITIS , UNSPECIFIED J06.9 ACUTE UPPER RESPIRATORY INFECTION, UNSPECIFIED J44.1 CHRONIC OBSTRUCTIVE PULMONARY DISEASE W (ACUTE) EXACERBATIO N K52.9 NONINFECTIV E GASTROENTER ITIS AND COLITIS, UNSPECIFIED M25.512 PAIN IN LEFT SHOULDER N83.202 UNSPECIFIED OVARIAN CYST, LEFT SIDE R07.89 OTHER CHEST PAIN R51 HEADACHE S00.93XA CONTUSION OF UNSPECIFIED PART OF HEAD, INITIAL ENCOUNTER S20.211A CONTUSION OF RIGHT FRONT WALL OF THORAX, INITIAL ENCOUNTER S29.011A STRAIN OF MUSCLE AND TENDON OF FRONT WALL OF THORAX, INIT S39.012A STRAIN OF MUSCLE, FASCIA AND TENDON [...] Reactions, Alerts Clinical Alert Notifications Alert Asthma: absence of controller with h/o SA beta agonist Medications Na ND Rx Da Fi Fi Am Da Di Ph RX Ph St me C No te ll ll ou ys ag ar # ys at rm s nt no ma ic us Or Da si cy ia de te s n re d AN 00 10 11 60 30 00 CL Ac OR 17 -0 -0 .0 00 IN ti O 30 6- 3- 00 00 IC ve EL 86 20 20 44 LI 91 17 17 47 PH PT 0 34 AR A MA 62 CY .5 -2 5 MC G IN H DC 00 10 10 39 30 00 CL Ac ED 60 -0 -2 .0 00 IN ti NI 35 3- 7- 00 00 IC ve SO 33 20 20 44 NE 73 17 17 43 PH 5 2 81 AR MA MG CY TA BL ET BE 69 10 10 30 10 00 CL Ac NZ 45 -0 -2 .0 00 IN ti ON 20 3- 7- 00 00 IC ve AT 14 20 20 44 AT 33 17 17 43 PH E 0 82 AR 10 MA 0 CY MG CA PS UL E MU 68 09 09 22 5 00 CL Ac PI 46 -0 -2 .0 00 IN ti RO 20 5- 9- 00 00 IC ve CI 18 20 20 44 N 02 17 17 14 PH 2% 2 81 AR MA OI CY NT ME NT AC 00 09 09 30 10 00 CL Ac YC 09 -0 -2 .0 00 IN ti LO 38 5- 9- 00 00 IC ve 94 20 20 44 R 30 17 17 15 PH 40 1 28 AR 0 MA MG CY TA BL ET VE 00 08 09 18 25 00 CL Ac NT 17 -2 -2 .0 00 IN ti OL 30 9- 2- 00 00 IC ve IN 68 20 20 44 22 17 17 09 PH HF 0 04 AR A MA 90 CY MC G IN KIRK LE R TR 45 08 09 16 30 00 CL Ac IA 80 -2 -2 .8 00 IN ti MC 20 8- 2- 99 00 IC ve IN 44 20 20 43 OL 30 17 17 54 PH ON 1 97 AR E MA 55 CY MC G NA SA L SP R HY 00 08 09 6. [address] 40 -1 -[address] ti OC 60 0- 8- 0 00 SI ve OD 12 20 20 49 DE ON 30 17 17 75 -A 5 62 PH CE AR TA MA NC CY NO PH OF EN CY NT 5- HI 32 AN 5 A IN C AZ 68 08 09 6. 5 00 CL Ac IT 18 -0 -0 00 00 IN ti HR 00 9- 1- 0 00 IC ve OM 16 20 20 43 YC 01 17 17 89 PH IN 3 62 AR MA 25 CY 0 MG TA BL ET DC 00 08 09 10 5 00 CL Ac ED 05 -0 -0 .0 00 IN ti NI 40 9- 1- 00 00 IC ve SO 01 20 20 43 NE 82 17 17 89 PH 9 63 AR 20 MA CY MG TA BL ET AZ 59 07 08 6. 5 00 WA Ac IT 76 -3 -2 00 00 L- ti HR 23 0- 5- 0 07 MA ve OM 06 20 20 50 RT YC 00 17 17 13 IN 1 61 PH AR 25 MA 0 CY MG #5 TA 91 BL ET LO 16 07 08 30 30 00 EA Ac RA 71 -1 -[address] ti TA 40 1- 4- 00 00 SI ve DI 48 20 20 48 DE NE 20 17 17 85 3 81 PH 10 AR MA MG CY TA OF BL CY ET NT HI AN A IN C CE 45 06 07 30 30 00 CL Ac TI 80 -3 -2 .0 00 IN ti RI 20 0- 8- 00 00 IC ve ZI 91 20 20 43 NE 98 17 17 54 PH 7 96 AR HC MA L CY 10 MG TA BL ET TR 45 06 07 16 30 00 CL Ac IA 80 -3 -2 .8 00 IN ti MC 20 0- 8- 99 00 IC ve IN 44 20 20 43 OL 30 17 17 54 PH ON 1 97 AR E MA 55 CY MC G NA SA L SP R DC 00 06 07 10 5 00 CL Ac ED 05 -2 -1 .0 00 IN ti NI 40 0- 4- 00 00 IC ve SO 01 20 20 43 NE 82 17 17 43 PH 9 95 AR 20 MA CY MG TA BL ET MU 63 06 07 6. 3 00 CL Ac CI 82 -0 -0 00 00 IN ti NE 40 9- 7- 0 00 IC ve X 00 20 20 43 ER 83 17 17 35 PH 4 30 AR 60 MA 0 CY MG TA BL ET LO 16 05 06 30 30 00 EA Ac RA 71 -2 -[address] ti TA 40 3- 3- 00 00 SI ve DI 48 20 20 48 DE NE 20 17 17 85 3 81 PH 10 AR MA MG CY TA OF BL CY ET NT HI AN A IN C VE 00 05 06 18 30 00 EA Ac NT 17 -2 -[address] ti OL 30 3- 3- 00 00 SI ve IN 68 20 20 48 DE 22 17 17 85 HF 0 82 PH A AR 90 MA CY MC G OF IN CY KIRK NT LE HI R AN A IN C BE 67 03 04 15 5 00 [...] 5 49 PH CE AR TA MA NC CY NO PH OF CY 7. NT 5- HI 32 AN 5 A IN C HY 00 01 02 [address] 40 -0 -1 .0 00 L- ti OC 60 9- 0- 00 02 MA ve OD 12 20 20 23 RT ON 40 17 17 86 -A 1 12 PH CE AR TA MA NC CY NO PH #5 91 7. 5- [...] ET NT HI AN A IN C AZ 00 12 01 3. 3 00 [...] CY NT HI AN A IN C HY 00 12 01 [address] 40 -0 -0 .0 00 L- ti OC 60 7- 9- 00 02 MA ve OD 12 20 20 23 RT ON 30 16 17 82 -A 1 17 PH CE AR TA MA NC CY NO PH #5 EN 91 5- 32 5 NA 00 10 10 1 30 30 RI 90 MC Ac DO 09 -1 -1 .0 TE 36 KE ti LO 34 7- 7- 00 46 NC ve L 23 20 20 AI E 20 50 11 11 D JR 1 PH MG AR WI MA LL TA CY IA BL M ET 03 F 93 8 # 03 93 BU 00 10 10 30 7 RI 90 MC Ac TA 14 -1 -1 .0 TE 36 KE ti LB 31 7- 7- 00 48 NC ve -A 78 20 20 AI E CE 70 11 11 D JR TA 1 PH NC AR WI N- MA LL CA CY [...] 1 3. 3 EA 23 MC Ac -[address] 72 KE ti 37 8- 8- 0 SI 21 NC ve 16 20 20 DE E 93 [...] 11 11 D E 9 PH SA DC AR RA OP MA H CY L [...] ti RO 20 9- 9- 00 16 NC ve XI 03 20 20 AI E [...] 11 D FUNMILAYO TA 1 PH E NC AR A N- MA CA CY FF [...] 11 D FUNMILAYO TA 1 PH E NC AR A N- MA CA CY FF 03 50 93 -3 8 25 # -4 03 0 93 BU 00 12 12 36 8 RI 86 NI Ac TA 14 -1 -1 .0 TE 25 CH ti LB 31 5- 5- 00 40 OL ve -A 78 20 20 AI S CE 70 10 10 D FUNMILAYO TA 1 PH E NC AR A N- MA CA CY FF 03 50 93 -3 8 25 # -4 03 0 93 BU 00 11 11 36 8 RI 85 NI Ac TA 14 -2 -2 .0 TE 99 CH ti LB 31 8- 8- 00 50 OL ve -A 78 20 20 AI S CE 70 10 10 D FUNMILAYO TA 1 PH E NC AR A N- MA CA CY FF 03 50 93 -3 8 25 # -4 03 0 93 BU 00 11 11 36 6 RI 85 NI Ac TA 14 -1 -1 .0 TE 79 CH ti LB 31 2- 2- 00 80 OL ve -A 78 20 20 AI S CE 70 10 10 D FUNMILAYO TA 1 PH E NC AR A N- MA CA CY FF [...] 34 20 20 DE 90 10 10 NC 1 PH CH AR AE MA L [...] CY NT HI AN A BU 00 08 08 [...] CA CY P NT HI AN A CY 00 08 08 0 24 8 EA 18 NI Ac CL 37 -2 -[address] 80 CH ti OB 80 1- 1- 00 SI 32 OL ve EN 75 20 20 DE S ZA 11 10 10 FUNMILAYO DC 0 PH E IN AR A E MA 10 CY MG OF TA CY BL NT ET HI AN A CL 00 08 08 [...] 10 D FUNMILAYO TA 1 PH E NC AR A N- MA CA CY FF [...] 10 10 BA TA 5 PH TU NC AR ND N- MA E CA CY O FF OF 50 -3 CY 25 NT -4 HI 0 AN A DC 45 05 05 3. 4 RI 83 [...] 20 20 DE YC 61 10 10 NC IN 8 PH CH AR AE 25 [...] 10 10 BA TA 5 PH TU NC AR ND N- MA E CA CY [...] 80 8- 8- 00 49 OL ve NC 21 20 20 AI S DE 61 09 09 D FUNMILAYO 0 PH E 40 AR A M MG #3 93 TA 8 BL ET DC 00 09 09 00 30 30 RI [...] #3 93 8 00 08 08 00 12 2 RI [...] S ZA 10 09 09 D FUNMILAYO DC 1 PH E IN AR A E M 10 #3 93 MG 8 TA BL ET 00 07 08 00 12 3 EA 13 KIRK Ac 59 -2 -[address] 62 MO ti 10 5- 3- 00 SI 01 N ve 34 20 20 DE AN [address] 1 PH EW AR R MA CY OF CY NT HI AN A 00 07 07 00 4. 1 RI 79 SO Ac 40 -1 -3 00 TE 21 KA ti 60 6- 0- 0 48 N ve 35 20 20 AI BA 70 09 09 D BA 5 PH TU AR ND M E #3 O 93 8 00 07 07 00 12 2 RI [...] PS UL E 00 07 07 00 10 3 RI [...] S ZA 10 09 09 D FUNMILAYO DC 1 PH E IN AR A E [...] S ZA 10 09 09 D FUNMILAYO DC 1 PH E IN AR A E [...] #3 93 CA 8 PS UL E CY 00 05 06 00 24 8 RI 78 NI Ac CL 37 -2 -0 .0 TE 52 CH ti OB 80 2- 4- 00 22 OL ve EN 75 20 20 AI S ZA 10 09 09 D FUNMILAYO DC 1 PH E IN AR A E M 10 #3 93 MG 8 TA BL ET DC 00 05 06 00 6. 30 RI 78 NI Ac OV 08 -1 -0 70 TE 48 CH ti EN 51 9- 4- 0 41 OL ve TI 13 20 20 AI S L 20 09 09 D FUNMILAYO HF 1 PH E A AR A 90 M #3 MC 93 G 8 IN KIRK LE R 00 05 06 00 18 3 RI 78 NI Ac 40 -2 -0 .0 TE 52 CH ti 60 2- 4- 00 24 OL ve 35 20 20 AI S 70 09 09 D FUNMILAYO 5 PH E AR A M #3 93 8 AM 65 05 05 00 30 10 [...] BA ZA 10 09 09 D BA DC 1 PH TU IN AR ND E M E 10 #3 O 93 MG 8 TA BL ET DC 00 03 04 00 30 30 RI 77 NI Ac ED 60 -2 -0 .0 TE 69 CH ti NI 35 4- 9- 00 29 OL ve SO 33 20 20 AI S NE 73 09 09 D FUNMILAYO 5 2 PH E AR A MG M #3 TA 93 BL 8 ET ME 00 01 02 00 21 6 RI 76 GA Ac TH 60 -2 -1 .0 TE 83 IN ti YL 34 6- 2- 00 37 EY ve DC 59 20 20 AI ED 31 09 09 D NC NI 5 PH CH SO AR AE LO M L NE #3 S 4 93 8 MG DO SE PK CI 00 01 02 00 14 7 RI 76 GA Ac DC 17 -2 -1 .0 TE 83 IN ti OF 25 6- 2- 00 35 EY ve LO 31 20 20 AI XA 26 09 09 D NC CI 0 PH CH N AR AE HC M L L #3 S 50 93 0 8 MG TA B AM 00 11 11 00 30 10 [...] 00 30 15 RI 75 GO Ac DC 09 -1 -2 .0 TE 40 BL ti OX 30 2- 3- 00 02 E ve EN 14 20 20 AI RO 90 08 08 D ND 50 1 PH AL 0 AR E MG M #3 TA 93 BL 8 ET CI 00 08 09 00 10 5 RI 74 GA Ac DC 17 -3 -1 .0 TE 77 IN ti OF 25 0- 1- 00 56 EY ve LO 31 20 20 AI XA 26 08 08 D NC CI 0 PH CH N AR AE [...] CY OF CY NT HI AN A Results Labs Lab Lab Date Result Refere Interp Status Commen Order Detail nces retati t Range on Urinalysis with microscopy (08-15-2017 14:40) Urine --2 TURBID CLEAR complet appeara 017 TURBID ed nce 14:40 L determi nation Urine 08-15-2 NEGATIV NEG complet total 017 E ed bilirub 14:40 NEGATIV in E L detecti on by test Comment: BILIRUBIN CONFIRMED WITH ICTOTEST Urine 08-15-2 3+ 3+ L NEG complet blood 017 ed detecti 14:40 on Urine 08-15-2 SHAUNNA YELLOW complet color 017 SHAUNNA L ed 14:40 Glucose 08-15-2 = NEG complet ur 017 NEGATIV ed test 14:40 E strip Urine 08-15-2 NEGATIV NEG complet ketones 017 E ed 14:40 NEGATIV detecti E L on by mg/dL automat ed jessica Mucus 08-15-2 2+ 2+ L NEG complet detecti 017 ed on in 14:40 urine sedimen t by lig Urine 08-15-2 POSITIV NEG complet nitrite 017 E ed 14:40 POSITIV detecti E L on by test strip Urine 11-19-2 = 5.5 5.0-8.5 complet pH 017 ed 14:40 Urine 08-15-2 2 + NEG complet protein 017 mg/dL ed 14:40 measure ment by automat ed t Urine -19-2 = 1.025 1.005-1 complet specifi 017 .030 ed c 14:40 gravity measure ment Urine 19-2 0.2 0.2 NEG complet urobili 017 L ed nogen 14:40 E.U./dL detecti on by test str CBC w auto diff (08-15-2017 14:40) Baso % = 0.7 % 0.1-2.0 complet 017 ed 14:40 Automat = 0.2 0.0-0.4 complet ed 017 K/mm3 ed blood 14:40 eosinop hil count Automat = 2.3 % 0.1-12. complet ed 017 0 ed blood 14:40 eosinop hils/10 0 leukocy t Blood = 7.3 1.8-7.8 complet granulo 017 K/mm3 ed cytes 14:40 automat ed count (numb Granulo = 74.8 37.0-80 complet cyte 017 % .0 ed percent 14:40 age Blood = 42.5 37.0-47 complet hematoc 017 % .0 ed rit 14:40 (volume fractio n) Blood = 14.1 12.2-16 complet hemoglo 017 g/dL .2 ed bin 14:40 measure ment (mass/v olum Absolut = 1.8 0.7-4.5 complet e 017 K/mm3 ed lymphoc 14:40 yte count Mean = 29.7 27-31.2 complet corpusc 017 pg ed ular 14:40 hemoglo bin (MCH) determ Automat = 0.1 0-0.2 complet ed 017 K/MM3 ed blood 14:40 basophi l count (count/ vo Lymphoc = 18.3 10-50.0 complet yte 017 % ed count, 14:40 blood, automat ed Automat = 33.3 31.8-35 complet ed 017 g/dl .4 ed erythro 14:40 cyte mean corpusc ular h Automat = 89.4 82.2-97 complet ed 017 fl .8 ed erythro 14:40 cyte mean corpusc ular v Absolut = 0.4 0.1-1.0 complet e 017 K/mm3 ed monocyt 14:40 e count Harding % = 3.9 % 1.7-9.3 complet 017 ed 14:40 Automat = 7.2 7.4-10. complet ed 017 fl 4 ed blood 14:40 platele t mean volume noe Blood = 270 142-424 complet platele 017 K/mm3 ed t count 14:40 Red = 4.76 4.2-5.4 complet blood 017 M/mm3 ed cell 14:40 count Automat = 12.5 11.5-17 complet ed 017 % .5 ed erythro 14:40 cyte distrib ution width Blood = 9.7 4.8-10. complet leukocy 017 K/MM3 8 ed jessica 14:40 count (number /volume ) Influenza virus A+B Ag [Presence] in Unspecified specimen (06-29-2017 09:05) Influen NOT NOT complet za 017 DETECTE DETECTD ed virus A 09:05 D Ag [Presen ce] in Unspeci fied specime n Influen NOT NOT complet za 017 DETECTE DETECTD ed virus B 09:05 D Ag [Presen ce] in Unspeci fied specime n Streptococcus pyogenes Ag [Presence] in Unspecified specimen (06-29-2017 09:05) Strepto NEGATIV complet coccus 017 E ed pyogene 09:05 s Ag [Presen ce] in Unspeci fied specime n Procedures Procedure DOS Code Location Performer Comment [facility] [address] [facility] [place] PIC 8 [facility] CHOLECYST INC INC ECTOMY LOW 741 [facility] [place] CERVICAL 8 [facility] INC INC SECTION OTH 6639 [facility] [place] BILATERAL 8 [facility] INC INC DESTRUC/O CCLUSION [place] TUBES Encounters Encounter Start End Date Code Location Performer Type Date [facility] TIM - 7 7 [facility] 7 [facility] - 7 7 [facility] - 6 6 [facility] TIM - 6 6 [facility] TIM - 6 6 [facility] TIM - 5 5 [facility] TIM - 5 5 [facility] TIM - 5 5 [facility] TIM - 5 5 [facility] TIM - 2 2 [facility] TIM - 2 2 [facility] TIM - 2 2 [facility] TIM - 1 1 [facility] TIM - 1 1 [facility] TIM - 1 1 [facility] TIM - 1 1 [facility] TIM - 1 1 [facility] TIM - 0 0 [facility] TIM - 0 0 [facility] TIM - 0 0 [facility] TIM - 0 0 [facility] - 0 0 [facility] - 0 0 [facility] - 0 0 [facility] - 0 0 [facility] - 0 0 [facility] - 9 9 [facility] - 9 9 [facility] - 9 9 [facility] - 9 9 [facility] - 9 9 [facility] - 9 9 [facility] - 9 9 [facility] - 9 9 [facility] - 9 9 [facility] - 9 9 [facility] - 9 9 [facility] - 9 9 [facility] - 9 9 [facility] - 9 9 [facility] - 9 9 [facility] - 9 9 [facility] - 9 9 [facility] TIM - 9 9 [facility] - 9 9 [facility] - 9 9 [facility] - 8 8 [facility] - 8 8 [facility] - 8 8 [facility] - 8 8 [facility] - 8 8 [facility] - 8 8 [facility] - 8 8 [facility] - 8 8 [facility] - 8 8 [facility] - 8 8 [facility] - 8 8 [facility] TIM - 8 8 [facility] - 8 8 [facility] - 8 8 [facility] TIM - 8 8 [facility] - 8 8 [facility] - 8 8 [facility] TIM - 8 8 [facility] - 8 8 [facility] TIM - 8 8 [facility] - 8 8 [facility] - 8 8 [facility] - 8 8 [facility] - 8 8 [facility] - 8 8 [facility] - 8 8 [facility] - 8 8 [facility] - 8 8 [facility] - 8 8 [facility] - 8 8 [facility] - 8 8 [facility] - 8 8 [facility] - 8 8 [facility]
--- OUTSIDE RECORDS SUMMARY | 2017-08-15 15:46 | External Medical Summary Rpt | CCD ---
Author Author , DEN Organization DEN Address Unknown Phone [email or web address] Care Team Providers Care Cashier Manager Name Role Phone [employer] Unavailable Unavailable INC, [employer] RANDAL ARRIAGA JR, Unavailable Unavailable RANDAL ARRIAGA JR, BARNES Unavailable Unavailable BRO BESSON MIRANDA, BESSON Unavailable Unavailable MIRANDA [facility] Unavailable Unavailable LABORATORIES, [facility] Unavailable Unavailable SERVICE, [facility] Unavailable Unavailable SERVICE, [facility] OF Unavailable Unavailable THE [facility], [facility] ROMMEL COSTA, Unavailable Unavailable ROMMEL COSTA ROMMEL MARYAM, Unavailable Unavailable ROMMEL, MARYAM [facility], Unavailable Unavailable [facility] Unavailable [place]available [place], [facility] [place] [facility] Un[place] [facility] EVARISTO RITA, Unavailable Unavailable EVARISTO RITA VICKY GEORGE Unavailable Unavailable DAMIÁN LIVIER PERRY, Unavailable Unavailable LIVIER PERRY GERALD R, Unavailable Unavailable DARIO MCCARTHY [facility] Unavailable Unavailable [place], [facility] Unavailable Unavailable INC, [facility] Unavailable Unavailable [facility], [facility], Unavailable Unavailable [facility] HOLLEY MONTIEL, Unavailable Unavailable HOLLEY MONTIEL HUNTER Unavailable Unavailable MIRIAM [facility] Unavailable Unavailable [facility], [facility] & Unavailable Unavailable HAND [facility], [facility] SUSAN GONZALEZ, Unavailable Unavailable SUSAN GONZALEZ [facility] Unavailable Unavailable [facility], [facility] Unavailable Un[facility] Unavailable Unavailable SERVICES, [facility] MARK GARCIA, Unavailable Unavailable EDY [...] [facility]ARM #[id number] [facility] Unavailable Unavailable [id number] # [id number], [facility] [id number] # [id number] SCIFRES, SCIFRES Unavailable Unavailable SCIFRES ANG, SCIFRES Unavailable Unavailable ANG JESSIE TRAVIS, Unavailable Unavailable SCIJESSIE HERNANDEZ JOHN T, LIZZIE, Unavailable Unavailable TORRES RENEE, Unavailable Unavailable TORRES RAO JEFF A, Unavailable Unavailable CHANELL MARY JEFFREY M, Unavailable Unavailable DANGELO LOYA [facility] # Unavailable Unavailable [id number], [facility] # [id number] ERICA WILSON III, Unavailable Unavailable ERICA WILSON III Continuity of Care Document - 10-18-2007 through 2016 Problems Code Diagnosis DOS Provider Status H1013 ACUTE 07-15-2017 [facility] ATOPIC CONJUNCTIVI TIS BILATERAL R0789 OTHER CHEST 06-07-2017 [facility] R079 CHEST PAIN 06-07-2017 [facility]PECIFIED [facility] B001 HERPESVIRAL 06-01-2017 [facility] DERMATITIS INTERNAL MED Z1159 ENCOUNTER 06-01-2017 [facility] FOR [facility] SCREENING FOR OTHER VIRAL DISEASES R51 HEADACHE 05-05-2017 [facility] [id number] STRAIN 05-05-2017 [facility] MUSCLE & PHYSIC[facility]ANS, TENDON [facility] FRONT WALL THORAX INIT Z720 TOBACCO USE 05-05-2017 [facility] INC J3089 OTHER 03-26-2017 [facility] ALLERGIC [facility] RHINITIS INTERNAL MED R58 HEMORRHAGE 03-26-2017 [facility] NOT VALLEY ELSEWHERE INTERNAL CLASSIFIED MED M81464 PAIN IN 03-15-2017 [facility] RIGHT MEDICAL SHOULDER IMAGING ASS X68175 PAIN IN 03-15-2017 [facility] LEFT [facility]YSIC[facility], SHOULDER [...] UNCOMPLICAT MED ED R102 PELVIC AND 02-12-2017 [facility] PERINEAL PHYSICIANS PAIN GROUP R05 COUGH 12-24-2016 [facility] R0602 SHORTNESS 12-24-2016 [facility] OF BREATH AMBULANCE SERVICE D271 BENIGN 10-02-2016 [facility], NEOPLASM OF LLC LEFT OVARY N801 ENDOMETRIOS 10-02-2016 [facility], IS OF OVARY LLC N839 NONINFLAMM 10-02-2016 [facility] D/O OVARY ANESTH OF FALLOP TUBE THE BLUE & BROAD LIG UNS N881 OLD 10-02-2016 [facility], LACERATION LLC OF CERVIX UTERI N938 OTHER SPEC 10-02-2016 [facility] ABNORMAL PHYSICIANS UTERINE & GROUP VAGINAL BLEEDING N9489 OTH COND 09-25-2016 [facility] W/FE [facility] GEN ORGN & INC MENSTRUAL CYCL N949 UNS COND 09-25-2016 [facility] W/[facility] GENIT ORGN INC & MENSTRUAL CYCL W39412 ENCOUNTER 09-25-2016 [facility] FOR [facility] PREPROCEDUR INC AL LABORATORY EXAM N920 EXCESS & 09-10-2016 [facility] FREQUENT PHYSICIANS MENSTRUATIO GROUP N W/REGULAR CYCLE R030 ELEVATED 09-07-2016 [facility] BLOOD-PRESS PHYSICIANS URE READING GROUP WITHOUT DX HTN R1032 LEFT LOWER 09-07-2016 [facility] QUADRANT PHYSICIANS PAIN GROUP F78686 ENCOUNTER 08-28-2016 [facility] LARD MAKER EXAM PHYSICIANS GENERAL RTN GROUP W/ABNORMAL FIND L24554 ENCOUNTER 08-28-2016 [facility] LARD MAKER EXAM REFERNCE GENERAL RTN LABORATORIE W/O S ABNORMAL FIND J029 ACUTE 08-27-2016 [facility] PHARYNGITIS PH[facility]ICIANS, PLLC UNSPECIFIED K5289 OTH SPEC 06-04-2016 [facility] NONINFECTIV PHYSICIANS, E PLLC GASTROENTER ITIS & COLITIS K529 NONINFECTIV 06-04-2016 [facility] E [facility] GASTROENTER INC ITIS & COLITIS UNS N8320 UNSPECIFIED 06-04-2016 [facility] OVARIAN [facility] CYSTS INC N8329 OTHER 06-04-2016 [facility] OVARIAN PH[facility]ICIANS, CYSTS PLLC O23250H STRAIN 06-04-2016 [facility] MUSCLE [facility], FASCIA & PLLC TENDON LOW BACK INITIAL K32305 PAIN IN 05-01-2016 [facility] RIGHT KNEE [facility]ICAL IM[facility] ASS N07176 PAIN IN 05-01-2016 [facility] RIGHT ANKLE [facility]ICAL IM[facility] X4699KB CONTUSION 05-01-2016 [facility] UNS PART PHYSICIANS, HEAD PLLC INITIAL ENCOUNTER K8471NP UNSPECIFIED 05-01-2016 [facility] INJURY OF MEDICAL HEAD IMAGING ASS INITIAL ENCOUNTER A0836QM SPRAIN 05-01-2016 [facility] UNSPECIFIED PHYSICIANS, SITE RT PLLC KNEE INITIAL ENCNTR V7198IE UNS INJURY 05-01-2016 [facility] RT LOWER MEDICAL LEG INITIAL IMAGING ASS ENCOUNTER Z85007H SPRAIN 05-01-2016 [facility] UNSPEC PHYSICIANS, LIGAMENT PLLC RIGHT ANKLE INITIAL ENC W43726S UNSPECIFIED 05-01-2016 [facility] INJURY MEDICAL RIGHT ANKLE IMAGING ASS INITIAL ENCOUNTER Y077NFS EFFECT HEAT 05-01-2016 [facility] & LIGHT PHYSICIANS, UNSPECIFIED PLLC INITIAL ENCNTR H39913 UNSPECIFIED 07-18-2015 [facility] ASTHMA [facility] UNCOMPLICAT INC ED R0781 PLEURODYNIA 07-18-2015 [facility] O68991L CONTUSION 07-18-2015 [facility] RT FRONT PHYSICIANS, WALL THORAX PLLC INITIAL ENCOUNTER U112YPL UNSPECIFIED 07-18-2015 [facility] INJURY OF MEDICAL THORAX IMAGING ASS INITIAL ENCOUNTER N74923 PERSONAL 07-18-2015 [facility] HISTORY OF [facility] NICOTINE INC DEPENDENCE 01560 ACUT 06-10-2015 [place] MEDIA W/O SPONT RUP EARDRUM 4619 ACUTE 06-10-2015 [place] SINUSITIS, [facility] 462 ACUTE 06-10-2015 [place] PHARYNGITIS [facility] 61454 PAIN IN 03-13-2015 [facility] JOINT, MEDICAL ANKLE AND IMAGING ASS FOOT 7295 PAIN IN 03-13-2015 [facility] SOFT MEDICAL TISSUES OF IMAGING ASS LIMB 67648 CONTUSION 03-13-2015 [facility] OF FOOT PHYSICIANS, PLLC 9597 INJURY 03-13-2015 [facility] OTHER&UNSPE MEDICAL CIFIED KNEE IMAGING ASS LEG ANKLE&FOOT 3671 MYOPIA 02-08-2015 SCIFRES ANG 81301 SHORTNESS 02-05-2015 [facility] OF BREATH MEDICAL IMAGING ASS 85592 PAIN IN 12-26-2014 [facility] JOINT, MEM [facility] SHOULDER INC REGION V571 OTHER 12-26-2014 [place] PHYSICAL [facility] THERAPY INC 54034 CONTUSION 12-12-2014 [facility] OF SHOULDER PHYSICIANS REGION GROUP 80301 CONTUSION 12-12-2014 [facility] OF [place] PHYSICIANS GROUP 51884 CONTUSION 12-12-2014 [facility] OF [facility] PHYSICIANS GROUP 8449 SPRAIN&STRA 12-01-2014 ADVANCED IN OF TECHNOLOGIE UNSPECIFIED S INC SITE OF KNEE&LEG 9592 INJURY 12-01-2014 [place] OTHER&UNSPE MEDICAL CIFIED IMAGING ASS SHOULDER&UP PER ARM 04834 ASTHMA, 11-28-2014 [facility] UNSPECIFIED PHYSICIANS , GROUP UNSPECIFIED STATUS 460 ACUTE 11-07-2014 [facility] 7242 LUMBAGO 10-24-2014 [facility] PHYSICIANS GROUP 53253 PAIN IN 02-06-2014 ROMMEL JOINT, COSTA LOWER LEG 62061 GENERALIZED 02-06-2014 [facility] PAIN COSTA 9160 HIP THI 02-06-2014 [facility]TT LEG&ANK ABRASION/FR ICION BURN W/O INF 9599 INJURY 02-06-2014 ROMMEL OTHER AND COSTA UNSPECIFIED UNSPECIFIED SITE E8888 OTHER FALL 02-06-2014 CANAL[facility] BRO E8889 UNSPECIFIED 02-06-2014 ROM[facility] FALL COSTA 3829 UNSPECIFIED 12-11-2013 [facility] OTITIS PHYSICIANS MEDIA GROUP 01244 UNSPECIFIED 06-27-2012 VICK[place] N 96579 TRAUMATIC 06-14-2012 [facility] MIRANDA ARTHROPATHY MULTIPLE SITES 32581 PAIN IN 06-13-2012 [facility] JOINT, MEDICAL UPPER ARM IMAGING ASS 8410 RADIAL 06-13-2012 [facility] COLLATERAL [facility] LIGAMENT INC SPRAIN AND STRAIN 8419 SPRAIN&STRA 06-13-2012 VICKY DAMIÁN IN UNSPECIFIED SITE ELBOW&[place] [address] CHEST PAIN 05-20-2012 [place] UNSPECIFIED MEDICAL IMAGING ASS 59548 PRECORDIAL 05-20-2012 [facility] PAIN AMBULANCE SERVICE 09559 OTHER CHEST 05-20-2012 [facility] PAIN [facility] INC 7840 HEADACHE 05-11-2012 [facility] MIRANDA 9953 ALLERGY 05-11-2012 [facility] MIRANDA UNSPECIFIED NOT ELSEWHERE CLASSIFIED 28902 ABDOMINAL 03-02-2012 [facility], [facility]ICAL UNSPECIFIED IMAGING ASS SITE 5990 URINARY 03-01-2012 [facility] INFECTION SERVICES SITE NOT SPECIFIED 7821 RASH AND 12-14-2011 TEJINDER NAN OTHER NONSPECIFIC SKIN ERUPTION 04184 MIGRAINE 10-17-2011 MCKEMIFitz JR UNSP W/O RADHA INTRACT W/O STATUS MIGRAINOSUS 7862 COUGH 10-07-2011 EVARISTO RITA 7245 UNSPECIFIED 07-30-2011 [facility] BACKACHE [facility] INC 7881 DYSURIA 07-30-2011 [facility] 68485 UNSPECIFIED 07-03-2011 [facility] BLEPHAROCON JUNCTIVITIS 64882 OTHER ANKLE 05-22-2011 [facility] SPRAIN AND VALLEY STRAIN INTERNAL MEDI 4778 ALLERGIC 04-01-2011 [facility] RHINITIS VALLEY DUE TO INTERNAL OTHER MEDI ALLERGEN 60858 MIGRAINE 03-25-2011 [facility] UNS VALLEY W/INTRACTAB INTERNAL L W/O MEDI STATUS MIGRAINOSUS 8479 SPRAIN AND 02-21-2011 [facility] STRAIN OF VALLEY UNSPECIFIED INTERNAL SITE OF MED BACK 920 CONTUSION 11-25-2010 [facility] FACE MEDICAL SCALP AND IMAGING ASS NECK EXCEPT EYE 98918 ACUTE PAIN 11-14-2010 [facility] DUE TO VALLEY TRAUMA INTERNAL MEDI 7177 CHONDROMALA 08-04-2010 [facility] GIL OF ORTHOPEDIC PATELLA & HAND S 49272 ASTHMA 07-23-2010 [facility] UNSPECIFIED EMERGENCY WITH SERVICES EXACERBATIO N 08036 PAIN IN 06-27-2010 [facility] JOINT, MEDICAL FOREARM IMAGING ASS E8859 FALL FROM 06-27-2010 [facility] OTHER EMERGENCY SLIPPING SERVICES TRIPPING OR STUMBLING V642 SURG/OTH 04-07-2010 [facility] PROC NOT MEM HOS[facility] CARRIED OUT INC BECAUSE PTS DECN 89950 UNSPECIFIED 02-12-2010 [facility] SITE OF EMERGENCY ANKLE SERVICES SPRAIN AND ASSOCIATES STRAIN 6929 CONTACT 02-07-2010 [facility] DERMATITIS& DARCY A OTHER ECZEMA DUE UNSPEC CAUSE 8472 LUMBAR 01-29-2010 [facility] SPRAIN AND EMERGENCY STRAIN SERVICES ASSOCIATES 51981 CONTUSION 01-16-2010 [facility] OF HAND EMERGENCY SERVICES ASSOCIATES 9233 CONTUSION 01-16-2010 [facility] OF FINGER MEDICAL IMAGING ASSOCIATES 8489 UNSPECIFIED 01-14-2010 [facility] SITE OF DARCY A SPRAIN AND STRAIN 8409 SPRAIN&STRA 01-11-2010 [facility] IN UNSPEC EMERGENCY SITE SERVICES SHOULDER&UP ASSOCIATES PER ARM V698 OTHER 01-11-2010 [facility] PROBLEMS EMERGENCY RELATED TO SERVICES LIFESTYLE ASSOCIATES 5110 PLEURISY 11-23-2009 [facility] WITHOUT [facility] MENTION HOSPITAL EFFUS/CURRE PROF SERV NT TB 5119 UNSPECIFIED 11-23-2009 [facility] PLEURAL EMERGENCY EFFUSION SERVICES ASSOCIATES 7850 UNSPECIFIED 11-23-2009 [facility] EMERGENCY TACHYCARDIA SERVICES ASSOCIATES 45807 SPRAIN AND 11-04-2009 [facility] STRAIN OF MEDICAL UNSPECIFIED IMAGING SITE OF ASSOCIATES WRIST E8490 PLACE OF 11-04-2009 [facility] OCCURRENCE, MEDICAL HOME IMAGING ASSOCIATES 58067 REGULAR 10-11-2009 [facility] ASTIGMATISM VISION 4659 ACUTE URIS 08-31-2009 NITIN OF DARCY Morales UNSPECIFIED SITE 9150 ABRASION/FR 08-14-2009 NITIN ICTION BURN DARCY A FINGER W/O MENTION INF 25375 ACUTE 07-28-2009 [facility] GASTRITIS EMERGENCY WITHOUT SERVICES MENTION OF ASSOCIATES HEMORRHAGE 60113 PAIN IN 07-15-2009 N[facility], JOINT, HAND DARCY A 9895 TOXIC 06-30-2009 [facility] EFFECT OF EMERGENCY VENOM SERVICES ASSOCIATES 7823 EDEMA 06-24-2009 DARCY TAVERAS E8498 OTHER 04-19-[address] OF IMAGING OCCURRENCE ASSOCIATES 06302 OTHER 04-11-2009 [facility] CHRONIC EMERGENCY PAIN SERVICES ASSOCIATES 89803 ABDOMINAL 02-17-2009 [facility] PAIN OTHER EMERGENCY SPECIFIED SERVICES SITE ASSOCIATES 05912 UNSPECIFIED 01-14-2009 DARCY TAVERAS CONJUNCTIVI TIS 6268 OTH D/O 01-10-2009 DARIO Cooper MENSTRUATIShiela MCCARTHY MD N&OTH ABN BLEED FE GNT TRACT 91708 CONTUSION 11-20-2008 [facility] OF KNEE [employer] 59817 OTHER SPEC 11-02-2008 [facility] HEMORRHAGE XMS [facility] EARLY [employer] ANTEPARTUM V7241 10-30-2008 DHS/CO EXAMINATION HEALTH OR TEST CENTRAL NEGATIVE BANK ACCT RESULT 43469 ACUTE 10-21-2008 [facility] SEROUS XMS [facility] OTITIS [employer] MEDIA 4660 ACUTE 10-21-2008 [facility] BRONCHITIS [employer] 46816 FEVER 10-21-2008 [facility] UNSPECIFIED AMBULANCE SERVICE E9278 OTH 10-07-2008 [facility] OVEREXERT&S MEDICAL TRENUOUS&RE IMAGING PETITIVE ASSOCIATES MVMNTS/LOAD S 09908 OTHER ACUTE 05-26-2008 [facility] POSTOPERATI INC VE PAIN 81773 OTHER 05-26-2008 [facility] DYSPNEA AND AM[place] [address] CALCU 05-15-2008 TRINH ARRIAGA JR F W/OTH CHOLECYST W/O MENTION OBST 07404 CALCU 05-15-2008 [facility] GALLBLADD [facility] W/O MENTION INC CHOLECYST/O BST 38519 CHOLECYSTIT 05-15-2008 COMMUNITY IS, ANESTH OF UNSPECIFIED THE [facility] V242 ROUTINE 04-27-2008 [facility] [place] INC FOLLOW-UP V762 SCREENING 04-27-2008 [facility] FOR [place] INC MALIGNANT NEOPLASM OF THE CERVIX 07048 ACHILLES 04-23-2008 COV[facility] BURSITIS OR XMS [employer] TENDINIdocTrackr 07904 CALCU BD 03-26-2008 [facility] WITHOUT MEDICAL MENTION IMAGING CHOLECYST/O ASSOCIATES BSTRUCTION 45020 ABDOMINAL 03-26-2008 [facility] PAIN RIGHT [facility] LOWER INC QUADRANT 97366 INFECTED 03-22-2008 DARIO Cooper POSTOPERATI SHARI MASON VE SEROMA NEC 65358 MATERNAL 03-19-2008 DARIO MCCARTHY MD CONDITION/C OMPLICAT 61990 ERLY ONSET 03-02-2008 DARIO MCCARTHY MD W/WO MENTION ANTPRTM COND 28521 PREV C/S 03-02-2008 COMMUNITY DELIV DELIV ANESTH OF W/WO THE MENTION BLUE[facility]ASS ANTPRTM COND V252 STERILIZATI 03-02-2008 PATHOLOGY & ON CYTOLOGY LAB 51874 OTHER 03-01-2008 DARIO MCCARTHY MD LABOR, ANTEPARTUM 78959 OTHER SPEC 03-01-2008 [facility] COMPLICATIO [facility] N INC W/DELIVERY V270 OUTCOME OF 03-01-2008 [facility] DELIVERY [facility] SINGLE INC LIVEBORN V2389 SUPERVISION 02-21-2008 DARIO Cooper OF WILI MCCARTHY MD HIGH-RISK 21925 THREATENED 02-19-2008 [facility] PREMATURE [facility] LABOR INC ANTEPARTUM V222 02-07-2008 SHARI JOSHI MD INCIDENTAL 9248 CONTUSION 02-04-2008 [facility] OF MULTIPLE MEM HOS[facility] SITES NEC INC V221 SUPERVISION 02-04-2008 [facility] OF OTHER MEM HOS[facility] NORMAL INC 92695 CALCU 01-29-2008 TRINH ARRIAGA JR RANDAL F W/ACUT CHOLCYST W/O MENTION OBST 87539 OTHER 01-29-2008 [facility] SPECIFED [facility] COMPLICATIO INC N ANTEPARTUM 58112 GALLSTONE 01-28-2008 DARIO Cooper ILEUS SHARI MASON 92693 NAUSEA WITH 01-28-2008 DARIO Cooper VOMITING SHARI MASON 17911 DIARRHEA 01-28-2008 DARIO MCCARTHY MD 6259 UNSPEC 01-20-2008 DARIO Cooper SYMPTOM SHARI MASON ASSOC W/FEMALE GENITAL ORGANS 7620 FETUS OR 01-20-2008 [facility] MEDICAL AFFECTED BY IMAGING PLACENTA ASSOCIATES PREVIA 1121 CANDIDIASIS 01-05-2008 DARIO Cooper OF VULVA SHARI MASON AND VAGINA 41365 PLACENTA 12-22-2007 DARIO Cooper PREVIA SHARI MASON WITHOUT HEMORRHAGE ANTEPARTUM 51523 PROLONGED 1 12-14-2007 [facility] AMBULANCE LABOR SERVICE UNSPEC EPISODE CARE 20061 EDEMA [place] 12-06-2007 DARIO Cooper EXCESSIVE SHARI MASON WEIGHT GAIN ANTEPARTUM 7806 FEVER & OTH 11-12-2007 [facility] AMBULANCE PHYSIOLOGIC SERVICE DISTURBANCE S TEMP REG 89307 POOR 10-31-2007 DARIO Cooper GROWTH MGMT SHARI MASON MOTH ANTPRTM COND/COMP V288 OTHER 10-19-2007 [facility] SPECIFIED [facility] INC SCREENING 42603 BLISTERS 10-18-2007 [facility] WITH [facility] LOSS DUE TO PROF SERV BURN [...] .5 -2 5 MC G IN H MO 00 10 10 39 30 00 CL [...] 5 62 PH CE AR TA MA UT CY NO PH OF EN CY NT 5- HI 32 AN 5 A IN C AZ 68 08 09 6. 5 00 CL Ac IT 18 -0 -0 00 00 IN ti HR 00 9- 1- 0 00 IC ve OM 16 20 20 43 YC 01 17 17 89 PH IN 3 62 AR MA 25 CY 0 MG TA BL ET MO 00 08 09 10 5 00 CL [...] MC G NA SA L SP R MO 00 06 07 10 5 00 CL [...] 5 49 PH CE AR TA MA UT CY NO PH OF CY 7. NT 5- HI 32 AN 5 A IN C HY 00 01 02 [address] 40 -0 -1 .0 00 L- ti OC 60 9- 0- 00 02 MA ve OD 12 20 20 23 RT ON 40 17 17 86 -A 1 12 PH CE AR TA MA UT CY NO PH #5 91 7. 5- [...] 1 17 PH CE AR TA MA UT CY NO PH #5 EN 91 5- 32 5 NA 00 10 10 1 30 30 RI 90 MC Ac DO 09 -1 -1 .0 TE 36 KE ti LO 34 7- 7- 00 46 UT ve L 23 20 20 AI E 20 50 11 11 D JR 1 PH MG AR WI MA LL TA CY IA BL M ET 03 F 93 8 # 03 93 BU 00 10 10 30 7 RI 90 MC Ac TA 14 -1 -1 .0 TE 36 KE ti LB 31 7- 7- 00 48 UT ve -A 78 20 20 AI E CE 70 11 11 D JR TA 1 PH UT AR WI N- MA LL CA CY [...] ti 37 8- 8- 0 SI 21 UT ve 16 20 20 DE E 93 [...] 11 11 D E 9 PH SA MO AR RA OP MA H CY L [...] ti RO 20 9- 9- 00 16 UT ve XI 03 20 20 AI E [...] 11 D FUNMILAYO TA 1 PH E UT AR A N- MA CA CY FF [...] 11 D FUNMILAYO TA 1 PH E UT AR A N- MA CA CY FF 03 50 93 -3 8 25 # -4 03 0 93 BU 00 12 12 36 8 RI 86 NI Ac TA 14 -1 -1 .0 TE 25 CH ti LB 31 5- 5- 00 40 OL ve -A 78 20 20 AI S CE 70 10 10 D FUNMILAYO TA 1 PH E UT AR A N- MA CA CY FF 03 50 93 -3 8 25 # -4 03 0 93 BU 00 11 11 36 8 RI 85 NI Ac TA 14 -2 -2 .0 TE 99 CH ti LB 31 8- 8- 00 50 OL ve -A 78 20 20 AI S CE 70 10 10 D FUNMILAYO TA 1 PH E UT AR A N- MA CA CY FF 03 50 93 -3 8 25 # -4 03 0 93 BU 00 11 11 36 6 RI 85 NI Ac TA 14 -1 -1 .0 TE 79 CH ti LB 31 2- 2- 00 80 OL ve -A 78 20 20 AI S CE 70 10 10 D FUNMILAYO TA 1 PH E UT AR A N- MA CA CY FF [...] 34 20 20 DE 90 10 10 UT 1 PH CH AR AE MA L [...] DE S ZA 11 10 10 FUNMILAYO MO 0 PH E IN AR A E [...] 10 D FUNMILAYO TA 1 PH E UT AR A N- MA CA CY FF [...] 10 10 BA TA 5 PH TU UT AR ND N- MA E CA CY O FF OF 50 -3 CY 25 NT -4 HI 0 AN A MO 45 05 05 3. 4 RI 83 [...] 20 20 DE YC 61 10 10 UT IN 8 PH CH AR AE 25 [...] 10 10 BA TA 5 PH TU UT AR ND N- MA E CA CY [...] 80 8- 8- 00 49 OL ve UT 21 20 20 AI S DE 61 09 09 D FUNMILAYO 0 PH E 40 AR A M MG #3 93 TA 8 BL ET MO 00 09 09 00 30 30 RI [...] S ZA 10 09 09 D FUNMILAYO MO 1 PH E IN AR A E [...] S ZA 10 09 09 D FUNMILAYO MO 1 PH E IN AR A E [...] S ZA 10 09 09 D FUNMILAYO MO 1 PH E IN AR A E [...] S ZA 10 09 09 D FUNMILAYO MO 1 PH E IN AR A E M 10 #3 93 MG 8 TA BL ET MO 00 05 06 00 6. 30 RI [...] BA ZA 10 09 09 D BA MO 1 PH TU IN AR ND E M E 10 #3 O 93 MG 8 TA BL ET MO 00 03 04 00 30 30 RI [...] 34 6- 2- 00 37 EY ve MO 59 20 20 AI ED 31 09 09 D UT NI 5 PH CH SO AR AE LO M L NE #3 S 4 93 8 MG DO SE PK CI 00 01 02 00 14 7 RI 76 GA Ac MO 17 -2 -1 .0 TE 83 IN ti OF 25 6- 2- 00 35 EY ve LO 31 20 20 AI XA 26 09 09 D UT CI 0 PH CH N AR AE [...] 00 30 15 RI 75 GO Ac MO 09 -1 -2 .0 TE 40 BL ti OX 30 2- 3- 00 02 E ve EN 14 20 20 AI RO 90 08 08 D ND 50 1 PH AL 0 AR E MG M #3 TA 93 BL 8 ET CI 00 08 09 00 10 5 RI 74 GA Ac MO 17 -3 -1 .0 TE 77 IN ti OF 25 0- 1- 00 56 EY ve LO 31 20 20 AI XA 26 08 08 D UT CI 0 PH CH N AR AE [...] 017 K/mm3 ed monocyt 14:40 e count [place] % = 3.9 % 1.7-9.3 complet 017 [...] Comment LAPAROSCO 5123 [facility] PIC 8 [facility] CHOLECYST INC INC ECTOMY LOW 741 [facility] CERVICAL 8 [facility] INC INC SECTION OTH 6639 [facility] BILATERAL 8 [facility] INC INC DESTRUC/O CCLUSION FALLOPIAN TUBES Encounters Encounter Start End Date Code Location Performer Type Date [facility] TIM - 7 7 [facility] 7 [facility] - [facility] - [facility] - 7 7 [facility] TIM - 7 7 [facility] TIM - 6 6 [facility] TIM - 6 6 [facility] TIM - 6 6 [facility] TIM - 5 5 [facility] TIM - 5 5 [facility] TIM - 5 5 [facility] TIM - 5 5 [facility] TIM - 2 2 [facility] TIM - 2 2 [facility] TIM - 2 2 [facility] TIM - 1 1 [facility] TIM - 1 1 [facility] TIM - 1 1 [facility] TIM - 1 1 [facility] TIM - 1 1 [facility] TIM - 0 0 [facility] TIM - 0 0 [facility] TIM - 0 0 [facility] 9 9 [facility] 8 8 [facility] 8 8 [facility] 8 [facility] 8 8 [facility] 8 [facility]
--- OUTSIDE RECORDS SUMMARY | 2017-08-15 15:53 | External Medical Summary Rpt | CCD ---
Author Author , DEN GARRIDOLATONYA Address Unknown Phone [email or web address] Care Team Providers Care Fire Information Officer Name Role Phone [employer] Unavailable Unavailable INC, [employer] RANDAL ARRIAGA JR, Unavailable Unavailable RANDAL ARRIAGA JR, PARKER Unavailable Unavailable BRO BESSON MIRANDA, BESSON Unavailable Unavailable MIRANDA [facility] Unavailable Unavailable [facility]ATOR[facility], [facility] Unavailable Unavailable SERVICE, [facility] Unavailable Unavailable SERVICE, [facility]EST[facility] OF Unavailable Unavailable [facility], [facility] ROMMEL COSTA, Unavailable Unavailable ROMMEL COSTA ROMMELMARYAM YOUNGER, Unavailable Unavailable ROMMEL, MARYAM [facility], Unavailable Unavailable [facility] [place], [facility] [place] [facility] Un[place] [facility] EVARISTO RITA, Unavailable Unavailable EVARISTO RITA VICKY GEORGE Unavailable Unavailable DAMIÁN LIVIER PERRY, Unavailable Unavailable LIVIER PERRY GERALD R, Unavailable Unavailable DARIO MCCARTHY [facility] Unavailable Unavailable CENTER, [facility] Unavailable Unavailable INC, [facility] Unavailable Unavailable HOSPITAL, [facility], Unavailable Unavailable [facility] HOLLEY MONTIEL, Unavailable Unavailable HOLLEY MONTIEL HUNTER Unavailable Unavailable MIRIAM [facility] Un[facility] Un[facility], [facility] Unavailable Unavailable HAND [facility], [facility] SUSAN GONZALEZ, Unavailable Unavailable SUSAN GONZALEZ [facility] Unavailable Unavailable [facility], [facility] Un[facility] Un[facility], [facility] Unavailable Unavailable SERVICES, [facility] MARK GARCIA, Unavailable Unavailable EDY [...] [facility]ARM #[id number] [facility] Unavailable Unavailable [id number] # [id number], [facility] [id number] # [id number] SCIFRES, SCIFRES Unavailable Unavailable SCIFRES ANG, SCIFRES Unavailable Unavailable JESSIE VINCENT, Unavailable Unavailable JESSIE TRAVIS JOHN T, SMALL, Unavailable Unavailable HEYDI RENEEATUNDE Shiela, Unavailable Unavailable JALEN TORRES O CHANELL MARY, Unavailable Unavailable CHANELL MARY JEFFREY M, Unavailable Unavailable DANGELO LOYA [facility] # Unavailable Unavailable [id number], [facility] # [id number] ERICA WILSON III, Unavailable Unavailable ERICA WILSON III Purpose Continuity of Care Document - 10-18-2007 through 2016 Problems Code Diagnosis DOS Provider Status H1013 ACUTE 07-15-2017 [facility] ATOPIC CONJUNCTIVI TIS BILATERAL R0789 OTHER CHEST 06-07-2017 [facility] R079 CHEST PAIN 06-07-2017 [place] [facility]PECIFIED [facility]ING ASS B001 HERPESVIRAL 06-01-2017 [facility] DERMATITIS INTERNAL MED Z1159 ENCOUNTER 06-01-2017 [facility] FOR [facility] SCREENING FOR OTHER VIRAL DISEASES R51 HEADACHE 05-05-2017 [facility] [id number] STRAIN 05-05-2017 [facility] TENDON PLLC FRONT WALL THORAX INIT Z720 TOBACCO USE 05-05-2017 [facility] J3089 OTHER 03-26-2017 [facility] ALLERGIC [facility] RHINITIS INTERNAL MED R58 HEMORRHAGE 03-26-2017 [facility] NOT VALLEY ELSEWHERE INTERNAL CLASSIFIED MED B16298 PAIN IN 03-15-2017 [place] RIGHT MEDICAL SHOULDER IMAGING ASS R30037 PAIN IN 03-15-2017 [facility] LEFT PHYSIC[facility], SHOULDER PLLC H5213 MYOPIA 03-12-2017 [facility] BILATERAL J069 ACUTE UPPER 03-05-2017 [facility] RESPIRATORY INTERNAL INFECTION MED UNSPECIFIED Z0000 ENCOUNTER 02-18-2017 [facility] MED EXAM INC W/O ABNORMAL FIND J302 OTHER 02-16-2017 [facility] SEASONAL [facility] ALLERGIC INTERNAL RHINITIS MED J4520 MILD 02-16-2017 [facility] INTERMITTEN VALLEY T ASTHMA INTERNAL UNCOMPLICAT MED ED R102 PELVIC AND 02-12-2017 [facility] PERINEAL PHYSICIANS PAIN GROUP R05 COUGH 12-24-2016 [facility] IM[facility] ASS R0602 SHORTNESS 12-24-2016 [facility] OF BREATH AMBULANCE SERVICE D271 BENIGN 10-02-2016 [facility], NEOPLASM OF LLC LEFT OVARY N801 ENDOMETRIOS 10-02-2016 [facility], IS OF OVARY LLC N839 NONINFLAMM 10-02-2016 [facility] D/O OVARY ANESTH OF FALLOP TUBE THE BLUE & BROAD LIG UNS N881 OLD 10-02-2016 [facility], LACERATION LLC OF CERVIX UTERI N938 OTHER SPEC 10-02-2016 [facility] ABNORMAL PHYSICIANS UTERINE & GROUP VAGINAL BLEEDING N9489 OTH COND 09-25-2016 [facility] W/FE MEM [facility] GEN ORGN & INC MENSTRUAL CYCL N949 UNS COND 09-25-2016 [facility] W/FE [facility] GENIT ORGN INC & MENSTRUAL CYCL B51686 ENCOUNTER 09-25-2016 [facility] FOR [facility] PREPROCEDUR INC AL LABORATORY EXAM N920 EXCESS & 09-10-2016 [facility] FREQUENT PHYSICIANS MENSTRUATIO GROUP N W/REGULAR CYCLE R030 ELEVATED 09-07-2016 [facility] BLOOD-PRESS PHYSICIANS URE READING GROUP WITHOUT DX HTN R1032 LEFT LOWER 09-07-2016 [facility] QUADRANT PHYSICIANS PAIN GROUP D95054 ENCOUNTER 08-28-2016 [facility] REGULATORY AUDITOR EXAM PHYSICIANS GENERAL RTN GROUP W/ABNORMAL FIND Q27663 ENCOUNTER 08-28-2016 [facility] AUDITOR EXAM REFERNCE GENERAL RTN LABORATORIE W/O S ABNORMAL FIND J029 ACUTE 08-27-2016 [facility] PHARYNGITIS [facility]ANS[facility] PLLC UNSPECIFIED K5289 OTH SPEC 06-04-2016 [facility] NONINFECTIV PH[facility]ICIANS, E PLLC GASTROENTER ITIS & COLITIS K529 NONINFECTIV 06-04-2016 [facility] E [facility] GASTROENTER INC ITIS & COLITIS UNS N8320 UNSPECIFIED 06-04-2016 [facility] OVARIAN [facility] CYSTS INC N8329 OTHER 06-04-2016 [facility] OVARIAN [facility], CYSTS PLLC L72017F STRAIN 06-04-2016 [facility]CLE [facility], FASCIA & PLLC TENDON LOW BACK INITIAL G08223 PAIN IN 05-01-[facility] I59150 PAIN IN 05-01-[facility] RIGHT ANKLE MEDICAL IMAGING ASS R4775QI CONTUSION 05-01-2016 [facility] UNS PART PHYSICIANS, HEAD PLLC INITIAL ENCOUNTER S7885ET UNSPECIFIED 05-01-2016 [facility] IN[facility] OF MEDICAL HEAD IMAGING ASS INITIAL ENCOUNTER F1549ZD SPRAIN 05-01-2016 [facility] UNSPECIFIED PHYSICIANS, SITE RT PLLC KNEE INITIAL ENCNTR K3686EI UNS INJURY 05-01-2016 [place] RT LOWER MEDICAL LEG INITIAL IMAGING ASS ENCOUNTER E60287I SPRAIN 05-01-2016 [facility] UNSPEC PHYSICIANS, LIGAMENT PLLC RIGHT ANKLE INITIAL ENC B95854Z UNSPECIFIED 05-01-2016 [place] INJURY MEDICAL RIGHT ANKLE IMAGING ASS INITIAL ENCOUNTER O862XHA EFFECT HEAT 05-01-2016 [facility] & LIGHT PHYSICIANS, UNSPECIFIED PLLC INITIAL ENCNTR W69046 UNSPECIFIED 07-18-2015 [facility] ASTHMA [facility] UNCOMPLICAT INC ED R0781 PLEURODYNIA 07-18-2015 [place] [facility] G34346D CONTUSION 07-18-2015 [facility] RT FRONT PHYSICIANS, WALL THORAX PLLC INITIAL ENCOUNTER Q638OLX UNSPECIFIED 07-18-2015 [place] INJURY OF MEDICAL THORAX IMAGING ASS INITIAL ENCOUNTER A13844 PERSONAL 07-18-2015 [facility] HISTORY OF MEM HOSP NICOTINE INC DEPENDENCE 62121 ACUT 06-10-2015 [facility] SUPPRATV [facility] MEDIA W/O SPONT RUP EARDRUM 4619 ACUTE 06-10-2015 [facility] SINUSITIS, [facility] UNSPECIFIED HOSPITAL 462 ACUTE 06-10-2015 [place] PHARYNGITIS [facility] 58927 PAIN IN 03-13-2015 [place] JOINT, MEDICAL ANKLE AND IMAGING ASS FOOT 7295 PAIN IN 03-13-2015 [place] SOFT MEDICAL TISSUES OF IMAGING ASS LIMB 87691 CONTUSION 03-13-2015 [facility] OF FOOT PHYSICIANS, PLLC 9597 INJURY 03-13-2015 [place] OTHER&UNSPE MEDICAL CIFIED KNEE IMAGING ASS LEG ANKLE&FOOT 3671 MYOPIA 02-08-2015 SCIFRES ANG 70623 SHORTNESS 02-05-2015 [place] OF BREATH MEDICAL IMAGING ASS 73582 PAIN IN 12-26-2014 [facility] JOINT, MEM HOSP SHOULDER INC REGION V571 OTHER 12-26-2014 [facility] PHYSICAL [facility] THERAPY INC 87814 CONTUSION 12-12-2014 [facility] OF SHOULDER PHYSICIANS REGION GROUP 47723 CONTUSION 12-12-2014 [facility] PHYS[facility]ANS GROUP 40090 CONTUSION 12-12-2014 [facility] 8449 SPRAIN&STRA 12-01-2014 [facility]VANCED IN OF TECHNOLOGIE UNSPECIFIED S INC SITE OF KNEE&LEG 9592 INJURY 12-01-2014 [place] OTHER&UNSPE MEDICAL CIFIED IMAGING ASS SHOULDER&UP PER ARM 94519 ASTHMA, 11-28-2014 [facility] UNSPECIFIED PHYSICIANS , GROUP UNSPECIFIED STATUS 460 ACUTE 11-07-2014 [facility] 7242 LUMBAGO 10-24-2014 [facility] PHYSICIANS GROUP 73366 PAIN IN 02-06-2014 ROMMEL JOINT, COSTA LOWER LEG 60080 GENERALIZED 02-06-2014 ROMMEL PAIN COSTA 9160 HIP THI 02-06-2014 PARKER BARRETT LEG&ANK ABRASION/FR ICION BURN W/O INF 9599 INJURY 02-06-2014 ROMMEL OTHER AND COSTA UNSPECIFIED UNSPECIFIED SITE E8888 OTHER FALL 02-06-2014 PARKER BARRETT E8889 UNSPECIFIED 02-06-2014 ROMMEL FALL COSTA 3829 UNSPECIFIED 12-11-2013 [facility] OTITIS PHYSICIANS MEDIA GROUP 03711 UNSPECIFIED 06-27-2012 VICKY DAMIÁN CONSTIPATIO N 48437 TRAUMATIC 06-14-2012 BESSON MIRANDA ARTHROPATHY MULTIPLE SITES 18387 PAIN IN 06-13-2012 [place] JOINT, MEDICAL UPPER ARM IMAGING ASS 8410 RADIAL 06-13-2012 [facility] COLLATERAL [facility] LIGAMENT INC SPRAIN AND STRAIN 8419 SPRAIN&STRA 06-13-2012 VICKY DAMIÁN IN UNSPECIFIED SITE ELBOW&[place] [address] CHEST PAIN 05-20-[facility] U[facility]ICAL IMAGING ASS 49960 PRECORDIAL 05-20-2012 [facility] PAIN [facility]BULANCE SERVICE 87327 OTHER CHEST 05-20-2012 [facility] PAIN MEM [facility] INC 7840 HEADACHE 05-11-2012 BESSON MIRANDA 9953 ALLERGY 05-11-2012 [facility] MIRANDA UNSPECIFIED NOT ELSEWHERE CLASSIFIED 69326 ABDOMINAL 03-02-2012 [place] PAIN, MEDICAL UNSPECIFIED IMAGING ASS SITE 5990 URINARY 03-01-2012 [facility] INFECTION SERVICES SITE NOT SPECIFIED 7821 RASH AND 12-14-2011 TEJINDER NAN OTHER NONSPECIFIC SKIN ERUPTION 10306 MIGRAINE 10-17-2011 MARK JR UNSP W/O RADHA INTRACT W/O STATUS MIGRAINOSUS 7862 COUGH 10-07-2011 EVARISTO RITA 7245 UNSPECIFIED 07-30-2011 [facility] BACKACHE MEM [facility]OS[facility] INC 7881 DYSURIA 07-30-2011 [facility] INC 29548 UNSPECIFIED 07-03-2011 [facility] BLEPHAROCON JUNCTIVITIS 22437 OTHER ANKLE 05-22-2011 [facility] SPRAIN AND VALLEY STRAIN INTERNAL MEDI 4778 ALLERGIC 04-01-2011 [facility] RHINITIS VALLEY DUE TO INTERNAL OTHER MEDI ALLERGEN 84570 MIGRAINE 03-25-2011 [facility] UNS VALLEY W/INTRACTAB INTERNAL L W/O MEDI STATUS MIGRAINOSUS 8479 SPRAIN AND 02-21-2011 [facility] STRAIN OF VALLEY UNSPECIFIED INTERNAL SITE OF MED BACK 920 CONTUSION 11-25-2010 [facility] FACE MEDICAL SCALP AND IMAGING ASS NECK EXCEPT EYE 10976 ACUTE PAIN 11-14-2010 [place] DUE TO VALLEY TRAUMA INTERNAL MEDI 7177 CHONDROMALA 08-04-2010 [facility] OF ORTHOP[facility]IC PATELLA & HAND S 50676 ASTHMA 07-23-2010 [facility] UNSPECIFIED EMERGENCY WITH SERVICES EXACERBATIO N 19528 PAIN IN 06-27-2010 [place] JOINT, MEDICAL FOREARM IMAGING ASS E8859 FALL FROM 06-27-2010 [facility] OTHER EMERGENCY SLIPPING SERVICES TRIPPING OR STUMBLING V642 SURG/OTH 04-07-2010 [facility] PROC NOT MEM HOSP CARRIED OUT INC BECAUSE PTS DECN 42286 UNSPECIFIED 02-12-2010 [facility] SITE OF EMERGENCY ANKLE SERVICES SPRAIN AND ASSOCIATES STRAIN 6929 CONTACT 02-07-2010 NITIN, DERMATITIS& DARCY A OTHER ECZEMA DUE UNSPEC CAUSE 8472 LUMBAR 01-29-2010 [facility] SPRAIN AND EMERGENCY STRAIN SERVICES ASSOCIATES 73108 CONTUSION 01-16-2010 [facility] OF HAND EMERGENCY SERVICES ASSOCIATES 9233 CONTUSION 01-16-2010 [place] OF FINGER MEDICAL IMAGING ASSOCIATES 8489 UNSPECIFIED 01-14-2010 [facility] SITE OF DARCY A SPRAIN AND STRAIN 8409 SPRAIN&STRA 01-11-2010 [facility] IN UNSPEC EMERGENCY SITE SERVICES SHOULDER&UP ASSOCIATES PER ARM V698 OTHER 01-11-2010 [facility] PROBLEMS EMERGENCY RELATED TO SERVICES LIFESTYLE ASSOCIATES 5110 PLEURISY 11-23-2009 [facility] WITHOUT [facility] EFFUS/CURRE PROF SERV NT TB 5119 UNSPECIFIED 11-23-2009 [facility] PLEURAL EMERGENCY EFFUSION SERVICES ASSOCIATES 7850 UNSPECIFIED 11-23-2009 [facility] TACHYCARDIA SERVICES ASSOCIATES 29910 SPRAIN AND 11-04-2009 [place] STRAIN OF MEDICAL UNSPECIFIED IMAGING SITE OF ASSOCIATES WRIST E8490 PLACE OF 11-04-2009 [place] OCCURRENCE, MEDICAL HOME IMAGING ASSOCIATES 76451 REGULAR 10-11-2009 [facility] ASTIGMATISM VISION 4659 ACUTE URIS 08-31-2009 RICARDO TAVERAS UNSPECIFIED SITE 9150 ABRASION/FR 08-14-2009 NIT[facility] ICTION BURN DARCY A FINGER W/O MENTION INF 98655 ACUTE 07-28-2009 [facility] GASTRITIS [facility]ERGENCY WITHOUT SERVICES MENTION OF ASSOCIATES HEMORRHAGE 00051 PAIN IN 07-15-2009 [place] JOINT, HAND DARCY A 9895 TOXIC 06-30-2009 [facility] EFFECT OF EMERGENCY VENOM SERVICES ASSOCIATES 7823 EDEMA 06-24-2009 DARCY TAVERAS E8498 OTHER 04-19-[address] [place] [address] OF IMAGING OCCURRENCE ASSOCIATES 10678 OTHER 04-11-2009 [facility] CHRONIC [facility]ERG[facility]Y PAIN SERVICES ASSOCIATES 52373 ABDOMINAL 02-17-2009 [facility] PAIN OTHER EMERGENCY SPECIFIED SERVICES SITE ASSOCIATES 71567 UNSPECIFIED 01-14-2009 DARCY TAVERAS CONJUNCTIVI TIS 6268 OTH D/O 01-10-2009 DARIO MCCARTHY MD N&OTH ABN BLEED FE GNT TRACT 36599 CONTUSION 11-20-2008 [facility] OF KNEE [employer] 28385 OTHER SPEC 11-02-2008 [facility] HEMORRHAGE [employer] EARLY [facility] ANTEPARTUM V7241 10-30-2008 DHS/CO EXAMINATION HEALTH OR TEST CENTRAL NEGATIVE BANK ACCT RESULT 18060 ACUTE 10-21-2008 [facility] SEROUS NATIONAL OTITIS [facility] MEDIA 4660 ACUTE 10-21-2008 [facility] BRONCHITIS [employer] 35392 FEVER 10-21-2008 [facility] UNSPECIFIED AMBULANCE SERVICE E9278 OTH 10-07-2008 [facility] OVER[facility]ERT&S MEDICAL TRENUOUS&RE IMAGING PETITIVE ASSOCIATES MVMNTS/LOAD S 83803 OTHER ACUTE 05-26-2008 [facility] POSTOPERATI INC VE PAIN 99469 OTHER 05-26-2008 JUAN JOSÉ DYSPNEA AND AM[place]ULANCE [place] [address] CALCU 05-15-2008 TRINH ARRIAGA JR F W/OTH CHOLECYST W/O MENTION OBST 92800 CALCU 05-15-2008 [facility] GALLBLADD MEM HOSP W/O MENTION INC CHOLECYST/O BST 71999 CHOLECYSTIT 05-15-2008 COMMUNITY IS, ANESTH OF UNSPECIFIED THE BLUEGRASS V242 ROUTINE 04-27-2008 [facility] [place] INC FOLLOW-UP V762 SCREENING 04-27-2008 [facility] [place] INC MALIGNANT NEOPLASM OF THE CERVIX 99336 ACHILLES 04-23-2008 [email or web address] BURSITIS OR [employer] TENDINITjobs Recruit 53212 CALCU BD 03-26-2008 [place] WITHOUT MEDICAL MENTION IMAGING CHOLECYST/O ASSOCIATES BSTRUCTION 69482 ABDOMINAL 03-26-2008 [facility] PAIN RIGHT MEM HOS[facility] LOWER INC QUADRANT 08875 INFECTED 03-22-2008 DARIO [facility] POSTOPERATI SHARI MASNO VE SEROMA NEC 22524 MATERNAL 03-19-2008 DARIO Cooper ANEMIA SHARI MASON CONDITION/C OMPLICAT 91448 ERLY ONSET 03-02-2008 DARIO MCCARTHY MD W/WO MENTION ANTPRTM COND 42355 PREV C/S 03-02-2008 COMMUNITY DELIV DELIV ANESTH OF W/WO THE MENTION BLUEGRASS ANTPRTM COND V252 STERILIZATI 03-02-2008 PATHOLOGY & ON CYTOLOGY LAB 69328 OTHER 03-01-2008 DARIO Cooper THREATENED SHARI MASON LABOR, ANTEPARTUM 65275 OTHER SPEC 03-01-2008 [facility] COMPLICATIO MEM HOS[facility] N INC W/DELIVERY V270 OUTCOME OF 03-01-2008 [facility] DELIVERY MEM [facility]OS[facility] SINGLE INC LIVEBORN V2389 SUPERVISION 02-21-2008 DARIO Cooper OF WILI MCCARTHY MD HIGH-RISK 16980 THREATENED 02-19-2008 [facility] PREMATURE [facility] LABOR INC ANTEPARTUM V222 02-07-2008 SHARI JOSHI MD INCIDENTAL 9248 CONTUSION 02-04-2008 TIM OF MULTIPLE MEM HOSP SITES NEC INC V221 SUPERVISION 02-04-2008 TIM OF OTHER MEM HOSP NORMAL INC 44232 CALCU 01-29-2008 TRINH ARRIAGA JR RANDAL F W/ACUT CHOLCYST W/O MENTION OBST 69104 OTHER 01-29-2008 [facility] SPECIFED MEM HOSP COMPLICATIO INC N ANTEPARTUM 37135 GALLSTONE 01-28-2008 DARIO Cooper ILEUS SHARI MASON 09622 NAUSEA WITH 01-28-2008 DARIO R VOMITING SHARI MASON 79228 DIARRHEA 01-28-2008 DARIO MCCARTHY MD 6259 UNSPEC 01-20-2008 DARIO Cooper SYMPTOM SHARI MASON ASSOC W/FEMALE GENITAL ORGANS 7620 FETUS OR 01-20-2008 [facility] AFFECTED BY IMAGING PLACENTA ASSOCIATES PREVIA 1121 CANDIDIASIS 01-05-2008 DARIO Cooper OF VULVA SHARI MASON AND VAGINA 73570 PLACENTA 12-22-2007 DARIO MCCARTHY MD WITHOUT HEMORRHAGE ANTEPARTUM 75153 PROLONGED 1 12-14-2007 [facility] AMBULANCE LABOR SERVICE UNSPEC EPISODE CARE 23444 EDEMA [place] 12-06-2007 DARIO Cooper EXCESSIVE SHARI MASON WEIGHT GAIN ANTEPARTUM 7806 FEVER & OTH 11-12-2007 [facility] AMBULANCE PHYSIOLOGIC SERVICE [place]URBANCE [place] 21413 POOR 10-31-2007 DARIO Cooper GROWTH MGMT SHARI MASON MOTH ANTPRTM COND/COMP V288 OTHER 10-19-2007 [facility] SPECIFIED [facility]OS[facility] INC SCREENING 70447 BLISTERS 10-18-2007 [facility] WITH [facility] LOSS DUE TO PROF SERV BURN OF [...] .5 -2 5 MC G IN H SC 00 10 10 39 30 00 CL [...] 0 MA MG CY TA BL ET TR 45 08 09 16 30 00 CL Ac IA 80 -2 -2 .8 00 IN ti MC 20 8- 2- 99 00 IC ve IN 44 20 20 43 OL 30 17 17 54 PH ON 1 97 AR E MA 55 CY MC G NA SA L SP R VE 00 08 09 18 25 00 CL Ac NT 17 -2 -2 .0 00 IN ti OL 30 9- 2- 00 00 IC ve IN 68 20 20 44 22 17 17 09 PH HF 0 04 AR A MA 90 CY MC G IN KIRK LE R HY 00 08 09 6. [address] 40 -1 -[address] ti OC 60 0- 8- 0 00 SI ve OD 12 20 20 49 DE ON 30 17 17 75 -A 5 62 PH CE AR TA MA KS CY NO PH OF EN CY NT 5- HI 32 AN 5 A IN C AZ 68 08 09 6. 5 00 CL Ac IT 18 -0 -0 00 00 IN ti HR 00 9- 1- 0 00 IC ve OM 16 20 20 43 YC 01 17 17 89 PH IN 3 62 AR MA 25 CY 0 MG TA BL ET SC 00 08 09 10 5 00 CL [...] MC G NA SA L SP R SC 00 06 07 10 5 00 CL [...] 5 49 PH CE AR TA MA KS CY NO PH OF CY 7. NT 5- HI 32 AN 5 A IN C HY 00 01 02 [address] 40 -0 -1 .0 00 L- ti OC 60 9- 0- 00 02 MA ve OD 12 20 20 23 RT ON 40 17 17 86 -A 1 12 PH CE AR TA MA KS CY NO PH #5 91 7. 5- [...] 1 17 PH CE AR TA MA KS CY NO PH #5 EN 91 5- [...] ti LO 34 7- 7- 00 46 KS ve L 23 20 20 AI E 20 50 11 11 D JR 1 PH MG AR WI MA LL TA CY IA BL M ET 03 F 93 8 # 03 93 BU 00 10 10 30 7 RI 90 MC Ac TA 14 -1 -1 .0 TE 36 KE ti LB 31 7- 7- 00 48 KS ve -A 78 20 20 AI E CE 70 11 11 D JR TA 1 PH KS AR WI N- MA LL CA CY [...] ti 37 8- 8- 0 SI 21 KS ve 16 20 20 DE E 93 [...] 11 11 D E 9 PH SA SC AR RA OP MA H CY L [...] ti RO 20 9- 9- 00 16 KS ve XI 03 20 20 AI E [...] 11 D FUNMILAYO TA 1 PH E KS AR A N- MA CA CY FF [...] 11 D FUNMILAYO TA 1 PH E KS AR A N- MA CA CY FF 03 50 93 -3 8 25 # -4 03 0 93 BU 00 12 12 36 8 RI 86 NI Ac TA 14 -1 -1 .0 TE 25 CH ti LB 31 5- 5- 00 40 OL ve -A 78 20 20 AI S CE 70 10 10 D FUNMILAYO TA 1 PH E KS AR A N- MA CA CY FF 03 50 93 -3 8 25 # -4 03 0 93 BU 00 11 11 36 8 RI 85 NI Ac TA 14 -2 -2 .0 TE 99 CH ti LB 31 8- 8- 00 50 OL ve -A 78 20 20 AI S CE 70 10 10 D FUNMILAYO TA 1 PH E KS AR A N- MA CA CY FF 03 50 93 -3 8 25 # -4 03 0 93 BU 00 11 11 36 6 RI 85 NI Ac TA 14 -1 -1 .0 TE 79 CH ti LB 31 2- 2- 00 80 OL ve -A 78 20 20 AI S CE 70 10 10 D FUNMILAYO TA 1 PH E KS AR A N- MA CA CY FF [...] 34 20 20 DE 90 10 10 KS 1 PH CH AR AE MA L [...] DE S ZA 11 10 10 FUNMILAYO SC 0 PH E IN AR A E [...] 10 D FUNMILAYO TA 1 PH E KS AR A N- MA CA CY FF [...] 10 10 BA TA 5 PH TU KS AR ND N- MA E CA CY O FF OF 50 -3 CY 25 NT -4 HI 0 AN A SC 45 05 05 3. 4 RI 83 [...] 20 20 DE YC 61 10 10 KS IN 8 PH CH AR AE 25 [...] 10 10 BA TA 5 PH TU KS AR ND N- MA E CA CY [...] 80 8- 8- 00 49 OL ve KS 21 20 20 AI S DE 61 09 09 D FUNMILAYO 0 PH E 40 AR A M MG #3 93 TA 8 BL ET SC 00 09 09 00 30 30 RI [...] S ZA 10 09 09 D FUNMILAYO SC 1 PH E IN AR A E [...] S ZA 10 09 09 D FUNMILAYO SC 1 PH E IN AR A E [...] S ZA 10 09 09 D FUNMILAYO SC 1 PH E IN AR A E [...] S ZA 10 09 09 D FUNMILAYO SC 1 PH E IN AR A E M 10 #3 93 MG 8 TA BL ET SC 00 05 06 00 6. 30 RI [...] BA ZA 10 09 09 D BA SC 1 PH TU IN AR ND E M E 10 #3 O 93 MG 8 TA BL ET SC 00 03 04 00 30 30 RI [...] 00 14 7 RI 76 GA Ac SC 17 -2 -1 .0 TE 83 IN ti OF 25 6- 2- 00 35 EY ve LO 31 20 20 AI XA 26 09 09 D KS CI 0 PH CH N AR AE HC M L L #3 S 50 93 0 8 MG TA B ME 00 01 02 00 21 6 RI 76 GA Ac TH 60 -2 -1 .0 TE 83 IN ti YL 34 6- 2- 00 37 EY ve SC 59 20 20 AI ED 31 09 09 D KS NI 5 PH CH SO AR AE [...] 00 30 15 RI 75 GO Ac SC 09 -1 -2 .0 TE 40 BL ti OX 30 2- 3- 00 02 E ve EN 14 20 20 AI RO 90 08 08 D ND 50 1 PH AL 0 AR E MG M #3 TA 93 BL 8 ET CI 00 08 09 00 10 5 RI 74 GA Ac SC 17 -3 -1 .0 TE 77 IN ti OF 25 0- 1- 00 56 EY ve LO 31 20 20 AI XA 26 08 08 D KS CI 0 PH CH N AR AE [...] TE 84 t ti ON 13 0- 4 00 77 Av ve AZ 19 20 [...] Comment LAPAROSCO 5123 [facility] [place] PIC 8 [facility] CHOLECYST INC INC ECTOMY LOW 741 [facility] CERVICAL 8 [facility] INC INC SECTION OTH 6639 [facility] [place] BILATERAL 8 [facility] INC INC DESTRUC/O CCLUSION FALLOPIAN TUBES Encounters Encounter Start End Date Code Location Performer Type Date [facility] TIM - Har[facility] 7 [facility] - [facility] 7 [facility] - [facility] - [facility] - 7 7 [facility] TIM - 7 7 [facility] TIM - 6 6 [facility] TIM - 6 6 [facility] TIM - 6 6 [facility] TIM - 5 5 [facility] TIM - 5 5 [facility] TIM - 5 5 [facility] TIM [facility] 5 5 [facility] TIM - 2 2 [facility] TIM - 2 2 [facility] TIM - 2 2 [facility] TIM - 1 1 [facility] TIM [facility] 1 1 [facility] TIM - 1 1 [facility] TIM [facility] 1 1 [facility] TIM - 1 1 [facility] TIM - 0 0 [facility] TIM [facility] 0 0 [facility] TIM - 0 0 [facility] TIM - 0 0 [facility] TIM - 0 0 MEM [...] TIM - 9 9 [facility] TIM - 9 9 MEM [...] TIM [facility] 8 8 [facility] TIM - 8 8 [facility] TIM [facility] 8 8 [facility] 8 [facility] TIM - 8 8 [facility] - 8 8 [facility] TIM [facility] 8 8 [facility] - 8 8 [facility] TIM - 8 8 [facility] TIM - 8 8 [facility] TIM - 8 8 [facility] TIM [facility] 8 8 [facility] TIM - 8 8 [facility] TIM [facility] 8 8 [facility] - 8 8 [facility] TIM - 8 8 [facility] TIM - 8 8 [facility] TIM [facility] 8 8 [facility] TIM - 8 8 [facility] TIM [facility] 8 8 [facility] - 8 8 [facility] [facility]PITAL
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
--- OUTSIDE RECORDS SUMMARY | 2017-08-15 15:54 | External Medical Summary Rpt | CCD ---
Author Author , DEN CRENSHAW Address Unknown Phone [email or web address] Immunization Name Date Rout CVX Reac Dose Comm Prov Is Faci e tion ent ider Refu lity Give sed n Infl 10-0 0.5 Hist PD20 No PD20 uenz 6-20 mL oric 255 255 a 17 al Quad Info rmat W/Pr ion es - Sour ce Unsp ecif ied Hep 10-0 8 999 Hist H149 No H149 B, 3-20 oric ped/ 02 al adol Info rmat ion - Sour ce Unsp ecif ied Hep 07-2 42 999 Hist H149 No H149 B, 8-19 oric adol 99 al Info High rmat Ris ion - Sour ce Unsp ecif ied Td 06-2 9 999 Hist H149 No H149 (cindy 8-19 oric lt), 99 al Info adso rmat rbed ion - Sour ce Unsp ecif ied Hep 06-2 42 999 Hist H149 No H149 B, 8-19 oric adol 99 al Info High rmat Ris ion - Sour ce Unsp ecif ied MMR 07-1 Intr 3 999 Hist H149 No H149 5-19 amus oric 96 cula al r Info rmat ion - Sour ce Unsp ecif ied
--- OUTSIDE RECORDS SUMMARY | 2017-08-15 15:54 | External Medical Summary Rpt | CCD ---
Author Author , DEN CRENSHAW Address Unknown Phone [email or web address] Immunization Name Date Rout CVX Reac Dose [...]
[2017-08-15] MEDS ORDERED: DULCOLAX STOOL100 MG PO (15:55)
--- OUTSIDE RECORDS SUMMARY | 2017-08-15 15:55 | External Medical Summary Rpt ---
Author Author DEN Vidales, [employer] Organization [employer] Address Unknown Phone Unavailable Results CBC W Auto Differential panel in Blood Observa Value Referen Units Interpr Notes Date tion ce etation Range Basophils 0 - 0.2 K/MM3 Normal No Jun 29 informati 2016 9:25 [#/volume on in AM ] in source Blood by data Automated count Basophils 0.1 - 2.0 % Normal No Jun 29 / informati 2017 9:25 leukocyte on in AM s in source Blood by data Automated count Eosinophi 0.0 - 0.4 K/mm3 Normal No Jun 29 ls informati 2016 9:25 [#/volume on in AM ] in source Blood by data Automated count Eosinophi 0.1 - % Normal No Jun 29 ls/100 12.0 informati 2017 9:25 leukocyte on in AM s in source Blood by data Automated count Granulocy 1.8 - 7.8 K/mm3 Normal No Jun 29 jessica informati 2017 9:25 [#/volume on in AM ] in source Blood by data Automated count Granulocy 37.0 - % Normal No Jun 29 jessica/100 80.0 informati 2016 9:25 leukocyte on in AM s in source Blood by data Automated count Hematocri 37.0 - % Normal No Jun 29 t [Volume 47.0 informati 2016 9:25 on in AM Fraction] source of Blood data Hemoglobi 12.2 - g/dL Normal No Jun 29 n 16.2 informati 2017 9:25 [Mass/vol on in AM ume] in source Blood data Lymphocyt 0.7 - 4.5 K/mm3 Normal No Jun 29 es informati 2016 9:25 [#/volume on in AM ] in source Unspecifi data ed specimen by Automated count Lymphocyt 10 - 50.0 % Normal No Jun 29 es informati 2017 9:25 [#/volume on in AM ] in source Unspecifi data ed specimen by Automated count Erythrocy 27 - 31.2 pg Normal No Oct 3 te mean informati 2016 9:25 corpuscul on in AM ar source hemoglobi data n [Entitic mass] Erythrocy 31.8 - g/dl Normal No Jun 29 te mean 35.4 informati 2016 9:25 corpuscul on in AM ar source hemoglobi data n concentra tion [Mass/vol ume] by Automated count Erythrocy 82.2 - fl Normal No Jun 29 te mean 97.8 informati 2016 9:25 corpuscul on in AM ar volume source [Entitic data volume] by Automated count Monocytes 0.1 - 1.0 K/mm3 Normal No Jun 29 inform2016 9:25 [#/volume on in AM ] in source Blood by data Automated count Monocytes 1.7 - 9.3 % Normal No Jun 29 /100 informati 2016 9:25 leukocyte on in AM s in source Blood by data Automated count Platelets 142 - 424 K/mm3 Normal No Jun 29 inform2016 9:25 [#/volume on in AM ] in source Blood data Erythrocy 4.2 - 5.4 M/mm3 Normal No Jun 29 jessica informati 2016 9:25 [#/volume on in AM ] in source Amniotic data fluid Erythrocy 11.5 - % Normal No Jun 29 te 17.5 informati 2016 9:25 distribut on in AM ion width source [Entitic data volume] by Automated count Leukocyte 4.8 - K/MM3 Low No Jun 29 s 10.8 informati 2016 9:25 [#/volume on in AM ] in source Blood data Influenza virus A+B Ag [Presence] in Unspecified specimen Observa Value Referen Units Interpr Notes Date tion ce etation Range Influen NOT NOT No No No Jun 29 za DETECTE DETECTD informa informa informa 2017 virus A D tion in tion in tion in 9:05 AM Ag source source source [Presen data data data ce] in Unspeci fied specime n Influen NOT NOT No No No Jun 29 za DETECTE DETECTD informa informa informa 2017 virus B D tion in tion in tion in 9:05 AM Ag source source source [Presen data data data ce] in Unspeci fied specime n Streptococcus pyogenes Ag [Presence] in Unspecified specimen Observa Value Referen Units Interpr Notes Date tion ce etation Range Strepto NEGATIV No No No No Oct 3 coccus E informa informa informa informa 2017 pyogene tion in tion in tion in tion in 9:05 AM s Ag source source source source [Presen data data data data ce] in Unspeci fied specime n CBC W Auto Differential panel in Blood Observa Value Referen Units Interpr Notes Date tion ce etation Range Basophils 0 - 0.2 K/MM3 Normal No Sep 11 informati 2016 2:50 [#/volume on in PM ] in source Blood by data Automated count Basophils 0.1 - 2.0 % Normal No Sep 11 /100 informati 2017 2:50 leukocyte on in PM s in source Blood by data Automated count Eosinophi 0.0 - 0.4 K/mm3 Normal No Sep 11 ls informati 2017 2:50 [#/volume on in PM ] in source Blood by data Automated count Eosinophi 0.1 - % Normal No Sep 11 ls/100 12.0 informati 2017 2:50 leukocyte on in PM s in source Blood by data Automated count Granulocy 1.8 - 7.8 K/mm3 Normal No Sep 11 jessica informati 2017 2:50 [#/volume on in PM ] in source Blood by data Automated count Granulocy 37.0 - % Normal No Sep 11 jessica/100 80.0 informati 2017 2:50 leukocyte on in PM s in source Blood by data Automated count Hematocri 37.0 - % Normal No Sep 11 t [Volume 47.0 informati 2017 2:50 on in PM Fraction] source of Blood data Hemoglobi 12.2 - g/dL Normal No Sep 11 n 16.2 informati 2017 2:50 [Mass/vol on in PM ume] in source Blood data Lymphocyt 0.7 - 4.5 K/mm3 Normal No Sep 11 es informati 2017 2:50 [#/volume on in PM ] in source Unspecifi data ed specimen by Automated count Lymphocyt 10 - 50.0 % Normal No Sep 11 es informati 2017 2:50 [#/volume on in PM ] in source Unspecifi data ed specimen by Automated count Erythrocy 27 - 31.2 pg Normal No Sep 11 te mean informati 2016 2:50 corpuscul on in PM ar source hemoglobi data n [Entitic mass] Erythrocy 31.8 - g/dl Normal No Sep 11 te mean 35.4 informati 2016 2:50 corpuscul on in PM ar source hemoglobi data n concentra tion [Mass/vol ume] by Automated count Erythrocy 82.2 - fl Normal No Sep 11 te mean 97.8 inform2016 2:50 corpuscul on in PM ar volume source [Entitic data volume] by Automated count Monocytes 0.1 - 1.0 K/mm3 Normal No Sep 11 inform2016 2:50 [#/volume on in PM ] in source Blood by data Automated count Monocytes 1.7 - 9.3 % Normal No Sep 11 /100 informati 2016 2:50 leukocyte on in PM s in source Blood by data Automated count Platelet 7.4 - fl Normal No Sep 11 mean 10.4 informati 2016 2:50 volume on in PM [Entitic source volume] data in Blood by Automated count Platelets 142 - 424 K/mm3 Normal No Sep 11 2016 2:50 [#/volume on in PM ] in source Blood data Erythrocy 4.2 - 5.4 M/mm3 Normal No Sep 11 jessica 2016 2:50 [#/volume on in PM ] in source Amniotic data fluid Erythrocy 11.5 - % Normal No Sep 11 te 17.5 informati 2016 2:50 distribut on in PM ion width source [Entitic data volume] by Automated count Leukocyte 4.8 - K/MM3 Normal No Sep 11 s 10.8 informati 2016 2:50 [#/volume on in PM ] in source Blood data Comprehensive metabolic 2000 panel in Serum or Plasma Observa Value Referen Units Interpr Notes Date tion ce etation Range Albumin/G 1.1 - 1.8 No Normal No Mar 26 lobulin informati informati 2016 [Mass on in on in 11:01 AM ratio] in source source Serum or data data Plasma Albumin 3.4 - 5.0 gm/dL Normal No Mar 26 [Mass/vol informati 2016 ume] in on in 11:01 AM Serum or source Plasma data Alkaline 46 - 116 U/L Normal No Mar 26 phosphata inform2016 se on in 11:01 AM [Enzymati source c data activity/ volume] in Serum or Plasma Bilirubin 0.2 - 1.0 mg/dL Normal No Mar 26 .total inform2016 [Mass/vol on in 11:01 AM ume] in source Serum or data Plasma Urea 7 - 18 mg/dL Normal No Mar 26 nitrogen informati 2016 [Mass/vol on in 11:01 AM ume] in source Serum or data Plasma Calcium 8.5 - mg/dL Normal No Mar 26 [Mass/vol 10.1 informati 2016 ume] in on in 11:01 AM Serum or source Plasma data Chloride 98 - 107 mmoL/L Normal No Mar 26 [Moles/vo informati 2016 lume] in on in 11:01 AM Serum or source Plasma data Carbon 21.0 - mmoL/L Normal No Mar 26 dioxide, 32.0 informati 2016 total on in 11:01 AM [Moles/vo source lume] in data Serum or Plasma Creatinin 0.55 - mg/dL Normal No Mar 26 e 1.02 informati 2016 [Mass/vol on in 11:01 AM ume] in source Serum or data Plasma Estimated 59- ML/MIN No REFERENCE Mar 26 informati RANGE: 2017 glomerula on in >60 11:01 AM r source ML/MIN/1. filtratio data 73 SQUARE n rate METERSIf (GF this patient is -A merican, then multiply theresult by 1.210. Globulin 1.3 - 3.2 gm/dL High No Mar 26 [Mass/vol informati 2016 ume] in on in 11:01 AM Serum source data Glucose 74 - 106 mg/dL Normal No Mar 26 [Mass/vol informati 2016 ume] in on in 11:01 AM Serum or source Plasma data Potassium 3.5 - 5.1 mmoL/L Normal No Mar 26 inform2016 [Moles/vo on in 11:01 AM lume] in source Serum or data Plasma Sodium 136 - 145 mmoL/L Normal No Mar 26 [Moles/vo informati 2017 lume] in on in 11:01 AM Serum or source Plasma data Aspartate 15 - 37 U/L Low No Mar 26 informati 2016 aminotran on in 11:01 AM sferase source [Enzymati data c activity/ volume] in Serum or Plasma Alanine 12 - 78 U/L Normal No Mar 26 aminotran inform2016 sferase on in 11:01 AM [Enzymati source c data activity/ volume] in Serum or Plasma Protein 6.4 - 8.2 gm/dL Normal No Mar 26 [Mass/vol informati 2016 ume] in on in 11:01 AM Serum or source Plasma data CBC W Auto Differential panel in Blood Observa Value Referen Units Interpr Notes Date tion ce etation Range Basophils 0 - 0.2 K/MM3 Normal No Mar 26 informati 2016 [#/volume on in 11:01 AM ] in source Blood by data Automated count Basophils 0.1 - 2.0 % Normal No Mar 26 /100 informati 2016 leukocyte on in 11:01 AM s in source Blood by data Automated count Eosinophi 0.0 - 0.4 K/mm3 Normal No Mar 26 ls informati 2016 [#/volume on in 11:01 AM ] in source Blood by data Automated count Eosinophi 0.1 - % Normal No Mar 26 ls/100 12.0 informati 2016 leukocyte on in 11:01 AM s in source Blood by data Automated count Granulocy 1.8 - 7.8 K/mm3 Normal No Mar 26 jessica informati 2016 [#/volume on in 11:01 AM ] in source Blood by data Automated count Granulocy 37.0 - % Normal No Mar 26 jessica/100 80.0 informati 2016 leukocyte on in 11:01 AM s in source Blood by data Automated count Hematocri 37.0 - % Normal No Mar 26 t [Volume 47.0 informati 2016 on in 11:01 AM Fraction] source of Blood data Hemoglobi 12.2 - g/dL Normal No Mar 26 n 16.2 informati 2016 [Mass/vol on in 11:01 AM ume] in source Blood data Lymphocyt 0.7 - 4.5 K/mm3 Normal No Mar 26 es informati 2016 [#/volume on in 11:01 AM ] in source Unspecifi data ed specimen by Automated count Lymphocyt 10 - 50.0 % Normal No Mar 26 es informati 2016 [#/volume on in 11:01 AM ] in source Unspecifi data ed specimen by Automated count Erythrocy 27 - 31.2 pg Normal No Mar 26 te mean informati 2016 corpuscul on in 11:01 AM ar source hemoglobi data n [Entitic mass] Erythrocy 31.8 - g/dl Normal No Mar 26 te mean 35.4 informati 2016 corpuscul on in 11:01 AM ar source hemoglobi data n concentra tion [Mass/vol ume] by Automated count Erythrocy 82.2 - fl Normal No Mar 26 te mean 97.8 informati 2016 corpuscul on in 11:01 AM ar volume source [Entitic data volume] by Automated count Monocytes 0.1 - 1.0 K/mm3 Normal No Mar 26 inform2016 [#/volume on in 11:01 AM ] in source Blood by data Automated count Monocytes 1.7 - 9.3 % Normal No Feb 30 /100 2016 leukocyte on in 11:01 AM s in source Blood by data Automated count Platelet 7.4 - fl Low No Mar 26 mean 10.4 2016 volume on in 11:01 AM [Entitic source volume] data in Blood by Automated count Platelets 142 - 424 K/mm3 Normal No Mar 26 inform2016 [#/volume on in 11:01 AM ] in source Blood data Erythrocy 4.2 - 5.4 M/mm3 Normal No Mar 26 jessica inform2016 [#/volume on in 11:01 AM ] in source Amniotic data fluid Erythrocy 11.5 - % Normal Mar 26 te 17.5 2016 distribut on in 11:01 AM ion width source [Entitic data volume] by Automated count Leukocyte 4.8 - K/MM3 Normal No Mar 26 s 10.8 2016 [#/volume on in 11:01 AM ] in source Blood data PT & aPTT panel in Platelet poor plasma by Coagulation assay Observa Value Referen Units Interpr Notes Date tion ce etation Range INR in 0.9 - 1.1 No Normal INDICATIO Mar 26 Blood by informati N 2016 Coagulati on in 11:01 AM on assay source INR data RANGETHER APY FOR DVT, PE, ATRIAL FIB; 2.0 - 3.0PROPHY LAXIS FOR VTETHERAP Y FOR MECHANICA L HEART 2.5 - 3.5VALVE; PREVENTIO N OF SYSTEMICE MBOLISM SECONDARY TO AMI Prothromb 9.4 - SECONDS Normal No Mar 26 in time 11.8 2016 (PT) in on in 11:01 AM Platelet source poor data plasma by Coagulati on assay Activated 23.6 - SECONDS Normal No Mar 26 partial 34.0 2016 thrombpla on in 11:01 AM stin time source (aPTT) data in Platelet poor plasma by Coagulati on assay Comprehensive metabolic 2000 panel in Serum or [...] [Mass/vol informati 2016 ume] in on in 11: AM Serum or source Plasma data Alkaline 46 - 116 U/L Normal No February 18 phosphata informati 2016 se on in 11: AM [Enzymati source c data activity/ volume] in Serum or Plasma Bilirubin 0.2 - 1.0 mg/dL Normal No February 18 .total informati 2016 [Mass/vol on in 11: AM ume] in source Serum or data Plasma Urea 7 - 18 mg/dL Normal No February 18 nitrogen informati 2016 [Mass/vol on in 11: AM ume] in source Serum or data Plasma Calcium 8.5 - mg/dL Normal No February 18 [Mass/vol 10.1 informati 2016 ume] in on in 11: AM Serum or source Plasma data Chloride 98 - 107 mmoL/L Normal No February 18 [Moles/vo informati 2016 lume] in on in 11: AM Serum or source Plasma data Carbon 21.0 - mmoL/L Normal No February 18 dioxide, 32.0 informati 2016 total on in 11: AM [Moles/vo source lume] in data Serum or Plasma Creatinin 0.55 - mg/dL Normal No February 18 e 1.02 informati 2016 [Mass/vol on in 11: AM ume] in source Serum or data Plasma Estimated 59- ML/MIN No REFERENCE February 18 informati RANGE: 2017 glomerula on in >60 11:26 AM r source ML/MIN/1. filtratio data 73 SQUARE n rate METERSIf (GF this patient is -A merican, then multiply theresult by 1.210. Globulin 1.3 - 3.2 gm/dL High No February 18 [Mass/vol informati 2017 ume] in on in 11:26 AM Serum source data Glucose 74 - 106 mg/dL High No February 18 [Mass/vol informati 2017 ume] in on in 11:26 AM Serum or source Plasma data Potassium 3.5 - 5.1 mmoL/L Normal No February 18 informati 2016 [Moles/vo on in 11:26 AM lume] in [...] High No February 18 ol in HDL inform2016 on in 11:26 AM [Mass/vol source ume] in data Serum or Plasma Cholester 0 - 130 mg/dL Normal No February 18 ol in LDL inform2016 on in 11:26 AM [Mass/vol source ume] in data Serum or Plasma by calculati on Triglycer 30 - 200 mg/dL Normal No February 18 janusz 2016 [Moles/vo on in 11:26 AM lume] in source Serum or data Plasma Cholester 0 - 40 No Normal No February 18 ol in informati informati 2016 VLDL on in on in 11:26 AM [Mass/vol source source ume] in data data Serum or Plasma
[2017-08-15 16:19] VITALS: BP 129/76
== END 2017-08-15 16:20 | disposition home or self-care (01) ==
LOC: ER 13:55
PROVIDERS: Emergency Medicine
DX: N39.0 Urinary tract infection, site not specified (principal); J44.9 Chronic obstructive pulmonary disease, unspecified; F17.210 Nicotine dependence, cigarettes, uncomplicated

== ENCOUNTER → 2017-08-16 | Outpatient (CLI) | payer MEDICAID ==
[~2017-08-16] MED LIST changes: +BACTRIM DS 8001 TA1 PO; +DULCOLAX STOOL100 MG PO
== END ==
LOC: LAB 09:27
DX: N94.9 Unspecified condition associated with female genital organs and menstrual cycle (principal)

== ENCOUNTER → 2017-08-27 | Outpatient (CLI) | payer MEDICAID ==
[~2017-08-27] MED LIST changes: +ANORO ELLIPTA1 POW IH; +HYDROCODONE/APA1 TA8 PO
[2017-08-27 09:38] LABS: HEMOGLOBIN 12.9 g/dL (12.2-16.2); LYMPH # 1.7 K/mm3 (0.7-4.5); LYMPH % 32.9 % (10-50.0)
[2017-08-27 09:41] LABS: URINE BILIRUBIN - DIPSTICK NEGATIVE (NEG); URINE BLOOD TRACE-INTACT (NEG)
[2017-08-27 10:55] LABS: BUN 14 mg/dL (7-18)
[2017-08-27 10:56] LABS: GFR (ESTIMATED) 83 ML/MIN (59-)
== END ==
LOC: LAB 09:17
PROVIDERS: Obstetrics & Gynecology
DX: N94.9 Unspecified condition associated with female genital organs and menstrual cycle (principal); Z01.812 Encounter for preprocedural laboratory examination